=== PATIENT | female | born 1955 | race Hispanic/Latino ===

== ENCOUNTER 2016-07-30 09:31 | Outpatient (CLI) | payer MEDICARE ==
[2016-07-30] MEDS ORDERED: XYLOCAINE TOPICAL 2% TP ONE (09:57)
== END 2016-07-30 09:32 | disposition home or self-care (01) ==
LOC: WOUND 09:31
PROVIDERS: ATTEND Podiatrist
DX: E11.621 Type 2 diabetes mellitus with foot ulcer (principal); T81.89XD Other complications of procedures, not elsewhere classified, subsequent encounter; L97.522 Non-pressure chronic ulcer of other part of left foot with fat layer exposed; L97.412 Non-pressure chronic ulcer of right heel and midfoot with fat layer exposed; L97.521 Non-pressure chronic ulcer of other part of left foot limited to breakdown of skin; E78.5 Hyperlipidemia, unspecified; I25.10 Atherosclerotic heart disease of native coronary artery without angina pectoris; E11.40 Type 2 diabetes mellitus with diabetic neuropathy, unspecified; I10 Essential (primary) hypertension; I48.91 Unspecified atrial fibrillation; R05 Cough; R41.3 Other amnesia; Z87.891 Personal history of nicotine dependence; Z89.422 Acquired absence of other left toe(s); Y83.9 Surgical procedure, unspecified as the cause of abnormal reaction of the patient, or of later complication, without mention of misadventure at the time of the procedure

== ENCOUNTER 2016-08-20 11:12 | Outpatient (CLI) | payer MEDICARE ==
[2016-08-20] MEDS ORDERED: XYLOCAINE TOPICAL 4% TP ONE ×3 (11:25→14:46)
== END 2016-08-20 11:13 | disposition home or self-care (01) ==
LOC: WOUND 11:12
PROVIDERS: ATTEND Podiatrist
DX: E11.621 Type 2 diabetes mellitus with foot ulcer (principal); L97.412 Non-pressure chronic ulcer of right heel and midfoot with fat layer exposed; E11.40 Type 2 diabetes mellitus with diabetic neuropathy, unspecified; I10 Essential (primary) hypertension; I48.91 Unspecified atrial fibrillation; R41.3 Other amnesia; H91.90 Unspecified hearing loss, unspecified ear; E78.5 Hyperlipidemia, unspecified; I25.10 Atherosclerotic heart disease of native coronary artery without angina pectoris

== ENCOUNTER 2016-09-17 11:20 | Outpatient (CLI) | payer MEDICARE ==
[2016-09-17] MEDS ORDERED: XYLOCAINE TOPICAL 2% ONE (12:13)
[2016-09-17] MEDS ORDERED: SILVER NITRATE TP ONE ×2 (12:45→13:44)
[2016-09-17] MEDS ORDERED: XYLOCAINE TOPICAL 2% TP ONE (13:44)
== END 2016-09-17 11:21 | disposition home or self-care (01) ==
LOC: WOUND 11:20
PROVIDERS: ATTEND Podiatrist
DX: E11.621 Type 2 diabetes mellitus with foot ulcer (principal); L97.412 Non-pressure chronic ulcer of right heel and midfoot with fat layer exposed; E11.40 Type 2 diabetes mellitus with diabetic neuropathy, unspecified; R41.3 Other amnesia; H91.90 Unspecified hearing loss, unspecified ear; E78.5 Hyperlipidemia, unspecified; I48.91 Unspecified atrial fibrillation; I25.10 Atherosclerotic heart disease of native coronary artery without angina pectoris; I10 Essential (primary) hypertension; Z87.891 Personal history of nicotine dependence

== ENCOUNTER 2016-11-08 08:27 | Outpatient (CLI) | payer MEDICARE ==
[2016-11-08] MEDS ORDERED: XYLOCAINE TOPICAL 4% TP ONE ×2 (08:38→11:16)
[2016-11-08] MEDS ORDERED: MONSEL'S TP ONE ×2 (09:05→11:22)
== END 2016-11-08 08:28 | disposition home or self-care (01) ==
LOC: WOUND 08:27
PROVIDERS: ATTEND Podiatrist
DX: E11.621 Type 2 diabetes mellitus with foot ulcer (principal); L97.412 Non-pressure chronic ulcer of right heel and midfoot with fat layer exposed; E11.40 Type 2 diabetes mellitus with diabetic neuropathy, unspecified; H91.90 Unspecified hearing loss, unspecified ear; R41.3 Other amnesia; E78.5 Hyperlipidemia, unspecified; I48.91 Unspecified atrial fibrillation; I25.10 Atherosclerotic heart disease of native coronary artery without angina pectoris; I10 Essential (primary) hypertension; Z87.891 Personal history of nicotine dependence
CPT/HCPCS: 87116

== ENCOUNTER 2016-11-15 08:35 | Outpatient (CLI) | payer MEDICARE ==
[2016-11-15] MEDS ORDERED: XYLOCAINE TOPICAL 4% TP ONE (08:51)
== END 2016-11-15 08:36 | disposition home or self-care (01) ==
LOC: WOUND 08:35
PROVIDERS: ATTEND Podiatrist
DX: E11.621 Type 2 diabetes mellitus with foot ulcer (principal); L97.412 Non-pressure chronic ulcer of right heel and midfoot with fat layer exposed; E11.40 Type 2 diabetes mellitus with diabetic neuropathy, unspecified; H91.90 Unspecified hearing loss, unspecified ear; I48.91 Unspecified atrial fibrillation; E78.5 Hyperlipidemia, unspecified; I25.10 Atherosclerotic heart disease of native coronary artery without angina pectoris; I10 Essential (primary) hypertension; Z87.891 Personal history of nicotine dependence

== ENCOUNTER 2016-12-20 13:29 | Outpatient (CLI) | payer MEDICARE ==
[2016-12-20] MEDS ORDERED: XYLOCAINE TOPICAL 4% TP ONE (13:46)
== END 2016-12-20 13:30 | disposition home or self-care (01) ==
LOC: WOUND 13:29
PROVIDERS: ATTEND Podiatrist
DX: E11.621 Type 2 diabetes mellitus with foot ulcer (principal); L97.412 Non-pressure chronic ulcer of right heel and midfoot with fat layer exposed; E11.40 Type 2 diabetes mellitus with diabetic neuropathy, unspecified; H91.90 Unspecified hearing loss, unspecified ear; R41.3 Other amnesia; E78.5 Hyperlipidemia, unspecified; I48.91 Unspecified atrial fibrillation; I25.10 Atherosclerotic heart disease of native coronary artery without angina pectoris; I10 Essential (primary) hypertension; Z87.891 Personal history of nicotine dependence

== ENCOUNTER 2016-12-27 10:23 | Outpatient (CLI) | payer MEDICARE ==
[2016-12-27] MEDS ORDERED: XYLOCAINE TOPICAL 4% TP ONE (10:44)
== END 2016-12-27 10:24 | disposition home or self-care (01) ==
LOC: WOUND 10:23
PROVIDERS: ATTEND Podiatrist
DX: E11.621 Type 2 diabetes mellitus with foot ulcer (principal); L97.412 Non-pressure chronic ulcer of right heel and midfoot with fat layer exposed; E11.40 Type 2 diabetes mellitus with diabetic neuropathy, unspecified; H91.90 Unspecified hearing loss, unspecified ear; I48.91 Unspecified atrial fibrillation; I25.10 Atherosclerotic heart disease of native coronary artery without angina pectoris; E78.5 Hyperlipidemia, unspecified; I10 Essential (primary) hypertension; Z87.891 Personal history of nicotine dependence

== ENCOUNTER 2017-01-10 10:30 | Outpatient (CLI) | payer MEDICARE ==
[2017-01-10] MEDS ORDERED: XYLOCAINE TOPICAL 4% TP ONE ×2 (10:53→11:05)
== END 2017-01-10 10:31 | disposition home or self-care (01) ==
LOC: WOUND 10:30
PROVIDERS: ATTEND Podiatrist
DX: E11.621 Type 2 diabetes mellitus with foot ulcer (principal); L97.412 Non-pressure chronic ulcer of right heel and midfoot with fat layer exposed; E11.40 Type 2 diabetes mellitus with diabetic neuropathy, unspecified; E78.5 Hyperlipidemia, unspecified; I48.91 Unspecified atrial fibrillation; I25.10 Atherosclerotic heart disease of native coronary artery without angina pectoris; I10 Essential (primary) hypertension; H91.90 Unspecified hearing loss, unspecified ear; Z87.891 Personal history of nicotine dependence

== ENCOUNTER 2017-01-17 09:54 | Outpatient (CLI) | payer MEDICARE ==
[2017-01-17] MEDS ORDERED: XYLOCAINE TOPICAL 2% ONE (10:00)
[2017-01-17] MEDS ORDERED: XYLOCAINE TOPICAL 4% TP ONE (11:32)
== END 2017-01-17 09:55 | disposition home or self-care (01) ==
LOC: WOUND 09:54
PROVIDERS: ATTEND Podiatrist
DX: E11.621 Type 2 diabetes mellitus with foot ulcer (principal); L97.412 Non-pressure chronic ulcer of right heel and midfoot with fat layer exposed; E11.40 Type 2 diabetes mellitus with diabetic neuropathy, unspecified; H91.90 Unspecified hearing loss, unspecified ear; E78.5 Hyperlipidemia, unspecified; I48.91 Unspecified atrial fibrillation; I25.10 Atherosclerotic heart disease of native coronary artery without angina pectoris; I10 Essential (primary) hypertension; Z87.891 Personal history of nicotine dependence

== ENCOUNTER 2017-01-31 10:15 | Outpatient (CLI) | payer MEDICARE ==
[2017-01-31] MEDS ORDERED: XYLOCAINE TOPICAL 4% TP ONE ×2 (10:30→10:37)
== END 2017-01-31 10:16 | disposition home or self-care (01) ==
LOC: WOUND 10:15
PROVIDERS: ATTEND Podiatrist
DX: E11.621 Type 2 diabetes mellitus with foot ulcer (principal); L97.412 Non-pressure chronic ulcer of right heel and midfoot with fat layer exposed; E11.40 Type 2 diabetes mellitus with diabetic neuropathy, unspecified; H91.90 Unspecified hearing loss, unspecified ear; E78.5 Hyperlipidemia, unspecified; I48.91 Unspecified atrial fibrillation; I25.10 Atherosclerotic heart disease of native coronary artery without angina pectoris; I10 Essential (primary) hypertension; Z87.891 Personal history of nicotine dependence

== ENCOUNTER 2017-02-07 10:13 | Outpatient (CLI) | payer MEDICARE ==
[2017-02-07] MEDS ORDERED: XYLOCAINE TOPICAL 4% TP ONE (10:28)
== END 2017-02-07 10:14 | disposition home or self-care (01) ==
LOC: WOUND 10:13
PROVIDERS: ATTEND Podiatrist
DX: E11.621 Type 2 diabetes mellitus with foot ulcer (principal); L97.412 Non-pressure chronic ulcer of right heel and midfoot with fat layer exposed; E11.40 Type 2 diabetes mellitus with diabetic neuropathy, unspecified; E78.5 Hyperlipidemia, unspecified; I48.91 Unspecified atrial fibrillation; I25.10 Atherosclerotic heart disease of native coronary artery without angina pectoris; H91.90 Unspecified hearing loss, unspecified ear; Z87.891 Personal history of nicotine dependence

== ENCOUNTER 2017-03-07 10:02 | Outpatient (CLI) | payer MEDICARE ==
[~2017-03-07 10:02] MED LIST: NACL 0.45% 1000 ML 1,000 ML IV ONE
[2017-03-07] MEDS ORDERED: XYLOCAINE TOPICAL 4% TP ONE ×2 (10:39→10:49)
== END 2017-03-07 10:03 | disposition home or self-care (01) ==
LOC: WOUND 10:02
PROVIDERS: ATTEND Podiatrist
DX: E11.621 Type 2 diabetes mellitus with foot ulcer (principal); L97.412 Non-pressure chronic ulcer of right heel and midfoot with fat layer exposed; E11.40 Type 2 diabetes mellitus with diabetic neuropathy, unspecified; H91.90 Unspecified hearing loss, unspecified ear; E78.5 Hyperlipidemia, unspecified; I48.91 Unspecified atrial fibrillation; I25.10 Atherosclerotic heart disease of native coronary artery without angina pectoris; I10 Essential (primary) hypertension; Z87.891 Personal history of nicotine dependence
CPT/HCPCS: J1815

== ENCOUNTER 2017-04-04 09:56 | Outpatient (CLI) | payer MEDICARE ==
[2017-04-04] MEDS ORDERED: XYLOCAINE TOPICAL 4% TP ONE ×3 (10:19→10:45)
[2017-04-04] MEDS ORDERED: SILVER NITRATE TP ONE (11:33)
== END 2017-04-04 09:57 | disposition home or self-care (01) ==
LOC: WOUND 09:56
PROVIDERS: ATTEND Podiatrist
DX: E11.621 Type 2 diabetes mellitus with foot ulcer (principal); L97.412 Non-pressure chronic ulcer of right heel and midfoot with fat layer exposed; E11.40 Type 2 diabetes mellitus with diabetic neuropathy, unspecified; H91.90 Unspecified hearing loss, unspecified ear; I48.91 Unspecified atrial fibrillation; I25.10 Atherosclerotic heart disease of native coronary artery without angina pectoris; E78.5 Hyperlipidemia, unspecified; I10 Essential (primary) hypertension; Z87.891 Personal history of nicotine dependence

== ENCOUNTER 2017-04-11 10:04 | Outpatient (CLI) | payer MEDICARE ==
[2017-04-11] MEDS ORDERED: XYLOCAINE TOPICAL 4% TP ONE (10:20)
== END 2017-04-11 10:05 | disposition home or self-care (01) ==
LOC: WOUND 10:04
PROVIDERS: ATTEND Podiatrist
DX: E11.621 Type 2 diabetes mellitus with foot ulcer (principal); L97.412 Non-pressure chronic ulcer of right heel and midfoot with fat layer exposed; E11.40 Type 2 diabetes mellitus with diabetic neuropathy, unspecified; I25.10 Atherosclerotic heart disease of native coronary artery without angina pectoris; I48.91 Unspecified atrial fibrillation; E78.5 Hyperlipidemia, unspecified; I10 Essential (primary) hypertension; Z87.891 Personal history of nicotine dependence

== ENCOUNTER 2017-04-18 10:48 | Outpatient (CLI) | payer MEDICARE ==
[2017-04-18] MEDS ORDERED: XYLOCAINE TOPICAL 4% TP ONE (11:04)
== END 2017-04-18 10:49 | disposition home or self-care (01) ==
LOC: WOUND 10:48
PROVIDERS: ATTEND Podiatrist
DX: E11.621 Type 2 diabetes mellitus with foot ulcer (principal); L97.412 Non-pressure chronic ulcer of right heel and midfoot with fat layer exposed; E11.40 Type 2 diabetes mellitus with diabetic neuropathy, unspecified; E78.5 Hyperlipidemia, unspecified; I48.91 Unspecified atrial fibrillation; I25.10 Atherosclerotic heart disease of native coronary artery without angina pectoris; I10 Essential (primary) hypertension; Z87.891 Personal history of nicotine dependence
CPT/HCPCS: 29445

== ENCOUNTER 2017-04-22 14:18 | Outpatient (CLI) | payer MEDICARE | END 2017-04-22 14:19 | disposition home or self-care (01) | LOC: WOUND 14:18 | PROVIDERS: ATTEND Surgery | DX: E11.621 Type 2 diabetes mellitus with foot ulcer (principal); L97.511 Non-pressure chronic ulcer of other part of right foot limited to breakdown of skin; E11.40 Type 2 diabetes mellitus with diabetic neuropathy, unspecified; E78.5 Hyperlipidemia, unspecified; I48.91 Unspecified atrial fibrillation; I25.10 Atherosclerotic heart disease of native coronary artery without angina pectoris; I10 Essential (primary) hypertension; Z87.891 Personal history of nicotine dependence | CPT/HCPCS: 29445 ==

== ENCOUNTER 2017-04-25 09:43 | Outpatient (CLI) | payer MEDICARE ==
[2017-04-25] MEDS ORDERED: XYLOCAINE TOPICAL 4% TP ONE (10:12)
== END 2017-04-25 09:44 | disposition home or self-care (01) ==
LOC: WOUND 09:43
PROVIDERS: ATTEND Podiatrist
DX: E11.621 Type 2 diabetes mellitus with foot ulcer (principal); L97.412 Non-pressure chronic ulcer of right heel and midfoot with fat layer exposed; E11.40 Type 2 diabetes mellitus with diabetic neuropathy, unspecified; E78.5 Hyperlipidemia, unspecified; I48.91 Unspecified atrial fibrillation; I25.10 Atherosclerotic heart disease of native coronary artery without angina pectoris; I10 Essential (primary) hypertension; Z87.891 Personal history of nicotine dependence
CPT/HCPCS: 29445

== ENCOUNTER 2017-05-09 10:00 | Outpatient (CLI) | payer MEDICARE ==
[2017-05-09] MEDS ORDERED: XYLOCAINE TOPICAL 4% TP ONE ×2 (10:25→11:16)
== END 2017-05-09 10:01 | disposition home or self-care (01) ==
LOC: WOUND 10:00
PROVIDERS: ATTEND Podiatrist
DX: E11.621 Type 2 diabetes mellitus with foot ulcer (principal); L97.412 Non-pressure chronic ulcer of right heel and midfoot with fat layer exposed; E11.40 Type 2 diabetes mellitus with diabetic neuropathy, unspecified; E78.5 Hyperlipidemia, unspecified; I48.91 Unspecified atrial fibrillation; I25.10 Atherosclerotic heart disease of native coronary artery without angina pectoris; H91.90 Unspecified hearing loss, unspecified ear; Z87.891 Personal history of nicotine dependence

== ENCOUNTER 2017-05-16 10:23 | Outpatient (CLI) | payer MEDICARE ==
[2017-05-16] MEDS ORDERED: XYLOCAINE TOPICAL 4% TP ONE (12:00)
== END 2017-05-16 10:24 | disposition home or self-care (01) ==
LOC: WOUND 10:23
PROVIDERS: ATTEND Podiatrist
DX: E11.621 Type 2 diabetes mellitus with foot ulcer (principal); L97.412 Non-pressure chronic ulcer of right heel and midfoot with fat layer exposed; L97.521 Non-pressure chronic ulcer of other part of left foot limited to breakdown of skin; E11.40 Type 2 diabetes mellitus with diabetic neuropathy, unspecified; E78.5 Hyperlipidemia, unspecified; I48.91 Unspecified atrial fibrillation; I25.10 Atherosclerotic heart disease of native coronary artery without angina pectoris; I10 Essential (primary) hypertension; Z87.891 Personal history of nicotine dependence

== ENCOUNTER 2017-05-30 10:25 | Outpatient (CLI) | payer MEDICARE ==
[2017-05-30] MEDS ORDERED: XYLOCAINE TOPICAL 4% TP ONE (10:46)
== END 2017-05-30 10:26 | disposition home or self-care (01) ==
LOC: WOUND 10:25
PROVIDERS: ATTEND Podiatrist
DX: E11.621 Type 2 diabetes mellitus with foot ulcer (principal); L97.412 Non-pressure chronic ulcer of right heel and midfoot with fat layer exposed; L97.521 Non-pressure chronic ulcer of other part of left foot limited to breakdown of skin; E11.40 Type 2 diabetes mellitus with diabetic neuropathy, unspecified; E78.5 Hyperlipidemia, unspecified; I10 Essential (primary) hypertension; I25.10 Atherosclerotic heart disease of native coronary artery without angina pectoris; I48.91 Unspecified atrial fibrillation; H91.90 Unspecified hearing loss, unspecified ear; Z87.891 Personal history of nicotine dependence

== ENCOUNTER 2017-06-13 10:51 | Outpatient (CLI) | payer MEDICARE ==
[2017-06-13] MEDS ORDERED: XYLOCAINE 1% 20 mL ONE (11:18)
[2017-06-13] MEDS ORDERED: XYLOCAINE TOPICAL 4% TP ONE ×2 (11:18→11:54)
== END 2017-06-13 10:52 | disposition home or self-care (01) ==
LOC: WOUND 10:51
PROVIDERS: ATTEND Podiatrist
DX: E11.621 Type 2 diabetes mellitus with foot ulcer (principal); L97.412 Non-pressure chronic ulcer of right heel and midfoot with fat layer exposed; E11.40 Type 2 diabetes mellitus with diabetic neuropathy, unspecified; E78.5 Hyperlipidemia, unspecified; I48.91 Unspecified atrial fibrillation; I25.10 Atherosclerotic heart disease of native coronary artery without angina pectoris; H91.90 Unspecified hearing loss, unspecified ear; I10 Essential (primary) hypertension; Z87.891 Personal history of nicotine dependence

== ENCOUNTER 2017-06-20 10:54 | Outpatient (CLI) | payer MEDICARE ==
[2017-06-20] MEDS ORDERED: XYLOCAINE TOPICAL 4% TP ONE (11:29)
== END 2017-06-20 10:55 | disposition home or self-care (01) ==
LOC: WOUND 10:54
PROVIDERS: ATTEND Podiatrist
DX: E11.621 Type 2 diabetes mellitus with foot ulcer (principal); L97.512 Non-pressure chronic ulcer of other part of right foot with fat layer exposed; E11.40 Type 2 diabetes mellitus with diabetic neuropathy, unspecified; E78.5 Hyperlipidemia, unspecified; I48.91 Unspecified atrial fibrillation; I25.10 Atherosclerotic heart disease of native coronary artery without angina pectoris; I10 Essential (primary) hypertension; Z98.61 Coronary angioplasty status; Z87.891 Personal history of nicotine dependence

== ENCOUNTER 2017-06-27 10:11 | Outpatient (CLI) | payer MEDICARE ==
[2017-06-27] MEDS ORDERED: XYLOCAINE TOPICAL 4% TP ONE (10:37)
== END 2017-06-27 10:12 | disposition home or self-care (01) ==
LOC: WOUND 10:11
PROVIDERS: ATTEND Podiatrist
DX: E11.621 Type 2 diabetes mellitus with foot ulcer (principal); L97.412 Non-pressure chronic ulcer of right heel and midfoot with fat layer exposed; E11.622 Type 2 diabetes mellitus with other skin ulcer; L97.322 Non-pressure chronic ulcer of left ankle with fat layer exposed; E11.40 Type 2 diabetes mellitus with diabetic neuropathy, unspecified; E78.5 Hyperlipidemia, unspecified; I48.91 Unspecified atrial fibrillation; I25.10 Atherosclerotic heart disease of native coronary artery without angina pectoris; B35.1 Tinea unguium; I10 Essential (primary) hypertension; H91.90 Unspecified hearing loss, unspecified ear; Z87.891 Personal history of nicotine dependence

== ENCOUNTER 2017-07-25 10:24 | Outpatient (CLI) | payer MEDICARE ==
[2017-07-25] MEDS ORDERED: XYLOCAINE TOPICAL 4% TP ONE ×2 (10:38→10:51)
== END 2017-07-25 10:25 | disposition home or self-care (01) ==
LOC: WOUND 10:24
PROVIDERS: ATTEND Podiatrist
DX: E11.621 Type 2 diabetes mellitus with foot ulcer (principal); L97.412 Non-pressure chronic ulcer of right heel and midfoot with fat layer exposed; E11.622 Type 2 diabetes mellitus with other skin ulcer; L97.322 Non-pressure chronic ulcer of left ankle with fat layer exposed; E11.40 Type 2 diabetes mellitus with diabetic neuropathy, unspecified; E78.5 Hyperlipidemia, unspecified; I48.91 Unspecified atrial fibrillation; I25.10 Atherosclerotic heart disease of native coronary artery without angina pectoris; Z87.891 Personal history of nicotine dependence
CPT/HCPCS: 87076; 87116; 87186

== ENCOUNTER 2017-08-08 10:43 | Outpatient (CLI) | payer MEDICARE ==
[2017-08-08] MEDS ORDERED: XYLOCAINE TOPICAL 4% TP ONE ×2 (11:10→11:11)
== END 2017-08-08 10:44 | disposition home or self-care (01) ==
LOC: WOUND 10:43
PROVIDERS: ATTEND Podiatrist
DX: E11.621 Type 2 diabetes mellitus with foot ulcer (principal); L97.412 Non-pressure chronic ulcer of right heel and midfoot with fat layer exposed; E11.622 Type 2 diabetes mellitus with other skin ulcer; L97.322 Non-pressure chronic ulcer of left ankle with fat layer exposed; E11.40 Type 2 diabetes mellitus with diabetic neuropathy, unspecified; E78.5 Hyperlipidemia, unspecified; I48.91 Unspecified atrial fibrillation; I25.10 Atherosclerotic heart disease of native coronary artery without angina pectoris; I10 Essential (primary) hypertension; Z87.891 Personal history of nicotine dependence

== ENCOUNTER 2017-08-15 10:22 | Outpatient (CLI) | payer MEDICARE ==
[2017-08-15] MEDS ORDERED: XYLOCAINE TOPICAL 4% TP ONE ×2 (11:00→11:02)
== END 2017-08-15 10:23 | disposition home or self-care (01) ==
LOC: WOUND 10:22
PROVIDERS: ATTEND Podiatrist
DX: E11.621 Type 2 diabetes mellitus with foot ulcer (principal); L97.412 Non-pressure chronic ulcer of right heel and midfoot with fat layer exposed; E11.622 Type 2 diabetes mellitus with other skin ulcer; L97.322 Non-pressure chronic ulcer of left ankle with fat layer exposed; E11.40 Type 2 diabetes mellitus with diabetic neuropathy, unspecified; E78.5 Hyperlipidemia, unspecified; I48.91 Unspecified atrial fibrillation; I25.10 Atherosclerotic heart disease of native coronary artery without angina pectoris; H91.90 Unspecified hearing loss, unspecified ear; Z87.891 Personal history of nicotine dependence

== ENCOUNTER 2017-08-22 10:23 | Outpatient (CLI) | payer MEDICARE ==
[2017-08-22] MEDS ORDERED: XYLOCAINE TOPICAL 4% TP ONE ×2 (10:45→10:55)
== END 2017-08-22 10:24 | disposition home or self-care (01) ==
LOC: WOUND 10:23
PROVIDERS: ATTEND Podiatrist
DX: E11.621 Type 2 diabetes mellitus with foot ulcer (principal); L97.412 Non-pressure chronic ulcer of right heel and midfoot with fat layer exposed; L97.322 Non-pressure chronic ulcer of left ankle with fat layer exposed; E11.40 Type 2 diabetes mellitus with diabetic neuropathy, unspecified; I48.91 Unspecified atrial fibrillation; I25.10 Atherosclerotic heart disease of native coronary artery without angina pectoris; E78.5 Hyperlipidemia, unspecified; I10 Essential (primary) hypertension; H91.90 Unspecified hearing loss, unspecified ear; Z87.891 Personal history of nicotine dependence

== ENCOUNTER 2017-08-29 10:35 | Outpatient (CLI) | payer MEDICARE ==
[2017-08-29] MEDS ORDERED: XYLOCAINE TOPICAL 4% TP ONE ×2 (11:00→11:09)
== END 2017-08-29 10:36 | disposition home or self-care (01) ==
LOC: WOUND 10:35
PROVIDERS: ATTEND Podiatrist
DX: E11.621 Type 2 diabetes mellitus with foot ulcer (principal); L97.412 Non-pressure chronic ulcer of right heel and midfoot with fat layer exposed; E11.40 Type 2 diabetes mellitus with diabetic neuropathy, unspecified; E78.5 Hyperlipidemia, unspecified; I48.91 Unspecified atrial fibrillation; I25.10 Atherosclerotic heart disease of native coronary artery without angina pectoris; I10 Essential (primary) hypertension; Z87.891 Personal history of nicotine dependence

== ENCOUNTER 2017-09-12 10:25 | Outpatient (CLI) | payer MEDICARE ==
[2017-09-12] MEDS ORDERED: XYLOCAINE TOPICAL 4% TP ONE (10:43)
== END 2017-09-12 10:26 | disposition home or self-care (01) ==
LOC: WOUND 10:25
PROVIDERS: ATTEND Podiatrist
DX: E11.621 Type 2 diabetes mellitus with foot ulcer (principal); L97.412 Non-pressure chronic ulcer of right heel and midfoot with fat layer exposed; E11.40 Type 2 diabetes mellitus with diabetic neuropathy, unspecified; E78.5 Hyperlipidemia, unspecified; I48.91 Unspecified atrial fibrillation; I25.10 Atherosclerotic heart disease of native coronary artery without angina pectoris; I10 Essential (primary) hypertension; Z87.891 Personal history of nicotine dependence

== ENCOUNTER 2017-10-03 10:33 | Outpatient (CLI) | payer MEDICARE ==
[2017-10-03] MEDS ORDERED: XYLOCAINE TOPICAL 4% TP ONE (11:19)
== END 2017-10-03 10:34 | disposition home or self-care (01) ==
LOC: WOUND 10:33
PROVIDERS: ATTEND Podiatrist
DX: E11.621 Type 2 diabetes mellitus with foot ulcer (principal); L97.412 Non-pressure chronic ulcer of right heel and midfoot with fat layer exposed; E11.40 Type 2 diabetes mellitus with diabetic neuropathy, unspecified; E78.5 Hyperlipidemia, unspecified; I48.91 Unspecified atrial fibrillation; I25.10 Atherosclerotic heart disease of native coronary artery without angina pectoris; I10 Essential (primary) hypertension; Z87.891 Personal history of nicotine dependence

== ENCOUNTER 2017-10-24 10:40 | Outpatient (CLI) | payer MEDICARE ==
[2017-10-24] MEDS ORDERED: XYLOCAINE TOPICAL 4% TP ONE (11:37)
== END 2017-10-24 10:41 | disposition home or self-care (01) ==
LOC: WOUND 10:40
PROVIDERS: ATTEND Podiatrist
DX: E11.621 Type 2 diabetes mellitus with foot ulcer (principal); L97.412 Non-pressure chronic ulcer of right heel and midfoot with fat layer exposed; E11.40 Type 2 diabetes mellitus with diabetic neuropathy, unspecified; E78.5 Hyperlipidemia, unspecified; I48.91 Unspecified atrial fibrillation; I25.10 Atherosclerotic heart disease of native coronary artery without angina pectoris; I10 Essential (primary) hypertension; Z87.891 Personal history of nicotine dependence

== ENCOUNTER 2017-11-07 11:12 | Outpatient (CLI) | payer MEDICARE | END 2017-11-07 11:13 | disposition home or self-care (01) | LOC: WOUND 11:12 | PROVIDERS: ATTEND Surgery | DX: E11.621 Type 2 diabetes mellitus with foot ulcer (principal); L97.412 Non-pressure chronic ulcer of right heel and midfoot with fat layer exposed; E11.40 Type 2 diabetes mellitus with diabetic neuropathy, unspecified; E78.5 Hyperlipidemia, unspecified; I48.91 Unspecified atrial fibrillation; I25.10 Atherosclerotic heart disease of native coronary artery without angina pectoris; I10 Essential (primary) hypertension; Z87.891 Personal history of nicotine dependence | CPT/HCPCS: 99213; G0463 ==

== ENCOUNTER 2017-11-21 10:24 | Outpatient (CLI) | payer MEDICARE | END 2017-11-21 10:25 | disposition home or self-care (01) | LOC: WOUND 10:24 | PROVIDERS: ATTEND Surgery | DX: E11.621 Type 2 diabetes mellitus with foot ulcer (principal); L97.412 Non-pressure chronic ulcer of right heel and midfoot with fat layer exposed; E11.40 Type 2 diabetes mellitus with diabetic neuropathy, unspecified; E78.5 Hyperlipidemia, unspecified; I48.91 Unspecified atrial fibrillation; I25.10 Atherosclerotic heart disease of native coronary artery without angina pectoris; I10 Essential (primary) hypertension; Z87.891 Personal history of nicotine dependence | CPT/HCPCS: 97597 ==

== ENCOUNTER 2018-01-09 10:56 | Outpatient (CLI) | payer MEDICARE ==
[2018-01-09] MEDS ORDERED: XYLOCAINE TOPICAL 4% TP ONE ×2 (11:49→11:50)
== END 2018-01-09 10:57 | disposition home or self-care (01) ==
LOC: WOUND 10:56
PROVIDERS: ATTEND Surgery
DX: E11.621 Type 2 diabetes mellitus with foot ulcer (principal); L97.412 Non-pressure chronic ulcer of right heel and midfoot with fat layer exposed; E11.40 Type 2 diabetes mellitus with diabetic neuropathy, unspecified; E78.5 Hyperlipidemia, unspecified; I48.91 Unspecified atrial fibrillation; I25.10 Atherosclerotic heart disease of native coronary artery without angina pectoris; I10 Essential (primary) hypertension; Z87.891 Personal history of nicotine dependence
CPT/HCPCS: 29580

== ENCOUNTER 2018-01-16 10:15 | Outpatient (CLI) | payer MEDICARE ==
[2018-01-16] MEDS ORDERED: XYLOCAINE TOPICAL 4% TP ONE ×2 (10:27→10:31)
== END 2018-01-16 10:16 | disposition home or self-care (01) ==
LOC: WOUND 10:15
PROVIDERS: ATTEND Surgery
DX: E11.621 Type 2 diabetes mellitus with foot ulcer (principal); L97.412 Non-pressure chronic ulcer of right heel and midfoot with fat layer exposed; E11.40 Type 2 diabetes mellitus with diabetic neuropathy, unspecified; E78.5 Hyperlipidemia, unspecified; I48.91 Unspecified atrial fibrillation; I25.10 Atherosclerotic heart disease of native coronary artery without angina pectoris; I10 Essential (primary) hypertension; Z87.891 Personal history of nicotine dependence
CPT/HCPCS: 29581

== ENCOUNTER 2018-01-19 11:40 | Outpatient (CLI) | payer MEDICARE | END 2018-01-19 11:41 | disposition home or self-care (01) | LOC: WOUND 11:40 | PROVIDERS: ATTEND Surgery | DX: E11.621 Type 2 diabetes mellitus with foot ulcer (principal); L97.412 Non-pressure chronic ulcer of right heel and midfoot with fat layer exposed; E11.40 Type 2 diabetes mellitus with diabetic neuropathy, unspecified; E78.5 Hyperlipidemia, unspecified; I48.91 Unspecified atrial fibrillation; I25.10 Atherosclerotic heart disease of native coronary artery without angina pectoris; I10 Essential (primary) hypertension; Z87.891 Personal history of nicotine dependence | CPT/HCPCS: 29581; G0463 ==

== ENCOUNTER 2018-01-23 10:23 | Outpatient (CLI) | payer MEDICARE ==
[2018-01-23] MEDS ORDERED: XYLOCAINE TOPICAL 4% TP ONE ×2 (11:33→11:52)
== END 2018-01-23 10:24 | disposition home or self-care (01) ==
LOC: WOUND 10:23
PROVIDERS: ATTEND Surgery
DX: E11.621 Type 2 diabetes mellitus with foot ulcer (principal); L97.412 Non-pressure chronic ulcer of right heel and midfoot with fat layer exposed; E11.40 Type 2 diabetes mellitus with diabetic neuropathy, unspecified; E78.5 Hyperlipidemia, unspecified; I48.91 Unspecified atrial fibrillation; I25.10 Atherosclerotic heart disease of native coronary artery without angina pectoris; I10 Essential (primary) hypertension; Z87.891 Personal history of nicotine dependence

== ENCOUNTER 2018-01-23 13:10 | Inpatient (IN) | payer MEDICARE ==
[2018-01-23] MEDS ORDERED: NACL 0.9% 500 ML 500 ML IV ONE (13:34)
[2018-01-23 14:01] LABS: Basophils # (Auto) 0.1 K/mm3 (0.0-0.1); Basophils % (Auto) 0.5 % (0.0-1.8); Eosinophils # (Auto) 0.1 K/mm3 (0.0-0.4); Eosinophils % (Auto) 0.5 % (0.0-4.3); Hematocrit 33.9 % (30.3-42.9); Hemoglobin 11.7 gm/dl (10.1-14.3); Lymphocytes # (Auto) 1.9 K/mm3 (1.2-5.4); Lymphocytes % (Auto) 11.9 % (13.4-35.0); Mean Corpuscular HGB Conc 35 % (30-34); Mean Corpuscular Hemoglobin 30 pg (28-32); Mean Corpuscular Volume 86 fl (79-97); Monocytes # (Auto) 1.1 K/mm3 (0.0-0.8); Monocytes % (Auto) 6.8 % (0.0-7.3); Platelet Count 321 K/mm3 (140-440); Red Blood Count 3.93 M/mm3 (3.65-5.03); Red Cell Distribution Width 14.8 % (13.2-15.2)
[2018-01-23 14:12] LABS: INR 1.05 (0.87-1.13)
[2018-01-23 14:23] LABS: Alanine Aminotransferase 6 units/L (7-56); Albumin 3.2 g/dL (3.9-5); BUN/Creatinine Ratio 23; Blood Urea Nitrogen 14 mg/dL (7-17); Calcium 9.3 mg/dL (8.4-10.2); Hemolysis Index 1
--- NOTE | 2018-01-23 15:10 | XRay Report ---
Single view chest: Compared to 02/20/17. History: Possible sepsis. Findings: Normal cardiomediastinal silhouette. Trachea is midline. No consolidation, pneumothorax or pleural effusion. Impression: No acute cardiopulmonary findings.
[2018-01-23] MEDS ORDERED: ZOFRAN ONE (16:29)
[2018-01-23] MEDS ORDERED: NACL 0.9% 500 ML 500 ML ONE (16:37)
[2018-01-23] MEDS ORDERED: TYLENOL ONE (16:37)
[2018-01-23] MEDS ORDERED: VANCOMYCIN VIAL IV ONE (17:18)
--- NOTE | 2018-01-23 17:25 | Emergency Department Report ---
ED General Adult HPI - General Chief complaint: Wound/Laceration Stated complaint: INFECTION OF RIGHT FOOT Time Seen by Provider: 01/23/18 16:09 Source: patient Mode of arrival: Ambulatory Limitations: No Limitations - History of Present Illness Initial comments: Patient presents to the emergency department from home wound care clinic for an infection of her foot. Patient has a history of diabetes mellitus with neuropathy and states that the wound started off as a blister about a week ago and she was started on Keflex and sensation followed up with her wound care physician and was told to come to the emergency department for admission. -: Gradual Location: lower extremity Consistency: constant Improves with: none Worsens with: none Associated Symptoms: denies other symptoms - Related Data Previous Rx's Medication Instructions Recorded Last Taken Type Amitriptyline [Elavil] 50 mg PO QHS #60 tablet 02/24/17 Unknown Rx Clopidogrel [Plavix] 75 mg PO QDAY #30 tablet 02/24/17 Unknown Rx Fluconazole [Diflucan TAB] 100 mg PO QDAY #5 tablet 02/24/17 Unknown Rx Gabapentin [Neurontin] 100 mg PO Q8HR #90 capsule 02/24/17 Unknown Rx Insulin Detemir [Levemir VIAL] 50 unit SQ QHS 30 Days vial 02/24/17 Unknown Rx Insulin NPH/Regular [NovoLIN 70/30] 32 unit SUB-Q QAMDIAB 30 Days 02/24/17 Unknown Rx units Levofloxacin [Levaquin TAB] 750 mg PO Q24HR #3 tablet 02/24/17 Unknown Rx Losartan [Cozaar] 25 mg PO QDAY #30 tablet 02/24/17 Unknown Rx Lovastatin [Altoprev] 20 mg PO QPM #30 tab.er.24h 02/24/17 Unknown Rx Metoprolol [Lopressor TAB] 25 mg PO BID #60 tablet 02/24/17 Unknown Rx Allergies Allergy/AdvReac Type Severity Reaction Status Date / Time No Known Allergies Allergy Verified 09/11/15 15:55 ED Review of Systems ROS: Stated complaint: INFECTION OF RIGHT FOOT Other details as noted in HPI Comment: All other systems reviewed and negative Constitutional: denies: chills, fever Eyes: denies: eye pain, eye discharge, vision change ENT: denies: ear pain, throat pain Respiratory: denies: cough, shortness of breath, wheezing Cardiovascular: denies: chest pain, palpitations Endocrine: no symptoms reported Gastrointestinal: denies: abdominal pain, nausea, diarrhea Genitourinary: denies: urgency, dysuria, discharge Musculoskeletal: denies: back pain, joint swelling, arthralgia Skin: other (wound infection of foot) Neurological: denies: headache, weakness, paresthesias Psychiatric: denies: anxiety, depression Hematological/Lymphatic: denies: easy bleeding, easy bruising ED Past Medical Hx - Past Medical History Hx Hypertension: Yes Hx Congestive Heart Failure: No Hx Diabetes: Yes Hx Deep Vein Thrombosis: No Hx Asthma: No Hx COPD: No Additional medical history: hx a-fib. CHOLESTEROL - Surgical History Hx Pacemaker: No Hx Internal Defibrillator: No Additional Surgical History: foot surgery - Social History Smoking Status: Never Smoker - Medications Home Medications: Home Medications Medication Instructions Recorded Confirmed Last Taken Type Amitriptyline [Elavil] 50 mg PO QHS #60 tablet 02/24/17 Unknown Rx Clopidogrel [Plavix] 75 mg PO QDAY #30 tablet 02/24/17 Unknown Rx Fluconazole [Diflucan TAB] 100 mg PO QDAY #5 tablet 02/24/17 Unknown Rx Gabapentin [Neurontin] 100 mg PO Q8HR #90 capsule 02/24/17 Unknown Rx Insulin Detemir [Levemir VIAL] 50 unit SQ QHS 30 Days vial 02/24/17 Unknown Rx Insulin NPH/Regular [NovoLIN 70/30] 32 unit SUB-Q QAMDIAB 30 Days 02/24/17 Unknown Rx units Levofloxacin [Levaquin TAB] 750 mg PO Q24HR #3 tablet 02/24/17 Unknown Rx Losartan [Cozaar] 25 mg PO QDAY #30 tablet 02/24/17 Unknown Rx Lovastatin [Altoprev] 20 mg PO QPM #30 tab.er.24h 02/24/17 Unknown Rx Metoprolol [Lopressor TAB] 25 mg PO BID #60 tablet 02/24/17 Unknown Rx ED Physical Exam - General Limitations: No Limitations General appearance: alert, in no apparent distress - Head Head exam: Present: atraumatic, normocephalic - Eye Eye exam: Present: normal appearance, PERRL, EOMI. Absent: scleral icterus, conjunctival injection - ENT ENT exam: Present: mucous membranes moist - Neck Neck exam: Present: normal inspection - Respiratory Respiratory exam: Present: normal lung sounds bilaterally. Absent: respiratory distress, wheezes, rales - Cardiovascular Cardiovascular Exam: Present: regular rate, normal rhythm. Absent: systolic murmur, diastolic murmur, rubs, gallop - GI/Abdominal GI/Abdominal exam: Present: soft, normal bowel sounds. Absent: distended, tenderness - Extremities Exam Extremities exam: Present: normal inspection - Back Exam Back exam: Present: normal inspection - Neurological Exam Neurological exam: Present: alert, oriented X3, CN II-XII intact. Absent: motor sensory deficit - Psychiatric Psychiatric exam: Present: normal affect, normal mood - Skin Skin exam: Present: warm, dry, other (patient has a wound to the left foot with surrounding cellulitis that is malodorous in nature with purulent discharge) ED Course Vital Signs 01/23/18 13:17 Temperature 99.7 F H Pulse Rate 92 H Respiratory 18 Rate Blood Pressure 119/58 O2 Sat by Pulse 97 Oximetry ED Medical Decision Making - Lab Data Result diagrams: 01/23/18 13:39 01/23/18 13:39 - Medical Decision Making Discussed was also patient IV vancomycin initiated Critical care attestation.: If time is entered above; I have spent that time in minutes in the direct care of this critically ill patient, excluding procedure time. ED Disposition Clinical Impression: Cellulitis of foot Disposition: [id number] OP ADMIT IP TO THIS HOSP Is pt being admited?: Yes Does the pt Need Aspirin: No Condition: Fair Referrals: PRIMARY CARE, [Primary Care Provider] - 3-5 Days Time of Disposition: 17:45
--- NOTE | 2018-01-23 17:42 | History and Physical Report ---
History of Present Illness Chief complaint: My right foot hurts History of present illness: 62 YO Female with HTN, DM, Atrial Fib, HLD presents to ED for evaluation. Pt states that she has experienced redness and pain in her right foot over the past week, with worsening symptoms over the past 2 days. Pt was treated with outpatient oral antibiotic therapy without improvement in symptoms. Pt was seen and evaluated in wound clinic and instructed to seek further care and evaluation at [facility]. Pt seen and evaluated in ED and found to have Right foot cellulitis suspicious for osteomyelitis, as well as sepsis, and Acidosis. Pt acknowledges subjective fever, right foot redness and pain. Pt denies CP, Palpitations, NVD, Trauma, prolonged travel/immobility, individual/family history of DVT/PE, hemoptysis, shortness of breath, or recent ill contacts. Pt admitted to medical floor. Past History Past Medical History: atrial fib, diabetes, hypertension, hyperlipidemia Past Surgical History: No surgical history, Other (reviewed) Social history: single. denies: smoking, alcohol abuse, prescription drug abuse Family history: hypertension Medications and Allergies Allergies Allergy/AdvReac Type Severity Reaction Status Date / Time No Known Allergies Allergy Verified 09/11/15 15:55 Home Medications Medication Instructions Recorded Confirmed Last Taken Type Amitriptyline [Elavil] 50 mg PO QHS #60 tablet 02/24/17 Unknown Rx Clopidogrel [Plavix] 75 mg PO QDAY #30 tablet 02/24/17 Unknown Rx Fluconazole [Diflucan TAB] 100 mg PO QDAY #5 tablet 02/24/17 Unknown Rx Gabapentin [Neurontin] 100 mg PO Q8HR #90 capsule 02/24/17 Unknown Rx Insulin Detemir [Levemir VIAL] 50 unit SQ QHS 30 Days vial 02/24/17 Unknown Rx Insulin NPH/Regular [NovoLIN 70/30] 32 unit SUB-Q QAMDIAB 30 Days 02/24/17 Unknown Rx units Levofloxacin [Levaquin TAB] 750 mg PO Q24HR #3 tablet 02/24/17 Unknown Rx Losartan [Cozaar] 25 mg PO QDAY #30 tablet 02/24/17 Unknown Rx Lovastatin [Altoprev] 20 mg PO QPM #30 tab.er.24h 02/24/17 Unknown Rx Metoprolol [Lopressor TAB] 25 mg PO BID #60 tablet 02/24/17 Unknown Rx Active Meds: Active Medications Vancomycin HCl 1,500 mg/ (Sodium Chloride) 515 mls @ 333.333 mls/hr IV ONCE ONE Stop: 01/23/18 19:17 Review of Systems Constitutional: fever, no weight loss, no weight gain, no chills, no sweats Ears, nose, mouth and throat: no ear pain, no ear discharge, no tinnitis, no decreased hearing, no nose pain, no nasal congestion, no nasal discharge Breasts: no change in shape, no swelling, no mass Cardiovascular: no chest pain, no orthopnea, no palpitations, no syncope, no lightheadedness, no shortness of breath Respiratory: no cough, no cough with sputum, no excessive sputum, no hemoptysis , no shortness of breath Gastrointestinal: no abdominal pain, no nausea, no vomiting, no diarrhea, no constipation, no change in bowel habits, no hematemesis Genitourinary Female: no pelvic pain, no flank pain, no menorrhagia, no dysuria Rectal: no pain, no incontinence, no bleeding Musculoskeletal: no neck stiffness, no neck pain, no shooting arm pain, no arm numbness/tingling, no low back pain, no shooting leg pain, no leg numbness/ tingling Integumentary: redness Neurological: no head injury, no transient paralysis, no paralysis, no weakness , no parathesias, no numbness, no tingling Psychiatric: no anxiety, no memory loss, no change in sleep habits, no insomnia , no hypersomnia, no change in appetite Endocrine: no heat intolerance, no polyphagia, no excessive thirst, no polydipsia, no polyuria Hematologic/Lymphatic: no easy bruising, no easy bleeding, no lymphadenopathy, no lymphedema Allergic/Immunologic: no urticaria, no allergic rhinitis, no wheezing, no anaphylaxis, no angioedema Exam - Constitutional Vitals: Temp Pulse Resp BP Pulse Ox 99.7 F H 92 H 18 119/58 97 01/23/18 13:17 01/23/18 13:17 01/23/18 13:17 01/23/18 13:17 01/23/18 13:17 General appearance: Present: mild distress - EENT Eyes: Present: PERRL ENT: hearing intact, clear oral mucosa - Neck Neck: Present: supple, normal ROM - Respiratory Respiratory effort: normal Respiratory: bilateral: CTA - Cardiovascular Rhythm: irregularly irregular - Extremities Extremity abnormal: edema, erythema, tenderness Peripheral Pulses: abnormal (capillary refill greater than 3.6 seconds) - Abdominal General gastrointestinal: Present: soft, non-tender, non-distended, normal bowel sounds Female genitourinary: Present: normal - Integumentary Integumentary: Present: clear, warm, dry - Musculoskeletal Musculoskeletal: gait normal, strength equal bilaterally - Psychiatric Psychiatric: appropriate mood/affect, intact judgment & insight - Neurologic Neurologic: CNII-XII intact, moves all extremities Results - Labs CBC & Chem 7: 01/23/18 13:39 01/23/18 13:39 Labs: Abnormal lab results 01/23/18 01/23/18 01/23/18 Range/Units 13:29 13:39 13:39 WBC 15.6 H (4.5-11.0) K/mm3 MCHC 35 H (30-34) % Lymph % (Auto) 11.9 L (13.4-35.0) % [place] # 1.1 H (0.0-0.8) K/mm3 Seg Neutrophils % 80.3 H (40.0-70.0) % Seg Neutrophils # 12.5 H (1.8-7.7) K/mm3 Sodium 131 L (137-145) mmol/L Chloride 90.1 L (98-107) mmol/L Carbon Dioxide 18 L (22-30) mmol/L Creatinine 0.6 L (0.7-1.2) mg/dL Glucose 374 H (65-100) mg/dL POC Glucose 373 H (70-105) ALT 6 L (7-56) units/L Albumin 3.2 L (3.9-5) g/dL Assessment and Plan - Patient Problems (1) Sepsis Current Visit: Yes Status: Acute Qualifiers: Sepsis type: sepsis due to unspecified organism Qualified Code(s): A41.9 - Sepsis, unspecified organism Plan to address problem: Sepsis protocol: IV antibiotic therapy, IVF resuscitation, monitor uop q shift, serial lactic acid, blood cultures, CBC, CMP, (2) Cellulitis of foot Current Visit: Yes Status: Acute Plan to address problem: Secondary to Diabetic Foot: MR ANTOINE, pain control, IV antibiotic therapy, Surgery team consulted, (3) Acidosis Current Visit: Yes Status: Acute Plan to address problem: IVF resuscitation, serial lactic acid, treat sepsis (4) Hyponatremia syndrome Current Visit: Yes Status: Acute Plan to address problem: IVF resuscitation, monitor uop q shift, (5) Diabetes Current Visit: Yes Status: Acute Plan to address problem: ADA diet, insulin accucheck (6) HTN (hypertension) Current Visit: No Status: Chronic Qualifiers: Hypertension type: essential hypertension Qualified Code(s): I10 - Essential (primary) hypertension Plan to address problem: monitor bp q shift, resume prehospital therapy, continue medical management (7) DVT prophylaxis Current Visit: No Status: Acute Plan to address problem: SCD to ble while in bed.
[2018-01-23] MEDS ORDERED: TYLENOL PO PRN (17:44)
[2018-01-23] MEDS ORDERED: NACL 0.9% 1000 ML IV ONE (17:44)
[2018-01-23] MEDS ORDERED: ZOFRAN IV PRN (17:44)
[2018-01-23] MEDS ORDERED: PROVENTIL IH PRN (17:44)
[2018-01-23] MEDS ORDERED: SODIUM CHLORIDE FLUSH SYRINGE 10 ML IV PRN (17:44)
[2018-01-23] MEDS ORDERED: VANCOMYCIN 1,500 MG in NACL 0.9% 500 ML 500 ML IV ONE (17:45)
[2018-01-23] MEDS ORDERED: NON-FORMULARY (Lovastatin [Altoprev] 20 MG) PO SCH (18:00)
[2018-01-23] MEDS: PERCOCET 5/325 PO PRN ×2 (18:51→23:57)
[2018-01-23 21:21] LABS: Bilirubin,Urine NEG (Negative); Blood,Urine NEG (Negative); Color,Urine Yellow (Yellow); Mucus,Urine FEW /HPF; Protein,Urine <15 mg/dL mg/dL (Negative); Urobilinogen,Urine < 2.0 mg/dL (<2.0)
[2018-01-23] MEDS ORDERED: INSULIN DETEMIR 50 UNIT SQ SCH (22:00)
--- NOTE | 2018-01-23 23:18 | Event Note ---
Date: 01/23/18 Pt was sent over from Wound Clinic today due to foot infection. Spoke with Dr. Deng and gave our assessment and recommendations. Suggested CT of right foot, IV Abx, ID consult, and wound care consult. We would be happy to follow along with wound care nurse. If there is suggestion of deep space infection that might require toe amputation, then we would speak to Dr. Sheikh and ask for his assistance. Please call with any questions.
[2018-01-23] MEDS: ZOSYN/NS 4.5GM/100ML 4.5 GM/100 ML VIAL IV SCH (23:55)
[2018-01-23] MEDS: SODIUM CHLORIDE FLUSH SYRINGE 10 ML IV SCH (23:56)
[2018-01-23] MEDS: ELAVIL PO SCH (23:56)
[2018-01-23] MEDS: NEURONTIN PO SCH (23:57)
[2018-01-24] MEDS: LOPRESSOR PO SCH ×3 (00:09→23:55)
[2018-01-24] MEDS: LANTUS SUB-Q SCH ×2 (00:10→23:57)
[2018-01-24] MEDS: ZOSYN/NS 4.5GM/100ML 4.5 GM/100 ML VIAL IV SCH ×3 (06:04→23:54)
[2018-01-24] MEDS: NEURONTIN PO SCH ×3 (06:05→23:56)
[2018-01-24] MEDS ORDERED: D50W (25GM) Syringe IV PRN (08:44)
[2018-01-24] MEDS: COZAAR PO SCH (10:01)
[2018-01-24] MEDS: SODIUM CHLORIDE FLUSH SYRINGE 10 ML IV SCH ×2 (10:01→23:56)
[2018-01-24] MEDS: PLAVIX PO SCH (10:02)
[2018-01-24 10:13] LABS: Basophils # (Auto) 0.1 K/mm3 (0.0-0.1); Basophils % (Auto) 0.7 % (0.0-1.8); Eosinophils # (Auto) 0.2 K/mm3 (0.0-0.4); Hematocrit 35.5 % (30.3-42.9); Hemoglobin 11.8 gm/dl (10.1-14.3); Lymphocytes # (Auto) 0.9 K/mm3 (1.2-5.4); Lymphocytes % (Auto) 7.1 % (13.4-35.0); Mean Corpuscular HGB Conc 33 % (30-34); Mean Corpuscular Hemoglobin 29 pg (28-32); Mean Corpuscular Volume 87 fl (79-97); Monocytes # (Auto) 0.7 K/mm3 (0.0-0.8); Monocytes % (Auto) 5.4 % (0.0-7.3); Platelet Count 262 K/mm3 (140-440); Red Blood Count 4.08 M/mm3 (3.65-5.03); Red Cell Distribution Width 14.6 % (13.2-15.2)
[2018-01-24 10:30] LABS: BUN/Creatinine Ratio 16; Blood Urea Nitrogen 8 mg/dL (7-17); Calcium 8.5 mg/dL (8.4-10.2); Hemolysis Index 10
--- NOTE | 2018-01-24 13:01 | Progress Note ---
Assessment and Plan Assessment and plan: 62 YO Female with HTN, DM, CAD, HLD presents to ED for evaluation. Pt states that she has experienced redness and pain in her right foot over the past week, with worsening symptoms over the past 2 days. Pt was treated with outpatient oral antibiotic therapy without in symptoms. Pt was seen and evaluated in wound clinic and instructed to seek further care and evaluation at [facility]. Pt seen and evaluated in ED and found to have Right foot cellulitis suspicious for osteomyelitis, as well as sepsis, and Acidosis. Pt acknowledges subjective fever , right foot redness and pain. Sepsis due to right foot cellulitis - Evidenced by leucocytosis,tachycardia - On IV antibiotics Diabetic foot ulcer, right foot cellulitis - MRI of the leg was done and pending reading - Surgery was consulted and evaluated the patient, recommend to consult [place] Hypertension, CAD -Stable, continue home medications Uncontrolled diabetes mellitus with hyperglycemia - Patient is on basal and sliding scale insulin - Hemoglobin A1c is 12.5 DVT prophylaxis - On Lovenox Disposition - Continue inpatient care History Interval history: Patient was seen and evaluated this morning, patient denied fever, chills. Hospitalist Physical - Physical exam Narrative exam: Not in cardiopulmonary distress. The patient appeared well nourished and normally developed. Vital signs as documented. Head exam is unremarkable. No scleral icterus . Neck is without jugular venous distension, thyromegaly, or carotid bruits. Lungs are clear to auscultation. Cardiac exam reveals regular rate and Rhythm. Abdominal exam reveals normal bowel sounds. Extremities right foot ulcer. HEALTH EDUCATION DIRECTOR: Alert and oriented 3. No focal weakness. - Constitutional Vitals: Temp Pulse Resp BP Pulse Ox 98.7 F 86 18 124/61 96 01/24/18 06:11 01/24/18 10:01 01/24/18 06:11 01/24/18 10:01 01/24/18 09:37 General appearance: Present: mild distress Results - Labs CBC & Chem 7: 01/24/18 09:13 01/24/18 09:13 Labs: Laboratory Last Values WBC 12.2 K/mm3 (4.5-11.0) H 01/24/18 09:13 RBC 4.08 M/mm3 (3.65-5.03) 01/24/18 09:13 Hgb 11.8 gm/dl (10.1-14.3) 01/24/18 09:13 Hct 35.5 % (30.3-42.9) 01/24/18 09:13 MCV 87 fl (79-97) 01/24/18 09:13 MCH 29 pg (28-32) 01/24/18 09:13 MCHC 33 % (30-34) 01/24/18 09:13 RDW 14.6 % (13.2-15.2) 01/24/18 09:13 Plt Count 262 K/mm3 (140-440) 01/24/18 09:13 Lymph % (Auto) 7.1 % (13.4-35.0) L 01/24/18 09:13 [place] % (Auto) 5.4 % (0.0-7.3) 01/24/18 09:13 Eos % (Auto) 2.0 % (0.0-4.3) 01/24/18 09:13 Baso % (Auto) 0.7 % (0.0-1.8) 01/24/18 09:13 Lymph # 0.9 K/mm3 (1.2-5.4) L 01/24/18 09:13 [place] # 0.7 K/mm3 (0.0-0.8) 01/24/18 09:13 Eos # 0.2 K/mm3 (0.0-0.4) 01/24/18 09:13 Baso # 0.1 K/mm3 (0.0-0.1) 01/24/18 09:13 Seg Neutrophils % 84.8 % (40.0-70.0) H 01/24/18 09:13 Seg Neutrophils # 10.4 K/mm3 (1.8-7.7) H 01/24/18 09:13 PT 14.3 Sec. (12.2-14.9) 01/23/18 13:39 INR 1.05 (0.87-1.13) 01/23/18 13:39 VBG pH 7.353 (7.320-7.420) 01/23/18 13:39 Sodium 134 mmol/L (137-145) L 01/24/18 09:13 Potassium 4.5 mmol/L (3.6-5.0) 01/24/18 09:13 Chloride 97.7 mmol/L (98-107) L 01/24/18 09:13 Carbon Dioxide 22 mmol/L (22-30) 01/24/18 09:13 Anion Gap 19 mmol/L 01/24/18 09:13 BUN 8 mg/dL (7-17) 01/24/18 09:13 Creatinine 0.5 mg/dL (0.7-1.2) L 01/24/18 09:13 Estimated GFR > 60 ml/min 01/24/18 09:13 BUN/Creatinine Ratio 16 % 01/24/18 09:13 Glucose 250 mg/dL (65-100) H 01/24/18 09:13 POC Glucose 260 (70-105) H 01/24/18 07:36 Hemoglobin A1c 12.7 % (4-6) H 01/23/18 17:58 Lactic Acid 1.10 mmol/L (0.7-2.0) 01/23/18 16:29 Calcium 8.5 mg/dL (8.4-10.2) 01/24/18 09:13 Total Bilirubin 1.20 mg/dL (0.1-1.2) 01/23/18 13:39 AST 8 units/L (5-40) 01/23/18 13:39 ALT 6 units/L (7-56) L 01/23/18 13:39 Alkaline Phosphatase 76 units/L (35-129) 01/23/18 13:39 Total Protein 7.2 g/dL (6.3-8.2) 01/23/18 13:39 Albumin 3.2 g/dL (3.9-5) L 01/23/18 13:39 Albumin/Globulin Ratio 0.8 % 01/23/18 13:39 Urine Color Yellow (Yellow) 01/23/18 21:03 Urine Turbidity Clear (Clear) 01/23/18 21:03 Urine pH 6.0 (5.0-7.0) 01/23/18 21:03 Ur Specific [place] 1.014 (1.003-1.030) 01/23/18 21:03 Urine Protein <15 mg/dl mg/dL (Negative) 01/23/18 21:03 Urine Glucose (UA) >=500 mg/dL (Negative) 01/23/18 21:03 Urine Ketones 80 mg/dL (Negative) 01/23/18 21:03 Urine Blood Neg (Negative) 01/23/18 21:03 Urine Nitrite Neg (Negative) 01/23/18 21:03 Urine Bilirubin Neg (Negative) 01/23/18 21:03 Urine Urobilinogen < 2.0 mg/dL (<2.0) 01/23/18 21:03 Ur Leukocyte Esterase Tr (Negative) 01/23/18 21:03 Urine WBC (Auto) 9.0 /HPF (0.0-6.0) H 01/23/18 21:03 Urine RBC (Auto) 6.0 /HPF (0.0-6.0) 01/23/18 21:03 U Epithel Cells (Auto) 1.0 /HPF (0-13.0) 01/23/18 21:03 Urine Mucus Few /HPF 01/23/18 21:03
[2018-01-24] MEDS: HumaLOG SUB-Q SCH ×3 (14:43→23:59)
--- NOTE | 2018-01-24 19:22 | Magnetic Resonance Report ---
FINAL REPORT PROCEDURE: MRI of the right foot without IV contrast followed by MRI of the foot without IV contrast. TECHNIQUE: Magnetic resonance imaging of the RIGHT foot was performed using standard pulse sequences before and after the IV injection of paramagnetic contrast. HISTORY: Diabetic foot COMPARISON: No prior studies are available for comparison. FINDINGS: The signal intensity from the bones of the feet appear normal with the exception of small osteochondral lesion involving the lateral aspect of the talar dome measuring 3.4 x 4.1 millimeter. There is no displacement of the bone lesion. There is moderate arthritic change at the articulation of the sustentacular talus and the talus. Moderate osteoarthritic change seen at the calcaneal cuboid joint. There also moderate arthritic change with marginal osteophyte formation and subchondral cyst at the talar navicular joint space. Mild to moderate osteoarthritic change seen at the MTP joint of the great toe. No fractures are identified. A large calcaneal spur is seen at the plantar fascia insertion site. There is skin thickening and subcutaneous edema visualized throughout the anterior aspect of the foot also the medial aspect of the foot and a portion of the plantar surface medially. This is greatest at midportion of the foot medially. There appears to be an ulceration or laceration medial to the navicular bone. There appears to be a small accessory ossicle medial to navicular bone. No definite radiopaque foreign body is seen. The signal intensity from the bones of the foot other than subchondral cyst formation appears normal. No marrow replacement is seen that would suggest osteomyelitis. Flexor and extensor tendons show no focal abnormalities. IMPRESSION: Skin thickening and subcutaneous edema visualized consistent with cellulitis. There appears to be an ulceration or laceration medial to the navicular bone. No marrow changes are seen that would suggest osteomyelitis. There appears to be a small accessory ossicle medial to the navicular bone. Arthritic change present as described. Small nondisplaced osteochondral lesion visualized involving the lateral aspect of the talar dome. Large calcaneal spur seen at the plantar fascia insertion site.
[2018-01-24] MEDS: PERCOCET 5/325 PO PRN (23:54)
[2018-01-24] MEDS: LOVENOX SUB-Q SCH (23:55)
[2018-01-24] MEDS: ELAVIL PO SCH (23:56)
[2018-01-25] MEDS: ZOSYN/NS 4.5GM/100ML 4.5 GM/100 ML VIAL IV SCH ×3 (06:28→22:45)
[2018-01-25] MEDS: NEURONTIN PO SCH ×3 (06:29→22:09)
[2018-01-25] MEDS: HumaLOG SUB-Q SCH ×4 (09:06→22:05)
[2018-01-25] MEDS: PLAVIX PO SCH (09:07)
[2018-01-25] MEDS: COZAAR PO SCH (09:08)
[2018-01-25] MEDS: SODIUM CHLORIDE FLUSH SYRINGE 10 ML IV SCH (09:08)
[2018-01-25] MEDS: LOPRESSOR PO SCH ×2 (09:09→22:14)
--- NOTE | 2018-01-25 09:32 | Progress Note ---
Assessment and Plan Assessment and plan: 62 YO Female with HTN, DM, CAD, HLD presents to ED for evaluation. Pt states that she has experienced redness and pain in her right foot over the past week, with worsening symptoms over the past 2 days. Pt was treated with outpatient oral antibiotic therapy without in symptoms. Pt was seen and evaluated in wound clinic and instructed to seek further care and evaluation at [facility]. Pt seen and evaluated in ED and found to have Right foot cellulitis suspicious for osteomyelitis, as well as sepsis, and Acidosis. Pt acknowledges subjective fever , right foot redness and pain. Sepsis due to right foot cellulitis - Evidenced by leucocytosis,tachycardia - On IV antibiotics Diabetic foot ulcer, right foot cellulitis - MRI of the leg was done and showed no osteomyelitis or abscess, patient will have wound debridement tomorrow - Surgery consult appreciated Hypertension, CAD -Stable, continue home medications Uncontrolled diabetes mellitus with hyperglycemia - Patient is on basal and sliding scale insulin - Hemoglobin A1c is 12.5 DVT prophylaxis - On Lovenox Disposition - Continue inpatient care History Interval history: Patient was seen and evaluated this morning, patient denied fever, chills. Hospitalist Physical - Physical exam Narrative exam: Not in cardiopulmonary distress. The patient appeared well nourished and normally developed. Vital signs as documented. Head exam is unremarkable. No scleral icterus . Neck is without jugular venous distension, thyromegaly, or carotid bruits. Lungs are clear to auscultation. Cardiac exam reveals regular rate and Rhythm. Abdominal exam reveals normal bowel sounds. Extremities right foot ulcer. 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 No focal weakness. - Constitutional Vitals: Temp Pulse Resp BP Pulse Ox 98.0 F 81 16 113/62 98 01/25/18 06:26 01/25/18 09:09 01/25/18 06:26 01/25/18 06:26 01/25/18 06:26 General appearance: Present: mild distress Results - Labs CBC & Chem 7: 01/24/18 09:13 01/24/18 09:13 Labs: Laboratory Last Values WBC 12.2 K/mm3 (4.5-11.0) H 01/24/18 09:13 RBC 4.08 M/mm3 (3.65-5.03) 01/24/18 09:13 Hgb 11.8 gm/dl (10.1-14.3) 01/24/18 09:13 Hct 35.5 % (30.3-42.9) 01/24/18 09:13 MCV 87 fl (79-97) 01/24/18 09:13 MCH 29 pg (28-32) 01/24/18 09:13 MCHC 33 % (30-34) 01/24/18 09:13 RDW 14.6 % (13.2-15.2) 01/24/18 09:13 Plt Count 262 K/mm3 (140-440) 01/24/18 09:13 Lymph % (Auto) 7.1 % (13.4-35.0) L 01/24/18 09:13 [place] % (Auto) 5.4 % (0.0-7.3) 01/24/18 09:13 Eos % (Auto) 2.0 % (0.0-4.3) 01/24/18 09:13 Baso % (Auto) 0.7 % (0.0-1.8) 01/24/18 09:13 Lymph # 0.9 K/mm3 (1.2-5.4) L 01/24/18 09:13 [place] # 0.7 K/mm3 (0.0-0.8) 01/24/18 09:13 Eos # 0.2 K/mm3 (0.0-0.4) 01/24/18 09:13 Baso # 0.1 K/mm3 (0.0-0.1) 01/24/18 09:13 Seg Neutrophils % 84.8 % (40.0-70.0) H 01/24/18 09:13 Seg Neutrophils # 10.4 K/mm3 (1.8-7.7) H 01/24/18 09:13 PT 14.3 Sec. (12.2-14.9) 01/23/18 13:39 INR 1.05 (0.87-1.13) 01/23/18 13:39 VBG pH 7.353 (7.320-7.420) 01/23/18 13:39 Sodium 134 mmol/L (137-145) L 01/24/18 09:13 Potassium 4.5 mmol/L (3.6-5.0) 01/24/18 09:13 Chloride 97.7 mmol/L (98-107) L 01/24/18 09:13 Carbon Dioxide 22 mmol/L (22-30) 01/24/18 09:13 Anion Gap 19 mmol/L 01/24/18 09:13 BUN 8 mg/dL (7-17) 01/24/18 09:13 Creatinine 0.5 mg/dL (0.7-1.2) L 01/24/18 09:13 Estimated GFR > 60 ml/min 01/24/18 09:13 BUN/Creatinine Ratio 16 % 01/24/18 09:13 Glucose 250 mg/dL (65-100) H 01/24/18 09:13 POC Glucose 161 (70-105) H 01/25/18 07:39 Hemoglobin A1c 12.7 % (4-6) H 01/23/18 17:58 Lactic Acid 1.10 mmol/L (0.7-2.0) 01/23/18 16:29 Calcium 8.5 mg/dL (8.4-10.2) 01/24/18 09:13 Total Bilirubin 1.20 mg/dL (0.1-1.2) 01/23/18 13:39 AST 8 units/L (5-40) 01/23/18 13:39 ALT 6 units/L (7-56) L 01/23/18 13:39 Alkaline Phosphatase 76 units/L (35-129) 01/23/18 13:39 Total Protein 7.2 g/dL (6.3-8.2) 01/23/18 13:39 Albumin 3.2 g/dL (3.9-5) L 01/23/18 13:39 Albumin/Globulin Ratio 0.8 % 01/23/18 13:39 Urine Color Yellow (Yellow) 01/23/18 21:03 Urine Turbidity Clear (Clear) 01/23/18 21:03 Urine pH 6.0 (5.0-7.0) 01/23/18 21:03 Ur Specific [place] 1.014 (1.003-1.030) 01/23/18 21:03 Urine Protein <15 mg/dl mg/dL (Negative) 01/23/18 21:03 Urine Glucose (UA) >=500 mg/dL (Negative) 01/23/18 21:03 Urine Ketones 80 mg/dL (Negative) 01/23/18 21:03 Urine Blood Neg (Negative) 01/23/18 21:03 Urine Nitrite Neg (Negative) 01/23/18 21:03 Urine Bilirubin Neg (Negative) 01/23/18 21:03 Urine Urobilinogen < 2.0 mg/dL (<2.0) 01/23/18 21:03 Ur Leukocyte Esterase Tr (Negative) 01/23/18 21:03 Urine WBC (Auto) 9.0 /HPF (0.0-6.0) H 01/23/18 21:03 Urine RBC (Auto) 6.0 /HPF (0.0-6.0) 01/23/18 21:03 U Epithel Cells (Auto) 1.0 /HPF (0-13.0) 01/23/18 21:03 Urine Mucus Few /HPF 01/23/18 21:03
--- NOTE | 2018-01-25 12:21 | Event Note ---
Date: 01/25/18 Pt seen, chart reviewed, and foot wound examined. The patient feels better after starting IV abx but still feels a little weak. VSS and she has been afebrile. MRI foot showed findings consistent with cellulitis and NO indication of osteomyelitis or abscess. Examination of the foot reveals cellulitis of second, third, and fourth toes along with dorsal aspect of foot. There is purulent drainage between the first and second, second and third toes. No TTP. Discussed with Dr. Bonner. He will resume care of patient in the am and place a consult note in chart as he is following patient in wound care clinic. Will cancel consult to Dr. Sheikh. Nursing instructed to pack interdigital areas with mesalt and wrap foot with kerlex. Patient to be made NPO p MN for possible debridement tomorrow. D/W Dr. Shah and patient made aware.
[2018-01-25 15:38] LABS: BUN/Creatinine Ratio 16; Blood Urea Nitrogen 8 mg/dL (7-17); Calcium 8.5 mg/dL (8.4-10.2); Hemolysis Index 124
[2018-01-25 20:45] LABS: Basophils % (Auto) 0.3 % (0.0-1.8); Eosinophils # (Auto) 0.2 K/mm3 (0.0-0.4); Eosinophils % (Auto) 1.7 % (0.0-4.3); Hemoglobin 11.6 gm/dl (10.1-14.3); Lymphocytes # (Auto) 1.7 K/mm3 (1.2-5.4); Lymphocytes % (Auto) 11.3 % (13.4-35.0); Mean Corpuscular HGB Conc 34 % (30-34); Mean Corpuscular Hemoglobin 29 pg (28-32); Mean Corpuscular Volume 86 fl (79-97); Monocytes # (Auto) 0.9 K/mm3 (0.0-0.8); Platelet Count 306 K/mm3 (140-440); Red Blood Count 3.98 M/mm3 (3.65-5.03); Red Cell Distribution Width 14.7 % (13.2-15.2)
[2018-01-25] MEDS: LANTUS SUB-Q SCH (22:07)
[2018-01-25] MEDS: PERCOCET 5/325 PO PRN (22:09)
[2018-01-25] MEDS: ELAVIL PO SCH (22:09)
[2018-01-25] MEDS: LOVENOX SUB-Q SCH (22:46)
[2018-01-26] MEDS: SODIUM CHLORIDE FLUSH SYRINGE 10 ML IV SCH ×3 (04:27→21:38)
[2018-01-26] MEDS: NEURONTIN PO SCH ×3 (06:01→21:25)
[2018-01-26] MEDS: ZOSYN/NS 4.5GM/100ML 4.5 GM/100 ML VIAL IV SCH ×3 (06:59→21:40)
--- NOTE | 2018-01-26 08:42 | Progress Note ---
Assessment and Plan Assessment and plan: 62 YO Female with HTN, DM, CAD, HLD presents to ED for evaluation. Pt states that she has experienced redness and pain in her right foot over the past week, with worsening symptoms over the past 2 days. Pt was treated with outpatient oral antibiotic therapy without in symptoms. Pt was seen and evaluated in wound clinic and instructed to seek further care and evaluation at [facility]. Pt seen and evaluated in ED and found to have Right foot cellulitis suspicious for osteomyelitis, as well as sepsis, and Acidosis. Pt acknowledges subjective fever , right foot redness and pain. Sepsis due to right foot cellulitis - Evidenced by leucocytosis,tachycardia - On IV zosyn - Patient was shooting fever overnight and leukocytosis is trending up - ID consult placed Diabetic foot ulcer, right foot cellulitis - MRI of the leg was done and showed no osteomyelitis or abscess, patient will have wound debridement tomorrow - Surgery consult appreciated Hypertension, CAD -Stable, continue home medications Uncontrolled diabetes mellitus with hyperglycemia - Patient is on basal and sliding scale insulin - Hemoglobin A1c is 12.5 DVT prophylaxis - On Lovenox Disposition - Continue inpatient care History Interval history: Patient was seen and evaluated this morning, patient was shooting fever overnight. Hospitalist Physical - Physical exam Narrative exam: Not in cardiopulmonary distress. The patient appeared well nourished and normally developed. Vital signs as documented. Head exam is unremarkable. No scleral icterus . Neck is without jugular venous distension, thyromegaly, or carotid bruits. Lungs are clear to auscultation. Cardiac exam reveals regular rate and Rhythm. Abdominal exam reveals normal bowel sounds. Extremities right foot ulcer. 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 No focal weakness. - Constitutional Vitals: Temp Pulse Resp BP Pulse Ox 98.0 F 78 16 117/59 96 01/26/18 06:00 01/26/18 06:00 01/26/18 06:00 01/26/18 06:00 01/26/18 06:00 General appearance: Present: mild distress Results - Labs CBC & Chem 7: 01/25/18 20:16 01/25/18 13:31 Labs: Laboratory Last Values WBC 15.0 K/mm3 (4.5-11.0) H 01/25/18 20:16 RBC 3.98 M/mm3 (3.65-5.03) 01/25/18 20:16 Hgb 11.6 gm/dl (10.1-14.3) 01/25/18 20:16 Hct 34.0 % (30.3-42.9) 01/25/18 20:16 MCV 86 fl (79-97) 01/25/18 20:16 MCH 29 pg (28-32) 01/25/18 20:16 MCHC 34 % (30-34) 01/25/18 20:16 RDW 14.7 % (13.2-15.2) 01/25/18 20:16 Plt Count 306 K/mm3 (140-440) 01/25/18 20:16 Lymph % (Auto) 11.3 % (13.4-35.0) L 01/25/18 20:16 [place] % (Auto) 6.0 % (0.0-7.3) 01/25/18 20:16 Eos % (Auto) 1.7 % (0.0-4.3) 01/25/18 20:16 Baso % (Auto) 0.3 % (0.0-1.8) 01/25/18 20:16 Lymph # 1.7 K/mm3 (1.2-5.4) 01/25/18 20:16 [place] # 0.9 K/mm3 (0.0-0.8) H 01/25/18 20:16 Eos # 0.2 K/mm3 (0.0-0.4) 01/25/18 20:16 Baso # 0.0 K/mm3 (0.0-0.1) 01/25/18 20:16 Seg Neutrophils % 80.7 % (40.0-70.0) H 01/25/18 20:16 Seg Neutrophils # 12.1 K/mm3 (1.8-7.7) H 01/25/18 20:16 PT 14.3 Sec. (12.2-14.9) 01/23/18 13:39 INR 1.05 (0.87-1.13) 01/23/18 13:39 VBG pH 7.353 (7.320-7.420) 01/23/18 13:39 Sodium 132 mmol/L (137-145) L 01/25/18 13:31 Potassium 4.5 mmol/L (3.6-5.0) 01/25/18 13:31 Chloride 93.4 mmol/L (98-107) L 01/25/18 13:31 Carbon Dioxide 18 mmol/L (22-30) L 01/25/18 13:31 Anion Gap 25 mmol/L 01/25/18 13:31 BUN 8 mg/dL (7-17) 01/25/18 13:31 Creatinine 0.5 mg/dL (0.7-1.2) L 01/25/18 13:31 Estimated GFR > 60 ml/min 01/25/18 13:31 BUN/Creatinine Ratio 16 % 01/25/18 13:31 Glucose 82 mg/dL (65-100) 01/25/18 13:31 POC Glucose 89 (70-105) 01/26/18 08:04 Hemoglobin A1c 12.7 % (4-6) H 01/23/18 17:58 Lactic Acid 1.10 mmol/L (0.7-2.0) 01/23/18 16:29 Calcium 8.5 mg/dL (8.4-10.2) 01/25/18 13:31 Total Bilirubin 1.20 mg/dL (0.1-1.2) 01/23/18 13:39 AST 8 units/L (5-40) 01/23/18 13:39 ALT 6 units/L (7-56) L 01/23/18 13:39 Alkaline Phosphatase 76 units/L (35-129) 01/23/18 13:39 Total Protein 7.2 g/dL (6.3-8.2) 01/23/18 13:39 Albumin 3.2 g/dL (3.9-5) L 01/23/18 13:39 Albumin/Globulin Ratio 0.8 % 01/23/18 13:39 Urine Color Yellow (Yellow) 01/23/18 21:03 Urine Turbidity Clear (Clear) 01/23/18 21:03 Urine pH 6.0 (5.0-7.0) 01/23/18 21:03 Ur Specific [place] 1.014 (1.003-1.030) 01/23/18 21:03 Urine Protein <15 mg/dl mg/dL (Negative) 01/23/18 21:03 Urine Glucose (UA) >=500 mg/dL (Negative) 01/23/18 21:03 Urine Ketones 80 mg/dL (Negative) 01/23/18 21:03 Urine Blood Neg (Negative) 01/23/18 21:03 Urine Nitrite Neg (Negative) 01/23/18 21:03 Urine Bilirubin Neg (Negative) 01/23/18 21:03 Urine Urobilinogen < 2.0 mg/dL (<2.0) 01/23/18 21:03 Ur Leukocyte Esterase Tr (Negative) 01/23/18 21:03 Urine WBC (Auto) 9.0 /HPF (0.0-6.0) H 01/23/18 21:03 Urine RBC (Auto) 6.0 /HPF (0.0-6.0) 01/23/18 21:03 U Epithel Cells (Auto) 1.0 /HPF (0-13.0) 01/23/18 21:03 Urine Mucus Few /HPF 01/23/18 21:03
[2018-01-26] MEDS: HumaLOG SUB-Q SCH ×3 (08:50→17:47)
[2018-01-26] MEDS ORDERED: ZOFRAN IV PRN (10:12)
[2018-01-26] MEDS ORDERED: DILAUDID IV PRN ×2 (10:12→11:14)
[2018-01-26] MEDS: LOPRESSOR PO SCH (10:23)
[2018-01-26] MEDS: D5NS 1,000 ML IV SCH ×2 (10:23→21:20)
--- NOTE | 2018-01-26 10:37 | Anesthesia Consultation ---
Anesthesia Consult and Med Hx Date of service: 01/26/18 - Airway Anesthetic Teeth Evaluation: Good ROM Head & Neck: Adequate Mental/Hyoid Distance: Adequate Mallampati Class: Class III Intubation Access Assessment: Possibly Difficult - Pulmonary Exam CTA: Yes - Cardiac Exam Cardiac Exam: RRR - Pre-Operative Health Status ASA Pre-Surgery Classification: ASA3 Proposed Anesthetic Plan: General Nerve Block: Ank - Pulmonary Hx Smoking: Yes (former) Hx Asthma: No COPD: No Hx Pneumonia: No - Cardiovascular System Hx Hypertension: Yes Hx Cardia Arrhythmia: Yes (A fib) Hx Pacemaker: No Hx Internal Defibrillator: No - Gastrointestinal Hx Ulcer: Yes - Endocrine Hx End Stage Renal Disease: No Hx Insulin Dependent Diabetes: Yes
--- NOTE | 2018-01-26 10:38 | Anesthesia Day of Surgery ---
Anesthesia Day of Surgery - Day of Surgery Patient Examined: Yes Patient H&P Reviewed: Yes Patient is NPO: Yes
--- NOTE | 2018-01-26 10:56 | Consultation ---
History of Present Illness Consult date: 01/26/18 Reason for consult: wound care Requesting physician: VAIBHAV HAMEED Chief complaint: Right foot infection - History of present illness History of present illness: 62-year-old female with a chronic wound on the right foot has been managed in one [facility] clinic. She was admitted last week due to a new infection involving the right foot. We are being asked to see the patient to evaluate for any surgical intervention may be needed. Patient is well known to us from the care clinic. She reports that she is feeling better. She has neuropathy, she has no sensation in the foot. However her general feeling is better. She still continues to have some fevers and chills but it is better. Denies any nausea or vomiting. Is agreeable to going to the operating room today for debridement. Past History Past Medical History: atrial fib, diabetes, hypertension, hyperlipidemia Past Surgical History: No surgical history, Other (reviewed) Social history: single. denies: smoking, alcohol abuse, prescription drug abuse Family history: hypertension Medications and Allergies Allergies Allergy/AdvReac Type Severity Reaction Status Date / Time No Known Allergies Allergy Verified 09/11/15 15:55 Home Medications Medication Instructions Recorded Confirmed Last Taken Type Amitriptyline [Elavil] 50 mg PO QHS #60 tablet 02/24/17 Unknown Rx Clopidogrel [Plavix] 75 mg PO QDAY #30 tablet 02/24/17 Unknown Rx Fluconazole [Diflucan TAB] 100 mg PO QDAY #5 tablet 02/24/17 Unknown Rx Gabapentin [Neurontin] 100 mg PO Q8HR #90 capsule 02/24/17 Unknown Rx Insulin Detemir [Levemir VIAL] 50 unit SQ QHS 30 Days vial 02/24/17 Unknown Rx Insulin NPH/Regular [NovoLIN 70/30] 32 unit SUB-Q QAMDIAB 30 Days 02/24/17 Unknown Rx units Levofloxacin [Levaquin TAB] 750 mg PO Q24HR #3 tablet 02/24/17 Unknown Rx Losartan [Cozaar] 25 mg PO QDAY #30 tablet 02/24/17 Unknown Rx Lovastatin [Altoprev] 20 mg PO QPM #30 tab.er.24h 02/24/17 Unknown Rx Metoprolol [Lopressor TAB] 25 mg PO BID #60 tablet 02/24/17 Unknown Rx Active Meds: Active Medications Acetaminophen (Tylenol) 650 mg PO Q4H PRN PRN Reason: Pain MILD(1-3)/Fever >100.5/BEJARANO Albuterol (Proventil) 2.5 mg IH Q4HRT PRN PRN Reason: Shortness Of Breath Amitriptyline HCl (Elavil) 50 mg PO QHS [facility] Last Admin: 01/25/18 22:09 Dose: 50 mg Atorvastatin Calcium (Lipitor) 20 mg PO QHS [facility] Last Admin: 01/25/18 22:09 Dose: 20 mg Clopidogrel Bisulfate (Plavix) 75 mg PO QDAY [facility] Last Admin: 01/25/18 09:07 Dose: 75 mg Dextrose (D50w (25gm) Syringe) 50 ml IV PRN PRN PRN Reason: Hypoglycemia Enoxaparin Sodium (Lovenox) 40 mg SUB-Q QDAY@2200 [facility] Last Admin: 01/25/18 22:46 Dose: Not Given Gabapentin (Neurontin) 100 mg PO Q8HR [facility] Last Admin: 01/26/18 06:01 Dose: Not Given Hydromorphone HCl (Dilaudid) 0.5 mg IV Q10MIN PRN PRN Reason: Pain , Severe (7-10) Stop: 01/26/18 23:59 Piperacillin Sod/Tazobactam Sod (Zosyn/Ns 4.5gm/100ml) 4.5 gm in 100 mls @ 200 mls/hr IV Q8HR [facility]; Protocol Last Admin: 01/26/18 06:59 Dose: 200 mls/hr Dextrose/Sodium Chloride (D5ns) 1,000 mls @ 100 mls/hr IV DIRECT [facility] Last Admin: 01/26/18 10:23 Dose: 100 mls/hr Sodium Chloride (Nacl 0.9% 1000 Ml) 1,000 mls @ 100 mls/hr IV DIRECT [facility] Insulin Glargine (Lantus) 50 units SUB-Q QHS [facility] Last Admin: 01/25/18 22:07 Dose: 50 units Insulin Human Isoph/Insulin Regular (Humulin 70/30) 32 unit SUB-Q QAMDIAB [facility] Last Admin: 01/26/18 08:51 Dose: Not Given Insulin Human Lispro (Humalog) 0 unit SUB-Q ACHS [facility]; Protocol Last Admin: 01/26/18 08:50 Dose: Not Given Losartan Potassium (Cozaar) 25 mg PO QDAY [facility] Last Admin: 01/25/18 09:08 Dose: 25 mg Metoprolol Tartrate (Lopressor) 25 mg PO BID [facility] Last Admin: 01/26/18 10:23 Dose: 25 mg Midazolam HCl (Versed) 2 mg IV PREOP NR Stop: 01/26/18 23:59 Ondansetron HCl (Zofran) 4 mg IV Q8H PRN PRN Reason: Nausea And Vomiting Ondansetron HCl (Zofran) 4 mg IV ONCE PRN PRN Reason: Nausea And Vomiting Oxycodone/Acetaminophen (Percocet 5/325) 1 tab PO Q6H PRN PRN Reason: Pain, Moderate (4-6) Last Admin: 01/25/18 22:09 Dose: 1 tab Sodium Chloride (Sodium Chloride Flush Syringe 10 Ml) 10 ml IV BID [facility] Last Admin: 01/26/18 04:27 Dose: 10 ml Sodium Chloride (Sodium Chloride Flush Syringe 10 Ml) 10 ml IV PRN PRN PRN Reason: LINE FLUSH Review of Systems - Constitutional fever, chills, fatigue, no sweats - Cardiovascular no chest pain - Respiratory no cough, no shortness of breath - Gastrointestinal nausea, vomiting, no abdominal pain - Genitourinary Genitourinary: no dysuria - Muskuloskeletal other (wounds on the right foot) - Integumentary redness, wounds, color changes, unusual bruising, foot/leg ulcers Exam Vital Signs Temp Pulse Resp BP Pulse Ox 99.7 F H 92 H 18 119/58 97 01/23/18 13:17 01/23/18 13:17 01/23/18 13:17 01/23/18 13:17 01/23/18 13:17 - General physical appearance Positive: well developed, well nourished, no distress, no pain, other (pleasant) - Respiratory Positive: normal expansion, normal respiratory effort, clear to auscultation - Cardiovascular Rhythm: irregularly irregular - Integumentary other (2 large wounds are noted on the medial aspect of the right foot. Distal one has purulent drainage. Additional wounds are noted in the 1st webspace. Erythema on the dorsum of the foot is less compared to last week. Patient has no sensation on the foot) - Neurologic Neurologic: alert and oriented to time, place and person, motor strength and sensation are grossly intact - Psychiatric Psychiatric: appropriate mood/affect, intact judgment & insight Results - Labs 01/25/18 20:16 01/25/18 13:31 Abnormal lab results 01/25/18 01/25/18 01/25/18 Range/Units 11:40 13:31 16:37 WBC (4.5-11.0) K/mm3 Lymph % (Auto) (13.4-35.0) % [place] # (0.0-0.8) K/mm3 Seg Neutrophils % (40.0-70.0) % Seg Neutrophils # (1.8-7.7) K/mm3 Sodium 132 L (137-145) mmol/L Chloride 93.4 L (98-107) mmol/L Carbon Dioxide 18 L (22-30) mmol/L Creatinine 0.5 L (0.7-1.2) mg/dL POC Glucose 122 H 121 H (70-105) 01/25/18 01/25/18 Range/Units 20:16 21:44 WBC 15.0 H (4.5-11.0) K/mm3 Lymph % (Auto) 11.3 L (13.4-35.0) % [place] # 0.9 H (0.0-0.8) K/mm3 Seg Neutrophils % 80.7 H (40.0-70.0) % Seg Neutrophils # 12.1 H (1.8-7.7) K/mm3 Sodium (137-145) mmol/L Chloride (98-107) mmol/L Carbon Dioxide (22-30) mmol/L Creatinine (0.7-1.2) mg/dL POC Glucose 270 H (70-105) Diabetes panel 01/25/18 Range/Units 13:31 Sodium 132 L (137-145) mmol/L Potassium 4.5 (3.6-5.0) mmol/L Chloride 93.4 L (98-107) mmol/L Carbon Dioxide 18 L (22-30) mmol/L BUN 8 (7-17) mg/dL Creatinine 0.5 L (0.7-1.2) mg/dL Glucose 82 (65-100) mg/dL Calcium 8.5 (8.4-10.2) mg/dL Calcium panel 01/25/18 Range/Units 13:31 Calcium 8.5 (8.4-10.2) mg/dL Pituitary panel 01/25/18 Range/Units 13:31 Sodium 132 L (137-145) mmol/L Potassium 4.5 (3.6-5.0) mmol/L Chloride 93.4 L (98-107) mmol/L Carbon Dioxide 18 L (22-30) mmol/L BUN 8 (7-17) mg/dL Creatinine 0.5 L (0.7-1.2) mg/dL Glucose 82 (65-100) mg/dL Calcium 8.5 (8.4-10.2) mg/dL Adrenal panel 01/25/18 Range/Units 13:31 Sodium 132 L (137-145) mmol/L Potassium 4.5 (3.6-5.0) mmol/L Chloride 93.4 L (98-107) mmol/L Carbon Dioxide 18 L (22-30) mmol/L BUN 8 (7-17) mg/dL Creatinine 0.5 L (0.7-1.2) mg/dL Glucose 82 (65-100) mg/dL Calcium 8.5 (8.4-10.2) mg/dL - Imaging Additional studies: MRI of the foot-results and report were reviewed. Assessment and Plan - Patient Problems (1) Cellulitis of foot Current Visit: Yes Status: Acute Plan to address problem: Appears improved with IV antibiotics. Antibiotic choice and duration per the primary team. (2) Right foot ulcer Current Visit: No Status: Chronic Qualifiers: Non-pressure ulcer stage: with fat layer exposed Qualified Code(s): L97.512 - Non-pressure chronic ulcer of other part of right foot with fat layer exposed Plan to address problem: Even though the erythema is improved, she continues to have purulent drainage. I think she would benefit from a formal debridement. Procedure, risks, benefits , alternatives were discussed. All questions were answered. Consent was obtained. She will be added onto the midwife and birth center owner scheduled for today. Time=45min
[2018-01-26] MEDS ORDERED: NACL 0.9% 1000 ML 1,000 ML IV SCH (11:00)
[2018-01-26] MEDS ORDERED: VERSED IV NR (11:00)
--- NOTE | 2018-01-26 11:12 | Anesthesia Day of Surgery ---
Anesthesia Day of Surgery - Day of Surgery Patient Examined: Yes Patient H&P Reviewed: Yes Patient is NPO: Yes
--- NOTE | 2018-01-26 11:13 | Anesthesia Consultation ---
Anesthesia Consult and Med Hx Date of service: 01/26/18 - Airway ROM Head & Neck: Adequate Mental/Hyoid Distance: Adequate Mallampati Class: Class II Intubation Access Assessment: Probably Good - Pulmonary Exam CTA: Yes - Cardiac Exam Cardiac Exam: RRR - Pre-Operative Health Status ASA Pre-Surgery Classification: ASA3 Proposed Anesthetic Plan: General (CAD- 1 stent, A fib , HTN, DM, Denies GERD, Denies CHF) - Pulmonary Hx Smoking: Yes (former) Hx Asthma: No COPD: No Hx Pneumonia: No - Cardiovascular System Hx Hypertension: Yes Hx Cardia Arrhythmia: Yes (A fib) Hx Pacemaker: No Hx Internal Defibrillator: No - Gastrointestinal Hx Ulcer: Yes - Endocrine Hx End Stage Renal Disease: No Hx Insulin Dependent Diabetes: Yes
--- NOTE | 2018-01-26 12:03 | Consultation ---
History of Present Illness - Reason for Consult Consult date: 01/26/18 diabetic foot infection Requesting physician: VAIBHAV HAMEED - History of Present Illness 62 y/o female with history of HTN, DM, Atrial Fib, HLD and chronic right diabetic foot ulcer; admitted on 01/23/18 due to a week history of worsening right foot erythema, edema and ulcer drainage. She has been seen at [facility] wound clinic for several months. Wound cultures from Jun 2017 grew Klebsiella, E colix2 and Strep group B. In the ED, temp 99.7 --> 100.6, HR 92, R 18, BP 119/58. WBC 12.2. Hg 11.7. Plat 321. Glucose 374. A1C 12.7. UA neg for UTI. Foot MRI showed cellulitis, no osteomyelitis. CXR neg. Microbiology: Blood cultures: 01/23 ngtd Urine cultures: 01/23 10-100K mixed bacteria Respiratory cultures: Current Antimicrobials: Zosyn 01/23 Previous Antimicrobials: Past History Past Medical History: atrial fib, diabetes, hypertension, hyperlipidemia Past Surgical History: No surgical history, Other (reviewed) Social history: single. denies: smoking, alcohol abuse, prescription drug abuse Family history: hypertension Medications and Allergies Allergies Allergy/AdvReac Type Severity Reaction Status Date / Time No Known Allergies Allergy Verified 09/11/15 15:55 Home Medications Medication Instructions Recorded Confirmed Last Taken Type Amitriptyline [Elavil] 50 mg PO QHS #60 tablet 02/24/17 Unknown Rx Clopidogrel [Plavix] 75 mg PO QDAY #30 tablet 02/24/17 Unknown Rx Fluconazole [Diflucan TAB] 100 mg PO QDAY #5 tablet 02/24/17 Unknown Rx Gabapentin [Neurontin] 100 mg PO Q8HR #90 capsule 02/24/17 Unknown Rx Insulin Detemir [Levemir VIAL] 50 unit SQ QHS 30 Days vial 02/24/17 Unknown Rx Insulin NPH/Regular [NovoLIN 70/30] 32 unit SUB-Q QAMDIAB 30 Days 02/24/17 Unknown Rx units Levofloxacin [Levaquin TAB] 750 mg PO Q24HR #3 tablet 02/24/17 Unknown Rx Losartan [Cozaar] 25 mg PO QDAY #30 tablet 02/24/17 Unknown Rx Lovastatin [Altoprev] 20 mg PO QPM #30 tab.er.24h 02/24/17 Unknown Rx Metoprolol [Lopressor TAB] 25 mg PO BID #60 tablet 02/24/17 Unknown Rx Active Meds: Active Medications Acetaminophen (Tylenol) 650 mg PO Q4H PRN PRN Reason: Pain MILD(1-3)/Fever >100.5/BEJARANO Albuterol (Proventil) 2.5 mg IH Q4HRT PRN PRN Reason: Shortness Of Breath Amitriptyline HCl (Elavil) 50 mg PO QHS [facility] Last Admin: 01/25/18 22:09 Dose: 50 mg Atorvastatin Calcium (Lipitor) 20 mg PO QHS [facility] Last Admin: 01/25/18 22:09 Dose: 20 mg Clopidogrel Bisulfate (Plavix) 75 mg PO QDAY [facility] Last Admin: 01/25/18 09:07 Dose: 75 mg Dextrose (D50w (25gm) Syringe) 50 ml IV PRN PRN PRN Reason: Hypoglycemia Enoxaparin Sodium (Lovenox) 40 mg SUB-Q QDAY@2200 [facility] Last Admin: 01/25/18 22:46 Dose: Not Given Gabapentin (Neurontin) 100 mg PO Q8HR [facility] Last Admin: 01/26/18 06:01 Dose: Not Given Hydromorphone HCl (Dilaudid) 0.5 mg IV Q10MIN PRN PRN Reason: Pain , Severe (7-10) Stop: 01/26/18 23:59 Piperacillin Sod/Tazobactam Sod (Zosyn/Ns 4.5gm/100ml) 4.5 gm in 100 mls @ 200 mls/hr IV Q8HR [facility]; Protocol Last Admin: 01/26/18 06:59 Dose: 200 mls/hr Dextrose/Sodium Chloride (D5ns) 1,000 mls @ 100 mls/hr IV DIRECT IGNACIO Last Admin: 01/26/18 10:23 Dose: 100 mls/hr Sodium Chloride (Nacl 0.9% 1000 Ml) 1,000 mls @ 100 mls/hr IV DIRECT IGNACIO Insulin Glargine (Lantus) 50 units SUB-Q QHS [facility] Last Admin: 01/25/18 22:07 Dose: 50 units Insulin Human Isoph/Insulin Regular (Humulin 70/30) 32 unit SUB-Q QAMDIAB [facility] Last Admin: 01/26/18 08:51 Dose: Not Given Insulin Human Lispro (Humalog) 0 unit SUB-Q ACHS [facility]; Protocol Last Admin: 01/26/18 08:50 Dose: Not Given Losartan Potassium (Cozaar) 25 mg PO QDAY [facility] Last Admin: 01/25/18 09:08 Dose: 25 mg Metoprolol Tartrate (Lopressor) 25 mg PO BID [facility] Last Admin: 01/26/18 10:23 Dose: 25 mg Midazolam HCl (Versed) 2 mg IV PREOP NR Stop: 01/26/18 23:59 Ondansetron HCl (Zofran) 4 mg IV Q8H PRN PRN Reason: Nausea And Vomiting Ondansetron HCl (Zofran) 4 mg IV ONCE PRN PRN Reason: Nausea And Vomiting Oxycodone/Acetaminophen (Percocet 5/325) 1 tab PO Q6H PRN PRN Reason: Pain, Moderate (4-6) Last Admin: 01/25/18 22:09 Dose: 1 tab Sodium Chloride (Sodium Chloride Flush Syringe 10 Ml) 10 ml IV BID [facility] Last Admin: 01/26/18 04:27 Dose: 10 ml Sodium Chloride (Sodium Chloride Flush Syringe 10 Ml) 10 ml IV PRN PRN PRN Reason: LINE FLUSH Physical Examination - Physical Exam Narrative exam: General appearance: Alert in NAD, conversant Eyes: anicteric sclerae, moist conjunctivae; no lid-lag; PERRLA HENT: Atraumatic; oropharynx clear Neck: Trachea midline; supple, no thyromegaly or lymphadenopathy Lungs: CTA, with normal respiratory effort and no intercostal retractions CV: RRR, no murmurs Abdomen: Soft, non-tender; no masses or hepatosplenomegaly Extremities: +right forefoot erythema, edema, 1st and 2nd toe ulcer with maceration and mild clear drainage. right inner foot ulcer, +charcot deformity Skin: Normal temperature, turgor and texture; no rash, ulcers or subcutaneous nodules Psych: Appropriate affect, alert and oriented to person, place and time. Neuro: alert and oriented x 3. Moving all extermities Lines: No CVL / PICC - Constitutional Vitals: Vital Signs Temp Pulse Resp BP Pulse Ox 98.0 F 78 16 117/59 96 01/26/18 06:00 01/26/18 06:00 01/26/18 06:00 01/26/18 06:00 01/26/18 06:00 Temperature -Last 24 Hours Temperature 98.0 F Temperature 100.6 F Temperature 100.5 F Results - Labs CBC & Chem 7: 01/25/18 20:16 01/25/18 13:31 Labs: Abnormal lab results 01/25/18 01/25/18 01/25/18 Range/Units 11:40 13:31 16:37 WBC (4.5-11.0) K/mm3 Lymph % (Auto) (13.4-35.0) % [place] # (0.0-0.8) K/mm3 Seg Neutrophils % (40.0-70.0) % Seg Neutrophils # (1.8-7.7) K/mm3 Sodium 132 L (137-145) mmol/L Chloride 93.4 L (98-107) mmol/L Carbon Dioxide 18 L (22-30) mmol/L Creatinine 0.5 L (0.7-1.2) mg/dL POC Glucose 122 H 121 H (70-105) 01/25/18 01/25/18 Range/Units 20:16 21:44 WBC 15.0 H (4.5-11.0) K/mm3 Lymph % (Auto) 11.3 L (13.4-35.0) % [place] # 0.9 H (0.0-0.8) K/mm3 Seg Neutrophils % 80.7 H (40.0-70.0) % Seg Neutrophils # 12.1 H (1.8-7.7) K/mm3 Sodium (137-145) mmol/L Chloride (98-107) mmol/L Carbon Dioxide (22-30) mmol/L Creatinine (0.7-1.2) mg/dL POC Glucose 270 H (70-105) Assessment and Plan Assessment: 1) Sepsis: Present on admission, manifested by fever, tachycardia, leukocytosis. Etiology most likely right foot diabetic ulcer. 2) Chronic Right foot diabetic ulcers with acute cellulitis: -Wound cultures from Jun 2017 grew Klebsiella, E colix2 and Strep group B -Foot MRI showed cellulitis, no osteomyelitis. 3) HTN 4) Uncontrolled DM - Glucose 374, A1C 12.7. 5) Atrial Fib 6) HLD 7) Urine colonization Plan: -obtain arterial dopler -follow-up blood cultures -obtain wound cultures -continue zosyn -going to the OR today for debridement Thank you for your consultation, will follow up with you. Sena Heredia MD Infectious Diseases Specialist [facility] ([facility]) M [phone] O [phone]
[2018-01-26] MEDS: PLAVIX PO SCH (17:24)
[2018-01-26] MEDS: COZAAR PO SCH (17:47)
--- NOTE | 2018-01-26 18:12 | Event Note ---
Date: 01/26/18 Surgery postponed to tomorrow due to lack of OR space. Spoke with OR earlier. Unclear when the case may go tonight. Discussed with patient. She was ok waiting until tomorrow morning. Pt stable. I think she will be fine until tomorrow for the debridement. Resume diet tonight and then NPO after midnight.
[2018-01-26] MEDS: ELAVIL PO SCH (21:25)
[2018-01-26] MEDS: LOVENOX SUB-Q SCH (21:25)
[2018-01-26] MEDS: LANTUS SUB-Q SCH (21:32)
[2018-01-27] MEDS: HumaLOG SUB-Q SCH ×4 (02:23→18:00)
[2018-01-27] MEDS: LOPRESSOR PO SCH ×3 (02:26→23:00)
[2018-01-27 06:02] LABS: Basophils # (Auto) 0.1 K/mm3 (0.0-0.1); Basophils % (Auto) 0.7 % (0.0-1.8); Eosinophils # (Auto) 0.3 K/mm3 (0.0-0.4); Eosinophils % (Auto) 3.8 % (0.0-4.3); Hematocrit 31.6 % (30.3-42.9); Hemoglobin 10.3 gm/dl (10.1-14.3); Lymphocytes # (Auto) 1.7 K/mm3 (1.2-5.4); Mean Corpuscular HGB Conc 33 % (30-34); Mean Corpuscular Hemoglobin 29 pg (28-32); Mean Corpuscular Volume 88 fl (79-97); Monocytes # (Auto) 0.7 K/mm3 (0.0-0.8); Monocytes % (Auto) 8.4 % (0.0-7.3); Platelet Count 296 K/mm3 (140-440); Red Blood Count 3.58 M/mm3 (3.65-5.03); Red Cell Distribution Width 14.7 % (13.2-15.2)
[2018-01-27] MEDS: ZOSYN/NS 4.5GM/100ML 4.5 GM/100 ML VIAL IV SCH ×3 (06:06→22:56)
[2018-01-27] MEDS: NEURONTIN PO SCH ×3 (06:08→23:00)
[2018-01-27 06:18] LABS: BUN/Creatinine Ratio 10; Blood Urea Nitrogen 5 mg/dL (7-17); Calcium 8.1 mg/dL (8.4-10.2); Hemolysis Index 119
--- NOTE | 2018-01-27 09:01 | Progress Note ---
Assessment and Plan Assessment and plan: 62 YO Female with HTN, DM, CAD, HLD presents to ED for evaluation. Pt states that she has experienced redness and pain in her right foot over the past week, with worsening symptoms over the past 2 days. Pt was treated with outpatient oral antibiotic therapy without in symptoms. Pt was seen and evaluated in wound clinic and instructed to seek further care and evaluation at [facility]. Pt seen and evaluated in ED and found to have Right foot cellulitis suspicious for osteomyelitis, as well as sepsis, and Acidosis. Pt acknowledges subjective fever , right foot redness and pain. Sepsis due to right foot cellulitis - Evidenced by leucocytosis,tachycardia - On IV zosyn - Patient had fever - ID consult appreciated Diabetic foot ulcer, right foot cellulitis - MRI of the leg was done and showed no osteomyelitis or abscess - Surgery consult appreciated, will have debridement today Hypertension, CAD -Stable, continue home medications Uncontrolled diabetes mellitus with hyperglycemia - Patient is on basal and sliding scale insulin - Hemoglobin A1c is 12.5 DVT prophylaxis - On Lovenox Disposition - Continue inpatient care History Interval history: Patient was seen and evaluated this morning, patient had fever Hospitalist Physical - Physical exam Narrative exam: Not in cardiopulmonary distress. The patient appeared well nourished and normally developed. Vital signs as documented. Head exam is unremarkable. No scleral icterus . Neck is without jugular venous distension, thyromegaly, or carotid bruits. Lungs are clear to auscultation. Cardiac exam reveals regular rate and Rhythm. Abdominal exam reveals normal bowel sounds. Extremities right foot ulcer. MARRIAGE AND FAMILY THERAPIST: Alert and oriented 3. No focal weakness. - Constitutional Vitals: Temp Pulse Resp BP Pulse Ox 98.0 F 80 18 133/74 98 01/27/18 06:28 01/27/18 06:28 01/27/18 06:28 01/27/18 06:28 01/27/18 06:28 General appearance: Present: mild distress Results - Labs CBC & Chem 7: 01/27/18 05:38 01/27/18 05:38 Labs: Laboratory Last Values WBC 8.9 K/mm3 (4.5-11.0) 01/27/18 05:38 RBC 3.58 M/mm3 (3.65-5.03) L 01/27/18 05:38 Hgb 10.3 gm/dl (10.1-14.3) 01/27/18 05:38 Hct 31.6 % (30.3-42.9) 01/27/18 05:38 MCV 88 fl (79-97) 01/27/18 05:38 MCH 29 pg (28-32) 01/27/18 05:38 MCHC 33 % (30-34) 01/27/18 05:38 RDW 14.7 % (13.2-15.2) 01/27/18 05:38 Plt Count 296 K/mm3 (140-440) 01/27/18 05:38 Lymph % (Auto) 19.0 % (13.4-35.0) 01/27/18 05:38 Chambers % (Auto) 8.4 % (0.0-7.3) H 01/27/18 05:38 Eos % (Auto) 3.8 % (0.0-4.3) 01/27/18 05:38 Baso % (Auto) 0.7 % (0.0-1.8) 01/27/18 05:38 Lymph # 1.7 K/mm3 (1.2-5.4) 01/27/18 05:38 Chambers # 0.7 K/mm3 (0.0-0.8) 01/27/18 05:38 Eos # 0.3 K/mm3 (0.0-0.4) 01/27/18 05:38 Baso # 0.1 K/mm3 (0.0-0.1) 01/27/18 05:38 Seg Neutrophils % 68.1 % (40.0-70.0) 01/27/18 05:38 Seg Neutrophils # 6.1 K/mm3 (1.8-7.7) 01/27/18 05:38 PT 14.3 Sec. (12.2-14.9) 01/23/18 13:39 INR 1.05 (0.87-1.13) 01/23/18 13:39 VBG pH 7.353 (7.320-7.420) 01/23/18 13:39 Sodium 137 mmol/L (137-145) 01/27/18 05:38 Potassium 4.0 mmol/L (3.6-5.0) 01/27/18 05:38 Chloride 102.1 mmol/L (98-107) 01/27/18 05:38 Carbon Dioxide 22 mmol/L (22-30) 01/27/18 05:38 Anion Gap 17 mmol/L 01/27/18 05:38 BUN 5 mg/dL (7-17) L 01/27/18 05:38 Creatinine 0.5 mg/dL (0.7-1.2) L 01/27/18 05:38 Estimated GFR > 60 ml/min 01/27/18 05:38 BUN/Creatinine Ratio 10 % 01/27/18 05:38 Glucose 298 mg/dL (65-100) H 01/27/18 05:38 POC Glucose 252 (70-105) H 01/27/18 07:51 Hemoglobin A1c 12.7 % (4-6) H 01/23/18 17:58 Lactic Acid 1.10 mmol/L (0.7-2.0) 01/23/18 16:29 Calcium 8.1 mg/dL (8.4-10.2) L 01/27/18 05:38 Total Bilirubin 1.20 mg/dL (0.1-1.2) 01/23/18 13:39 AST 8 units/L (5-40) 01/23/18 13:39 ALT 6 units/L (7-56) L 01/23/18 13:39 Alkaline Phosphatase 76 units/L (35-129) 01/23/18 13:39 Total Protein 7.2 g/dL (6.3-8.2) 01/23/18 13:39 Albumin 3.2 g/dL (3.9-5) L 01/23/18 13:39 Albumin/Globulin Ratio 0.8 % 01/23/18 13:39 Urine Color Yellow (Yellow) 01/23/18 21:03 Urine Turbidity Clear (Clear) 01/23/18 21:03 Urine pH 6.0 (5.0-7.0) 01/23/18 21:03 Ur Specific [place] 1.014 (1.003-1.030) 01/23/18 21:03 Urine Protein <15 mg/dl mg/dL (Negative) 01/23/18 21:03 Urine Glucose (UA) >=500 mg/dL (Negative) 01/23/18 21:03 Urine Ketones 80 mg/dL (Negative) 01/23/18 21:03 Urine Blood Neg (Negative) 01/23/18 21:03 Urine Nitrite Neg (Negative) 01/23/18 21:03 Urine Bilirubin Neg (Negative) 01/23/18 21:03 Urine Urobilinogen < 2.0 mg/dL (<2.0) 01/23/18 21:03 Ur Leukocyte Esterase Tr (Negative) 01/23/18 21:03 Urine WBC (Auto) 9.0 /HPF (0.0-6.0) H 01/23/18 21:03 Urine RBC (Auto) 6.0 /HPF (0.0-6.0) 01/23/18 21:03 U Epithel Cells (Auto) 1.0 /HPF (0-13.0) 01/23/18 21:03 Urine Mucus Few /HPF 01/23/18 21:03
[2018-01-27] MEDS: D5NS 1,000 ML IV SCH (09:09)
[2018-01-27] MEDS: COZAAR PO SCH (10:00)
[2018-01-27] MEDS: PLAVIX PO SCH (10:00)
[2018-01-27] MEDS ORDERED: NACL BACTERIOSTATIC INFILTRATI ONE (10:14)
[2018-01-27] MEDS ORDERED: DIPRIVAN 10 MG/ML IV ONE ×2 (10:53→11:26)
[2018-01-27] MEDS ORDERED: XYLOCAINE MPF 2% ONE (10:53)
[2018-01-27] MEDS ORDERED: VERSED ONE (10:53)
[2018-01-27] MEDS ORDERED: DILAUDID ONE (10:54)
[2018-01-27] MEDS ORDERED: NEO SYNEPHRINE/NS Syringe(OR USE) IV ONE (11:19)
--- NOTE | 2018-01-27 11:23 | XRay Report ---
Right foot 3 views: History: Pain wound to right foot. Findings: Severe arthritic changes in the talotibial joint and the talonavicular joint and in the medial naviculocuneiform joint. Large spur on the posterior inferior calcaneum. No periosteal reaction lytic lesion. Generalized osteopenia. Deformity of the ungual tuft distal phalanx great toe. Impression: Severe arthritic changes. Additional findings as detailed above.
--- NOTE | 2018-01-27 12:31 | Post Operative Note ---
Date of procedure: 01/27/18 (Dictation#[id number]) Pre-op diagnosis: right foot infection Post-op diagnosis: same Findings: Deep space infection extending from the great toe to the 3rd toe and down the plantar surface. No extension into dorsal area. Procedure: I&D with debridement of right foot and wound vac placement Anesthesia: MAC Surgeon: MEL ALONZO Estimated blood loss: minimal (20cc) Pathology: list (tissue cultures from the 1st and 2nd toes) Specimen disposition: to lab Condition: stable Disposition: PACU
--- NOTE | 2018-01-27 18:45 | Progress Note ---
Assessment and Plan Assessment: 1) Sepsis: still fever, leukocytosis resolved. Etiology most likely right foot diabetic ulcer. 2) Chronic Right foot diabetic ulcers with acute cellulitis and abscess. -Wound cultures from Jun 2017 grew Klebsiella, E colix2 and Strep group B -Foot MRI showed cellulitis, no osteomyelitis. -S/P OR debridement and wound VAC placement on 01/27 findings - Deep space infection extending from the great toe to the 3rd toe and down the plantar. OR Gram stain +GPC 3) HTN 4) Uncontrolled DM - Glucose 374, A1C 12.7. 5) Atrial Fib 6) HLD 7) Urine colonization Plan: -f/u OR cultures -contact isolation until MRSA is r/o -add vanco -obtain arterial dopler - pending -continue zosyn Thank you for your consultation, will follow up with you. Sena Heredia MD Infectious Diseases Specialist [facility] ([facility]) M [phone] O [phone] Subjective Date of service: 01/27/18 Principal diagnosis: diabetic foot infecton Interval history: Feels better, no fever. Went to the OR today. Microbiology: Blood cultures: 01/23 ngtd Urine cultures: 01/23 10-100K mixed bacteria Wound cx: 01/27 GPC Respiratory cultures: Current Antimicrobials: Zosyn 01/23 Objective - Exam Narrative Exam: General appearance: Alert in NAD, conversant Eyes: anicteric sclerae, moist conjunctivae; no lid-lag; PERRLA HENT: Atraumatic; oropharynx clear Neck: Trachea midline; supple, no thyromegaly or lymphadenopathy Lungs: CTA, with normal respiratory effort and no intercostal retractions CV: RRR, no murmurs Abdomen: Soft, non-tender; no masses or hepatosplenomegaly Extremities: +right foot covered with dressings and wound VAC Skin: Normal temperature, turgor and texture; no rash, ulcers or subcutaneous nodules Psych: Appropriate affect, alert and oriented to person, place and time. Neuro: alert and oriented x 3. Moving all extermities Lines: No CVL / PICC - Constitutional Vitals: Vital Signs Temp Pulse Resp BP Pulse Ox 97.4 F L 75 11 L 123/60 99 01/27/18 12:45 01/27/18 12:45 01/27/18 12:45 01/27/18 12:45 01/27/18 12:45 Temperature -Last 24 Hours Temperature 97.4 F Temperature 97.9 F Temperature 99.2 F Temperature 99.2 F Temperature 98.0 F Temperature 98.7 F - Labs CBC & Chem 7: 01/27/18 05:38 01/27/18 05:38 Labs: Abnormal lab results 01/26/18 01/27/18 01/27/18 Range/Units 21:35 05:38 05:38 RBC 3.58 L (3.65-5.03) M/mm3 [place] % (Auto) 8.4 H (0.0-7.3) % BUN 5 L (7-17) mg/dL Creatinine 0.5 L (0.7-1.2) mg/dL Glucose 298 H (65-100) mg/dL POC Glucose 226 H (70-105) Calcium 8.1 L (8.4-10.2) mg/dL 01/27/18 01/27/18 01/27/18 Range/Units 07:51 12:37 18:24 RBC (3.65-5.03) M/mm3 [place] % (Auto) (0.0-7.3) % BUN (7-17) mg/dL Creatinine (0.7-1.2) mg/dL Glucose (65-100) mg/dL POC Glucose 252 H 146 H 118 H (70-105) Calcium (8.4-10.2) mg/dL
[2018-01-27] MEDS: PERCOCET 5/325 PO PRN (18:49)
[2018-01-27] MEDS ORDERED: VANCOMYCIN VIAL 1,000 MG in NACL 0.9% 100 ML IV SCH (19:00)
[2018-01-27] MEDS ORDERED: VANCOMYCIN PHARMACY TO DOSE IV SCH (19:00)
[2018-01-27] MEDS ORDERED: VANCOMYCIN 1,750 MG in NACL 0.9% 500 ML 500 ML IV ONE (19:30)
[2018-01-27] MEDS: LOVENOX SUB-Q SCH (22:59)
[2018-01-27] MEDS: SODIUM CHLORIDE FLUSH SYRINGE 10 ML IV SCH (22:59)
[2018-01-27] MEDS: ELAVIL PO SCH (23:00)
[2018-01-27] MEDS: LANTUS SUB-Q SCH (23:02)
--- NOTE | 2018-01-28 02:31 | Operative Report ---
PREOPERATIVE DIAGNOSES: 1. Infected right foot ulcer. 2. Right foot cellulitis. POSTOPERATIVE DIAGNOSIS: 1. Right foot cellulitis. 2. Right foot infection over the plantar surface. PROCEDURES: 1. Debridement of infected right foot tissue, 11 square cm, CPT CODE 76590. 2. Negative pressure wound therapy, CPT CODE 35031. SURGEON: Bree Bonner MD ANESTHESIA: General. ESTIMATED BLOOD LOSS: 20 mL. FLUIDS: 200 mL. FINDINGS: Extensive purulent and nonviable tissue in the distal right foot ulcer that extended underneath the first, second, and third toes on the plantar surface. There was no extension into the dorsum of the foot. The infection did spread along the plantar surface towards the heel. There was no involvement of the underlying fascia. Infection was restricted to the skin and subcutaneous tissue. There was no involvement of the tendons. There was extensive epidermolysis noted. In total, there was about 11 square cm that were involved. SPECIMEN: Tissue cultures were sent of all the purulent tissue. DRAINS: Wound VAC. COMPLICATIONS: None. DISPOSITION: Stable transport to Recovery Room. INDICATIONS: This is a 62-year-old female who was recently admitted to the hospital with an acute right foot infection. The patient is assessed to be need for operative debridement. Procedure, risks, benefits, alternatives were discussed with the patient. Risks included, but were not limited to infection, bleeding, pain, injury to surrounding structures, possible need for further procedures in the future, and possible amputations. The patient understood and consented. OPERATIVE NOTE: The patient was brought to the operating room and placed on the table in supine position. After adequate sedation was established, the patient was prepped and draped in the usual sterile fashion. Antibiotics were already been given from the floor. No SCDs were required. Time-out was called. I began by debriding the proximal medial right foot ulcer. The chronic granulation tissue overlying it was excised. The wound edges were debrided. We got down to healthy appearing tissue and then we turned our attention to the distal ulcer. There was obvious purulent material there. This was sharply excised with scissors. We continued our dissection of the material, which led us to open up the plantar surface as the wound appeared to be extending proximally. I sharply excised all the necrotic tissue. I then found extension of the wound base underneath the great toe going towards the first webspace. The skin was opened revealing a large amount of purulent and necrotic tissue. This was all sharply debrided with scissors. I then found another tract going underneath the second digit to the second webspace. This was also opened up. I found no extension of the infection cavity going over the dorsum of the foot. I did not find continue laterally. There were no other extensions in the plantar direction. All the necrotic infected tissue was sharply removed with scissors until we got down to what appeared to be healthy tissue. At this point, we did the pulse lavage with 3 liters of sterile saline. We thoroughly washed out the wounds. We achieved hemostasis with electrocautery and then applied the wound VAC. We placed an adhesive barrier between the two ulcers, so that we could bridge them with the wound VAC. We were able to get foam into all the olivarez locations. There were three pieces of foam used altogether, one long piece and then two smaller pieces to cover all the areas. Skin was cleaned and dried. The patient tolerated procedure well. There were no complications. All counts were correct at the end of the case. The necrotic tissue that was debrided was sent for tissue culture. JOB# [id number] BIJAL/OLESYA
[2018-01-28] MEDS: HumaLOG SUB-Q SCH ×5 (05:22→22:41)
[2018-01-28] MEDS: NEURONTIN PO SCH ×3 (06:27→22:07)
[2018-01-28] MEDS: ZOSYN/NS 4.5GM/100ML 4.5 GM/100 ML VIAL IV SCH (06:27)
[2018-01-28] MEDS ORDERED: VANCOMYCIN 1,250 MG in NACL 0.9% 250ML 250 ML IV SCH (08:00)
[2018-01-28] MEDS: LOPRESSOR PO SCH ×2 (10:00→22:07)
[2018-01-28] MEDS: PLAVIX PO SCH (10:00)
--- NOTE | 2018-01-28 10:31 | Progress Note ---
Assessment and Plan Assessment: 1) Sepsis: resolved. Etiology most likely right foot diabetic ulcer. 2) Chronic Right foot diabetic ulcers with acute cellulitis and abscess. -Wound cultures from Jun 2017 grew Klebsiella, E colix2 and Strep group B -Foot MRI showed cellulitis, no osteomyelitis. -S/P OR debridement and wound VAC placement on 01/27 findings - Deep space infection extending from the great toe to the 3rd toe and down the plantar. OR Gram stain 01/27 Beta hem Strep group B 3) HTN 4) Uncontrolled DM - Glucose 374, A1C 12.7. 5) Atrial Fib 6) HLD 7) Urine colonization Plan: -stop contact isolation no evidence of MRSA -stop vanco and zosyn -obtain arterial dopler - pending -start cefazolin IV -upon discharge will ceftriaxone 2 g IV qday total 2 week until 02/10/18 since this is a chronic and deep soft tissue infection. May need oral keflex for 2 extra weeks after infusion is done. Thank you for your consultation, will follow up with you. Sena Heredia MD Infectious Diseases Specialist [facility] ([facility]) M [phone] O [phone] Subjective Date of service: 01/28/18 Principal diagnosis: diabetic foot infecton Interval history: Feels better, no fever. no pain. Microbiology: Blood cultures: 01/23 ngtd Urine cultures: 01/23 10-100K mixed bacteria Wound cx: 01/27 Beta hem Strep group B Respiratory cultures: Current Antimicrobials: Zosyn 01/23 vanco 01/27 Objective - Exam Narrative Exam: General appearance: Alert in NAD, conversant Eyes: anicteric sclerae, moist conjunctivae; no lid-lag; PERRLA HENT: Atraumatic; oropharynx clear Neck: Trachea midline; supple, no thyromegaly or lymphadenopathy Lungs: CTA, with normal respiratory effort and no intercostal retractions CV: RRR, no murmurs Abdomen: Soft, non-tender; no masses or hepatosplenomegaly Extremities: +right foot covered with dressings and wound VAC Skin: Normal temperature, turgor and texture; no rash, ulcers or subcutaneous nodules Psych: Appropriate affect, alert and oriented to person, place and time. Neuro: alert and oriented x 3. Moving all extermities Lines: No CVL / PICC - Constitutional Vitals: Vital Signs Temp Pulse Resp BP Pulse Ox 98.4 F 74 18 118/54 96 01/28/18 05:46 01/28/18 05:46 01/28/18 05:46 01/28/18 05:46 01/28/18 05:46 Temperature -Last 24 Hours Temperature 98.4 F Temperature 99.4 F Temperature 97.4 F Temperature 97.9 F - Labs CBC & Chem 7: 01/27/18 05:38 01/27/18 05:38 Labs: Abnormal lab results 01/27/18 01/27/18 01/27/18 Range/Units 12:37 18:24 21:49 POC Glucose 146 H 118 H 153 H (70-105)
[2018-01-28] MEDS: COZAAR PO SCH (11:05)
--- NOTE | 2018-01-28 13:28 | Progress Note ---
Assessment and Plan Assessment and plan: 62 YO Female with HTN, DM, CAD, HLD presents to ED for evaluation. Pt states that she has experienced redness and pain in her right foot over the past week, with worsening symptoms over the past 2 days. Pt was treated with outpatient oral antibiotic therapy without in symptoms. Pt was seen and evaluated in wound clinic and instructed to seek further care and evaluation at [facility]. Pt seen and evaluated in ED and found to have Right foot cellulitis suspicious for osteomyelitis, as well as sepsis, and Acidosis. Pt acknowledges subjective fever , right foot redness and pain. Sepsis due to right foot cellulitis - Evidenced by leucocytosis,tachycardia - On IV zosyn - Patient had fever - ID consult appreciated and recommend home IV antibiotics Diabetic foot ulcer, right foot cellulitis - MRI of the leg was done and showed no osteomyelitis or abscess - Surgery consult appreciated, S/P OR debridement and wound VAC placement on findings - Deep space infection extending from the great toe to the 3rd toe and down the plantar. OR Gram stain 01/27 Beta hem Strep group B Hypertension, CAD -Stable, continue home medications Uncontrolled diabetes mellitus with hyperglycemia - Patient is on basal and sliding scale insulin - Hemoglobin A1c is 12.5 - Blood glucose level is in target range DVT prophylaxis - On Lovenox Disposition - Will discharge once home wound vac and IV antibiotic arranged. History Interval history: Patient was seen and evaluated this morning, patient didn't have any fever. Not in pain or distress. Hospitalist Physical - Physical exam Narrative exam: Not in cardiopulmonary distress. The patient appeared well nourished and normally developed. Vital signs as documented. Head exam is unremarkable. No scleral icterus . Neck is without jugular venous distension, thyromegaly, or carotid bruits. Lungs are clear to auscultation. Cardiac exam reveals regular rate and Rhythm. Abdominal exam reveals normal bowel sounds. Extremities right foot ulcer. S/P debridement and dressing. 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 No focal weakness. - Constitutional Vitals: Temp Pulse Resp BP Pulse Ox 98.4 F 74 18 118/54 96 01/28/18 05:46 01/28/18 05:46 01/28/18 05:46 01/28/18 05:46 01/28/18 05:46 General appearance: Present: mild distress Results - Labs CBC & Chem 7: 01/27/18 05:38 01/27/18 05:38 Labs: Laboratory Last Values WBC 8.9 K/mm3 (4.5-11.0) 01/27/18 05:38 RBC 3.58 M/mm3 (3.65-5.03) L 01/27/18 05:38 Hgb 10.3 gm/dl (10.1-14.3) 01/27/18 05:38 Hct 31.6 % (30.3-42.9) 01/27/18 05:38 MCV 88 fl (79-97) 01/27/18 05:38 MCH 29 pg (28-32) 01/27/18 05:38 MCHC 33 % (30-34) 01/27/18 05:38 RDW 14.7 % (13.2-15.2) 01/27/18 05:38 Plt Count 296 K/mm3 (140-440) 01/27/18 05:38 Lymph % (Auto) 19.0 % (13.4-35.0) 01/27/18 05:38 [place] % (Auto) 8.4 % (0.0-7.3) H 01/27/18 05:38 Eos % (Auto) 3.8 % (0.0-4.3) 01/27/18 05:38 Baso % (Auto) 0.7 % (0.0-1.8) 01/27/18 05:38 Lymph # 1.7 K/mm3 (1.2-5.4) 01/27/18 05:38 [place] # 0.7 K/mm3 (0.0-0.8) 01/27/18 05:38 Eos # 0.3 K/mm3 (0.0-0.4) 01/27/18 05:38 Baso # 0.1 K/mm3 (0.0-0.1) 01/27/18 05:38 Seg Neutrophils % 68.1 % (40.0-70.0) 01/27/18 05:38 Seg Neutrophils # 6.1 K/mm3 (1.8-7.7) 01/27/18 05:38 PT 14.3 Sec. (12.2-14.9) 01/23/18 13:39 INR 1.05 (0.87-1.13) 01/23/18 13:39 VBG pH 7.353 (7.320-7.420) 01/23/18 13:39 Sodium 137 mmol/L (137-145) 01/27/18 05:38 Potassium 4.0 mmol/L (3.6-5.0) 01/27/18 05:38 Chloride 102.1 mmol/L (98-107) 01/27/18 05:38 Carbon Dioxide 22 mmol/L (22-30) 01/27/18 05:38 Anion Gap 17 mmol/L 01/27/18 05:38 BUN 5 mg/dL (7-17) L 01/27/18 05:38 Creatinine 0.5 mg/dL (0.7-1.2) L 01/27/18 05:38 Estimated GFR > 60 ml/min 01/27/18 05:38 BUN/Creatinine Ratio 10 % 01/27/18 05:38 Glucose 298 mg/dL (65-100) H 01/27/18 05:38 POC Glucose 132 (70-105) H 01/28/18 12:52 Hemoglobin A1c 12.7 % (4-6) H 01/23/18 17:58 Lactic Acid 1.10 mmol/L (0.7-2.0) 01/23/18 16:29 Calcium 8.1 mg/dL (8.4-10.2) L 01/27/18 05:38 Total Bilirubin 1.20 mg/dL (0.1-1.2) 01/23/18 13:39 AST 8 units/L (5-40) 01/23/18 13:39 ALT 6 units/L (7-56) L 01/23/18 13:39 Alkaline Phosphatase 76 units/L (35-129) 01/23/18 13:39 Total Protein 7.2 g/dL (6.3-8.2) 01/23/18 13:39 Albumin 3.2 g/dL (3.9-5) L 01/23/18 13:39 Albumin/Globulin Ratio 0.8 % 01/23/18 13:39 Urine Color Yellow (Yellow) 01/23/18 21:03 Urine Turbidity Clear (Clear) 01/23/18 21:03 Urine pH 6.0 (5.0-7.0) 01/23/18 21:03 Ur Specific [place] 1.014 (1.003-1.030) 01/23/18 21:03 Urine Protein <15 mg/dl mg/dL (Negative) 01/23/18 21:03 Urine Glucose (UA) >=500 mg/dL (Negative) 01/23/18 21:03 Urine Ketones 80 mg/dL (Negative) 01/23/18 21:03 Urine Blood Neg (Negative) 01/23/18 21:03 Urine Nitrite Neg (Negative) 01/23/18 21:03 Urine Bilirubin Neg (Negative) 01/23/18 21:03 Urine Urobilinogen < 2.0 mg/dL (<2.0) 01/23/18 21:03 Ur Leukocyte Esterase Tr (Negative) 01/23/18 21:03 Urine WBC (Auto) 9.0 /HPF (0.0-6.0) H 01/23/18 21:03 Urine RBC (Auto) 6.0 /HPF (0.0-6.0) 01/23/18 21:03 U Epithel Cells (Auto) 1.0 /HPF (0-13.0) 01/23/18 21:03 Urine Mucus Few /HPF 01/23/18 21:03
[2018-01-28] MEDS ORDERED: ceFAZolin 2 GM in NACL 0.9% 100 ML IV SCH (14:00)
[2018-01-28] MEDS: ceFAZolin 2 GM in NACL 0.9% 100 ML IV SCH ×2 (15:03→22:42)
[2018-01-28] MEDS: PERCOCET 5/325 PO PRN (15:26)
--- NOTE | 2018-01-28 15:43 | Progress Note ---
Assessment and Plan - Patient Problems (1) Cellulitis of foot Current Visit: Yes Status: Acute Plan to address problem: Stable. (2) Right foot ulcer Current Visit: No Status: Chronic Qualifiers: Non-pressure ulcer stage: with fat layer exposed Qualified Code(s): L97.512 - Non-pressure chronic ulcer of other part of right foot with fat layer exposed Plan to address problem: Pt stable. s/p Right Foot I&D, debridement; wound vac placement - 01/27/18 - POD# 1. Pt doing well. Next wound vac change per WOCN. Please call with questions. Subjective Date of service: 01/28/18 Patient Reports: Positive: no new complaints Objective Vital Signs - 12hr 01/28/18 05:46 Temperature 98.4 F Pulse Rate 74 Respiratory 18 Rate Blood Pressure 118/54 O2 Sat by Pulse 96 Oximetry - General physical appearance no distress, no pain - Respiratory normal expansion, normal respiratory effort - Musculoskeletal other (wound vac in place. seal intact) - Labs 01/27/18 05:38 01/27/18 05:38
[2018-01-28] MEDS: SODIUM CHLORIDE FLUSH SYRINGE 10 ML IV SCH (22:02)
[2018-01-28] MEDS: LOVENOX SUB-Q SCH (22:05)
[2018-01-28] MEDS: ELAVIL PO SCH (22:08)
[2018-01-28] MEDS: LANTUS SUB-Q SCH (22:09)
[2018-01-29 05:17] LABS: Basophils # (Auto) 0.1 K/mm3 (0.0-0.1); Basophils % (Auto) 0.9 % (0.0-1.8); Eosinophils # (Auto) 0.3 K/mm3 (0.0-0.4); Eosinophils % (Auto) 3.8 % (0.0-4.3); Hematocrit 29.9 % (30.3-42.9); Hemoglobin 10.2 gm/dl (10.1-14.3); Lymphocytes # (Auto) 1.4 K/mm3 (1.2-5.4); Lymphocytes % (Auto) 19.8 % (13.4-35.0); Mean Corpuscular HGB Conc 34 % (30-34); Mean Corpuscular Hemoglobin 29 pg (28-32); Mean Corpuscular Volume 85 fl (79-97); Monocytes # (Auto) 0.7 K/mm3 (0.0-0.8); Monocytes % (Auto) 9.6 % (0.0-7.3); Platelet Count 300 K/mm3 (140-440); Red Blood Count 3.52 M/mm3 (3.65-5.03); Red Cell Distribution Width 14.5 % (13.2-15.2)
[2018-01-29 05:31] LABS: BUN/Creatinine Ratio 12; Blood Urea Nitrogen 7 mg/dL (7-17); Calcium 8.6 mg/dL (8.4-10.2); Hemolysis Index 0
[2018-01-29] MEDS: ceFAZolin 2 GM in NACL 0.9% 100 ML IV SCH ×2 (06:59→15:31)
[2018-01-29] MEDS: NEURONTIN PO SCH ×2 (07:00→15:28)
--- NOTE | 2018-01-29 07:58 | Progress Note ---
Assessment and Plan Assessment and plan: 62 YO Female with HTN, DM, CAD, HLD presents to ED for evaluation. Pt states that she has experienced redness and pain in her right foot over the past week, with worsening symptoms over the past 2 days. Pt was treated with outpatient oral antibiotic therapy without in symptoms. Pt was seen and evaluated in wound clinic and instructed to seek further care and evaluation at [facility]. Pt seen and evaluated in ED and found to have Right foot cellulitis suspicious for osteomyelitis, as well as sepsis, and Acidosis. Pt acknowledges subjective fever , right foot redness and pain. Sepsis due to right foot cellulitis - Evidenced by leucocytosis,tachycardia - On IV zosyn - Patient had fever - ID consult appreciated and recommend home IV antibiotics Diabetic foot ulcer, right foot cellulitis - MRI of the leg was done and showed no osteomyelitis or abscess - Surgery consult appreciated, S/P OR debridement and wound VAC placement on findings - Deep space infection extending from the great toe to the 3rd toe and down the plantar. OR Gram stain 01/27 Beta hem Strep group B Hypertension, CAD -Stable, continue home medications Uncontrolled diabetes mellitus with hyperglycemia - Patient is on basal and sliding scale insulin - Hemoglobin A1c is 12.5 - Blood glucose level is in target range DVT prophylaxis - On Lovenox Disposition - Will discharge once home wound vac and IV antibiotic arranged. History Interval history: Patient was seen and evaluated this morning, patient didn't have any fever. Not in pain or distress. Hospitalist Physical - Physical exam Narrative exam: Not in cardiopulmonary distress. The patient appeared well nourished and normally developed. Vital signs as documented. Head exam is unremarkable. No scleral icterus . Neck is without jugular venous distension, thyromegaly, or carotid bruits. Lungs are clear to auscultation. Cardiac exam reveals regular rate and Rhythm. Abdominal exam reveals normal bowel sounds. Extremities right foot ulcer. S/P debridement and dressing. 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 No focal weakness. - Constitutional Vitals: Temp Pulse Resp BP Pulse Ox 98.5 F 77 20 142/69 95 01/29/18 05:14 01/29/18 05:14 01/29/18 05:14 01/29/18 05:14 01/29/18 05:14 General appearance: Present: mild distress Results - Labs CBC & Chem 7: 01/29/18 04:39 01/29/18 04:39 Labs: Laboratory Last Values WBC 7.3 K/mm3 (4.5-11.0) 01/29/18 04:39 RBC 3.52 M/mm3 (3.65-5.03) L 01/29/18 04:39 Hgb 10.2 gm/dl (10.1-14.3) 01/29/18 04:39 Hct 29.9 % (30.3-42.9) L 01/29/18 04:39 MCV 85 fl (79-97) 01/29/18 04:39 MCH 29 pg (28-32) 01/29/18 04:39 MCHC 34 % (30-34) 01/29/18 04:39 RDW 14.5 % (13.2-15.2) 01/29/18 04:39 Plt Count 300 K/mm3 (140-440) 01/29/18 04:39 Lymph % (Auto) 19.8 % (13.4-35.0) 01/29/18 04:39 [place] % (Auto) 9.6 % (0.0-7.3) H 01/29/18 04:39 Eos % (Auto) 3.8 % (0.0-4.3) 01/29/18 04:39 Baso % (Auto) 0.9 % (0.0-1.8) 01/29/18 04:39 Lymph # 1.4 K/mm3 (1.2-5.4) 01/29/18 04:39 [place] # 0.7 K/mm3 (0.0-0.8) 01/29/18 04:39 Eos # 0.3 K/mm3 (0.0-0.4) 01/29/18 04:39 Baso # 0.1 K/mm3 (0.0-0.1) 01/29/18 04:39 Seg Neutrophils % 65.9 % (40.0-70.0) 01/29/18 04:39 Seg Neutrophils # 4.8 K/mm3 (1.8-7.7) 01/29/18 04:39 PT 14.3 Sec. (12.2-14.9) 01/23/18 13:39 INR 1.05 (0.87-1.13) 01/23/18 13:39 VBG pH 7.353 (7.320-7.420) 01/23/18 13:39 Sodium 142 mmol/L (137-145) 01/29/18 04:39 Potassium 3.5 mmol/L (3.6-5.0) L 01/29/18 04:39 Chloride 105.3 mmol/L (98-107) 01/29/18 04:39 Carbon Dioxide 27 mmol/L (22-30) 01/29/18 04:39 Anion Gap 13 mmol/L 01/29/18 04:39 BUN 7 mg/dL (7-17) 01/29/18 04:39 Creatinine 0.6 mg/dL (0.7-1.2) L 01/29/18 04:39 Estimated GFR > 60 ml/min 01/29/18 04:39 BUN/Creatinine Ratio 12 % 01/29/18 04:39 Glucose 121 mg/dL (65-100) H 01/29/18 04:39 POC Glucose 189 (70-105) H 01/28/18 21:35 Hemoglobin A1c 12.7 % (4-6) H 01/23/18 17:58 Lactic Acid 1.10 mmol/L (0.7-2.0) 01/23/18 16:29 Calcium 8.6 mg/dL (8.4-10.2) 01/29/18 04:39 Total Bilirubin 1.20 mg/dL (0.1-1.2) 01/23/18 13:39 AST 8 units/L (5-40) 01/23/18 13:39 ALT 6 units/L (7-56) L 01/23/18 13:39 Alkaline Phosphatase 76 units/L (35-129) 01/23/18 13:39 Total Protein 7.2 g/dL (6.3-8.2) 01/23/18 13:39 Albumin 3.2 g/dL (3.9-5) L 01/23/18 13:39 Albumin/Globulin Ratio 0.8 % 01/23/18 13:39 Urine Color Yellow (Yellow) 01/23/18 21:03 Urine Turbidity Clear (Clear) 01/23/18 21:03 Urine pH 6.0 (5.0-7.0) 01/23/18 21:03 Ur Specific [place] 1.014 (1.003-1.030) 01/23/18 21:03 Urine Protein <15 mg/dl mg/dL (Negative) 01/23/18 21:03 Urine Glucose (UA) >=500 mg/dL (Negative) 01/23/18 21:03 Urine Ketones 80 mg/dL (Negative) 01/23/18 21:03 Urine Blood Neg (Negative) 01/23/18 21:03 Urine Nitrite Neg (Negative) 01/23/18 21:03 Urine Bilirubin Neg (Negative) 01/23/18 21:03 Urine Urobilinogen < 2.0 mg/dL (<2.0) 01/23/18 21:03 Ur Leukocyte Esterase Tr (Negative) 01/23/18 21:03 Urine WBC (Auto) 9.0 /HPF (0.0-6.0) H 01/23/18 21:03 Urine RBC (Auto) 6.0 /HPF (0.0-6.0) 01/23/18 21:03 U Epithel Cells (Auto) 1.0 /HPF (0-13.0) 01/23/18 21:03 Urine Mucus Few /HPF 01/23/18 21:03
--- NOTE | 2018-01-29 09:16 | Progress Note ---
Assessment and Plan - Patient Problems (1) Cellulitis of foot Current Visit: Yes Status: Acute Plan to address problem: Stable. Seems improved today. Continue current care. (2) Right foot ulcer Current Visit: No Status: Chronic Qualifiers: Non-pressure ulcer stage: with fat layer exposed Qualified Code(s): L97.512 - Non-pressure chronic ulcer of other part of right foot with fat layer exposed Plan to address problem: Pt stable. s/p Right Foot I&D, debridement; wound vac placement - 01/27/18 - POD# 2. Pt doing well. Next wound vac change per WOCN on Friday. Rec: 1) cont IV Abx 2) wound vac change on friday 3) OOB to chair 4) Encouraged patient to use knee walker at home. She has one but is afraid to use it. Explained that our current problem is directly related to pressure on the foot. She needs to avoid pressure on the right foot! 5) May be d/c'd home from my perspective after wound vac change done and HH arranged. I will f/u with her in the Wound Clinic in 1 week. Please call with questions. Subjective Date of service: 01/29/18 Patient Reports: Positive: no new complaints, tolerating a regular diet, other ( would like to get out of bed). Negative: nausea, vomiting Objective Vital Signs - 12hr 01/28/18 01/28/18 01/29/18 22:07 23:09 05:14 Temperature 98.6 F 98.5 F Pulse Rate 85 86 77 Respiratory 20 20 Rate Blood Pressure 155/71 150/71 142/69 O2 Sat by Pulse 98 95 Oximetry - General physical appearance no distress, no pain, other (does not appear septic) - Eyes normal occular movement - Respiratory normal expansion, normal respiratory effort - Musculoskeletal other (Wound vac in place on right foot. erythema seems to have receeded on the dorsum of the foot. ) - Labs 01/29/18 04:39 01/29/18 04:39 Diabetes panel 01/29/18 Range/Units 04:39 Sodium 142 (137-145) mmol/L Potassium 3.5 L (3.6-5.0) mmol/L Chloride 105.3 (98-107) mmol/L Carbon Dioxide 27 (22-30) mmol/L BUN 7 (7-17) mg/dL Creatinine 0.6 L (0.7-1.2) mg/dL Glucose 121 H (65-100) mg/dL Calcium 8.6 (8.4-10.2) mg/dL Calcium panel 01/29/18 Range/Units 04:39 Calcium 8.6 (8.4-10.2) mg/dL Pituitary panel 01/29/18 Range/Units 04:39 Sodium 142 (137-145) mmol/L Potassium 3.5 L (3.6-5.0) mmol/L Chloride 105.3 (98-107) mmol/L Carbon Dioxide 27 (22-30) mmol/L BUN 7 (7-17) mg/dL Creatinine 0.6 L (0.7-1.2) mg/dL Glucose 121 H (65-100) mg/dL Calcium 8.6 (8.4-10.2) mg/dL Adrenal panel 01/29/18 Range/Units 04:39 Sodium 142 (137-145) mmol/L Potassium 3.5 L (3.6-5.0) mmol/L Chloride 105.3 (98-107) mmol/L Carbon Dioxide 27 (22-30) mmol/L BUN 7 (7-17) mg/dL Creatinine 0.6 L (0.7-1.2) mg/dL Glucose 121 H (65-100) mg/dL Calcium 8.6 (8.4-10.2) mg/dL
[2018-01-29] MEDS: HumaLOG SUB-Q SCH ×3 (09:47→18:24)
[2018-01-29] MEDS: COZAAR PO SCH (10:04)
[2018-01-29] MEDS: PLAVIX PO SCH (10:06)
[2018-01-29] MEDS: LOPRESSOR PO SCH (10:06)
[2018-01-29] MEDS: SODIUM CHLORIDE FLUSH SYRINGE 10 ML IV SCH (13:22)
[2018-01-29] MEDS ORDERED: K-DUR PO ONE (13:42)
[2018-01-30] MEDS: ceFAZolin 2 GM in NACL 0.9% 100 ML IV SCH ×2 (00:39→05:48)
[2018-01-30] MEDS: SODIUM CHLORIDE FLUSH SYRINGE 10 ML IV SCH ×4 (00:39→15:22)
[2018-01-30] MEDS: HumaLOG SUB-Q SCH ×4 (00:40→17:58)
[2018-01-30] MEDS: NEURONTIN PO SCH ×4 (00:40→23:05)
[2018-01-30] MEDS: ELAVIL PO SCH ×2 (00:40→23:07)
[2018-01-30] MEDS: LANTUS SUB-Q SCH ×2 (00:40→23:07)
[2018-01-30] MEDS: LOVENOX SUB-Q SCH ×2 (00:43→23:07)
[2018-01-30] MEDS: LOPRESSOR PO SCH ×3 (00:45→23:09)
--- NOTE | 2018-01-30 09:02 | Progress Note ---
Assessment and Plan Assessment and plan: 62 YO Female with HTN, DM, CAD, HLD presents to ED for evaluation. Pt states that she has experienced redness and pain in her right foot over the past week, with worsening symptoms over the past 2 days. Pt was treated with outpatient oral antibiotic therapy without in symptoms. Pt was seen and evaluated in wound clinic and instructed to seek further care and evaluation at [facility]. Pt seen and evaluated in ED and found to have Right foot cellulitis suspicious for osteomyelitis, as well as sepsis, and Acidosis. Pt acknowledges subjective fever , right foot redness and pain. Sepsis due to right foot cellulitis - Evidenced by leucocytosis,tachycardia - On IV zosyn - Patient had fever - ID consult appreciated and recommend home IV antibiotics Diabetic foot ulcer, right foot cellulitis - MRI of the leg was done and showed no osteomyelitis or abscess - Surgery consult appreciated, S/P OR debridement and wound VAC placement on findings - Deep space infection extending from the great toe to the 3rd toe and down the plantar. OR Gram stain 01/27 Beta hem Strep group B Hypertension, CAD -Stable, continue home medications Uncontrolled diabetes mellitus with hyperglycemia - Patient is on basal and sliding scale insulin - Hemoglobin A1c is 12.5 - Will monitor accu-check DVT prophylaxis - On Lovenox Disposition - Will discharge once home wound vac and IV antibiotic arranged. History Interval history: Patient was seen and evaluated this morning, patient didn't have any fever. Not in pain or distress. Hospitalist Physical - Physical exam Narrative exam: Not in cardiopulmonary distress. The patient appeared well nourished and normally developed. Vital signs as documented. Head exam is unremarkable. No scleral icterus . Neck is without jugular venous distension, thyromegaly, or carotid bruits. Lungs are clear to auscultation. Cardiac exam reveals regular rate and Rhythm. Abdominal exam reveals normal bowel sounds. Extremities right foot ulcer. S/P debridement and dressing. 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 No focal weakness. - Constitutional Vitals: Temp Pulse Resp BP Pulse Ox 98.5 F 77 20 146/75 95 01/30/18 06:29 01/30/18 06:29 01/30/18 06:29 01/30/18 06:29 01/30/18 06:29 General appearance: Present: mild distress Results - Labs CBC & Chem 7: 01/29/18 04:39 01/29/18 04:39 Labs: Laboratory Last Values WBC 7.3 K/mm3 (4.5-11.0) 01/29/18 04:39 RBC 3.52 M/mm3 (3.65-5.03) L 01/29/18 04:39 Hgb 10.2 gm/dl (10.1-14.3) 01/29/18 04:39 Hct 29.9 % (30.3-42.9) L 01/29/18 04:39 MCV 85 fl (79-97) 01/29/18 04:39 MCH 29 pg (28-32) 01/29/18 04:39 MCHC 34 % (30-34) 01/29/18 04:39 RDW 14.5 % (13.2-15.2) 01/29/18 04:39 Plt Count 300 K/mm3 (140-440) 01/29/18 04:39 Lymph % (Auto) 19.8 % (13.4-35.0) 01/29/18 04:39 [place] % (Auto) 9.6 % (0.0-7.3) H 01/29/18 04:39 Eos % (Auto) 3.8 % (0.0-4.3) 01/29/18 04:39 Baso % (Auto) 0.9 % (0.0-1.8) 01/29/18 04:39 Lymph # 1.4 K/mm3 (1.2-5.4) 01/29/18 04:39 [place] # 0.7 K/mm3 (0.0-0.8) 01/29/18 04:39 Eos # 0.3 K/mm3 (0.0-0.4) 01/29/18 04:39 Baso # 0.1 K/mm3 (0.0-0.1) 01/29/18 04:39 Seg Neutrophils % 65.9 % (40.0-70.0) 01/29/18 04:39 Seg Neutrophils # 4.8 K/mm3 (1.8-7.7) 01/29/18 04:39 PT 14.3 Sec. (12.2-14.9) 01/23/18 13:39 INR 1.05 (0.87-1.13) 01/23/18 13:39 VBG pH 7.353 (7.320-7.420) 01/23/18 13:39 Sodium 142 mmol/L (137-145) 01/29/18 04:39 Potassium 3.5 mmol/L (3.6-5.0) L 01/29/18 04:39 Chloride 105.3 mmol/L (98-107) 01/29/18 04:39 Carbon Dioxide 27 mmol/L (22-30) 01/29/18 04:39 Anion Gap 13 mmol/L 01/29/18 04:39 BUN 7 mg/dL (7-17) 01/29/18 04:39 Creatinine 0.6 mg/dL (0.7-1.2) L 01/29/18 04:39 Estimated GFR > 60 ml/min 01/29/18 04:39 BUN/Creatinine Ratio 12 % 01/29/18 04:39 Glucose 121 mg/dL (65-100) H 01/29/18 04:39 POC Glucose 235 (70-105) H 01/29/18 22:00 Hemoglobin A1c 12.7 % (4-6) H 01/23/18 17:58 Lactic Acid 1.10 mmol/L (0.7-2.0) 01/23/18 16:29 Calcium 8.6 mg/dL (8.4-10.2) 01/29/18 04:39 Total Bilirubin 1.20 mg/dL (0.1-1.2) 01/23/18 13:39 AST 8 units/L (5-40) 01/23/18 13:39 ALT 6 units/L (7-56) L 01/23/18 13:39 Alkaline Phosphatase 76 units/L (35-129) 01/23/18 13:39 Total Protein 7.2 g/dL (6.3-8.2) 01/23/18 13:39 Albumin 3.2 g/dL (3.9-5) L 01/23/18 13:39 Albumin/Globulin Ratio 0.8 % 01/23/18 13:39 Urine Color Yellow (Yellow) 01/23/18 21:03 Urine Turbidity Clear (Clear) 01/23/18 21:03 Urine pH 6.0 (5.0-7.0) 01/23/18 21:03 Ur Specific [place] 1.014 (1.003-1.030) 01/23/18 21:03 Urine Protein <15 mg/dl mg/dL (Negative) 01/23/18 21:03 Urine Glucose (UA) >=500 mg/dL (Negative) 01/23/18 21:03 Urine Ketones 80 mg/dL (Negative) 01/23/18 21:03 Urine Blood Neg (Negative) 01/23/18 21:03 Urine Nitrite Neg (Negative) 01/23/18 21:03 Urine Bilirubin Neg (Negative) 01/23/18 21:03 Urine Urobilinogen < 2.0 mg/dL (<2.0) 01/23/18 21:03 Ur Leukocyte Esterase Tr (Negative) 01/23/18 21:03 Urine WBC (Auto) 9.0 /HPF (0.0-6.0) H 01/23/18 21:03 Urine RBC (Auto) 6.0 /HPF (0.0-6.0) 01/23/18 21:03 U Epithel Cells (Auto) 1.0 /HPF (0-13.0) 01/23/18 21:03 Urine Mucus Few /HPF 01/23/18 21:03
[2018-01-30] MEDS: COZAAR PO SCH (09:34)
[2018-01-30] MEDS: PLAVIX PO SCH (09:34)
--- NOTE | 2018-01-30 13:28 | Progress Note ---
Assessment and Plan Assessment: 1) Sepsis: resolved. Etiology most likely right foot diabetic ulcer. 2) Chronic Right foot diabetic ulcers with acute cellulitis and abscess. -Wound cultures from Jun 2017 grew Klebsiella, E colix2 and Strep group B -Foot MRI showed cellulitis, no osteomyelitis. -S/P OR debridement and wound VAC placement on 01/27 findings - Deep space infection extending from the great toe to the 3rd toe and down the plantar. OR Gram stain 01/27 Beta hem Strep group B and now Klebsiella 3) HTN 4) Uncontrolled DM - Glucose 374, A1C 12.7. 5) Atrial Fib 6) HLD 7) Urine colonization Plan: -obtain arterial dopler - pending -stop cefazolin IV in light of Kleb growth -start ceftriaxone -upon discharge will ceftriaxone 2 g IV qday total 2 week until 02/10/18 since this is a chronic and deep soft tissue infection. May need oral keflex for 2 extra weeks after infusion is done. -ID clinic f/u 02/12, please make apt Dr Lopez will be rounding until 02/05 Thank you for your consultation, will follow up with you. Sena Heredia MD Infectious Diseases Specialist [facility] ([facility] [phone] O [phone] Subjective Date of service: 01/30/18 Principal diagnosis: diabetic foot infecton Interval history: Feels better, no fever. no pain. Microbiology: Blood cultures: 01/23 ngtd Urine cultures: 01/23 10-100K mixed bacteria Wound cx: 01/27 Beta hem Strep group B and Klebsiella Current Antimicrobials: Zosyn 01/23 vanco 01/27 Objective - Constitutional Vitals: Vital Signs Temp Pulse Resp BP Pulse Ox 98.5 F 77 20 141/78 95 01/30/18 06:29 01/30/18 06:29 01/30/18 06:29 01/30/18 09:34 01/30/18 06:29 Temperature -Last 24 Hours Temperature 98.5 F Temperature 98.6 F Temperature 97.8 F - Labs CBC & Chem 7: 01/29/18 04:39 01/29/18 04:39 Labs: Abnormal lab results 01/29/18 01/29/18 01/30/18 Range/Units 17:22 22:00 07:36 POC Glucose 201 H 235 H 172 H (70-105)
[2018-01-30] MEDS ORDERED: ROCEPHIN/NS 2 GM/100 ML 2 GM/100 ML BAG IV SCH (14:00)
--- NOTE | 2018-01-30 15:24 | Progress Note ---
Assessment and Plan - Patient Problems (1) Right foot ulcer Current Visit: No Status: Chronic Qualifiers: Non-pressure ulcer stage: with fat layer exposed Qualified Code(s): L97.512 - Non-pressure chronic ulcer of other part of right foot with fat layer exposed Plan to address problem: This is a [employer] Stage III, diabetic foot ulcer that had a deep space infection with an associated abscess. Pt stable. s/p Right Foot I&D, debridement; wound vac placement - 01/27/18 - POD# 3. Pt doing well. Rec: 1) cont IV Abx 2) OOB to chair 3) Encouraged patient to use knee walker at home. She has one but is afraid to use it. 4) May be d/c'd home from my perspective. I will f/u with her in the Wound Clinic in 1 week. 5) Wound Clinic working on HBO approval/arrangements. Please call with questions. Subjective Date of service: 01/30/18 Patient Reports: Positive: no new complaints (Wound vac changed today) Objective Vital Signs - 12hr 01/30/18 01/30/18 06:29 09:34 Temperature 98.5 F Pulse Rate 77 Respiratory 20 Rate Blood Pressure 146/75 141/78 O2 Sat by Pulse 95 Oximetry - General physical appearance no distress, no pain, other (looks well. In good spirits) - Respiratory normal respiratory effort - Musculoskeletal other (New wound vac in place. No leaks. No erythema extending up the leg. ) - Psychiatric oriented to time, oriented to person, oriented to place, speech is normal, memory intact - Labs 01/29/18 04:39 01/29/18 04:39
[2018-01-30] MEDS: ROCEPHIN/NS 2 GM/100 ML 2 GM/100 ML BAG IV SCH (17:58)
[2018-01-31] MEDS: NEURONTIN PO SCH ×3 (06:39→22:38)
[2018-01-31] MEDS: SODIUM CHLORIDE FLUSH SYRINGE 10 ML IV SCH ×3 (06:40→22:40)
[2018-01-31] MEDS: HumaLOG SUB-Q SCH ×5 (06:40→22:37)
[2018-01-31] MEDS: PLAVIX PO SCH (10:19)
[2018-01-31] MEDS: COZAAR PO SCH (10:20)
[2018-01-31] MEDS: LOPRESSOR PO SCH ×2 (10:21→22:38)
[2018-01-31] MEDS: ROCEPHIN/NS 2 GM/100 ML 2 GM/100 ML BAG IV SCH (10:24)
--- NOTE | 2018-01-31 12:30 | Progress Note ---
Assessment and Plan - Patient Problems (1) Right foot ulcer Current Visit: No Status: Chronic Qualifiers: Non-pressure ulcer stage: with fat layer exposed Qualified Code(s): L97.512 - Non-pressure chronic ulcer of other part of right foot with fat layer exposed Plan to address problem: This is a [employer] Stage III, diabetic foot ulcer that had a deep space infection with an associated abscess. Pt stable. s/p Right Foot I&D, debridement; wound vac placement - 01/27/18 - POD# 4. Pt doing well. Rec: 1) cont IV Abx 2) OOB to chair 3) Encouraged patient to use knee walker at home. She has one but is afraid to use it. 4) May be d/c'd home from my perspective. I will f/u with her in [facility] in 1 week. 5) [facility] working on HBO approval/arrangements. Please call with questions. Subjective Date of service: 01/31/18 Patient Reports: Positive: no new complaints Objective Vital Signs - 12hr 01/31/18 01/31/18 01/31/18 06:09 10:20 11:35 Temperature 98.2 F 99.0 F Pulse Rate 80 78 Respiratory 16 18 Rate Blood Pressure 147/77 142/76 155/80 O2 Sat by Pulse 91 94 Oximetry - General physical appearance no distress, no pain - Respiratory normal respiratory effort - Musculoskeletal other (Wound vac in place without any leaks. Machine working properly. ) - Labs 01/29/18 04:39 01/29/18 04:39
--- NOTE | 2018-01-31 13:18 | Progress Note ---
Assessment and Plan Assessment and plan: 62 YO Female with HTN, DM, CAD, HLD presents to ED for evaluation. Pt states that she has experienced redness and pain in her right foot over the past week, with worsening symptoms over the past 2 days. Pt was treated with outpatient oral antibiotic therapy without in symptoms. Pt was seen and evaluated in wound clinic and instructed to seek further care and evaluation at [facility]. Pt seen and evaluated in ED and found to have Right foot cellulitis suspicious for osteomyelitis, as well as sepsis, and Acidosis. Pt acknowledges subjective fever , right foot redness and pain. Sepsis due to right foot cellulitis - Evidenced by leucocytosis,tachycardia - On IV zosyn - Patient had fever - ID consult appreciated and recommend home IV antibiotics Diabetic foot ulcer, right foot cellulitis - MRI of the leg was done and showed no osteomyelitis or abscess - Surgery consult appreciated, S/P OR debridement and wound VAC placement on findings - Deep space infection extending from the great toe to the 3rd toe and down the plantar. OR Gram stain 01/27 Beta hem Strep group B Hypertension, CAD -Stable, continue home medications Uncontrolled diabetes mellitus with hyperglycemia - Patient is on basal and sliding scale insulin - Hemoglobin A1c is 12.5 - Will monitor accu-check DVT prophylaxis - On Lovenox Disposition - Will discharge once home wound vac and IV antibiotic tomorrow.. History Interval history: Patient was seen and evaluated this morning, patient didn't have any fever. Not in pain or distress. Hospitalist Physical - Physical exam Narrative exam: Not in cardiopulmonary distress. The patient appeared well nourished and normally developed. Vital signs as documented. Head exam is unremarkable. No scleral icterus . Neck is without jugular venous distension, thyromegaly, or carotid bruits. Lungs are clear to auscultation. Cardiac exam reveals regular rate and Rhythm. Abdominal exam reveals normal bowel sounds. Extremities right foot ulcer. S/P debridement and dressing. Wound VAC in place NEWSAGENT: Alert and oriented 3. No focal weakness. - Constitutional Vitals: Temp Pulse Resp BP Pulse Ox 99.0 F 78 18 155/80 94 01/31/18 11:35 01/31/18 11:35 01/31/18 11:35 01/31/18 11:35 01/31/18 11:35 General appearance: Present: mild distress Results - Labs CBC & Chem 7: 01/29/18 04:39 01/29/18 04:39 Labs: Laboratory Last Values WBC 7.3 K/mm3 (4.5-11.0) 01/29/18 04:39 RBC 3.52 M/mm3 (3.65-5.03) L 01/29/18 04:39 Hgb 10.2 gm/dl (10.1-14.3) 01/29/18 04:39 Hct 29.9 % (30.3-42.9) L 01/29/18 04:39 MCV 85 fl (79-97) 01/29/18 04:39 MCH 29 pg (28-32) 01/29/18 04:39 MCHC 34 % (30-34) 01/29/18 04:39 RDW 14.5 % (13.2-15.2) 01/29/18 04:39 Plt Count 300 K/mm3 (140-440) 01/29/18 04:39 Lymph % (Auto) 19.8 % (13.4-35.0) 01/29/18 04:39 [place] % (Auto) 9.6 % (0.0-7.3) H 01/29/18 04:39 Eos % (Auto) 3.8 % (0.0-4.3) 01/29/18 04:39 Baso % (Auto) 0.9 % (0.0-1.8) 01/29/18 04:39 Lymph # 1.4 K/mm3 (1.2-5.4) 01/29/18 04:39 [place] # 0.7 K/mm3 (0.0-0.8) 01/29/18 04:39 Eos # 0.3 K/mm3 (0.0-0.4) 01/29/18 04:39 Baso # 0.1 K/mm3 (0.0-0.1) 01/29/18 04:39 Seg Neutrophils % 65.9 % (40.0-70.0) 01/29/18 04:39 Seg Neutrophils # 4.8 K/mm3 (1.8-7.7) 01/29/18 04:39 PT 14.3 Sec. (12.2-14.9) 01/23/18 13:39 INR 1.05 (0.87-1.13) 01/23/18 13:39 VBG pH 7.353 (7.320-7.420) 01/23/18 13:39 Sodium 142 mmol/L (137-145) 01/29/18 04:39 Potassium 3.5 mmol/L (3.6-5.0) L 01/29/18 04:39 Chloride 105.3 mmol/L (98-107) 01/29/18 04:39 Carbon Dioxide 27 mmol/L (22-30) 01/29/18 04:39 Anion Gap 13 mmol/L 01/29/18 04:39 BUN 7 mg/dL (7-17) 01/29/18 04:39 Creatinine 0.6 mg/dL (0.7-1.2) L 01/29/18 04:39 Estimated GFR > 60 ml/min 01/29/18 04:39 BUN/Creatinine Ratio 12 % 01/29/18 04:39 Glucose 121 mg/dL (65-100) H 01/29/18 04:39 POC Glucose 173 (70-105) H 01/31/18 11:14 Hemoglobin A1c 12.7 % (4-6) H 01/23/18 17:58 Lactic Acid 1.10 mmol/L (0.7-2.0) 01/23/18 16:29 Calcium 8.6 mg/dL (8.4-10.2) 01/29/18 04:39 Total Bilirubin 1.20 mg/dL (0.1-1.2) 01/23/18 13:39 AST 8 units/L (5-40) 01/23/18 13:39 ALT 6 units/L (7-56) L 01/23/18 13:39 Alkaline Phosphatase 76 units/L (35-129) 01/23/18 13:39 Total Protein 7.2 g/dL (6.3-8.2) 01/23/18 13:39 Albumin 3.2 g/dL (3.9-5) L 01/23/18 13:39 Albumin/Globulin Ratio 0.8 % 01/23/18 13:39 Urine Color Yellow (Yellow) 01/23/18 21:03 Urine Turbidity Clear (Clear) 01/23/18 21:03 Urine pH 6.0 (5.0-7.0) 01/23/18 21:03 Ur Specific [place] 1.014 (1.003-1.030) 01/23/18 21:03 Urine Protein <15 mg/dl mg/dL (Negative) 01/23/18 21:03 Urine Glucose (UA) >=500 mg/dL (Negative) 01/23/18 21:03 Urine Ketones 80 mg/dL (Negative) 01/23/18 21:03 Urine Blood Neg (Negative) 01/23/18 21:03 Urine Nitrite Neg (Negative) 01/23/18 21:03 Urine Bilirubin Neg (Negative) 01/23/18 21:03 Urine Urobilinogen < 2.0 mg/dL (<2.0) 01/23/18 21:03 Ur Leukocyte Esterase Tr (Negative) 01/23/18 21:03 Urine WBC (Auto) 9.0 /HPF (0.0-6.0) H 01/23/18 21:03 Urine RBC (Auto) 6.0 /HPF (0.0-6.0) 01/23/18 21:03 U Epithel Cells (Auto) 1.0 /HPF (0-13.0) 01/23/18 21:03 Urine Mucus Few /HPF 01/23/18 21:03
[2018-01-31] MEDS: LANTUS SUB-Q SCH (22:36)
[2018-01-31] MEDS: ELAVIL PO SCH (22:37)
[2018-01-31] MEDS: LOVENOX SUB-Q SCH (22:38)
[2018-02-01] MEDS: NEURONTIN PO SCH ×2 (05:54→13:58)
--- NOTE | 2018-02-01 07:41 | Discharge Summary ---
Providers - Providers Date of Admission: 01/23/18 17:44 Attending physician: VAIBHAV HAMEED MD 01/23/18 12:00 Consult to Physician [CONS] Routine Comment: Consulting Provider: MEL ALONZO Physician Instructions: Reason For Exam: diabetic foot 01/24/18 08:41 Consult to Wound/ET Nurse [CONS] Routine Reason For Exam: wound eval 01/26/18 08:36 Consult to Physician [CONS] Routine Comment: Consulting Provider: SENA MEDEIROS Physician Instructions: Reason For Exam: cellulitis/ diabetic foot ulcer right foot 01/28/18 10:38 Consult to Case Management [CONS] Stat Services Needed at Discharge: Other Notified:: integration analyst Additional Physician Instructions: [facility] Diagnosis: foot infection due to Strep group B Antibiotics: ceftriaxone 2 g IV qday total 2 week until 02/10/18 Labs: CBC, BMP, CRP every Friday. Send results to ID office [phone] Sena Walton MD 01/28/18 01/28/18 10:40 Midline [Consult to PICC Line RN] [CONS] Stat Reason For Exam: IV abx for 2 weeks Type Line:: Midline 01/28/18 11:12 Consult to Wound/ET Nurse [CONS] Routine Reason For Exam: home wound vac Primary care physician: FINISHING MACHINE OPERATOR AUTOMATIC Hospitalization Reason for admission: Sepsis, diabetic foot ulcer with abscess Condition: Stable Hospital course: 62 YO Female with HTN, DM, CAD, HLD presents to ED for evaluation. Pt states that she has experienced redness and pain in her right foot over the past week, with worsening symptoms over the past 2 days. Pt was treated with outpatient oral antibiotic therapy without in symptoms. Pt was seen and evaluated in wound clinic and instructed to seek further care and evaluation at [facility]. Pt seen and evaluated in ED and found to have Right foot cellulitis suspicious for osteomyelitis, as well as sepsis, and Acidosis. Pt acknowledges subjective fever , right foot redness and pain. Sepsis due to right foot cellulitis - Evidenced by leucocytosis,tachycardia - WAs on IV zosyn and later changed to IV Rocephin - ID consult appreciated and recommend home IV Rocephin for 2 weeks, ID arrange outpatient IV Rocephin treatment Diabetic foot ulcer, right foot cellulitis - MRI of the leg was done and showed no osteomyelitis or abscess - Surgery consult appreciated, S/P OR debridement and wound VAC placement on findings - Deep space infection extending from the great toe to the 3rd toe and down the plantar. OR Gram stain 01/27 Beta hem Strep group B, patient discharged with wound vac Hypertension, CAD -Stable, continue home medications Uncontrolled diabetes mellitus with hyperglycemia - Patient is advised to have adherence with her insulin regimen - Refill of her medication when given - Hemoglobin A1c is 12.5 Patient was hemodynamically stable at the time of discharge. Wound VAC and IV antibiotics were arranged. Patient was discharged home with home health. Patient will have follow-up appointment with general surgery. Patient advised to follow-up with her PCP. Disposition: [id number] HOME UND[facility] Time spent for discharge: 32 minutes - Discharge Diagnoses (1) Diabetic foot ulcer associated with type 2 diabetes mellitus Status: Acute Qualifiers: Diabetic foot ulcer location: toe Laterality: right Non-pressure ulcer stage: with fat layer exposed Qualified Code(s): E11.621 - Type 2 diabetes mellitus with foot ulcer; L97.512 - Non-pressure chronic ulcer of other part of right foot with fat layer exposed (2) Cellulitis of foot Status: Acute (3) Diabetes Status: Chronic Qualifiers: Diabetes mellitus type: type 2 Diabetes mellitus electronic controls repairer supervisor insulin use: with electronic controls repairer supervisor use Diabetes mellitus complication status: with hyperglycemia Qualified Code(s): E11.65 - Type 2 diabetes mellitus with hyperglycemia; Z79.4 - slasher tender (current) use of insulin (4) Sepsis Status: Acute Qualifiers: Sepsis type: Streptococcus group B Qualified Code(s): A40.1 - Sepsis due to streptococcus, group B (5) Right foot ulcer Status: Chronic Qualifiers: Non-pressure ulcer stage: with fat layer exposed Qualified Code(s): L97.512 - Non-pressure chronic ulcer of other part of right foot with fat layer exposed Core Measure Documentation - Palliative Care Palliative Care/ Comfort Measures: Not Applicable - Core Measures Any of the following diagnoses?: none Exam - Physical Exam Narrative exam: Not in cardiopulmonary distress. The patient appeared well nourished and normally developed. Vital signs as documented. Head exam is unremarkable. No scleral icterus . Neck is without jugular venous distension, thyromegaly, or carotid bruits. Lungs are clear to auscultation. Cardiac exam reveals regular rate and Rhythm. Abdominal exam reveals normal bowel sounds. Extremities right foot ulcer. S/P debridement and dressing. Wound VAC in place PLANER OPERATOR: Alert and oriented 3. No focal weakness. - Constitutional Vitals: Temp Pulse Resp BP Pulse Ox 98.0 F 75 18 154/79 94 02/01/18 05:43 02/01/18 05:43 02/01/18 05:43 02/01/18 05:43 02/01/18 05:43 Plan Activity: no restrictions Weight Bearing Status: Weight Bear as Tolerated Diet: diabetic Follow up with: SENA MEDEIROS MD [Staff Physician] - 7 Days PRIMARY CARE, [Primary Care Provider] - 3-5 Days TONA GAGE MD [Staff Physician] - 02/18/18 9:30 am MEL ALONZO MD [Staff Physician] - 14 Days Prescriptions: Insulin Detemir [Levemir VIAL] 50 unit SQ QHS #2 vial Insulin NPH/Regular [NovoLIN 70/30] 32 unit SUB-Q QAMDIAB #2 vial
[2018-02-01] MEDS: HumaLOG SUB-Q SCH ×2 (08:24→12:15)
[2018-02-01] MEDS: COZAAR PO SCH (09:45)
[2018-02-01] MEDS: PLAVIX PO SCH (09:45)
[2018-02-01] MEDS: ROCEPHIN/NS 2 GM/100 ML 2 GM/100 ML BAG IV SCH (09:45)
[2018-02-01] MEDS: LOPRESSOR PO SCH (09:45)
[2018-02-01] MEDS: SODIUM CHLORIDE FLUSH SYRINGE 10 ML IV SCH (09:48)
[2018-02-01 12:35] VITALS: BP 156/72
--- NOTE | 2018-02-02 15:21 | Vascular Lab Report ---
LOWER EXTREMITY ARTERIAL DUPLEX: REASON FOR EXAM: Foot ulcer. COMMENTS ON THE RIGHT: Triphasic waveforms are seen proximally. Triphasic waveforms are seen distally. No significant velocity gradients are identified. No significant plaque is identified. Findings are consistent with normal perfusion. Findings are consistent with the ability to heal distal wounds. COMMENTS ON THE LEFT: Triphasic waveforms are seen proximally. Triphasic waveforms are seen distally. No significant velocity gradients are identified. No significant plaque is identified. Findings are consistent with normal perfusion. Findings are consistent with the ability to heal distal wounds. IMPRESSION: RIGHT: Essentially normal arterial flow. LEFT:Essentially normal arterial flow.
== END 2018-02-01 15:45 | disposition home health service (06) | DRG 853 ==
LOC: ED 13:10 → 3A 17:44
PROVIDERS: ADMIT Internal Medicine; ATTEND Internal Medicine
PROC: 0JBQ0ZZ Excision of Right Foot Subcutaneous Tissue and Fascia, Open Approach (ICD-10-PCS; principal; 2018-01-27)
DX: A41.9 Sepsis, unspecified organism (principal); L89.893 Pressure ulcer of other site, stage 3; E87.1 Hypo-osmolality and hyponatremia; L03.115 Cellulitis of right lower limb; E11.621 Type 2 diabetes mellitus with foot ulcer; E11.628 Type 2 diabetes mellitus with other skin complications; E11.65 Type 2 diabetes mellitus with hyperglycemia; L97.512 Non-pressure chronic ulcer of other part of right foot with fat layer exposed; I48.91 Unspecified atrial fibrillation; I25.10 Atherosclerotic heart disease of native coronary artery without angina pectoris; E78.5 Hyperlipidemia, unspecified; I10 Essential (primary) hypertension; Z79.4 Long term (current) use of insulin; Z82.49 Family history of ischemic heart disease and other diseases of the circulatory system
CPT/HCPCS: 36415; 71045; 80048; 80053; 81001; 82140; 82805; 82962; 83036; 85025; 85610; 87040; 87076; 87086; 87116; 87186; 93005; 93010; 93925; 96361; 96365; A9270-GY; J0690; J0696; J1170; J1650; J1815; J2250; J2370; J2405; J2543; J2704; J3370; J7030; J7040; J7042; J7050

== ENCOUNTER 2018-02-06 10:37 | Outpatient (CLI) | payer MEDICARE ==
[2018-02-06] MEDS ORDERED: XYLOCAINE TOPICAL 4% TP ONE ×2 (11:16→11:43)
== END 2018-02-06 10:38 | disposition home or self-care (01) ==
LOC: WOUND 10:37
PROVIDERS: ATTEND Surgery
DX: E11.621 Type 2 diabetes mellitus with foot ulcer (principal); L97.412 Non-pressure chronic ulcer of right heel and midfoot with fat layer exposed; E11.40 Type 2 diabetes mellitus with diabetic neuropathy, unspecified; E78.5 Hyperlipidemia, unspecified; I48.91 Unspecified atrial fibrillation; I25.10 Atherosclerotic heart disease of native coronary artery without angina pectoris; I10 Essential (primary) hypertension; Z87.891 Personal history of nicotine dependence
CPT/HCPCS: 97605

== ENCOUNTER 2018-02-09 09:38 | Outpatient (CLI) | payer MEDICARE | END 2018-02-09 09:39 | disposition home or self-care (01) | LOC: WOUND 09:38 | PROVIDERS: ATTEND Surgery | DX: E11.621 Type 2 diabetes mellitus with foot ulcer (principal); L97.412 Non-pressure chronic ulcer of right heel and midfoot with fat layer exposed; E11.40 Type 2 diabetes mellitus with diabetic neuropathy, unspecified; E78.5 Hyperlipidemia, unspecified; I48.91 Unspecified atrial fibrillation; I25.10 Atherosclerotic heart disease of native coronary artery without angina pectoris; I10 Essential (primary) hypertension; Z87.891 Personal history of nicotine dependence | CPT/HCPCS: 82962; 97605; G0277; 99183 ==

== ENCOUNTER → 2018-02-10 | Outpatient (CLI) | payer MEDICARE | END | disposition home or self-care (01) | LOC: WOUND 09:39 | PROVIDERS: ATTEND Surgery | DX: E11.621 Type 2 diabetes mellitus with foot ulcer (principal); L97.412 Non-pressure chronic ulcer of right heel and midfoot with fat layer exposed; L97.521 Non-pressure chronic ulcer of other part of left foot limited to breakdown of skin; E11.40 Type 2 diabetes mellitus with diabetic neuropathy, unspecified; E78.5 Hyperlipidemia, unspecified; I48.91 Unspecified atrial fibrillation; I25.10 Atherosclerotic heart disease of native coronary artery without angina pectoris; I10 Essential (primary) hypertension; Z87.891 Personal history of nicotine dependence | CPT/HCPCS: 82962; G0277; 99183 ==

== ENCOUNTER 2018-02-11 13:19 | Emergency (ER) | payer MEDICARE ==
[2018-02-11 13:33] VITALS: BP 136/76
[2018-02-11] MEDS ORDERED: ROCEPHIN 2,000 MG in NACL 0.9% 50 ML IV STA (14:14)
--- NOTE | 2018-02-11 14:22 | Emergency Department Report ---
ED General Adult HPI - General Chief complaint: Medical Clearance Stated complaint: MID LINE CAME OUT Time Seen by Provider: 02/11/18 14:04 Source: patient, RN notes reviewed, old records reviewed Mode of arrival: Ambulatory Limitations: Physical Limitation - History of Present Illness Initial comments: This is a 62-year-old female Was recently admitted to this hospital for a complicated hospital course for presumed sepsis secondary to right lower extremity cellulitis/abscess. The patient had operative cultures which demonstrated beta hemolytic strep B, and the patient was discharged with plan for PICC line and 2 weeks of antibiotics until February 10, ceftriaxone 2 g daily. The patient had an MRI which refuted the presence of abscess or osteomyelitis. In addition, the patient is going to the wound care center twice a week. She reports that she has no symptoms. She was sent to the ER for assessment for possible PICC line replacement. As per my discussion with the infectious disease specialist, Dr. Walton, she was informed by the outpatient nursing staff that the patient had osteomyelitis ( they gave the infectious disease doctor the incorrect information), and Dr. Walton thus sent the patient to the ER for PICC line replacement, thinking that the patient required an additional 2 weeks of IV antibiotics. The patient has no complaints or symptoms at this time. After review of the medical record, I discussed the patient's findings and her history with Dr. Walton. The patient indicates the PICC line pulled out on Friday, and she thus missed doses of antibiotics this past Friday, Friday, Friday and Friday. Patient was supposed to receive her last dose of antibiotic yesterday. An extensive discussed with Dr. Walton, we agreed to give the patient a dose of 2 g of ceftriaxone here. The patient will be then discharged to follow up with outpatient wound care center. Given that she has no symptoms, given that she has follow-up in the wound care center, and given that she reports clinical resolution, it is our opinion that the patient does not require additional placement of PICC line, and our opinion that the patient does not require additional doses of antibiotics after today. This is discussed with the patient , who is amenable and agreeable to this plan. -: unknown Improves with: none Worsens with: none Associated Symptoms: denies other symptoms - Related Data Previous Rx's Medication Instructions Recorded Last Taken Type Clopidogrel [Plavix] 75 mg PO QDAY #30 tablet 02/24/17 01/26/18 Rx Losartan [Cozaar] 25 mg PO QDAY #30 tablet 02/24/17 01/26/18 Rx Lovastatin [Altoprev] 20 mg PO QPM #30 tab.er.24h 02/24/17 01/26/18 Rx Metoprolol [Lopressor TAB] 25 mg PO BID #60 tablet 02/24/17 01/26/18 Rx Insulin Detemir [Levemir VIAL] 50 unit SQ QHS #2 vial 02/01/18 Unknown Rx Insulin NPH/Regular [NovoLIN 70/30] 32 unit SUB-Q QAMDIAB #2 vial 02/01/18 Unknown Rx Allergies Allergy/AdvReac Type Severity Reaction Status Date / Time No Known Allergies Allergy Verified 09/11/15 15:55 ED Review of Systems ROS: Stated complaint: MID LINE CAME OUT Other details as noted in HPI Comment: All other systems reviewed and negative ED Past Medical Hx - Past Medical History Hx Hypertension: Yes Hx Congestive Heart Failure: No Hx Diabetes: Yes Hx Deep Vein Thrombosis: No Hx Asthma: No Hx COPD: No Additional medical history: hx a-fib. CHOLESTEROL - Surgical History Hx Pacemaker: No Hx Internal Defibrillator: No Additional Surgical History: foot surgery - Social History Smoking Status: Never Smoker - Medications Home Medications: Home Medications Medication Instructions Recorded Confirmed Last Taken Type Clopidogrel [Plavix] 75 mg PO QDAY #30 tablet 02/24/17 01/31/18 01/26/18 Rx Losartan [Cozaar] 25 mg PO QDAY #30 tablet 02/24/17 01/31/18 01/26/18 Rx Lovastatin [Altoprev] 20 mg PO QPM #30 tab.er.24h 02/24/17 01/31/18 01/26/18 Rx Metoprolol [Lopressor TAB] 25 mg PO BID #60 tablet 02/24/17 01/31/18 01/26/18 Rx Insulin Detemir [Levemir VIAL] 50 unit SQ QHS #2 vial 02/01/18 Unknown Rx Insulin NPH/Regular [NovoLIN 70/30] 32 unit SUB-Q QAMDIAB #2 vial 02/01/18 Unknown Rx ED Physical Exam - General Limitations: Physical Limitation General appearance: alert, in no apparent distress - Head Head exam: Present: atraumatic, normocephalic - Eye Eye exam: Present: normal appearance, EOMI, nystagmus - ENT ENT exam: Present: normal exam, normal orophraynx, mucous membranes moist, normal external ear exam - Neck Neck exam: Present: normal inspection, full ROM - Respiratory Respiratory exam: Present: normal lung sounds bilaterally. Absent: respiratory distress - Cardiovascular Cardiovascular Exam: Present: regular rate, normal rhythm, normal heart sounds. Absent: bradycardia, tachycardia, irregular rhythm, systolic murmur, diastolic murmur, rubs, gallop - GI/Abdominal GI/Abdominal exam: Present: soft, normal bowel sounds. Absent: distended, tenderness, guarding, rebound, rigid, pulsatile mass - Extremities Exam Extremities exam: Present: normal inspection, other (the right upper extremity is nontender. There is no swelling in the right upper extremity. 2+ pulses noted in the bilateral upper extremities and left lower extremity. The right lower extremity has a wound VAC in place. The exposed tissue does not appear to be red and it is nontender. Pulses are not palpable secondary to presence of wound VAC.). Absent: tenderness, calf tenderness - Back Exam Back exam: Present: normal inspection, full ROM. Absent: tenderness, CVA tenderness (R), paraspinal tenderness, vertebral tenderness - Neurological Exam Neurological exam: Present: alert, oriented X3, other (Extraocular movements intact. Tongue midline. No facial droop. Facial sensation intact to light touch in the V1, V2, V3 distribution bilaterally. 5 and 5 strength in 4 extremities.. Sensation is intact to light touch in 4 extremities.). Absent: motor sensory deficit - Psychiatric Psychiatric exam: Present: normal affect, normal mood - Skin Skin exam: Present: warm, dry, intact, normal color. Absent: rash ED Course Vital Signs 02/11/18 13:29 Temperature 98.2 F Pulse Rate 81 Respiratory 18 Rate Blood Pressure 136/76 O2 Sat by Pulse 98 Oximetry - Reevaluation(s) Reevaluation #1: 02/11/18 15:24 The patient is resting and is in no acute distress. The ceftriaxone infusion is finished. The patient will be discharged to follow-up with her primary care doctor and wound care center. ED Medical Decision Making - Lab Data Vital Signs 02/11/18 13:29 Temperature 98.2 F Pulse Rate 81 Respiratory 18 Rate Blood Pressure 136/76 O2 Sat by Pulse 98 Oximetry - Medical Decision Making Differential diagnosis, including but not limited to: PICC line malfunction, chronic wound to the right foot Assessment and plan: 62-year-old female with no complaints, who missed a few days of antibiotics, but has no symptoms. In consultation with infectious disease expert, we agreed to give the patient an additional 2 g of ceftriaxone today, and then to discharge to follow up with outpatient wound care and primary care. Critical care attestation.: If time is entered above; I have spent that time in minutes in the direct care of this critically ill patient, excluding procedure time. ED Disposition Clinical Impression: Wound of foot, PIC line (peripherally inserted central catheter) removal Disposition: TO HOME OR SELFCARE Is pt being admited?: No Does the pt Need Aspirin: No Condition: Stable Instructions: Acute Wound Care (ED), Chronic Wound Care (ED) Additional Instructions: Continue outpatient medications. Continue to follow up at the wound care center twice a week as the patient is doing. Return to the ER right away with fevers, chills, lethargy, irritability, projectile vomiting, change in mental status, confusion, inability to tolerate liquid feeds. Referrals: LEOLA SOUSA MD [Staff Physician] - 3-5 Days [facility] [Outside] - 3-5 Days
[2018-02-11] MEDS ORDERED: ROCEPHIN/NS 2 GM/100 ML 2 GM/100 ML BAG IV SCH (15:00)
== END 2018-02-11 16:12 | disposition home or self-care (01) ==
LOC: ED 13:19
DX: S91.301A Unspecified open wound, right foot, initial encounter (principal); E11.9 Type 2 diabetes mellitus without complications; I10 Essential (primary) hypertension; I48.91 Unspecified atrial fibrillation; Z44 Encounter for fitting and adjustment of external prosthetic device; X58.XXXA Exposure to other specified factors, initial encounter; Y93.89 Activity, other specified; Y99.8 Other external cause status; Y92.89 Other specified places as the place of occurrence of the external cause
CPT/HCPCS: 96365; 99282; J0696

== ENCOUNTER → 2018-02-11 | Outpatient (CLI) | payer MEDICARE | END | disposition home or self-care (01) | LOC: WOUND 10:17 | PROVIDERS: ATTEND Surgery | DX: E11.621 Type 2 diabetes mellitus with foot ulcer (principal); L97.412 Non-pressure chronic ulcer of right heel and midfoot with fat layer exposed; L97.521 Non-pressure chronic ulcer of other part of left foot limited to breakdown of skin; E11.40 Type 2 diabetes mellitus with diabetic neuropathy, unspecified; E78.5 Hyperlipidemia, unspecified; I48.91 Unspecified atrial fibrillation; I25.10 Atherosclerotic heart disease of native coronary artery without angina pectoris; I10 Essential (primary) hypertension; Z87.891 Personal history of nicotine dependence | CPT/HCPCS: 82962; G0277; 99183 ==

== ENCOUNTER 2018-02-12 10:03 | Outpatient (CLI) | payer MEDICARE | END 2018-02-12 10:04 | disposition home or self-care (01) | LOC: WOUND 10:03 | PROVIDERS: ATTEND Surgery | DX: E11.621 Type 2 diabetes mellitus with foot ulcer (principal); L97.412 Non-pressure chronic ulcer of right heel and midfoot with fat layer exposed; L97.521 Non-pressure chronic ulcer of other part of left foot limited to breakdown of skin; E11.40 Type 2 diabetes mellitus with diabetic neuropathy, unspecified; E78.5 Hyperlipidemia, unspecified; I48.91 Unspecified atrial fibrillation; I25.10 Atherosclerotic heart disease of native coronary artery without angina pectoris; I10 Essential (primary) hypertension; Z87.891 Personal history of nicotine dependence | CPT/HCPCS: 82962; G0277; 99183 ==

== ENCOUNTER 2018-02-13 09:20 | Outpatient (CLI) | payer MEDICARE ==
[2018-02-13] MEDS ORDERED: XYLOCAINE TOPICAL 4% TP ONE ×2 (09:24→12:05)
== END 2018-02-13 09:21 | disposition home or self-care (01) ==
LOC: WOUND 09:20
PROVIDERS: ATTEND Surgery
DX: E11.621 Type 2 diabetes mellitus with foot ulcer (principal); L97.412 Non-pressure chronic ulcer of right heel and midfoot with fat layer exposed; L97.521 Non-pressure chronic ulcer of other part of left foot limited to breakdown of skin; E11.40 Type 2 diabetes mellitus with diabetic neuropathy, unspecified; E78.5 Hyperlipidemia, unspecified; I48.91 Unspecified atrial fibrillation; I25.10 Atherosclerotic heart disease of native coronary artery without angina pectoris; I10 Essential (primary) hypertension; Z87.891 Personal history of nicotine dependence
CPT/HCPCS: 11042; 11045; 82962; 97605; G0277; 99183

== ENCOUNTER 2018-02-16 09:28 | Outpatient (CLI) | payer MEDICARE | END 2018-02-16 09:29 | disposition home or self-care (01) | LOC: WOUND 09:28 | PROVIDERS: ATTEND Surgery | DX: E11.621 Type 2 diabetes mellitus with foot ulcer (principal); L97.412 Non-pressure chronic ulcer of right heel and midfoot with fat layer exposed; L97.521 Non-pressure chronic ulcer of other part of left foot limited to breakdown of skin; E11.40 Type 2 diabetes mellitus with diabetic neuropathy, unspecified; E78.5 Hyperlipidemia, unspecified; I48.91 Unspecified atrial fibrillation; I25.10 Atherosclerotic heart disease of native coronary artery without angina pectoris; I10 Essential (primary) hypertension; Z87.891 Personal history of nicotine dependence | CPT/HCPCS: 82962; G0277; 99183 ==

== ENCOUNTER 2018-02-17 09:48 | Outpatient (CLI) | payer MEDICARE | END 2018-02-17 09:49 | disposition home or self-care (01) | LOC: WOUND 09:48 | PROVIDERS: ATTEND Surgery | DX: E11.621 Type 2 diabetes mellitus with foot ulcer (principal); L97.412 Non-pressure chronic ulcer of right heel and midfoot with fat layer exposed; L97.521 Non-pressure chronic ulcer of other part of left foot limited to breakdown of skin; E11.40 Type 2 diabetes mellitus with diabetic neuropathy, unspecified; E78.5 Hyperlipidemia, unspecified; I48.91 Unspecified atrial fibrillation; I25.10 Atherosclerotic heart disease of native coronary artery without angina pectoris; I10 Essential (primary) hypertension; Z87.891 Personal history of nicotine dependence | CPT/HCPCS: 82962; 97605; G0277; 99183 ==

== ENCOUNTER 2018-02-18 09:44 | Outpatient (CLI) | payer MEDICARE | END 2018-02-18 09:45 | disposition home or self-care (01) | LOC: WOUND 09:44 | PROVIDERS: ATTEND Surgery | DX: E11.621 Type 2 diabetes mellitus with foot ulcer (principal); L97.412 Non-pressure chronic ulcer of right heel and midfoot with fat layer exposed; L97.521 Non-pressure chronic ulcer of other part of left foot limited to breakdown of skin; E11.40 Type 2 diabetes mellitus with diabetic neuropathy, unspecified; E78.5 Hyperlipidemia, unspecified; I48.91 Unspecified atrial fibrillation; I25.10 Atherosclerotic heart disease of native coronary artery without angina pectoris; I10 Essential (primary) hypertension; Z87.891 Personal history of nicotine dependence | CPT/HCPCS: 82962; G0277; 99183 ==

== ENCOUNTER 2018-02-19 10:05 | Outpatient (CLI) | payer MEDICARE | END 2018-02-19 10:06 | disposition home or self-care (01) | LOC: WOUND 10:05 | PROVIDERS: ATTEND Surgery | DX: E11.621 Type 2 diabetes mellitus with foot ulcer (principal); L97.412 Non-pressure chronic ulcer of right heel and midfoot with fat layer exposed; L97.521 Non-pressure chronic ulcer of other part of left foot limited to breakdown of skin; E11.40 Type 2 diabetes mellitus with diabetic neuropathy, unspecified; E78.5 Hyperlipidemia, unspecified; I48.91 Unspecified atrial fibrillation; I25.10 Atherosclerotic heart disease of native coronary artery without angina pectoris; I10 Essential (primary) hypertension; Z87.891 Personal history of nicotine dependence | CPT/HCPCS: 82962; G0277; 99183 ==

== ENCOUNTER 2018-02-20 10:30 | Outpatient (CLI) | payer MEDICARE | END 2018-02-20 10:31 | disposition home or self-care (01) | LOC: WOUND 10:30 | PROVIDERS: ATTEND Surgery | DX: E11.621 Type 2 diabetes mellitus with foot ulcer (principal); L97.412 Non-pressure chronic ulcer of right heel and midfoot with fat layer exposed; L97.521 Non-pressure chronic ulcer of other part of left foot limited to breakdown of skin; E11.40 Type 2 diabetes mellitus with diabetic neuropathy, unspecified; E78.5 Hyperlipidemia, unspecified; I48.91 Unspecified atrial fibrillation; I25.10 Atherosclerotic heart disease of native coronary artery without angina pectoris; I10 Essential (primary) hypertension; Z87.891 Personal history of nicotine dependence | CPT/HCPCS: 11042; 11045; 82962; 97605; G0277; 99183 ==

== ENCOUNTER 2018-02-24 10:20 | Outpatient (CLI) | payer MEDICARE | END 2018-02-24 10:21 | disposition home or self-care (01) | LOC: WOUND 10:20 | PROVIDERS: ATTEND Surgery | DX: E11.621 Type 2 diabetes mellitus with foot ulcer (principal); L97.412 Non-pressure chronic ulcer of right heel and midfoot with fat layer exposed; L97.521 Non-pressure chronic ulcer of other part of left foot limited to breakdown of skin; E11.40 Type 2 diabetes mellitus with diabetic neuropathy, unspecified; E78.5 Hyperlipidemia, unspecified; I48.91 Unspecified atrial fibrillation; I25.10 Atherosclerotic heart disease of native coronary artery without angina pectoris; I10 Essential (primary) hypertension; Z87.891 Personal history of nicotine dependence | CPT/HCPCS: 82962; G0277; 99183 ==

== ENCOUNTER 2018-02-26 09:46 | Outpatient (CLI) | payer MEDICARE | END 2018-02-26 09:47 | disposition home or self-care (01) | LOC: WOUND 09:46 | PROVIDERS: ATTEND Surgery | DX: E11.621 Type 2 diabetes mellitus with foot ulcer (principal); L97.412 Non-pressure chronic ulcer of right heel and midfoot with fat layer exposed; L97.521 Non-pressure chronic ulcer of other part of left foot limited to breakdown of skin; E11.40 Type 2 diabetes mellitus with diabetic neuropathy, unspecified; E78.5 Hyperlipidemia, unspecified; I48.91 Unspecified atrial fibrillation; I25.10 Atherosclerotic heart disease of native coronary artery without angina pectoris; I10 Essential (primary) hypertension; Z87.891 Personal history of nicotine dependence | CPT/HCPCS: 82962; G0277; 99183 ==

== ENCOUNTER 2018-02-27 10:51 | Outpatient (CLI) | payer MEDICARE | END 2018-02-27 10:52 | disposition home or self-care (01) | LOC: WOUND 10:51 | PROVIDERS: ATTEND Surgery | DX: E11.621 Type 2 diabetes mellitus with foot ulcer (principal); L97.412 Non-pressure chronic ulcer of right heel and midfoot with fat layer exposed; L97.521 Non-pressure chronic ulcer of other part of left foot limited to breakdown of skin; E11.40 Type 2 diabetes mellitus with diabetic neuropathy, unspecified; E78.5 Hyperlipidemia, unspecified; I48.91 Unspecified atrial fibrillation; I25.10 Atherosclerotic heart disease of native coronary artery without angina pectoris; I10 Essential (primary) hypertension; Z87.891 Personal history of nicotine dependence | CPT/HCPCS: 11042; 11045; 82962; 97605; G0277; 99183 ==

== ENCOUNTER 2018-03-03 09:49 | Outpatient (CLI) | payer MEDICARE | END 2018-03-03 09:50 | disposition home or self-care (01) | LOC: WOUND 09:49 | PROVIDERS: ATTEND Surgery | DX: E11.621 Type 2 diabetes mellitus with foot ulcer (principal); L97.412 Non-pressure chronic ulcer of right heel and midfoot with fat layer exposed; L97.521 Non-pressure chronic ulcer of other part of left foot limited to breakdown of skin; E11.40 Type 2 diabetes mellitus with diabetic neuropathy, unspecified; E78.5 Hyperlipidemia, unspecified; I48.91 Unspecified atrial fibrillation; I25.10 Atherosclerotic heart disease of native coronary artery without angina pectoris; I10 Essential (primary) hypertension; Z87.891 Personal history of nicotine dependence | CPT/HCPCS: 82962; 97605 ==

== ENCOUNTER 2018-03-06 10:39 | Outpatient (CLI) | payer MEDICARE ==
[2018-03-06] MEDS ORDERED: SILVER NITRATE TP ONE ×2 (14:14→15:43)
== END 2018-03-06 10:40 | disposition home or self-care (01) ==
LOC: WOUND 10:39
PROVIDERS: ATTEND Surgery
DX: E11.621 Type 2 diabetes mellitus with foot ulcer (principal); L97.412 Non-pressure chronic ulcer of right heel and midfoot with fat layer exposed; L97.521 Non-pressure chronic ulcer of other part of left foot limited to breakdown of skin; E11.40 Type 2 diabetes mellitus with diabetic neuropathy, unspecified; E78.5 Hyperlipidemia, unspecified; I48.91 Unspecified atrial fibrillation; I25.10 Atherosclerotic heart disease of native coronary artery without angina pectoris; I10 Essential (primary) hypertension; Z87.891 Personal history of nicotine dependence
CPT/HCPCS: 11042; 11045; 82962; 97605; G0277; 99183

== ENCOUNTER 2018-03-09 10:40 | Outpatient (CLI) | payer MEDICARE | END 2018-03-09 10:41 | disposition home or self-care (01) | LOC: WOUND 10:40 | PROVIDERS: ATTEND Surgery | DX: E11.621 Type 2 diabetes mellitus with foot ulcer (principal); L97.412 Non-pressure chronic ulcer of right heel and midfoot with fat layer exposed; L97.521 Non-pressure chronic ulcer of other part of left foot limited to breakdown of skin; E11.40 Type 2 diabetes mellitus with diabetic neuropathy, unspecified; E78.5 Hyperlipidemia, unspecified; I48.91 Unspecified atrial fibrillation; I25.10 Atherosclerotic heart disease of native coronary artery without angina pectoris; I10 Essential (primary) hypertension; Z87.891 Personal history of nicotine dependence | CPT/HCPCS: 82962; G0277; 99183 ==

== ENCOUNTER 2018-03-10 09:57 | Outpatient (CLI) | payer MEDICARE ==
[2018-03-10] MEDS ORDERED: SILVER NITRATE TP ONE ×3 (13:09→13:47)
[2018-03-10] MEDS ORDERED: AD OINTMENT TP ONE (14:21)
== END 2018-03-10 09:58 | disposition home or self-care (01) ==
LOC: WOUND 09:57
PROVIDERS: ATTEND Surgery
DX: E11.621 Type 2 diabetes mellitus with foot ulcer (principal); L97.412 Non-pressure chronic ulcer of right heel and midfoot with fat layer exposed; E11.40 Type 2 diabetes mellitus with diabetic neuropathy, unspecified; E78.5 Hyperlipidemia, unspecified; I48.91 Unspecified atrial fibrillation; I25.10 Atherosclerotic heart disease of native coronary artery without angina pectoris; I10 Essential (primary) hypertension; Z87.891 Personal history of nicotine dependence
CPT/HCPCS: 11042; 11045; 82962; G0277; 99183; A6250

== ENCOUNTER 2018-03-11 10:40 | Outpatient (CLI) | payer MEDICARE | END 2018-03-11 10:41 | disposition home or self-care (01) | LOC: WOUND 10:40 | PROVIDERS: ATTEND Surgery | DX: E11.621 Type 2 diabetes mellitus with foot ulcer (principal); L97.412 Non-pressure chronic ulcer of right heel and midfoot with fat layer exposed; E11.40 Type 2 diabetes mellitus with diabetic neuropathy, unspecified; I48.91 Unspecified atrial fibrillation; E78.5 Hyperlipidemia, unspecified; I25.10 Atherosclerotic heart disease of native coronary artery without angina pectoris; I10 Essential (primary) hypertension; Z87.891 Personal history of nicotine dependence | CPT/HCPCS: 82962; G0277; 99183 ==

== ENCOUNTER 2018-03-12 09:53 | Outpatient (CLI) | payer MEDICARE | END 2018-03-12 09:54 | disposition home or self-care (01) | LOC: WOUND 09:53 | PROVIDERS: ATTEND Surgery | DX: E11.621 Type 2 diabetes mellitus with foot ulcer (principal); L97.412 Non-pressure chronic ulcer of right heel and midfoot with fat layer exposed; L97.521 Non-pressure chronic ulcer of other part of left foot limited to breakdown of skin; E11.40 Type 2 diabetes mellitus with diabetic neuropathy, unspecified; I48.91 Unspecified atrial fibrillation; E78.5 Hyperlipidemia, unspecified; I25.10 Atherosclerotic heart disease of native coronary artery without angina pectoris; I10 Essential (primary) hypertension; Z87.891 Personal history of nicotine dependence | CPT/HCPCS: 82962; G0277; 99183 ==

== ENCOUNTER 2018-03-13 10:47 | Outpatient (CLI) | payer MEDICARE | END 2018-03-13 10:48 | disposition home or self-care (01) | LOC: WOUND 10:47 | PROVIDERS: ATTEND Surgery | DX: E11.621 Type 2 diabetes mellitus with foot ulcer (principal); L97.412 Non-pressure chronic ulcer of right heel and midfoot with fat layer exposed; E11.40 Type 2 diabetes mellitus with diabetic neuropathy, unspecified; I48.91 Unspecified atrial fibrillation; E78.5 Hyperlipidemia, unspecified; I25.10 Atherosclerotic heart disease of native coronary artery without angina pectoris; I10 Essential (primary) hypertension; Z87.891 Personal history of nicotine dependence | CPT/HCPCS: 11042; 11045; 82962; G0277; 99183 ==

== ENCOUNTER 2018-03-16 11:05 | Outpatient (CLI) | payer MEDICARE | END 2018-03-16 11:06 | disposition home or self-care (01) | LOC: WOUND 11:05 | PROVIDERS: ATTEND Surgery | DX: E11.621 Type 2 diabetes mellitus with foot ulcer (principal); L97.412 Non-pressure chronic ulcer of right heel and midfoot with fat layer exposed; L97.522 Non-pressure chronic ulcer of other part of left foot with fat layer exposed; E11.40 Type 2 diabetes mellitus with diabetic neuropathy, unspecified; I48.91 Unspecified atrial fibrillation; E78.5 Hyperlipidemia, unspecified; I10 Essential (primary) hypertension; Z87.891 Personal history of nicotine dependence | CPT/HCPCS: 82962; G0277; 99183 ==

== ENCOUNTER 2018-03-17 10:03 | Outpatient (CLI) | payer MEDICARE | END 2018-03-17 10:04 | disposition home or self-care (01) | LOC: WOUND 10:03 | PROVIDERS: ATTEND Surgery | DX: E11.621 Type 2 diabetes mellitus with foot ulcer (principal); L97.412 Non-pressure chronic ulcer of right heel and midfoot with fat layer exposed; E11.40 Type 2 diabetes mellitus with diabetic neuropathy, unspecified; I48.91 Unspecified atrial fibrillation; E78.5 Hyperlipidemia, unspecified; I25.10 Atherosclerotic heart disease of native coronary artery without angina pectoris; I10 Essential (primary) hypertension; Z87.891 Personal history of nicotine dependence | CPT/HCPCS: 82962; G0277; 99183 ==

== ENCOUNTER 2018-03-19 10:13 | Outpatient (CLI) | payer MEDICARE | END 2018-03-19 10:14 | disposition home or self-care (01) | LOC: WOUND 10:13 | PROVIDERS: ATTEND Surgery | DX: E11.621 Type 2 diabetes mellitus with foot ulcer (principal); L97.412 Non-pressure chronic ulcer of right heel and midfoot with fat layer exposed; E11.40 Type 2 diabetes mellitus with diabetic neuropathy, unspecified; I48.91 Unspecified atrial fibrillation; E78.5 Hyperlipidemia, unspecified; I25.10 Atherosclerotic heart disease of native coronary artery without angina pectoris; I10 Essential (primary) hypertension; Z87.891 Personal history of nicotine dependence | CPT/HCPCS: 82962; G0277; 99183 ==

== ENCOUNTER 2018-03-20 11:05 | Outpatient (CLI) | payer MEDICARE | END 2018-03-20 11:06 | disposition home or self-care (01) | LOC: WOUND 11:05 | PROVIDERS: ATTEND Surgery | DX: E11.621 Type 2 diabetes mellitus with foot ulcer (principal); L97.412 Non-pressure chronic ulcer of right heel and midfoot with fat layer exposed; E11.40 Type 2 diabetes mellitus with diabetic neuropathy, unspecified; I48.91 Unspecified atrial fibrillation; E78.5 Hyperlipidemia, unspecified; I25.10 Atherosclerotic heart disease of native coronary artery without angina pectoris; I10 Essential (primary) hypertension | CPT/HCPCS: 11042; 11045; 82962; 97605; G0277; 99183 ==

== ENCOUNTER 2018-03-23 10:44 | Outpatient (CLI) | payer MEDICARE | END 2018-03-23 10:45 | disposition home or self-care (01) | LOC: WOUND 10:44 | PROVIDERS: ATTEND Surgery | DX: E11.621 Type 2 diabetes mellitus with foot ulcer (principal); L97.412 Non-pressure chronic ulcer of right heel and midfoot with fat layer exposed; L97.521 Non-pressure chronic ulcer of other part of left foot limited to breakdown of skin; E11.40 Type 2 diabetes mellitus with diabetic neuropathy, unspecified; I48.91 Unspecified atrial fibrillation; E78.5 Hyperlipidemia, unspecified; I25.10 Atherosclerotic heart disease of native coronary artery without angina pectoris; I10 Essential (primary) hypertension; Z87.891 Personal history of nicotine dependence | CPT/HCPCS: 82962; G0277; 99183 ==

== ENCOUNTER 2018-03-24 09:51 | Outpatient (CLI) | payer MEDICARE | END 2018-03-24 09:52 | disposition home or self-care (01) | LOC: WOUND 09:51 | PROVIDERS: ATTEND Surgery | DX: E11.621 Type 2 diabetes mellitus with foot ulcer (principal); L97.412 Non-pressure chronic ulcer of right heel and midfoot with fat layer exposed; L97.521 Non-pressure chronic ulcer of other part of left foot limited to breakdown of skin; E11.40 Type 2 diabetes mellitus with diabetic neuropathy, unspecified; I48.91 Unspecified atrial fibrillation; E78.5 Hyperlipidemia, unspecified; I25.10 Atherosclerotic heart disease of native coronary artery without angina pectoris; I10 Essential (primary) hypertension; Z87.891 Personal history of nicotine dependence | CPT/HCPCS: 82962; G0277; 99183 ==

== ENCOUNTER 2018-03-25 10:28 | Outpatient (CLI) | payer MEDICARE | END 2018-03-25 10:29 | disposition home or self-care (01) | LOC: WOUND 10:28 | PROVIDERS: ATTEND Surgery | DX: E11.621 Type 2 diabetes mellitus with foot ulcer (principal); L97.412 Non-pressure chronic ulcer of right heel and midfoot with fat layer exposed; L97.521 Non-pressure chronic ulcer of other part of left foot limited to breakdown of skin; E11.40 Type 2 diabetes mellitus with diabetic neuropathy, unspecified; I48.91 Unspecified atrial fibrillation; E78.5 Hyperlipidemia, unspecified; I25.10 Atherosclerotic heart disease of native coronary artery without angina pectoris; I10 Essential (primary) hypertension; Z87.891 Personal history of nicotine dependence | CPT/HCPCS: 82962; G0277; 99183 ==

== ENCOUNTER 2018-03-26 09:56 | Outpatient (CLI) | payer MEDICARE | END 2018-03-26 09:57 | disposition home or self-care (01) | LOC: WOUND 09:56 | PROVIDERS: ATTEND Surgery | DX: E11.621 Type 2 diabetes mellitus with foot ulcer (principal); L97.412 Non-pressure chronic ulcer of right heel and midfoot with fat layer exposed; L97.521 Non-pressure chronic ulcer of other part of left foot limited to breakdown of skin; E11.40 Type 2 diabetes mellitus with diabetic neuropathy, unspecified; I48.91 Unspecified atrial fibrillation; E78.5 Hyperlipidemia, unspecified; I25.10 Atherosclerotic heart disease of native coronary artery without angina pectoris; I10 Essential (primary) hypertension; Z87.891 Personal history of nicotine dependence | CPT/HCPCS: 82962; G0277; 99183 ==

== ENCOUNTER 2018-03-27 10:31 | Outpatient (CLI) | payer MEDICARE ==
[2018-03-27] MEDS ORDERED: XYLOCAINE TOPICAL 4% TP ONE ×2 (13:29→15:31)
[2018-03-27] MEDS ORDERED: SILVER NITRATE TP ONE (13:33)
== END 2018-03-27 10:32 | disposition home or self-care (01) ==
LOC: WOUND 10:31
PROVIDERS: ATTEND Surgery
DX: E11.621 Type 2 diabetes mellitus with foot ulcer (principal); L97.412 Non-pressure chronic ulcer of right heel and midfoot with fat layer exposed; E11.40 Type 2 diabetes mellitus with diabetic neuropathy, unspecified; I48.91 Unspecified atrial fibrillation; E78.5 Hyperlipidemia, unspecified; I25.10 Atherosclerotic heart disease of native coronary artery without angina pectoris; I10 Essential (primary) hypertension; Z87.891 Personal history of nicotine dependence
CPT/HCPCS: 11042; 11045; 82962; G0277; 17250; 99183

== ENCOUNTER 2018-03-30 09:23 | Outpatient (CLI) | payer MEDICARE | END 2018-03-30 09:24 | disposition home or self-care (01) | LOC: WOUND 09:23 | PROVIDERS: ATTEND Surgery | DX: E11.621 Type 2 diabetes mellitus with foot ulcer (principal); L97.412 Non-pressure chronic ulcer of right heel and midfoot with fat layer exposed; L97.521 Non-pressure chronic ulcer of other part of left foot limited to breakdown of skin; E11.40 Type 2 diabetes mellitus with diabetic neuropathy, unspecified; I48.91 Unspecified atrial fibrillation; E78.5 Hyperlipidemia, unspecified; I25.10 Atherosclerotic heart disease of native coronary artery without angina pectoris; I10 Essential (primary) hypertension | CPT/HCPCS: 82962; G0277; 99183 ==

== ENCOUNTER 2018-03-31 08:05 | Outpatient (CLI) | payer MEDICARE | END 2018-03-31 08:06 | disposition home or self-care (01) | LOC: WOUND 08:05 | PROVIDERS: ATTEND Surgery | DX: E11.621 Type 2 diabetes mellitus with foot ulcer (principal); L97.412 Non-pressure chronic ulcer of right heel and midfoot with fat layer exposed; E11.40 Type 2 diabetes mellitus with diabetic neuropathy, unspecified; I48.91 Unspecified atrial fibrillation; E78.5 Hyperlipidemia, unspecified; I25.10 Atherosclerotic heart disease of native coronary artery without angina pectoris; I10 Essential (primary) hypertension; Z87.891 Personal history of nicotine dependence | CPT/HCPCS: 82962; G0277; 99183 ==

== ENCOUNTER 2018-04-01 08:03 | Outpatient (CLI) | payer MEDICARE | END 2018-04-01 08:04 | disposition home or self-care (01) | LOC: WOUND 08:03 | PROVIDERS: ATTEND Surgery | DX: E11.621 Type 2 diabetes mellitus with foot ulcer (principal); L97.412 Non-pressure chronic ulcer of right heel and midfoot with fat layer exposed; E11.40 Type 2 diabetes mellitus with diabetic neuropathy, unspecified; I48.91 Unspecified atrial fibrillation; E78.5 Hyperlipidemia, unspecified; I25.10 Atherosclerotic heart disease of native coronary artery without angina pectoris; I10 Essential (primary) hypertension; Z87.891 Personal history of nicotine dependence | CPT/HCPCS: 82962; G0277; 99183 ==

== ENCOUNTER 2018-04-03 07:50 | Outpatient (CLI) | payer MEDICARE ==
[2018-04-03] MEDS ORDERED: SILVER NITRATE TP ONE ×2 (11:11→11:13)
== END 2018-04-03 07:51 | disposition home or self-care (01) ==
LOC: WOUND 07:50
PROVIDERS: ATTEND Surgery
DX: E11.621 Type 2 diabetes mellitus with foot ulcer (principal); L97.412 Non-pressure chronic ulcer of right heel and midfoot with fat layer exposed; E11.40 Type 2 diabetes mellitus with diabetic neuropathy, unspecified; I48.91 Unspecified atrial fibrillation; E78.5 Hyperlipidemia, unspecified; I25.10 Atherosclerotic heart disease of native coronary artery without angina pectoris; I10 Essential (primary) hypertension; Z87.891 Personal history of nicotine dependence
CPT/HCPCS: 11042; 82962; G0277; 17250; 99183

== ENCOUNTER 2018-04-06 07:57 | Outpatient (CLI) | payer MEDICARE | END 2018-04-06 07:58 | disposition home or self-care (01) | LOC: WOUND 07:57 | PROVIDERS: ATTEND Surgery | DX: E11.621 Type 2 diabetes mellitus with foot ulcer (principal); L97.511 Non-pressure chronic ulcer of other part of right foot limited to breakdown of skin; E11.40 Type 2 diabetes mellitus with diabetic neuropathy, unspecified; E78.5 Hyperlipidemia, unspecified; I48.91 Unspecified atrial fibrillation; I25.10 Atherosclerotic heart disease of native coronary artery without angina pectoris; I10 Essential (primary) hypertension; Z53.21 Procedure and treatment not carried out due to patient leaving prior to being seen by health care provider | CPT/HCPCS: 82962 ==

== ENCOUNTER 2018-04-07 07:59 | Outpatient (CLI) | payer MEDICARE | END 2018-04-07 08:00 | disposition home or self-care (01) | LOC: WOUND 07:59 | PROVIDERS: ATTEND Surgery | DX: E11.621 Type 2 diabetes mellitus with foot ulcer (principal); L97.412 Non-pressure chronic ulcer of right heel and midfoot with fat layer exposed; L97.521 Non-pressure chronic ulcer of other part of left foot limited to breakdown of skin; E11.40 Type 2 diabetes mellitus with diabetic neuropathy, unspecified; I48.91 Unspecified atrial fibrillation; E78.5 Hyperlipidemia, unspecified; I25.10 Atherosclerotic heart disease of native coronary artery without angina pectoris; I10 Essential (primary) hypertension; Z87.891 Personal history of nicotine dependence | CPT/HCPCS: 82962; G0277; 99183 ==

== ENCOUNTER 2018-04-15 07:53 | Outpatient (CLI) | payer MEDICARE | END 2018-04-15 07:54 | disposition home or self-care (01) | LOC: WOUND 07:53 | PROVIDERS: ATTEND Internal Medicine | DX: E11.621 Type 2 diabetes mellitus with foot ulcer (principal); L97.412 Non-pressure chronic ulcer of right heel and midfoot with fat layer exposed; L97.521 Non-pressure chronic ulcer of other part of left foot limited to breakdown of skin; E11.40 Type 2 diabetes mellitus with diabetic neuropathy, unspecified; I48.91 Unspecified atrial fibrillation; E78.5 Hyperlipidemia, unspecified; I25.10 Atherosclerotic heart disease of native coronary artery without angina pectoris; I10 Essential (primary) hypertension; Z87.891 Personal history of nicotine dependence | CPT/HCPCS: 82962; G0277; 99183 ==

== ENCOUNTER 2018-04-16 07:52 | Outpatient (CLI) | payer MEDICARE | END 2018-04-16 07:53 | disposition home or self-care (01) | LOC: WOUND 07:52 | PROVIDERS: ATTEND Internal Medicine | DX: E11.621 Type 2 diabetes mellitus with foot ulcer (principal); L97.412 Non-pressure chronic ulcer of right heel and midfoot with fat layer exposed; L97.521 Non-pressure chronic ulcer of other part of left foot limited to breakdown of skin; E11.40 Type 2 diabetes mellitus with diabetic neuropathy, unspecified; I48.91 Unspecified atrial fibrillation; E78.5 Hyperlipidemia, unspecified; I25.10 Atherosclerotic heart disease of native coronary artery without angina pectoris; I10 Essential (primary) hypertension; Z87.891 Personal history of nicotine dependence | CPT/HCPCS: 82962; G0277; 99183 ==

== ENCOUNTER 2018-04-17 08:14 | Outpatient (CLI) | payer MEDICARE ==
[2018-04-17] MEDS ORDERED: SILVER NITRATE TP ONE ×2 (10:43→10:59)
== END 2018-04-17 08:15 | disposition home or self-care (01) ==
LOC: WOUND 08:14
PROVIDERS: ATTEND Surgery
DX: E11.621 Type 2 diabetes mellitus with foot ulcer (principal); L97.412 Non-pressure chronic ulcer of right heel and midfoot with fat layer exposed; L97.521 Non-pressure chronic ulcer of other part of left foot limited to breakdown of skin; E11.40 Type 2 diabetes mellitus with diabetic neuropathy, unspecified; I48.91 Unspecified atrial fibrillation; E78.5 Hyperlipidemia, unspecified; I25.10 Atherosclerotic heart disease of native coronary artery without angina pectoris; I10 Essential (primary) hypertension; Z87.891 Personal history of nicotine dependence
CPT/HCPCS: 11042; 82962; G0277; 17250; 99183

== ENCOUNTER 2018-04-20 07:48 | Outpatient (CLI) | payer MEDICARE | END 2018-04-20 07:49 | disposition home or self-care (01) | LOC: WOUND 07:48 | PROVIDERS: ATTEND Surgery | DX: E11.621 Type 2 diabetes mellitus with foot ulcer (principal); L97.412 Non-pressure chronic ulcer of right heel and midfoot with fat layer exposed; L97.521 Non-pressure chronic ulcer of other part of left foot limited to breakdown of skin; E11.40 Type 2 diabetes mellitus with diabetic neuropathy, unspecified; I48.91 Unspecified atrial fibrillation; E78.5 Hyperlipidemia, unspecified; I25.10 Atherosclerotic heart disease of native coronary artery without angina pectoris; I10 Essential (primary) hypertension; Z87.891 Personal history of nicotine dependence | CPT/HCPCS: 82962; G0277; 99183 ==

== ENCOUNTER 2018-04-21 07:55 | Outpatient (CLI) | payer MEDICARE | END 2018-04-21 07:56 | disposition home or self-care (01) | LOC: WOUND 07:55 | PROVIDERS: ATTEND Internal Medicine | DX: E11.621 Type 2 diabetes mellitus with foot ulcer (principal); L97.412 Non-pressure chronic ulcer of right heel and midfoot with fat layer exposed; L97.521 Non-pressure chronic ulcer of other part of left foot limited to breakdown of skin; E11.40 Type 2 diabetes mellitus with diabetic neuropathy, unspecified; I48.91 Unspecified atrial fibrillation; E78.5 Hyperlipidemia, unspecified; I25.10 Atherosclerotic heart disease of native coronary artery without angina pectoris; I10 Essential (primary) hypertension; Z87.891 Personal history of nicotine dependence | CPT/HCPCS: 82962; G0277; 99183 ==

== ENCOUNTER 2018-04-22 07:47 | Outpatient (CLI) | payer MEDICARE | END 2018-04-22 07:48 | disposition home or self-care (01) | LOC: WOUND 07:47 | PROVIDERS: ATTEND Internal Medicine | DX: E11.621 Type 2 diabetes mellitus with foot ulcer (principal); L97.412 Non-pressure chronic ulcer of right heel and midfoot with fat layer exposed; L97.521 Non-pressure chronic ulcer of other part of left foot limited to breakdown of skin; E11.40 Type 2 diabetes mellitus with diabetic neuropathy, unspecified; I48.91 Unspecified atrial fibrillation; E78.5 Hyperlipidemia, unspecified; I25.10 Atherosclerotic heart disease of native coronary artery without angina pectoris; I10 Essential (primary) hypertension; Z87.891 Personal history of nicotine dependence | CPT/HCPCS: 82962; G0277; 99183 ==

== ENCOUNTER 2018-06-26 09:49 | Outpatient (CLI) | payer MEDICARE ==
[2018-06-26] MEDS ORDERED: SILVER NITRATE TP ONE (11:00)
[2018-06-26] MEDS ORDERED: XYLOCAINE TOPICAL 4% TP ONE (11:00)
== END 2018-06-26 09:50 | disposition home or self-care (01) ==
LOC: WOUND 09:49
PROVIDERS: ATTEND Surgery
DX: E11.621 Type 2 diabetes mellitus with foot ulcer (principal); L97.412 Non-pressure chronic ulcer of right heel and midfoot with fat layer exposed; E11.40 Type 2 diabetes mellitus with diabetic neuropathy, unspecified; L84 Corns and callosities; I10 Essential (primary) hypertension; I25.10 Atherosclerotic heart disease of native coronary artery without angina pectoris; I48.91 Unspecified atrial fibrillation; E78.5 Hyperlipidemia, unspecified; Z87.891 Personal history of nicotine dependence

== ENCOUNTER 2018-07-03 10:03 | Outpatient (CLI) | payer MEDICARE ==
[2018-07-03] MEDS ORDERED: SILVER NITRATE TP ONE (11:06)
== END 2018-07-03 10:04 | disposition home or self-care (01) ==
LOC: WOUND 10:03
PROVIDERS: ATTEND Surgery
DX: E11.621 Type 2 diabetes mellitus with foot ulcer (principal); L97.412 Non-pressure chronic ulcer of right heel and midfoot with fat layer exposed; E11.40 Type 2 diabetes mellitus with diabetic neuropathy, unspecified; L84 Corns and callosities; I10 Essential (primary) hypertension; I25.10 Atherosclerotic heart disease of native coronary artery without angina pectoris; I48.91 Unspecified atrial fibrillation; E78.5 Hyperlipidemia, unspecified; Z87.891 Personal history of nicotine dependence

== ENCOUNTER 2018-07-17 10:36 | Outpatient (CLI) | payer MEDICARE ==
[2018-07-17] MEDS ORDERED: SILVER NITRATE TP ONE (10:54)
== END 2018-07-17 10:37 | disposition home or self-care (01) ==
LOC: WOUND 10:36
PROVIDERS: ATTEND Surgery
DX: E11.621 Type 2 diabetes mellitus with foot ulcer (principal); L97.412 Non-pressure chronic ulcer of right heel and midfoot with fat layer exposed; L84 Corns and callosities; E11.40 Type 2 diabetes mellitus with diabetic neuropathy, unspecified; I10 Essential (primary) hypertension; I25.10 Atherosclerotic heart disease of native coronary artery without angina pectoris; I48.91 Unspecified atrial fibrillation; E78.5 Hyperlipidemia, unspecified; Z87.891 Personal history of nicotine dependence

== ENCOUNTER 2018-08-21 11:49 | Outpatient (CLI) | payer MEDICARE | END 2018-08-21 11:50 | disposition home or self-care (01) | LOC: WOUND 11:49 ==

== ENCOUNTER 2018-09-04 10:20 | Outpatient (CLI) | payer MEDICARE | END 2018-09-04 10:21 | disposition home or self-care (01) | LOC: WOUND 10:20 | CPT/HCPCS: 11042; G0463; 99215 ==

== ENCOUNTER 2018-09-11 10:25 | Outpatient (CLI) | payer MEDICARE | END 2018-09-11 10:26 | disposition home or self-care (01) | LOC: WOUND 10:25 ==

== ENCOUNTER 2018-09-22 15:11 | Inpatient (IN) | payer MEDICARE ==
[2018-09-22] MEDS ORDERED: NACL 0.9% 1000 ML 1,000 ML ONE ×3 (15:42→19:40)
[2018-09-22] MEDS ORDERED: NACL 0.9% 500 ML 500 ML IV ONE (15:44)
[2018-09-22 16:03] LABS: Hematocrit 40.6 % (30.3-42.9); Hemoglobin 13.4 gm/dl (10.1-14.3); Mean Corpuscular HGB Conc 33 % (30-34); Mean Corpuscular Volume 89 fl (79-97); Red Blood Count 4.59 M/mm3 (3.65-5.03); Red Cell Distribution Width 15.9 % (13.2-15.2)
[2018-09-22 16:07] LABS: Platelet Count 139 K/mm3 (140-440)
[2018-09-22 16:28] LABS: Albumin 3.8 g/dL (3.9-5); Calcium 9.7 mg/dL (8.4-10.2)
[2018-09-22] MEDS ORDERED: D50W (25GM) Syringe IV PRN (16:42)
--- NOTE | 2018-09-22 16:45 | XRay Report ---
PROCEDURE: XR CHEST 1V AP TECHNIQUE: Frontal portable view of the chest HISTORY: Weakness COMPARISONS: Chest x-ray dated January 23, 2018 FINDINGS: There is bilateral hypoinflation with crowding of bronchovascular structures. There is no evidence of focal infiltrate, pneumothorax or pleural fluid collection. The cardiac silhouette appears to be normal size. The thoracic aorta is unremarkable. The bony structures are notable for dextrocurvature of the thoracic spine similar in appearance to th e previous study. IMPRESSION: 1. Hypoinflation. 2. No plain film evidence of an acute pulmonary process. This document is electronically signed by Gunjan Easton MD., September 22 2018 04:43:51 PM ET
--- NOTE | 2018-09-22 16:46 | Emergency Department Report ---
HPI <MILAGROS HALL - Last Filed: 09/23/18 00:59> - HPI HPI: 62-year-old female presents to the emergency department via EMS from home with complaint of generalized weakness, nausea and vomiting for the past 1- 2 days. Family says that the patient was so weak that she had trouble getting back off of the toilet earlier today. EMS found the patient to have critically high blood sugar. She has a history of insulin-dependent diabetes for which she takes insulin 70/30 and Lantus and she says she has been taking it compliantly. She presents with a low-grade fever and says that she has felt very cold and some chills recently. She has not taken anything for her symptoms prior to presentation. <ADRIAN VAUGHN S - Last Filed: 09/23/18 10:05> - General Chief Complaint: Fever Time Seen by Provider: 09/22/18 15:43 ED Past Medical Hx <MILAGROS HALL - Last Filed: 09/23/18 00:59> - Past Medical History Hx Hypertension: Yes Hx Congestive Heart Failure: No Hx Diabetes: Yes Hx Deep Vein Thrombosis: No Hx Asthma: No Hx COPD: No Additional medical history: hx a-fib. CHOLESTEROL - Surgical History Hx Pacemaker: No Hx Internal Defibrillator: No Additional Surgical History: foot surgery - Social History Smoking Status: Former Smoker <JOHANAADRIAN Dow - Last Filed: 09/23/18 10:05> - Medications Home Medications: Home Medications Medication Instructions Recorded Confirmed Last Taken Type Clopidogrel [Plavix] 75 mg PO QDAY #30 tablet 02/24/17 09/22/18 01/26/18 Rx Losartan [Cozaar] 25 mg PO QDAY #30 tablet 02/24/17 09/22/18 01/26/18 Rx Lovastatin [Altoprev] 20 mg PO QPM #30 tab.er.[email or web address] 02/24/17 09/22/18 01/26/18 Rx Metoprolol [Lopressor TAB] 25 mg PO BID #60 tablet 02/24/17 09/22/18 01/26/18 Rx Insulin Detemir [Levemir VIAL] 50 unit SQ QHS #2 vial 02/01/18 09/22/18 Unknown Rx Insulin NPH/Regular [NovoLIN 70/30] 32 unit SUB-Q QAMDIAB #2 vial 02/01/1808/29 12/16 Unknown Rx ED Review of Systems ROS: Stated complaint: HIGH BLOOD SUGAR Other details as noted in HPI <MILAGROS HALL - Last Filed: 09/23/18 00:59> ROS: Stated complaint: HIGH BLOOD SUGAR Other details as noted in HPI Constitutional: chills, weakness Eyes: denies: eye pain, vision change ENT: denies: ear pain, throat pain Respiratory: denies: cough, shortness of breath Cardiovascular: denies: chest pain, palpitations Gastrointestinal: nausea, vomiting Genitourinary: denies: dysuria, discharge Musculoskeletal: denies: back pain, arthralgia Skin: denies: rash, lesions Neurological: weakness. denies: numbness, paresthesias <ADRIAN VAUGHN - Last Filed: 09/23/18 10:05> Physical Exam - Physical Exam Vital Signs: Vital Signs 09/22/18 09/22/18 09/22/18 15:22 15:31 15:45 Temperature 100.5 F H Pulse Rate 119 H 118 H Respiratory 12 25 H 26 H Rate Blood Pressure 121/83 111/80 Blood Pressure 111/80 [Right] O2 Sat by Pulse 98 Oximetry 09/22/18 09/22/18 09/22/18 16:00 16:01 16:15 Temperature 100.5 F H Pulse Rate 120 H 113 H 109 H Respiratory 22 21 23 Rate Blood Pressure 121/83 155/92 Blood Pressure [Right] O2 Sat by Pulse 98 93 Oximetry 09/22/18 09/22/18 09/22/18 16:31 16:45 17:01 Temperature Pulse Rate 121 H 115 H 109 H Respiratory 20 24 26 H Rate Blood Pressure 119/97 80/57 92/43 Blood Pressure [Right] O2 Sat by Pulse Oximetry 09/22/18 09/22/18 09/22/18 17:15 17:31 17:45 Temperature Pulse Rate 106 H 123 H 100 H Respiratory 18 23 22 Rate Blood Pressure 103/49 110/47 Blood Pressure [Right] O2 Sat by Pulse 93 96 100 Oximetry 09/22/18 09/22/18 09/22/18 18:00 18:15 18:31 Temperature Pulse Rate 107 H 101 H 85 Respiratory 23 19 22 Rate Blood Pressure 88/43 88/43 88/43 Blood Pressure [Right] O2 Sat by Pulse 100 99 Oximetry 09/22/18 09/22/18 09/22/18 19:01 19:15 19:45 Temperature Pulse Rate 98 H 72 99 H Respiratory 22 20 21 Rate Blood Pressure 70/37 75/40 82/42 Blood Pressure [Right] O2 Sat by Pulse 98 98 87 Oximetry 09/22/18 09/22/18 09/22/18 20:00 20:01 20:15 Temperature 101.5 F H Pulse Rate 101 H 101 H Respiratory 19 18 Rate Blood Pressure 79/43 86/63 Blood Pressure [Right] O2 Sat by Pulse 99 Oximetry 09/22/18 09/22/18 09/22/18 20:31 20:45 21:01 Temperature Pulse Rate 109 H 104 H 105 H Respiratory 26 H 26 H 21 Rate Blood Pressure 77/35 86/38 92/38 Blood Pressure [Right] O2 Sat by Pulse 98 99 99 Oximetry 09/22/18 09/22/18 09/22/18 21:15 21:31 21:45 Temperature Pulse Rate 100 H 101 H 101 H Respiratory 16 21 20 Rate Blood Pressure 85/38 77/37 93/45 Blood Pressure [Right] O2 Sat by Pulse 86 96 99 Oximetry 09/22/18 09/22/18 09/22/18 22:01 22:15 22:31 Temperature Pulse Rate 101 H 101 H 100 H Respiratory 18 21 18 Rate Blood Pressure 69/46 84/45 86/39 Blood Pressure [Right] O2 Sat by Pulse 100 100 99 Oximetry 09/22/18 22:45 Temperature Pulse Rate 99 H Respiratory 21 Rate Blood Pressure 80/38 Blood Pressure [Right] O2 Sat by Pulse 98 Oximetry <MILAGROS HALL - Last Filed: 09/23/18 00:59> - Physical Exam Vital Signs: Vital Signs 09/22/18 09/22/18 09/22/18 15:22 15:31 15:45 Temperature 100.5 F H Pulse Rate 119 H 118 H Respiratory 12 25 H 26 H Rate Blood Pressure 121/83 111/80 Blood Pressure 111/80 [Right] O2 Sat by Pulse 98 Oximetry Physical Exam: GENERAL: The patient is patient is ill-appearing.. HEENT: Normocephalic. Atraumatic. Patient has moist mucous membranes. EYES: Extraocular motions are intact. Pupils are equal and reactive to light bilaterally. NECK: Supple. Trachea is midline. CHEST/LUNGS: Clear to auscultation. There is no respiratory distress noted. HEART/CARDIOVASCULAR: Regular. There is mild to moderate tachycardia. There is no obvious murmur. ABDOMEN: Abdomen is soft, nontender. Patient has normal bowel sounds. There is no abdominal distention. SKIN: Skin is warm and dry. NEURO: The patient is awake, alert, and cooperative. The patient has no focal neurologic deficits. The patient has normal speech. Cranial nerves II through XII grossly intact. MUSCULOSKELETAL: There is no tenderness or deformity. There is no limitation range of motion. There is no evidence of acute injury. <ADRIAN VAUGHN S - Last Filed: 09/23/18 10:05> ED Course Vital Signs 09/22/18 09/22/18 09/22/18 15:22 15:31 15:45 Temperature 100.5 F H Pulse Rate 119 H 118 H Respiratory 12 25 H 26 H Rate Blood Pressure 121/83 111/80 Blood Pressure 111/80 [Right] O2 Sat by Pulse 98 Oximetry 09/22/18 09/22/18 09/22/18 16:00 16:01 16:15 Temperature 100.5 F H Pulse Rate 120 H 113 H 109 H Respiratory 22 21 23 Rate Blood Pressure 121/83 155/92 Blood Pressure [Right] O2 Sat by Pulse 98 93 Oximetry 09/22/18 09/22/18 09/22/18 16:31 16:45 17:01 Temperature Pulse Rate 121 H 115 H 109 H Respiratory 20 24 26 H Rate Blood Pressure 119/97 80/57 92/43 Blood Pressure [Right] O2 Sat by Pulse Oximetry 09/22/18 09/22/18 09/22/18 17:15 17:31 17:45 Temperature Pulse Rate 106 H 123 H 100 H Respiratory 18 23 22 Rate Blood Pressure 103/49 110/47 Blood Pressure [Right] O2 Sat by Pulse 93 96 100 Oximetry 09/22/18 09/22/18 09/22/18 18:00 18:15 18:31 Temperature Pulse Rate 107 H 101 H 85 Respiratory 23 19 22 Rate Blood Pressure 88/43 88/43 88/43 Blood Pressure [Right] O2 Sat by Pulse 100 99 Oximetry 09/22/18 09/22/18 09/22/18 19:01 19:15 19:45 Temperature Pulse Rate 98 H 72 99 H Respiratory 22 20 21 Rate Blood Pressure 70/37 75/40 82/42 Blood Pressure [Right] O2 Sat by Pulse 98 98 87 Oximetry 09/22/18 09/22/18 09/22/18 20:00 20:01 20:15 Temperature 101.5 F H Pulse Rate 101 H 101 H Respiratory 19 18 Rate Blood Pressure 79/43 86/63 Blood Pressure [Right] O2 Sat by Pulse 99 Oximetry 09/22/18 09/22/18 09/22/18 20:31 20:45 21:01 Temperature Pulse Rate 109 H 104 H 105 H Respiratory 26 H 26 H 21 Rate Blood Pressure 77/35 86/38 92/38 Blood Pressure [Right] O2 Sat by Pulse 98 99 99 Oximetry 09/22/18 09/22/18 09/22/18 21:15 21:31 21:45 Temperature Pulse Rate 100 H 101 H 101 H Respiratory 16 21 20 Rate Blood Pressure 85/38 77/37 93/45 Blood Pressure [Right] O2 Sat by Pulse 86 96 99 Oximetry 09/22/18 09/22/18 09/22/18 22:01 22:15 22:31 Temperature Pulse Rate 101 H 101 H 100 H Respiratory 18 21 18 Rate Blood Pressure 69/46 84/45 86/39 Blood Pressure [Right] O2 Sat by Pulse 100 100 99 Oximetry 09/22/18 22:45 Temperature Pulse Rate 99 H Respiratory 21 Rate Blood Pressure 80/38 Blood Pressure [Right] O2 Sat by Pulse 98 Oximetry - Reevaluation(s) Reevaluation #1: 09/23/18 01:00 Patient has received at least 6 L of IV fluid, and remains persistently hypotensive. The hospital medicine team has indicated that they would like to initiate vasopressor therapy, they have requested placement of central access to initiate vasopressor therapy. A left lower extremity intraosseous line was placed by myself. The patient tolerated the procedure well, and the line was placed with minimal difficulty. No obvious post procedural complications noted. The IO line may be used for the next 24 hours for vasopressor administration. I will defer to the inpatient team to further manage this patient. The patient has given verbal consent for placement of this line. <MILAGROS HALL - Last Filed: 09/23/18 00:59> Vital Signs 09/22/18 09/22/18 09/22/18 15:22 15:31 15:45 Temperature 100.5 F H Pulse Rate 119 H 118 H Respiratory 12 25 H 26 H Rate Blood Pressure 121/83 111/80 Blood Pressure 111/80 [Right] O2 Sat by Pulse 98 Oximetry <ADRIAN VAUGHN - Last Filed: 09/23/18 10:05> - IO Left Tibia Consent Obtained: verbal consent, emergent situation Anesthetic Used: Lidocaine 1%, with Epi Amount of Anesthetic Used (mls): 5 IO Instrument Used to Penetrate the Cortex: battery powered IO drill (25 mm, 15- gauge) Patient Tolerated Procedure: well Complications: none Additional Comments: The area 2 finger widths below the proximal tibia is cleansed with chlorhexidine, and infiltrated with 5 mL of 1% lidocaine with epinephrine. Using a battery operated intraosseous drill, a 15-gauge, 25 mm line is placed in the proximal tibia, with no obvious difficulty or complications. There is immediate return of bloody bone marrow aspirate from the line. For comfort of infusion, 8 mL of 1% lidocaine with epinephrine are slowly infused, with no obvious extravasation. The patient tolerated the procedure adequately. <MILAGROS HALL - Last Filed: 09/23/18 00:59> ED Medical Decision Making - Lab Data Result diagrams: 09/22/18 15:50 09/22/18 23:28 <MILAGROS HALL - Last Filed: 09/23/18 00:59> - Lab Data Result diagrams: 09/22/18 15:50 09/23/18 08:17 - Radiology Data Radiology results: report reviewed, image reviewed interpreted by me: Chest x-ray does not show any pneumothorax, pleural effusion, pneumonia or obvious focal consolidation. PROCEDURE: CT HEAD/BRAIN WO CON TECHNIQUE: Helical CT was performed of the head in the axial plane. HISTORY: Weakness COMPARISONS: None FINDINGS: The cerebral hemispheres appear normal without focal lesions. There is no evidence of acute infarct or intracranial hemorrhage. The ventricles and sulci appear normal for age. There are no abnormal extra-axial fluid collections. The posterior fossa appears normal. There is hyperostosis frontalis interna. Orbits appear normal.. The visualized paranasal sinuses are clear. IMPRESSION: Normal CT of the head This document is electronically signed by Desirae Cruz MD., September 22 2018 07:38:13 PM ET Transcribed By: EPHRAIM Dictated By: DESIRAE CRUZ MD Electronically Authenticated By: DESIRAE CRUZ MD Signed Date/Time: 09/22/181938 - Medical Decision Making This patient presents with diabetic ketoacidosis and sepsis. The source of infection was later found to be a urinary tract infection. The patient was covered with Zosyn. She was given an insulin drip for the DKA. The patient had persistent hypotension despite 6 L of IV fluid resuscitation and my colleague later placed an intraosseous line for pressors. CT of the head did not show any bleed, shift, mass, ischemia, or any other acute processes. Chest x-ray did not show any pneumonia, pleural effusions or any other acute process. The patient has been admitted to the critical-care unit and accepted for admission by hospitalist, Dr. Dorado. - Differential Diagnosis sepsis, DKA, UTI, pneumonia, TIA <ADRIAN VAUGHN - Last Filed: 09/23/18 10:05> Critical care attestation.: If time is entered above; I have spent that time in minutes in the direct care of this critically ill patient, excluding procedure time. <MILAGROS HALL - Last Filed: 09/23/18 00:59> Critical Care Time: Yes Critical care time in (mins) excluding proc time.: 40 Critical care attestation.: If time is entered above; I have spent that time in minutes in the direct care of this critically ill patient, excluding procedure time. Critical care time was spent on this patient and during her initial evaluation, multiple evaluations, ordering and interpretation of labs and imaging, discussion with the patient's family and the hospitalist service. Critical Care Time: 40 minutes <ADRIAN VAUGHN - Last Filed: 09/23/18 10:05> ED Disposition <MILAGROS HALL - Last Filed: 09/23/18 00:59> Is pt being admited?: Yes Time of Disposition: 18:17 <ADRIAN VAUGHN - Last Filed: 09/23/18 10:05> Clinical Impression: Insulin dependent diabetes mellitus, Generalized weakness DKA (diabetic ketoacidoses) Qualifiers: Diabetes mellitus type: type 1 Sepsis Qualifiers: Sepsis type: sepsis due to unspecified organism Qualified Code(s): A41.9 - Sepsis, unspecified organism Hypotension Qualifiers: Hypotension type: unspecified hypotension type Qualified Code(s): I95.9 - Hypotension, unspecified UTI (urinary tract infection) Qualifiers: Urinary tract infection type: acute cystitis Hematuria presence: without hematuria Qualified Code(s): N30.00 - Acute cystitis without hematuria Disposition: OP ADMIT IP TO THIS HOSP Condition: Serious
--- NOTE | 2018-09-22 19:39 | Cat Scan Report ---
PROCEDURE: CT HEAD/BRAIN WO CON TECHNIQUE: Helical CT was performed of the head in the axial plane. HISTORY: Weakness COMPARISONS: None FINDINGS: The cerebral hemispheres appear normal without focal lesions. There is no evidence of acute infarct or intracranial hemorrhage. The ventricles and sulci appear normal for age. There are no abn ormal extra-axial fluid collections. The posterior fossa appears normal. There is hyperostosis fronta lis interna. Orbits appear normal.. The visualized paranasal sinuses are clear. IMPRESSION: Normal CT of the head This document is electronically signed by Sabi Cruz MD., September 22 2018 07:38:13 PM ET
[2018-09-22] MEDS: HumuLIN R 100 UNITS in NACL 0.9% 99 ML IV SCH ×3 (19:45→23:13)
[2018-09-22 20:44] LABS: Calcium 8.1 mg/dL (8.4-10.2)
[2018-09-22 20:50] LABS: Band Neutrophils # (Manual) 2.5 K/mm3; Eosinophils % (Manual) 0 % (0.0-4.3); Total Cells Counted 100
[2018-09-22 20:51] LABS: Large Platelets Few; Platelet Estimate Consistent w Auto
[2018-09-22] MEDS ORDERED: ZOSYN/NS 3.375GM/50ML 3.375 GM/50 ML BAG IV ONE (20:52)
[2018-09-22] MEDS ORDERED: NACL 0.9% 1000 ML 2,000 ML ONE (20:58)
[2018-09-22] MEDS: NACL 0.9% 1000 ML 2,000 ML IV ONE ×3 (21:00→22:17)
[2018-09-22] MEDS ORDERED: XYLOCAINE 1%/ EPI 1:100,000 INFILTRATI ONE (22:09)
[2018-09-22 23:14] LABS: Bacteria,Urine 1+ /HPF (Negative); Bilirubin,Urine NEG (Negative); Blood,Urine LG (Negative); Color,Urine Yellow (Yellow); Mucus,Urine FEW /HPF; Urobilinogen,Urine < 2.0 mg/dL (<2.0)
[2018-09-22 23:59] LABS: Calcium 7.5 mg/dL (8.4-10.2)
[2018-09-23 00:20] LABS: Calcium 7.7 mg/dL (8.4-10.2)
[2018-09-23] MEDS ORDERED: SODIUM CHLORIDE FLUSH SYRINGE 10 ML IV PRN (00:35)
[2018-09-23] MEDS ORDERED: REGLAN IV PRN (00:35)
[2018-09-23] MEDS: LEVOPHED DRIP 4 MG/NS 250 ML 4 MG/250 ML BAG IV SCH ×4 (00:36→18:18)
[2018-09-23] MEDS ORDERED: D50W (25GM) Syringe IV PRN (00:37)
[2018-09-23] MEDS ORDERED: HumuLIN R 100 UNITS in NACL 0.9% 99 ML IV SCH (01:00)
[2018-09-23] MEDS ORDERED: KCL 10MEQ/100ML 10 MEQ/100 ML BAG IV SCH ×2 (01:00)
[2018-09-23] MEDS ORDERED: VANCOMYCIN PHARMACY TO DOSE IV SCH (01:00)
[2018-09-23] MEDS: LOPRESSOR PO SCH ×3 (01:15→23:29)
[2018-09-23] MEDS ORDERED: VANCOMYCIN 1,750 MG in NACL 0.9% 500 ML 500 ML IV ONE (02:15)
[2018-09-23 02:16] LABS: Calcium 7.9 mg/dL (8.4-10.2)
[2018-09-23] MEDS ORDERED: TYLENOL ONE ×3 (03:43→23:29)
[2018-09-23] MEDS: TYLENOL PO PRN ×4 (03:46→23:30)
--- NOTE | 2018-09-23 04:12 | Event Note ---
Date: 09/22/18 See dictated H/p in reports Sepsis DKA Rt Foot infection Hypotension
[2018-09-23] MEDS: PEPCID IV SCH ×3 (04:26→23:30)
[2018-09-23] MEDS ORDERED: D5W/0.45% NACL/KCL 20 MEQ 20 MEQ/1,000 ML BAG IV SCH (06:00)
--- NOTE | 2018-09-23 07:16 | History and Physical Report ---
CHIEF COMPLAINT: Generalized weakness, nausea, vomiting for the last 2 days. HISTORY OF PRESENT ILLNESS: A 62-year-old young elderly female noncompliant with her insulin as per the sister, brought in for generalized weakness, nausea and vomiting for the last 2 days. EMS found the patient to have critically high blood sugars and also the patient is supposed to take insulin 70/30 and Lantus, which she states she has not been taking properly as per the sister. The patient also has a low-grade fever. Also, has a right foot ulcer. The patient has altered sensorium. Increasingly lethargic and drowsy for the last 48 hours. Low-grade fever present. PAST MEDICAL HISTORY: As mentioned, hypertension, insulin-dependent diabetes, atrial fibrillation, hyperlipidemia. PAST SURGICAL HISTORY: Foot surgery. SOCIAL HISTORY: Former smoker. FAMILY HISTORY: Hypertension and diabetes. CURRENT MEDICATIONS: Plavix 75 mg once a day, losartan 25 mg once a day, lovastatin 20 mg once a day, metoprolol 25 mg twice a day, Levemir 50 units at nighttime, Novolin 70/30, 32 units before each meal in the morning. REVIEW OF SYSTEMS: Significant for altered sensorium, lethargy and low-grade fever. Also, nausea, vomiting. High blood glucose levels. Otherwise, review of systems negative. Decreased responsiveness. PHYSICAL EXAMINATION: GENERAL: Young elderly female, lethargic, trying to sleep, wakes up easily to stimulation. VITAL SIGNS: Temperature is 100.5, pulse is 119, respirations are 25, blood pressure is 121/83. HEENT: Unremarkable. Tongue slightly dry. NECK: Supple, no lymphadenopathy, no thyromegaly. LUNGS: Clear to auscultation and percussion. Good air entry. CARDIOVASCULAR: S1, S2 heard. No gallop, no murmur, no rub. Apical impulse in the left fifth intercostal space and midclavicular line. ABDOMEN: Soft and benign. No hepatosplenomegaly. No guarding, no rigidity. Hernial orifices are normal. EXTREMITIES: Good pedal pulses. The right foot ulcer is present, 2 cm x 1 cm and 1 cm in depth on the right medial aspect of the foot near the metatarsophalangeal joint. No drainage. CENTRAL NERVOUS SYSTEM: Decreased responsiveness and lethargic. Moves all 4 extremities. LABORATORY DATA: Significant for white count of 7100, H and H of 13.4 and 40.6, platelet count of 139,000. Sodium is 126, potassium is 5.3, chloride is 83.8, bicarbonate is 14. BUN and creatinine is 36 and 1.3, glucose is 734. A1c is 13.9. Lactic acid is 7.8. AST is slightly high at 150. Urine shows 159 wbc's, glucose more than 500. Ketones are trace. ASSESSMENT AND PLAN: 1. Hyperosmolar nonketotic state and diabetes mellitus. The patient started on IV insulin, DKA protocol initiated, even though the patient is not on DKA. The patient has metabolic acidosis. Ketones are trace. Acetones are pending. Venous pH is 7.275. IV insulin and IV fluids to be continued. Monitor glucose levels and BMP frequently and adjust dosage and fluids. 2.Acute Metabolic Encephalopathy--Correct the primary problem of High BG levels and sepsis 3. Hyponatremia, should correct secondary to insulin drip and correcting the glucose levels. 4. Hyperkalemia, should correct with IV insulin, Mild. 5. Sepsis. The patient has high lactic acid level at 7.8 and 3.1 consistent with sepsis and also hypotensive. The patient initiated on ceftriaxone and vancomycin for broad-spectrum coverage. The patient also has urinary tract infection and ceftriaxone was chosen. 6. Urinary tract infection. Ceftriaxone, pending cultures. 7. Hypotension. The patient is hypotensive. The patient to be continued on Levophed. 8. Deep venous thrombosis prophylaxis, Lovenox 30 mg subcutaneous daily. Critical care time 45 minutes Critical care statement: In summary, the patient has sepsis with hypotension, hyperosmolar nonketotic state, right foot ulcer. Wound care noted for right foot ulcer. Surgical consult if necessary. Dethistler Operator consult was ordered. JOB# [id number] DARRION/OLESYA SANDY
[2018-09-23 08:56] LABS: BUN/Creatinine Ratio 40; Blood Urea Nitrogen 36 mg/dL (7-17); Calcium 7.8 mg/dL (8.4-10.2); Hemolysis Index 17
[2018-09-23] MEDS ORDERED: NACL 0.9% 1000 ML 2,000 ML IV ONE (10:00)
[2018-09-23] MEDS ORDERED: POTASSIUM CHLORIDE IV ONE (10:00)
[2018-09-23] MEDS ORDERED: SODIUM CHLORIDE IV ONE (10:00)
[2018-09-23] MEDS ORDERED: DEXTROSE IV ONE (10:00)
[2018-09-23] MEDS ORDERED: LEVOPHED DRIP 4 MG/NS 250 ML IV ONE (10:00)
[2018-09-23] MEDS ORDERED: ROCEPHIN/NS 1 GM/50 ML IV ONE (10:00)
[2018-09-23] MEDS ORDERED: NACL 0.9% 1000 ML ONE (10:00)
[2018-09-23] MEDS ORDERED: PLAVIX ONE (10:00)
[2018-09-23] MEDS ORDERED: PEPCID IV ONE ×2 (10:00→23:10)
[2018-09-23] MEDS ORDERED: ROCEPHIN/NS 2 GM/100 ML 2 GM/100 ML BAG IV SCH (10:00)
[2018-09-23] MEDS: SODIUM CHLORIDE FLUSH SYRINGE 10 ML IV SCH ×2 (10:04→23:30)
[2018-09-23] MEDS: COZAAR PO SCH (10:06)
[2018-09-23] MEDS: PLAVIX PO SCH (10:22)
[2018-09-23] MEDS ORDERED: MAGNESIUM SULFATE 1 GM in WATER FOR INJ (PF) 23 ML IV ONE (10:56)
--- NOTE | 2018-09-23 11:01 | Progress Note ---
Assessment and Plan Assessment and plan: 62F pw who was nc with insulin and med, pw gen weakness, n/v, elevatad glc, ams, r foot ulcer x 2 days PMH; htn, chf, dm, afib, hld CXR and CTH neg Diagnosis severe sepis septic shock Right foot infection acute metabolic encephalopathy DKA, uncontrolled DM a1c 14 metabolic acidosis hyponatremia hypomagnesemia Sacral decub Plan Cont Insulin drip -cont iv abx, ID consult, bc growing gram positive cocci -ordered foot imaging and ortho consult, cont wound care -cont IVF and pressors -BP meds on hold -replete mg -Wound care for sacral decub -dvt ppx, lovenox Critical care time 35 minutes History Interval history: Patient continues to be dependent on insulin drip and pressors She has remained confused, she has been hypotensive She has not been short of breath, she's not been coughing No diarrhea No focal weakness No agitation or seizures Hospitalist Physical - Physical exam Narrative exam: General.: Toxic appearance HEENT: Moist mucous membranes, extraocular muscles intact, no lymphadenopathy Neck: supple Cardiac: S1-S2 heard Lungs: clear to auscultation bilaterally Abdomen: soft , nontender, nondistended, bowel sounds positive Extremities: Deformity of right foot noted, with a healing wound Skin: Sacral decub noted, present on admission Neurologic: Moves all extremities, is confused Psych: calm, and cooperative - Constitutional Vitals: Temp Pulse Resp BP Pulse Ox 99.1 F 88 18 114/49 96 09/23/18 10:52 09/23/18 10:52 09/23/18 10:52 09/23/18 10:52 09/23/18 10:52 Results - Labs CBC & Chem 7: 09/22/18 15:50 09/23/18 08:17 Labs: Laboratory Last Values WBC 7.1 K/mm3 (4.5-11.0) 09/22/18 15:50 RBC 4.59 M/mm3 (3.65-5.03) 09/22/18 15:50 Hgb 13.4 gm/dl (10.1-14.3) 09/22/18 15:50 Hct 40.6 % (30.3-42.9) 09/22/18 15:50 MCV 89 fl (79-97) 09/22/18 15:50 MCH 29 pg (28-32) 09/22/18 15:50 MCHC 33 % (30-34) 09/22/18 15:50 RDW 15.9 % (13.2-15.2) H 09/22/18 15:50 Plt Count 139 K/mm3 (140-440) L 09/22/18 15:50 Add Manual Diff Complete 09/22/18 15:50 Total Counted 100 09/22/18 15:50 Seg Neutrophils % [place] Machine Operator 09/22/18 15:50 Seg Neuts % (Manual) 60.0 % (40.0-70.0) 09/22/18 15:50 Band Neutrophils % 35.0 % 09/22/18 15:50 Lymphocytes % (Manual) 3.0 % (13.4-35.0) L 09/22/18 15:50 Reactive Lymphs % (Man) 0 % 09/22/18 15:50 Monocytes % (Manual) 1.0 % (0.0-7.3) 09/22/18 15:50 Eosinophils % (Manual) 0 % (0.0-4.3) 09/22/18 15:50 Basophils % (Manual) 1.0 % (0.0-1.8) 09/22/18 15:50 Metamyelocytes % 0 % 09/22/18 15:50 Myelocytes % 0 % 09/22/18 15:50 Promyelocytes % 0 % 09/22/18 15:50 Blast Cells % 0 % 09/22/18 15:50 Nucleated RBC % Not Reportable 09/22/18 15:50 Seg Neutrophils # Man 4.3 K/mm3 (1.8-7.7) 09/22/18 15:50 Band Neutrophils # 2.5 K/mm3 09/22/18 15:50 Lymphocytes # (Manual) 0.2 K/mm3 (1.2-5.4) L 09/22/18 15:50 Abs React Lymphs (Man) 0.0 K/mm3 09/22/18 15:50 Monocytes # (Manual) 0.1 K/mm3 (0.0-0.8) 09/22/18 15:50 Eosinophils # (Manual) 0.0 K/mm3 (0.0-0.4) 09/22/18 15:50 Basophils # (Manual) 0.1 K/mm3 (0.0-0.1) 09/22/18 15:50 Metamyelocytes # 0.0 K/mm3 09/22/18 15:50 Myelocytes # 0.0 K/mm3 09/22/18 15:50 Promyelocytes # 0.0 K/mm3 09/22/18 15:50 Blast Cells # 0.0 K/mm3 09/22/18 15:50 WBC Morphology Not Reportable 09/22/18 15:50 Hypersegmented Neuts Not Reportable 09/22/18 15:50 Hyposegmented Neuts Not Reportable 09/22/18 15:50 Hypogranular Neuts Not Reportable 09/22/18 15:50 Smudge Cells Not Reportable 09/22/18 15:50 Toxic Granulation Not Reportable 09/22/18 15:50 Toxic Vacuolation Not Reportable 09/22/18 15:50 Dohle Bodies Not Reportable 09/22/18 15:50 Pelger-Huet Anomaly Not Reportable 09/22/18 15:50 Rene Rods Not Reportable 09/22/18 15:50 Platelet Estimate Consistent w auto 09/22/18 15:50 Clumped Platelets Not Reportable 09/22/18 15:50 Plt Clumps, EDTA Not Reportable 09/22/18 15:50 Large Platelets Few 09/22/18 15:50 Giant Platelets Not Reportable 09/22/18 15:50 Platelet Satelliting Not Reportable 09/22/18 15:50 Plt Morphology Comment Not Reportable 09/22/18 15:50 RBC Morphology Not Reportable 09/22/18 15:50 Dimorphic RBCs Not Reportable 09/22/18 15:50 Polychromasia Not Reportable 09/22/18 15:50 Hypochromasia Not Reportable 09/22/18 15:50 Poikilocytosis Not Reportable 09/22/18 15:50 Anisocytosis Not Reportable 09/22/18 15:50 Microcytosis Not Reportable 09/22/18 15:50 Macrocytosis Not Reportable 09/22/18 15:50 Spherocytes Not Reportable 09/22/18 15:50 Pappenheimer Bodies Not Reportable 09/22/18 15:50 Sickle Cells Not Reportable 09/22/18 15:50 Target Cells Not Reportable 09/22/18 15:50 Tear Drop Cells Not Reportable 09/22/18 15:50 Ovalocytes Not Reportable 09/22/18 15:50 Helmet Cells Not Reportable 09/22/18 15:50 Hodges-Bostwick Bodies Not Reportable 09/22/18 15:50 [place] Rings Not Reportable 09/22/18 15:50 Antony Cells Not Reportable 09/22/18 15:50 Bite Cells Not Reportable 09/22/18 15:50 Crenated Cell Not Reportable 09/22/18 15:50 Elliptocytes Not Reportable 09/22/18 15:50 Acanthocytes (Spur) Not Reportable 09/22/18 15:50 Rouleaux Not Reportable 09/22/18 15:50 Hemoglobin C Crystals Not Reportable 09/22/18 15:50 Schistocytes Not Reportable 09/22/18 15:50 Malaria parasites Not Reportable 09/22/18 15:50 Sami Bodies Not Reportable 09/22/18 15:50 Hem Pathologist Commnt No 09/22/18 15:50 VBG pH 7.275 (7.320-7.420) L 09/22/18 15:50 Sodium 133 mmol/L (137-145) L 09/23/18 08:17 Potassium 3.7 mmol/L (3.6-5.0) 09/23/18 08:17 Chloride 106.2 mmol/L (98-107) 09/23/18 08:17 Carbon Dioxide 13 mmol/L (22-30) L 09/23/18 08:17 Anion Gap 18 mmol/L 09/23/18 08:17 BUN 36 mg/dL (7-17) H 09/23/18 08:17 Creatinine 0.9 mg/dL (0.7-1.2) 09/23/18 08:17 Estimated GFR > 60 ml/min 09/23/18 08:17 BUN/Creatinine Ratio 40 % 09/23/18 08:17 Glucose 149 mg/dL (65-100) H 09/23/18 08:17 POC Glucose 132 (70-105) H 09/23/18 09:57 Hemoglobin A1c 13.9 % (4-6) H 09/23/18 01:21 Lactic Acid 2.70 mmol/L (0.7-2.0) H* 09/23/18 08:17 Calcium 7.8 mg/dL (8.4-10.2) L 09/23/18 08:17 Phosphorus 2.70 mg/dL (2.5-4.5) D 09/23/18 01:21 Magnesium 1.60 mg/dL (1.7-2.3) L 09/23/18 01:21 Total Bilirubin 3.90 mg/dL (0.1-1.2) H 09/22/18 15:50 AST 150 units/L (5-40) H 09/22/18 15:50 ALT 38 units/L (7-56) 09/22/18 15:50 Alkaline Phosphatase 93 units/L (35-129) 09/22/18 15:50 Troponin T < 0.010 ng/mL (0.00-0.029) 09/22/18 15:50 Total Protein 7.7 g/dL (6.3-8.2) 09/22/18 15:50 Albumin 3.8 g/dL (3.9-5) L 09/22/18 15:50 Albumin/Globulin Ratio 1.0 % 09/22/18 15:50 TSH 1.530 mlU/mL (0.270-4.200) 09/22/18 15:50 Urine Color Yellow (Yellow) 09/22/18 22:00 Urine Turbidity Slightly-cloudy (Clear) 09/22/18 22:00 Urine pH 6.0 (5.0-7.0) 09/22/18 22:00 Ur Specific [place] 1.025 (1.003-1.030) 09/22/18 22:00 Urine Protein 30 mg/dl mg/dL (Negative) 09/22/18 22:00 Urine Glucose (UA) >=500 mg/dL (Negative) 09/22/18 22:00 Urine Ketones Tr mg/dL (Negative) 09/22/18 22:00 Urine Blood Lg (Negative) 09/22/18 22:00 Urine Nitrite Neg (Negative) 09/22/18 22:00 Urine Bilirubin Neg (Negative) 09/22/18 22:00 Urine Urobilinogen < 2.0 mg/dL (<2.0) 09/22/18 22:00 Ur Leukocyte Esterase Lg (Negative) 09/22/18 22:00 Urine WBC (Auto) 159.0 /HPF (0.0-6.0) H 09/22/18 22:00 Urine RBC (Auto) 4.0 /HPF (0.0-6.0) 09/22/18 22:00 Urine Bacteria (Auto) 1+ /HPF (Negative) 09/22/18 22:00 Urine Mucus Few /HPF 09/22/18 22:00 Active Medications - Current Medications Current Medications: Generic Name Dose Route Start Last Admin Trade Name Freq PRN Reason Stop Dose Admin Acetaminophen 650 mg 09/23/18 00:35 09/23/18 08:59 Tylenol PO 650 mg Q4H PRN Administration Pain MILD(1-3)/Fever >100.5/BEJARANO Atorvastatin Calcium 10 mg 09/23/18 22:00 Lipitor PO QHS [facility] Clopidogrel Bisulfate 75 mg 09/23/18 10:00 09/23/18 10:22 Plavix PO 75 mg QDAY IGNACIO Administration Dextrose 0 ml 09/22/18 16:42 D50w (25gm) Syringe IV PRN PRN Hypoglycemia Dextrose 0 ml 09/23/18 00:37 D50w (25gm) Syringe IV PRN PRN Hypoglycemia Enoxaparin Sodium 40 mg 09/23/18 22:00 Lovenox SUB-Q QDAY@2200 [facility] Famotidine 20 mg 09/23/18 01:00 09/23/18 10:22 Pepcid IV 20 mg BID IGNACIO Administration Hydromorphone HCl 0.25 mg 09/23/18 00:35 Dilaudid IV Q3H PRN Pain, Moderate (4-6) Norepinephrine 4 mg in 250 mls @ 7.5 mls/hr 09/23/18 01:00 09/23/18 09:58 Levophed Drip 4 Mg/Ns 250 Ml IV 12 mcg/min TITR IGNACIO 45 mls/hr Titration Protocol 2 MCG/MIN Insulin Human Regular 100 100 mls @ 1 mls/hr 09/23/18 01:00 units/ Sodium Chloride IV TITR IGNACIO Protocol 1 UNITS/HR Ceftriaxone Sodium 2 gm in 100 mls @ 200 mls/hr 09/23/18 10:00 09/23/18 10:33 Rocephin/Ns 2 Gm/100 Ml IV 200 mls/hr Q24HR IGNACIO Administration Protocol Vancomycin HCl 1,250 mg/ 275 mls @ 166.667 mls/hr 09/23/18 12:00 Sodium Chloride IV Q12H IGNACIO Potassium Chloride/Dextrose/Sod Cl 20 meq in 1,000 mls @ 125 mls/hr 09/23/18 06:00 09/23/18 05:35 D5w/0.45% Nacl/Kcl 20 Meq IV 125 mls/hr DIRECT IGNACIO Administration Sodium Chloride 2,000 mls @ 999 mls/hr 09/23/18 10:00 09/23/18 10:21 Nacl 0.9% 1000 Ml IV 09/23/18 12:00 999 mls/hr ONCE ONE Administration Magnesium Sulfate 1 gm/ 25 mls @ 25 mls/hr 09/23/18 10:56 Sterile Water IV 09/23/18 11:55 ONCE ONE Losartan Potassium 25 mg 09/23/18 10:00 09/23/18 10:06 Cozaar PO Not Given QDAY IGNACIO Metoclopramide HCl 10 mg 09/23/18 00:35 Reglan IV Q6H PRN Nausea And Vomiting Metoprolol Tartrate 25 mg 09/23/18 01:00 09/23/18 10:03 Lopressor PO Not Given BID IGNACIO Ondansetron HCl 4 mg 09/23/18 00:35 Zofran IV Q8H PRN Nausea And Vomiting Sodium Chloride 10 ml 09/23/18 10:00 09/23/18 10:04 Sodium Chloride Flush Syringe 10 Ml IV 10 ml BID IGNACIO Administration Sodium Chloride 10 ml 09/23/18 00:35 Sodium Chloride Flush Syringe 10 Ml IV PRN PRN LINE FLUSH Nutrition/Malnutrition Assess - Dietary Evaluation Nutrition/Malnutrition Findings: Nutrition Notes Start: 09/23/18 09:05 Freq: Status: Active Protocol: Document 09/23/18 09:05 CP (Rec: 09/23/18 09:12 CP [id number]) Co-Sign 09/23/18 09:05 LP Nutrition Notes Need for Assessment generated from: MD Order,Education Initial or Follow up Assessment Current Diagnosis Diabetes,Sepsis Other Pertinent Diagnosis UTI, hypotension, right foot ulcer, DVT prophylaxis Current Diet NPO Labs/Tests POC BG 168 Na 133 BUN 36 Pertinent Medications Insulin Height 5 ft 8 in Weight 81.647 kg [place] Body Weight (kg) 63.63 BMI 27.3 Weight Status Overweight Subjective/Other Information RD consult for diet education per MD. Pt is non-compliant and is not suitable for education at this time. Percent of energy/protein needs met: 0%/0% Burn Absent Trauma Absent #1 Nutrition Diagnosis Inadequate oral intake Etiology DKA As Evidenced by Signs and Symptoms NPO status Is patient on ventilator? No Is Patient Ambulatory and/or Out of Bed No REE-([facility]-confined to bed) 1720.836 Calculation Used for Recommendations [facility] Additional Notes Protein needs: 98-163g (1.2-2 g/kg) Fluid: 1mL/kcal Nutrition Intervention Change Diet Order: Advance per MD request Nutrition Support: Vital AF 1.2 at 60mL/hr Kcal 1,728 Protein (gm) 108 Fluid (mL) 560 Goal #1 Diet advancement Anticipated Discharge Needs: Unable to determine at this time. Follow-Up By: 09/25/18 Additional Comments F/U: Diet advancement/TF consult
[2018-09-23] MEDS ORDERED: MAGNESIUM SULFATE 1 GM in NACL 0.9% 50 ML IV ONE (12:00)
[2018-09-23] MEDS: VANCOMYCIN 1,250 MG in NACL 0.9% 250ML 250 ML IV SCH (13:04)
[2018-09-23] MEDS ORDERED: LEVOPHED DRIP 4 MG/NS 250 ML 4 MG/250 ML BAG IV ONE (13:44)
[2018-09-23] MEDS ORDERED: DILAUDID ONE ×2 (15:11→18:06)
[2018-09-23] MEDS: DILAUDID IV PRN (15:14)
--- NOTE | 2018-09-23 15:20 | Consultation ---
History of Present Illness - Reason for Consult Consult date: 09/23/18 sepsis Requesting physician: OJ AGUILAR - History of Present Illness 62 y/o female with history of HTN, uncontrolled DM, Atrial Fib, HLD and chronic right diabetic foot ulcer follows [facility]; admitted on 09/22/2018 due to 2-day history of generalized weakness, AMS, sleepiness and subjective fever. Also reported nausea and vomiting. Per sister, patient has been non compliance with insulin and diet. At home glucose was 700s. She has been drinking cranberry juice, eating sweat potatoes and peanut butter. Of note, she is known to ID service from previous admission on 01/23/18 for fever and worsening right foot erythema, edema and ulcer drainage. Wound cultures from Jun 2017 grew Klebsiella, E colix2 and Strep group B. Foot MRI showed cellulitis, no osteomyelitis. S/P OR debridement and wound VAC placement on 01/27 findings - Deep space infection extending from the great toe to the 3rd toe and down the plantar. OR Gram stain 01/27 Beta hem Strep group B and now Klebsiella. Discharged on ceftriaxone 2 g IV qday total 2 week until 02/10/18. Patient did not follow with ID. Per sister, foot wound is healing. In the ED, temp 100.5 --> 101.5, HR 119, R 25, O2 sat 98%, BP 121/83. WBC 7.1, Hg 13.4, Plat 139. Creat 1.3. Glucose 734.AST 150. Lactate 7.8. UA 154 wbc, large LE. Blood culture 09/22/2018 GPC in clusters 2 of 4. CXR showed no acute cardiopulmonary process. CT head no acute intracraneal processes. Review of Systems: unable to obtain due to AMS Medications and Allergies Allergies Allergy/AdvReac Type Severity Reaction Status Date / Time No Known Allergies Allergy Verified 09/11/15 15:55 Home Medications Medication Instructions Recorded Confirmed Last Taken Type Clopidogrel [Plavix] 75 mg PO QDAY #30 tablet 02/24/17 09/22/18 01/26/18 Rx Losartan [Cozaar] 25 mg PO QDAY #30 tablet 02/24/17 09/22/18 01/26/18 Rx Lovastatin [Altoprev] 20 mg PO QPM #30 tab.er.24h 02/24/17 09/22/18 01/26/18 Rx Metoprolol [Lopressor TAB] 25 mg PO BID #60 tablet 02/24/17 09/22/18 01/26/18 Rx Insulin Detemir [Levemir VIAL] 50 unit SQ QHS #2 vial 02/01/18 09/22/18 Unknown Rx Insulin NPH/Regular [NovoLIN 70/30] 32 unit SUB-Q QAMDIAB #2 vial 02/01/18 09/22/18 Unknown Rx Active Meds: Active Medications Acetaminophen (Tylenol) 650 mg PO Q4H PRN PRN Reason: Pain MILD(1-3)/Fever >100.5/BEJARANO Last Admin: 09/23/18 08:59 Dose: 650 mg Documented by: Atorvastatin Calcium (Lipitor) 10 mg PO QHS [facility] Clopidogrel Bisulfate (Plavix) 75 mg PO QDAY [facility] Last Admin: 09/23/18 10:22 Dose: 75 mg Documented by: Dextrose (D50w (25gm) Syringe) 0 ml IV PRN PRN PRN Reason: Hypoglycemia Dextrose (D50w (25gm) Syringe) 0 ml IV PRN PRN PRN Reason: Hypoglycemia Enoxaparin Sodium (Lovenox) 40 mg SUB-Q QDAY@2200 [facility] Famotidine (Pepcid) 20 mg IV BID [facility] Last Admin: 09/23/18 10:22 Dose: 20 mg Documented by: Hydromorphone HCl (Dilaudid) 0.25 mg IV Q3H PRN PRN Reason: Pain, Moderate (4-6) Norepinephrine (Levophed Drip 4 Mg/Ns 250 Ml) 4 mg in 250 mls @ 7.5 mls/hr IV TITR [facility]; Protocol Last Admin: 09/23/18 14:10 Dose: 12 mcg/min, 45 mls/hr Documented by: Insulin Human Regular 100 (units/ Sodium Chloride) 100 mls @ 1 mls/hr IV TITR [facility]; Protocol Ceftriaxone Sodium (Rocephin/Ns 2 Gm/100 Ml) 2 gm in 100 mls @ 200 mls/hr IV Q24HR [facility]; Protocol Last Admin: 09/23/18 10:33 Dose: 200 mls/hr Documented by: Vancomycin HCl 1,250 mg/ (Sodium Chloride) 275 mls @ 166.667 mls/hr IV Q12H [facility] Last Admin: 09/23/18 13:04 Dose: 166.667 mls/hr Documented by: Potassium Chloride/Dextrose/Sod Cl (D5w/0.45% Nacl/Kcl 20 Meq) 20 meq in 1,000 mls @ 125 mls/hr IV DIRECT [facility] Last Admin: 09/23/18 05:35 Dose: 125 mls/hr Documented by: Losartan Potassium (Cozaar) 25 mg PO QDAY [facility] Last Admin: 09/23/18 10:06 Dose: Not Given Documented by: Metoclopramide HCl (Reglan) 10 mg IV Q6H PRN PRN Reason: Nausea And Vomiting Metoprolol Tartrate (Lopressor) 25 mg PO BID [facility] Last Admin: 09/23/18 10:03 Dose: Not Given Documented by: Ondansetron HCl (Zofran) 4 mg IV Q8H PRN PRN Reason: Nausea And Vomiting Sodium Chloride (Sodium Chloride Flush Syringe 10 Ml) 10 ml IV BID [facility] Last Admin: 09/23/18 10:04 Dose: 10 ml Documented by: Sodium Chloride (Sodium Chloride Flush Syringe 10 Ml) 10 ml IV PRN PRN PRN Reason: LINE FLUSH Physical Examination - Physical Exam Narrative exam: General appearance: somnolent in mild resp distress on NC O2, non conversant Eyes: anicteric sclerae, moist conjunctivae; no lid-lag; PERRLA HENT: Atraumatic; oropharynx limited Neck: Trachea midline; supple, no thyromegaly or lymphadenopathy Lungs: CTA CV: tachycardia Abdomen: Soft, non-tender; no masses or hepatosplenomegaly Extremities: No peripheral edema or extremity lymphadenopathy, left IO line Skin: Normal temperature, turgor and texture; no rash, ulcers or subcutaneous nodules Psych: no agitated Neuro: no agitated - Constitutional Vitals: Vital Signs Temp Pulse Resp BP Pulse Ox 99.1 F 83 21 95/46 98 09/23/18 10:52 09/23/18 13:15 09/23/18 13:15 09/23/18 13:15 09/23/18 13:15 Temperature -Last 24 Hours Temperature 99.1 F Temperature 102.4 F Temperature 100.5 F Temperature 101.5 F Temperature 100.5 F Temperature 100.5 F Results - Labs CBC & Chem 7: 09/22/18 15:50 09/23/18 08:17 Labs: Abnormal lab results 09/22/18 09/22/18 09/22/18 Range/Units 15:44 15:50 15:50 RDW 15.9 H (13.2-15.2) % Plt Count 139 L (140-440) K/mm3 Lymphocytes % (Manual) 3.0 L (13.4-35.0) % Lymphocytes # (Manual) 0.2 L (1.2-5.4) K/mm3 VBG pH (7.320-7.420) Sodium 126 L (137-145) mmol/L Potassium 5.3 H (3.6-5.0) mmol/L Chloride 83.8 L (98-107) mmol/L Carbon Dioxide 14 L (22-30) mmol/L BUN 36 H (7-17) mg/dL Creatinine 1.3 H (0.7-1.2) mg/dL Glucose 734 H* (65-100) mg/dL POC Glucose > 500 H (70-105) Hemoglobin A1c (4-6) % Lactic Acid (0.7-2.0) mmol/L Calcium (8.4-10.2) mg/dL Magnesium (1.7-2.3) mg/dL Total Bilirubin 3.90 H (0.1-1.2) mg/dL AST 150 H (5-40) units/L Albumin 3.8 L (3.9-5) g/dL Urine WBC (Auto) (0.0-6.0) /HPF 09/22/18 09/22/18 09/22/18 Range/Units 15:50 15:50 18:47 RDW (13.2-15.2) % Plt Count (140-440) K/mm3 Lymphocytes % (Manual) (13.4-35.0) % Lymphocytes # (Manual) (1.2-5.4) K/mm3 VBG pH 7.275 L (7.320-7.420) Sodium (137-145) mmol/L Potassium (3.6-5.0) mmol/L Chloride (98-107) mmol/L Carbon Dioxide (22-30) mmol/L BUN (7-17) mg/dL Creatinine (0.7-1.2) mg/dL Glucose (65-100) mg/dL POC Glucose (70-105) Hemoglobin A1c (4-6) % Lactic Acid 7.80 H* 3.10 H* (0.7-2.0) mmol/L Calcium (8.4-10.2) mg/dL Magnesium (1.7-2.3) mg/dL Total Bilirubin (0.1-1.2) mg/dL AST (5-40) units/L Albumin (3.9-5) g/dL Urine WBC (Auto) (0.0-6.0) /HPF 09/22/18 09/22/18 09/22/18 Range/Units 18:47 20:59 22:00 RDW (13.2-15.2) % Plt Count (140-440) K/mm3 Lymphocytes % (Manual) (13.4-35.0) % Lymphocytes # (Manual) (1.2-5.4) K/mm3 VBG pH (7.320-7.420) Sodium 129 L (137-145) mmol/L Potassium (3.6-5.0) mmol/L Chloride 95.0 L (98-107) mmol/L Carbon Dioxide 17 L (22-30) mmol/L BUN 40 H (7-17) mg/dL Creatinine 1.3 H (0.7-1.2) mg/dL Glucose 630 H* (65-100) mg/dL POC Glucose 444 H (70-105) Hemoglobin A1c (4-6) % Lactic Acid (0.7-2.0) mmol/L Calcium 8.1 L D (8.4-10.2) mg/dL Magnesium (1.7-2.3) mg/dL Total Bilirubin (0.1-1.2) mg/dL AST (5-40) units/L Albumin (3.9-5) g/dL Urine WBC (Auto) 159.0 H (0.0-6.0) /HPF 09/22/18 09/22/18 09/22/18 Range/Units 22:08 23:08 23:08 RDW (13.2-15.2) % Plt Count (140-440) K/mm3 Lymphocytes % (Manual) (13.4-35.0) % Lymphocytes # (Manual) (1.2-5.4) K/mm3 VBG pH (7.320-7.420) Sodium 132 L (137-145) mmol/L Potassium (3.6-5.0) mmol/L Chloride (98-107) mmol/L Carbon Dioxide 14 L (22-30) mmol/L BUN 34 H (7-17) mg/dL Creatinine (0.7-1.2) mg/dL Glucose 360 H (65-100) mg/dL POC Glucose 360 H (70-105) Hemoglobin A1c (4-6) % Lactic Acid 3.90 H* (0.7-2.0) mmol/L Calcium 7.5 L (8.4-10.2) mg/dL Magnesium (1.7-2.3) mg/dL Total Bilirubin (0.1-1.2) mg/dL AST (5-40) units/L Albumin (3.9-5) g/dL Urine WBC (Auto) (0.0-6.0) /HPF 09/22/18 09/22/18 09/23/18 Range/Units 23:16 23:28 00:27 RDW (13.2-15.2) % Plt Count (140-440) K/mm3 Lymphocytes % (Manual) (13.4-35.0) % Lymphocytes # (Manual) (1.2-5.4) K/mm3 VBG pH (7.320-7.420) Sodium 131 L (137-145) mmol/L Potassium (3.6-5.0) mmol/L Chloride (98-107) mmol/L Carbon Dioxide 15 L (22-30) mmol/L BUN 34 H (7-17) mg/dL Creatinine (0.7-1.2) mg/dL Glucose 360 H (65-100) mg/dL POC Glucose 401 H 317 H (70-105) Hemoglobin A1c (4-6) % Lactic Acid (0.7-2.0) mmol/L Calcium 7.7 L (8.4-10.2) mg/dL Magnesium (1.7-2.3) mg/dL Total Bilirubin (0.1-1.2) mg/dL AST (5-40) units/L Albumin (3.9-5) g/dL Urine WBC (Auto) (0.0-6.0) /HPF 09/23/18 09/23/18 09/23/18 Range/Units 01:21 01:21 01:21 RDW (13.2-15.2) % Plt Count (140-440) K/mm3 Lymphocytes % (Manual) (13.4-35.0) % Lymphocytes # (Manual) (1.2-5.4) K/mm3 VBG pH (7.320-7.420) Sodium 134 L (137-145) mmol/L Potassium (3.6-5.0) mmol/L Chloride (98-107) mmol/L Carbon Dioxide 15 L (22-30) mmol/L BUN 35 H (7-17) mg/dL Creatinine (0.7-1.2) mg/dL Glucose 267 H (65-100) mg/dL POC Glucose (70-105) Hemoglobin A1c 13.9 H (4-6) % Lactic Acid 4.80 H* (0.7-2.0) mmol/L Calcium 7.9 L (8.4-10.2) mg/dL Magnesium (1.7-2.3) mg/dL Total Bilirubin (0.1-1.2) mg/dL AST (5-40) units/L Albumin (3.9-5) g/dL Urine WBC (Auto) (0.0-6.0) /HPF 09/23/18 09/23/18 09/23/18 Range/Units 01:21 02:06 03:09 RDW (13.2-15.2) % Plt Count (140-440) K/mm3 Lymphocytes % (Manual) (13.4-35.0) % Lymphocytes # (Manual) (1.2-5.4) K/mm3 VBG pH (7.320-7.420) Sodium (137-145) mmol/L Potassium (3.6-5.0) mmol/L Chloride (98-107) mmol/L Carbon Dioxide (22-30) mmol/L BUN (7-17) mg/dL Creatinine (0.7-1.2) mg/dL Glucose (65-100) mg/dL POC Glucose 285 H 254 H (70-105) Hemoglobin A1c (4-6) % Lactic Acid (0.7-2.0) mmol/L Calcium (8.4-10.2) mg/dL Magnesium 1.60 L (1.7-2.3) mg/dL Total Bilirubin (0.1-1.2) mg/dL AST (5-40) units/L Albumin (3.9-5) g/dL Urine WBC (Auto) (0.0-6.0) /HPF 09/23/18 09/23/18 09/23/18 Range/Units 03:41 04:15 05:05 RDW (13.2-15.2) % Plt Count (140-440) K/mm3 Lymphocytes % (Manual) (13.4-35.0) % Lymphocytes # (Manual) (1.2-5.4) K/mm3 VBG pH (7.320-7.420) Sodium (137-145) mmol/L Potassium (3.6-5.0) mmol/L Chloride (98-107) mmol/L Carbon Dioxide (22-30) mmol/L BUN (7-17) mg/dL Creatinine (0.7-1.2) mg/dL Glucose (65-100) mg/dL POC Glucose 214 H 219 H (70-105) Hemoglobin A1c (4-6) % Lactic Acid 3.90 H* (0.7-2.0) mmol/L Calcium (8.4-10.2) mg/dL Magnesium (1.7-2.3) mg/dL Total Bilirubin (0.1-1.2) mg/dL AST (5-40) units/L Albumin (3.9-5) g/dL Urine WBC (Auto) (0.0-6.0) /HPF 09/23/18 09/23/18 09/23/18 Range/Units 07:30 08:17 08:17 RDW (13.2-15.2) % Plt Count (140-440) K/mm3 Lymphocytes % (Manual) (13.4-35.0) % Lymphocytes # (Manual) (1.2-5.4) K/mm3 VBG pH (7.320-7.420) Sodium 133 L (137-145) mmol/L Potassium (3.6-5.0) mmol/L Chloride (98-107) mmol/L Carbon Dioxide 13 L (22-30) mmol/L BUN 36 H (7-17) mg/dL Creatinine (0.7-1.2) mg/dL Glucose 149 H (65-100) mg/dL POC Glucose 179 H (70-105) Hemoglobin A1c (4-6) % Lactic Acid 2.70 H* (0.7-2.0) mmol/L Calcium 7.8 L (8.4-10.2) mg/dL Magnesium (1.7-2.3) mg/dL Total Bilirubin (0.1-1.2) mg/dL AST (5-40) units/L Albumin (3.9-5) g/dL Urine WBC (Auto) (0.0-6.0) /HPF 09/23/18 09/23/18 09/23/18 Range/Units 08:33 09:57 11:08 RDW (13.2-15.2) % Plt Count (140-440) K/mm3 Lymphocytes % (Manual) (13.4-35.0) % Lymphocytes # (Manual) (1.2-5.4) K/mm3 VBG pH (7.320-7.420) Sodium (137-145) mmol/L Potassium (3.6-5.0) mmol/L Chloride (98-107) mmol/L Carbon Dioxide (22-30) mmol/L BUN (7-17) mg/dL Creatinine (0.7-1.2) mg/dL Glucose (65-100) mg/dL POC Glucose 168 H 132 H 137 H (70-105) Hemoglobin A1c (4-6) % Lactic Acid (0.7-2.0) mmol/L Calcium (8.4-10.2) mg/dL Magnesium (1.7-2.3) mg/dL Total Bilirubin (0.1-1.2) mg/dL AST (5-40) units/L Albumin (3.9-5) g/dL Urine WBC (Auto) (0.0-6.0) /HPF 09/23/18 09/23/18 09/23/18 Range/Units 12:24 12:41 14:00 RDW (13.2-15.2) % Plt Count (140-440) K/mm3 Lymphocytes % (Manual) (13.4-35.0) % Lymphocytes # (Manual) (1.2-5.4) K/mm3 VBG pH (7.320-7.420) Sodium (137-145) mmol/L Potassium (3.6-5.0) mmol/L Chloride (98-107) mmol/L Carbon Dioxide (22-30) mmol/L BUN (7-17) mg/dL Creatinine (0.7-1.2) mg/dL Glucose (65-100) mg/dL POC Glucose 177 H 190 H (70-105) Hemoglobin A1c (4-6) % Lactic Acid 2.50 H* (0.7-2.0) mmol/L Calcium (8.4-10.2) mg/dL Magnesium (1.7-2.3) mg/dL Total Bilirubin (0.1-1.2) mg/dL AST (5-40) units/L Albumin (3.9-5) g/dL Urine WBC (Auto) (0.0-6.0) /HPF 09/23/18 Range/Units 14:59 RDW (13.2-15.2) % Plt Count (140-440) K/mm3 Lymphocytes % (Manual) (13.4-35.0) % Lymphocytes # (Manual) (1.2-5.4) K/mm3 VBG pH (7.320-7.420) Sodium (137-145) mmol/L Potassium (3.6-5.0) mmol/L Chloride (98-107) mmol/L Carbon Dioxide (22-30) mmol/L BUN (7-17) mg/dL Creatinine (0.7-1.2) mg/dL Glucose (65-100) mg/dL POC Glucose 151 H (70-105) Hemoglobin A1c (4-6) % Lactic Acid (0.7-2.0) mmol/L Calcium (8.4-10.2) mg/dL Magnesium (1.7-2.3) mg/dL Total Bilirubin (0.1-1.2) mg/dL AST (5-40) units/L Albumin (3.9-5) g/dL Urine WBC (Auto) (0.0-6.0) /HPF Assessment and Plan Cultures: Blood culture 09/22/2018 GPC in clusters 2 of 4. Assessment: 62 y/o female with history of HTN, uncontrolled DM, Atrial Fib, HLD and chronic right diabetic foot ulcer follows [facility]; admitted on 09/22/2018 due to 2-day history of generalized weakness, AMS, sleepiness and subjective f ever: 1) Severe Sepsis with septic shock: Present on admission, manifested by fever, tachycardia, hypotension, increased lactate. Etiology most likely multifactorial - GPC bacteremia +/- UTI +/- DKA. 2) GPC bacteremia: real v/s contaminant. Unclear source. ? right chronic plantar diabetic infection. - Blood culture 09/22/2018 GPC in clusters 2 of 4. 3) UTI: UA 154 wbc, large LE. Urine culture pending. 4) Acute encephalopathy: from sepsis/dehydration. CT head no acute intracraneal processes. 5) DM: uncontrolled with DKA. Per sister, patient has been non compliance with insulin and diet. At home glucose was 700s. She has been drinking cranberry juice, eating sweat potatoes and peanut butter. 6) History of chronic right foot diabetic wound: clinically does not look infected. Old wound culture Apr 2016 +MSSA. Wound cultures from Jun 2017 grew Klebsiella, E colix2 and Strep group B. Foot MRI 12/2017 showed cellulitis, no osteomyelitis. S/P OR debridement and wound VAC placement on 01/27/18 findings - Deep space infection extending from the great toe to the 3rd toe and down the plantar. OR Gram stain 01/27/18 Beta hem Strep group B and now Klebsiella. Discharged on ceftriaxone 2 g IV qday total 2 week until 02/10/18. Patient did not follow with ID office. Recommendations: - follow-up blood cultures 09/22, urine culture - repeat blood culture tomorrow - TTE chas for endocarditis - repeat CXR - obtain C-reactive protein (CRP) - obtain right foot XR and kidney US - once stable right foot MRI - continue ceftriaxone and vancomycin renally adjusted - wound care consult Will follow. Sena Heredia MD Infectious Diseases [employer] [facility] M [phone] O [phone]
--- NOTE | 2018-09-23 16:41 | XRay Report ---
PROCEDURE: XR FOOT 2V RT TECHNIQUE: Frontal and lateral views right foot HISTORY: right chronic diabetic wound eval for osteo/air COMPARISONS: X-ray right foot dated January 23, 2018 FINDINGS: There is degenerative change of the joints of the midfoot and forefoot similar in appearance to the p revious study. There is a plantar calcaneal spur. There is no evidence of fracture, subluxation, lytic or blastic change or periosteal reaction. There is no evidence of gas in the visualized soft tissues. There is atherosclerotic vascular calcification. IMPRESSION: 1. Degenerative change of the midfoot and forefoot similar in appearance to the previous study of Dec. 2. No plain film evidence of osteomyelitis and no evidence of gas within the soft tissues. If further imaging is required, CT or MRI may be helpful. This document is electronically signed by Gunjan Easton MD., September 23 2018 04:39:09 PM ET
[2018-09-23 18:12] LABS: Calcium 7.5 mg/dL (8.4-10.2)
[2018-09-23] MEDS ORDERED: NACL 0.9% 1000 ML 1,000 ML IV ONE (18:40)
--- NOTE | 2018-09-23 18:43 | Consultation ---
History of Present Illness - Reason for Consult Consult date: 09/23/18 DKA and Hypotension Requesting physician: OJ AGUILAR - History of Present Illness 62 y/o female admitted with DKA thought secondary to foot ulcer with sepsis and septic shock requiring vasopressor therapy. Medications and Allergies Allergies Allergy/AdvReac Type Severity Reaction Status Date / Time No Known Allergies Allergy Verified 09/11/15 15:55 Home Medications Medication Instructions Recorded Confirmed Last Taken Type Clopidogrel [Plavix] 75 mg PO QDAY #30 tablet 02/24/17 09/22/18 01/26/18 Rx Losartan [Cozaar] 25 mg PO QDAY #30 tablet 02/24/17 09/22/18 01/26/18 Rx Lovastatin [Altoprev] 20 mg PO QPM #30 tab.er.24h 02/24/17 09/22/18 01/26/18 Rx Metoprolol [Lopressor TAB] 25 mg PO BID #60 tablet 02/24/17 09/22/18 01/26/18 Rx Insulin Detemir [Levemir VIAL] 50 unit SQ QHS #2 vial 02/01/18 09/22/18 Unknown Rx Insulin NPH/Regular [NovoLIN 70/30] 32 unit SUB-Q QAMDIAB #2 vial 02/01/18 Unknown Rx Active Meds: Active Medications Acetaminophen (Tylenol) 650 mg PO Q4H PRN PRN Reason: Pain MILD(1-3)/Fever >100.5/BEJARANO Last Admin: 09/23/18 08:59 Dose: 650 mg Documented by: Atorvastatin Calcium (Lipitor) 10 mg PO QHS [facility] Clopidogrel Bisulfate (Plavix) 75 mg PO QDAY [facility] Last Admin: 09/23/18 10:22 Dose: 75 mg Documented by: Dextrose (D50w (25gm) Syringe) 0 ml IV PRN PRN PRN Reason: Hypoglycemia Enoxaparin Sodium (Lovenox) 40 mg SUB-Q QDAY@2200 [facility] Famotidine (Pepcid) 20 mg IV BID [facility] Last Admin: 09/23/18 10:22 Dose: 20 mg Documented by: Hydromorphone HCl (Dilaudid) 0.25 mg IV Q3H PRN PRN Reason: Pain, Moderate (4-6) Last Admin: 09/23/18 15:14 Dose: 0.25 mg Documented by: Norepinephrine (Levophed Drip 4 Mg/Ns 250 Ml) 4 mg in 250 mls @ 7.5 mls/hr IV TITR [facility]; Protocol Last Admin: 09/23/18 18:18 Dose: 5 mcg/min, 18.75 mls/hr Documented by: Ceftriaxone Sodium (Rocephin/Ns 2 Gm/100 Ml) 2 gm in 100 mls @ 200 mls/hr IV Q24HR [facility]; Protocol Last Admin: 09/23/18 10:33 Dose: 200 mls/hr Documented by: Vancomycin HCl 1,250 mg/ (Sodium Chloride) 275 mls @ 166.667 mls/hr IV Q12H [facility] Last Admin: 09/23/18 13:04 Dose: 166.667 mls/hr Documented by: Insulin Glargine (Lantus) 15 units SUB-Q QHS [facility] Insulin Human Lispro (Humalog) 0 unit SUB-Q ACHS [facility]; Protocol Losartan Potassium (Cozaar) 25 mg PO QDAY [facility] Last Admin: 09/23/18 10:06 Dose: Not Given Documented by: Metoclopramide HCl (Reglan) 10 mg IV Q6H PRN PRN Reason: Nausea And Vomiting Metoprolol Tartrate (Lopressor) 25 mg PO BID [facility] Last Admin: 09/23/18 10:03 Dose: Not Given Documented by: Ondansetron HCl (Zofran) 4 mg IV Q8H PRN PRN Reason: Nausea And Vomiting Sodium Chloride (Sodium Chloride Flush Syringe 10 Ml) 10 ml IV BID [facility] Last Admin: 09/23/18 10:04 Dose: 10 ml Documented by: Sodium Chloride (Sodium Chloride Flush Syringe 10 Ml) 10 ml IV PRN PRN PRN Reason: LINE FLUSH Exam - Constitutional Vitals: Temp Pulse Resp BP Pulse Ox 99.1 F 91 H 16 158/91 95 09/23/18 10:52 09/23/18 18:04 09/23/18 18:04 09/23/18 18:04 09/23/18 18:04 Results - Labs CBC & Chem 7: 09/22/18 15:50 09/23/18 08:17 Labs: Abnormal lab results 09/22/18 09/22/18 09/22/18 Range/Units 15:50 18:47 18:47 Lymphocytes % (Manual) 3.0 L (13.4-35.0) % Lymphocytes # (Manual) 0.2 L (1.2-5.4) K/mm3 Sodium 129 L (137-145) mmol/L Chloride 95.0 L (98-107) mmol/L Carbon Dioxide 17 L (22-30) mmol/L BUN 40 H (7-17) mg/dL Creatinine 1.3 H (0.7-1.2) mg/dL Glucose 630 H* (65-100) mg/dL POC Glucose (70-105) Hemoglobin A1c (4-6) % Lactic Acid 3.10 H* (0.7-2.0) mmol/L Calcium 8.1 L D (8.4-10.2) mg/dL Magnesium (1.7-2.3) mg/dL Urine WBC (Auto) (0.0-6.0) /HPF 09/22/18 09/22/18 09/22/18 Range/Units 20:59 22:00 22:08 Lymphocytes % (Manual) (13.4-35.0) % Lymphocytes # (Manual) (1.2-5.4) K/mm3 Sodium (137-145) mmol/L Chloride (98-107) mmol/L Carbon Dioxide (22-30) mmol/L BUN (7-17) mg/dL Creatinine (0.7-1.2) mg/dL Glucose (65-100) mg/dL POC Glucose 444 H 360 H (70-105) Hemoglobin A1c (4-6) % Lactic Acid (0.7-2.0) mmol/L Calcium (8.4-10.2) mg/dL Magnesium (1.7-2.3) mg/dL Urine WBC (Auto) 159.0 H (0.0-6.0) /HPF 09/22/18 09/22/18 09/22/18 Range/Units 23:08 23:08 23:16 Lymphocytes % (Manual) (13.4-35.0) % Lymphocytes # (Manual) (1.2-5.4) K/mm3 Sodium 132 L (137-145) mmol/L Chloride (98-107) mmol/L Carbon Dioxide 14 L (22-30) mmol/L BUN 34 H (7-17) mg/dL Creatinine (0.7-1.2) mg/dL Glucose 360 H (65-100) mg/dL POC Glucose 401 H (70-105) Hemoglobin A1c (4-6) % Lactic Acid 3.90 H* (0.7-2.0) mmol/L Calcium 7.5 L (8.4-10.2) mg/dL Magnesium (1.7-2.3) mg/dL Urine WBC (Auto) (0.0-6.0) /HPF 09/22/18 09/23/18 09/23/18 Range/Units 23:28 00:27 01:21 Lymphocytes % (Manual) (13.4-35.0) % Lymphocytes # (Manual) (1.2-5.4) K/mm3 Sodium 131 L (137-145) mmol/L Chloride (98-107) mmol/L Carbon Dioxide 15 L (22-30) mmol/L BUN 34 H (7-17) mg/dL Creatinine (0.7-1.2) mg/dL Glucose 360 H (65-100) mg/dL POC Glucose 317 H (70-105) Hemoglobin A1c (4-6) % Lactic Acid 4.80 H* (0.7-2.0) mmol/L Calcium 7.7 L (8.4-10.2) mg/dL Magnesium (1.7-2.3) mg/dL Urine WBC (Auto) (0.0-6.0) /HPF 09/23/18 09/23/18 09/23/18 Range/Units 01:21 01:21 01:21 Lymphocytes % (Manual) (13.4-35.0) % Lymphocytes # (Manual) (1.2-5.4) K/mm3 Sodium 134 L (137-145) mmol/L Chloride (98-107) mmol/L Carbon Dioxide 15 L (22-30) mmol/L BUN 35 H (7-17) mg/dL Creatinine (0.7-1.2) mg/dL Glucose 267 H (65-100) mg/dL POC Glucose (70-105) Hemoglobin A1c 13.9 H (4-6) % Lactic Acid (0.7-2.0) mmol/L Calcium 7.9 L (8.4-10.2) mg/dL Magnesium 1.60 L (1.7-2.3) mg/dL Urine WBC (Auto) (0.0-6.0) /HPF 09/23/18 09/23/18 09/23/18 Range/Units 02:06 03:09 03:41 Lymphocytes % (Manual) (13.4-35.0) % Lymphocytes # (Manual) (1.2-5.4) K/mm3 Sodium (137-145) mmol/L Chloride (98-107) mmol/L Carbon Dioxide (22-30) mmol/L BUN (7-17) mg/dL Creatinine (0.7-1.2) mg/dL Glucose (65-100) mg/dL POC Glucose 285 H 254 H (70-105) Hemoglobin A1c (4-6) % Lactic Acid 3.90 H* (0.7-2.0) mmol/L Calcium (8.4-10.2) mg/dL Magnesium (1.7-2.3) mg/dL Urine WBC (Auto) (0.0-6.0) /HPF 09/23/18 09/23/18 09/23/18 Range/Units 04:15 05:05 07:30 Lymphocytes % (Manual) (13.4-35.0) % Lymphocytes # (Manual) (1.2-5.4) K/mm3 Sodium (137-145) mmol/L Chloride (98-107) mmol/L Carbon Dioxide (22-30) mmol/L BUN (7-17) mg/dL Creatinine (0.7-1.2) mg/dL Glucose (65-100) mg/dL POC Glucose 214 H 219 H 179 H (70-105) Hemoglobin A1c (4-6) % Lactic Acid (0.7-2.0) mmol/L Calcium (8.4-10.2) mg/dL Magnesium (1.7-2.3) mg/dL Urine WBC (Auto) (0.0-6.0) /HPF 09/23/18 09/23/18 09/23/18 Range/Units 08:17 08:17 08:33 Lymphocytes % (Manual) (13.4-35.0) % Lymphocytes # (Manual) (1.2-5.4) K/mm3 Sodium 133 L (137-145) mmol/L Chloride (98-107) mmol/L Carbon Dioxide 13 L (22-30) mmol/L BUN 36 H (7-17) mg/dL Creatinine (0.7-1.2) mg/dL Glucose 149 H (65-100) mg/dL POC Glucose 168 H (70-105) Hemoglobin A1c (4-6) % Lactic Acid 2.70 H* (0.7-2.0) mmol/L Calcium 7.8 L (8.4-10.2) mg/dL Magnesium (1.7-2.3) mg/dL Urine WBC (Auto) (0.0-6.0) /HPF 09/23/18 09/23/18 09/23/18 Range/Units 09:57 11:08 12:24 Lymphocytes % (Manual) (13.4-35.0) % Lymphocytes # (Manual) (1.2-5.4) K/mm3 Sodium (137-145) mmol/L Chloride (98-107) mmol/L Carbon Dioxide (22-30) mmol/L BUN (7-17) mg/dL Creatinine (0.7-1.2) mg/dL Glucose (65-100) mg/dL POC Glucose 132 H 137 H (70-105) Hemoglobin A1c (4-6) % Lactic Acid 2.50 H* (0.7-2.0) mmol/L Calcium (8.4-10.2) mg/dL Magnesium (1.7-2.3) mg/dL Urine WBC (Auto) (0.0-6.0) /HPF 09/23/18 09/23/18 09/23/18 Range/Units 12:41 14:00 14:59 Lymphocytes % (Manual) (13.4-35.0) % Lymphocytes # (Manual) (1.2-5.4) K/mm3 Sodium (137-145) mmol/L Chloride (98-107) mmol/L Carbon Dioxide (22-30) mmol/L BUN (7-17) mg/dL Creatinine (0.7-1.2) mg/dL Glucose (65-100) mg/dL POC Glucose 177 H 190 H 151 H (70-105) Hemoglobin A1c (4-6) % Lactic Acid (0.7-2.0) mmol/L Calcium (8.4-10.2) mg/dL Magnesium (1.7-2.3) mg/dL Urine WBC (Auto) (0.0-6.0) /HPF 09/23/18 Range/Units 16:25 Lymphocytes % (Manual) (13.4-35.0) % Lymphocytes # (Manual) (1.2-5.4) K/mm3 Sodium (137-145) mmol/L Chloride (98-107) mmol/L Carbon Dioxide (22-30) mmol/L BUN (7-17) mg/dL Creatinine (0.7-1.2) mg/dL Glucose (65-100) mg/dL POC Glucose 180 H (70-105) Hemoglobin A1c (4-6) % Lactic Acid (0.7-2.0) mmol/L Calcium (8.4-10.2) mg/dL Magnesium (1.7-2.3) mg/dL Urine WBC (Auto) (0.0-6.0) /HPF Assessment and Plan 62 y/o female with DKA, sepsis with septic shock most likely from foot ulcer 1. Patient appears to be volume deplete, needs more volume 2. Anion Gap has closed can stop Insulin gtt and start long acting insulin 3. Wean Vasopressors for MAPs >65 last map documented at 113 4. Once off vasopressor, would not need ICU bed CCT 31
[2018-09-23] MEDS ORDERED: NACL 0.9% 1000 ML 1,000 ML ONE (18:47)
[2018-09-23] MEDS ORDERED: NACL 0.9% 1000 ML 1,000 ML IV SCH (19:00)
[2018-09-23] MEDS ORDERED: LANTUS SUB-Q SCH (22:00)
[2018-09-23] MEDS ORDERED: LOPRESSOR ONE (23:10)
[2018-09-23] MEDS ORDERED: LOVENOX SUB-Q ONE (23:10)
[2018-09-23] MEDS: LOVENOX SUB-Q SCH (23:30)
[2018-09-23] MEDS ORDERED: HumaLOG SUB-Q ONE (23:51)
[2018-09-23] MEDS: HumaLOG SUB-Q SCH (23:51)
--- NOTE | 2018-09-24 00:24 | Event Note ---
[facility] central line note Requested by nursing staff to place central line for continued use of pressors. Patient family verbally consented [facility] central line note Indication: Vasopressor support Location: Femoral The area of line placement was thoroughly prepared with chlorhexidine then draped using sterile technique. The area was locally anesthetized with lidocaine 1% 5 mL A triple lumen central venous catheter was placed using standard Seldinger technique. There was return of dark nonpulsatile blood from all ports. The catheter was secured in place using adhesive A sterile dressing was placed over the line. The patient tolerated the procedure well Complications: None
[2018-09-24] MEDS: ZOFRAN IV PRN (03:40)
[2018-09-24] MEDS: DILAUDID IV PRN (03:40)
[2018-09-24] MEDS: LEVOPHED DRIP 4 MG/NS 250 ML 4 MG/250 ML BAG IV SCH (03:58)
[2018-09-24] MEDS: VANCOMYCIN 1,250 MG in NACL 0.9% 250ML 250 ML IV SCH (04:00)
[2018-09-24 05:36] LABS: Basophils % (Auto) 0.1 % (0.0-1.8); Hematocrit 32.8 % (30.3-42.9); Hemoglobin 10.9 gm/dl (10.1-14.3); Lymphocytes # (Auto) 0.9 K/mm3 (1.2-5.4); Lymphocytes % (Auto) 9.1 % (13.4-35.0); Mean Corpuscular HGB Conc 33 % (30-34); Mean Corpuscular Volume 89 fl (79-97); Monocytes # (Auto) 0.9 K/mm3 (0.0-0.8); Monocytes % (Auto) 9.3 % (0.0-7.3); Platelet Count 147 K/mm3 (140-440); Red Blood Count 3.71 M/mm3 (3.65-5.03); Red Cell Distribution Width 16.3 % (13.2-15.2)
[2018-09-24 05:54] LABS: Albumin 1.7 g/dL (3.9-5); BUN/Creatinine Ratio 36; Blood Urea Nitrogen 36 mg/dL (7-17); Calcium 7.7 mg/dL (8.4-10.2); Hemolysis Index 222
[2018-09-24 06:00] LABS: Bilirubin,Direct < 0.2 mg/dL (0-0.2)
[2018-09-24 06:24] LABS: Alanine Aminotransferase 38 units/L (7-56)
--- NOTE | 2018-09-24 08:01 | Progress Note ---
Assessment and Plan Cultures: Blood culture 09/22/2018 Beta Strep group B 2 of 4 bottles. Assessment: 62 y/o female with history of HTN, uncontrolled DM, Atrial Fib, HLD and chronic right diabetic foot ulcer follows [facility] Wound care center; admitted on 09/22/2018 due to 2-day history of generalized weakness, AMS, sleepiness and subjective fever: 1) Severe Sepsis with septic shock: improving stil on pressors, fever trending down. Etiology most likely multifactorial - GPC bacteremia +/- UTI +/- DKA. 2) Beta Strep group B bacteremia: likely real from unclear source ? right chronic plantar diabetic infection - Blood culture 09/22/2018 GPC in clusters 2 of 4. 3) UTI: UA 154 wbc, large LE. Urine culture pending. 4) Acute encephalopathy: resolved; from sepsis/dehydration. CT head no acute intracraneal processes. 5) DM: uncontrolled with DKA. Per sister, patient has been non compliance with insulin and diet. At home glucose was 700s. She has been drinking cranberry juice, eating sweat potatoes and peanut butter. 6) History of chronic right foot diabetic wound: clinically does not look infected, however it may be the source of bacteremia. - Old wound culture Apr 2016 +MSSA. - Wound cultures from Jun 2017 grew Klebsiella, E colix2 and Strep group B. - Foot MRI 12/2017 showed cellulitis, no osteomyelitis. - S/P OR debridement and wound VAC placement on 01/27/18 findings - Deep space infection extending from the great toe to the 3rd toe and down the plantar. OR Gram stain 01/27/18 Beta hem Strep group B and now Klebsiella. Discharged on ceftriaxone 2 g IV qday total 2 week until 02/10/18 - XR foot showed degenerative change of the midfoot and forefoo and no plain film evidence of osteomyelitis and no evidence of gas within the soft tissues. - CRP 36 7) JUAN: resolved Recommendations: - adjust levophed - current MAP 94 - follow-up urine culture - repeat blood culture today - TTE chas for endocarditis - pending - MRI right foot - repeat CXR today - obtain kidney US - stop ceftriaxone and vancomycin - start cefazolin IV 2 gm IV q8h - wound care consult Will follow. Sena Heredia MD Infectious Diseases Certification Officer [facility] ([facility]) M [phone] O [phone] Subjective Date of service: 09/24/18 Principal diagnosis: septic shock Interval history: Remains on levophed at 10 with MAP of 94. Tmax 102.4. Patient is c/o left pain and spasm rotated to the left ROS:as above rest negative Objective - Exam Narrative Exam: General appearance: alert in NAD on NC O2, conversant Eyes: anicteric sclerae, moist conjunctivae; no lid-lag; PERRLA HENT: Atraumatic; oropharynx limited Neck: stiff deviated to the left, tender Lungs: CTA CV: tachycardia Abdomen: Soft, non-tender; no masses or hepatosplenomegaly Extremities: No peripheral edema or extremity lymphadenopathy, left IO line, right mid plantar wound with periwound callus, no drainage Skin: Normal temperature, turgor and texture; no rash, ulcers or subcutaneous nodules Psych: no agitated Neuro: alert following commands - Constitutional Vitals: Vital Signs Temp Pulse Resp BP Pulse Ox 99.1 F 84 20 113/48 99 09/24/18 04:00 09/24/18 01:11 09/24/18 01:11 09/24/18 01:11 09/24/18 01:11 Temperature -Last 24 Hours Temperature 99.1 F Temperature 98.1 F Temperature 99.1 F Temperature 102.4 F - Labs CBC & Chem 7: 09/24/18 04:14 09/24/18 04:14 Labs: Abnormal lab results 09/23/18 09/23/18 09/23/18 Range/Units 07:30 08:17 08:17 RDW (13.2-15.2) % Lymph % (Auto) (13.4-35.0) % Becker % (Auto) (0.0-7.3) % Lymph # (1.2-5.4) K/mm3 Becker # (0.0-0.8) K/mm3 Seg Neutrophils % (40.0-70.0) % Seg Neutrophils # (1.8-7.7) K/mm3 Sodium 133 L (137-145) mmol/L Potassium (3.6-5.0) mmol/L Carbon Dioxide 13 L (22-30) mmol/L BUN 36 H (7-17) mg/dL Glucose 149 H (65-100) mg/dL POC Glucose 179 H (70-105) Lactic Acid 2.70 H* (0.7-2.0) mmol/L Calcium 7.8 L (8.4-10.2) mg/dL Phosphorus (2.5-4.5) mg/dL AST (5-40) units/L C-Reactive Protein (0.00-1.30) mg/dL Total Protein (6.3-8.2) g/dL Albumin (3.9-5) g/dL 09/23/18 09/23/18 09/23/18 Range/Units 08:33 09:57 11:08 RDW (13.2-15.2) % Lymph % (Auto) (13.4-35.0) % Becker % (Auto) (0.0-7.3) % Lymph # (1.2-5.4) K/mm3 Becker # (0.0-0.8) K/mm3 Seg Neutrophils % (40.0-70.0) % Seg Neutrophils # (1.8-7.7) K/mm3 Sodium (137-145) mmol/L Potassium (3.6-5.0) mmol/L Carbon Dioxide (22-30) mmol/L BUN (7-17) mg/dL Glucose (65-100) mg/dL POC Glucose 168 H 132 H 137 H (70-105) Lactic Acid (0.7-2.0) mmol/L Calcium (8.4-10.2) mg/dL Phosphorus (2.5-4.5) mg/dL AST (5-40) units/L C-Reactive Protein (0.00-1.30) mg/dL Total Protein (6.3-8.2) g/dL Albumin (3.9-5) g/dL 09/23/18 09/23/18 09/23/18 Range/Units 12:24 12:41 14:00 RDW (13.2-15.2) % Lymph % (Auto) (13.4-35.0) % Becker % (Auto) (0.0-7.3) % Lymph # (1.2-5.4) K/mm3 Becker # (0.0-0.8) K/mm3 Seg Neutrophils % (40.0-70.0) % Seg Neutrophils # (1.8-7.7) K/mm3 Sodium (137-145) mmol/L Potassium (3.6-5.0) mmol/L Carbon Dioxide (22-30) mmol/L BUN (7-17) mg/dL Glucose (65-100) mg/dL POC Glucose 177 H 190 H (70-105) Lactic Acid 2.50 H* (0.7-2.0) mmol/L Calcium (8.4-10.2) mg/dL Phosphorus (2.5-4.5) mg/dL AST (5-40) units/L C-Reactive Protein (0.00-1.30) mg/dL Total Protein (6.3-8.2) g/dL Albumin (3.9-5) g/dL 09/23/18 09/23/18 09/23/18 Range/Units 14:59 16:25 18:30 RDW (13.2-15.2) % Lymph % (Auto) (13.4-35.0) % Becker % (Auto) (0.0-7.3) % Lymph # (1.2-5.4) K/mm3 Becker # (0.0-0.8) K/mm3 Seg Neutrophils % (40.0-70.0) % Seg Neutrophils # (1.8-7.7) K/mm3 Sodium 133 L (137-145) mmol/L Potassium (3.6-5.0) mmol/L Carbon Dioxide 13 L (22-30) mmol/L BUN 36 H (7-17) mg/dL Glucose 195 H (65-100) mg/dL POC Glucose 151 H 180 H (70-105) Lactic Acid (0.7-2.0) mmol/L Calcium 7.5 L (8.4-10.2) mg/dL Phosphorus (2.5-4.5) mg/dL AST (5-40) units/L C-Reactive Protein (0.00-1.30) mg/dL Total Protein (6.3-8.2) g/dL Albumin (3.9-5) g/dL 09/23/18 09/24/18 09/24/18 Range/Units 18:30 00:58 02:07 RDW (13.2-15.2) % Lymph % (Auto) (13.4-35.0) % Becker % (Auto) (0.0-7.3) % Lymph # (1.2-5.4) K/mm3 Becker # (0.0-0.8) K/mm3 Seg Neutrophils % (40.0-70.0) % Seg Neutrophils # (1.8-7.7) K/mm3 Sodium 132 L (137-145) mmol/L Potassium (3.6-5.0) mmol/L Carbon Dioxide 13 L (22-30) mmol/L BUN 38 H (7-17) mg/dL Glucose 244 H (65-100) mg/dL POC Glucose 251 H (70-105) Lactic Acid (0.7-2.0) mmol/L Calcium 8.0 L (8.4-10.2) mg/dL Phosphorus (2.5-4.5) mg/dL AST (5-40) units/L C-Reactive Protein 36.60 H (0.00-1.30) mg/dL Total Protein (6.3-8.2) g/dL Albumin (3.9-5) g/dL 09/24/18 09/24/18 Range/Units 04:14 04:14 RDW 16.3 H (13.2-15.2) % Lymph % (Auto) 9.1 L (13.4-35.0) % Becker % (Auto) 9.3 H (0.0-7.3) % Lymph # 0.9 L (1.2-5.4) K/mm3 Becker # 0.9 H (0.0-0.8) K/mm3 Seg Neutrophils % 81.5 H (40.0-70.0) % Seg Neutrophils # 7.9 H (1.8-7.7) K/mm3 Sodium 132 L (137-145) mmol/L Potassium 5.2 H D (3.6-5.0) mmol/L Carbon Dioxide 11 L (22-30) mmol/L BUN 36 H (7-17) mg/dL Glucose 256 H (65-100) mg/dL POC Glucose (70-105) Lactic Acid (0.7-2.0) mmol/L Calcium 7.7 L (8.4-10.2) mg/dL Phosphorus 2.40 L (2.5-4.5) mg/dL AST 92 H (5-40) units/L C-Reactive Protein (0.00-1.30) mg/dL Total Protein 5.3 L D (6.3-8.2) g/dL Albumin 1.7 L (3.9-5) g/dL
[2018-09-24] MEDS: HumaLOG SUB-Q SCH ×4 (08:11→21:32)
[2018-09-24] MEDS ORDERED: LANTUS SUB-Q ONE (09:09)
[2018-09-24] MEDS ORDERED: LANTUS SUB-Q SCH (09:09)
[2018-09-24] MEDS ORDERED: HumuLIN R 100 UNITS in NACL 0.9% 99 ML IV SCH (10:00)
[2018-09-24 10:14] LABS: Calcium 7.9 mg/dL (8.4-10.2)
--- NOTE | 2018-09-24 10:38 | Progress Note ---
Assessment and Plan Assessment and plan: 62F pw who was nc with insulin and med, pw gen weakness, n/v, elevatad glc, ams, r foot ulcer x 2 days PMH; htn, chf, dm, afib, hld CXR and CTH neg Diagnosis severe sepis septic shock Right foot ulcer, does not appear infected acute metabolic encephalopathy DKA, uncontrolled DM a1c 14 metabolic acidosis hyponatremia hypomagnesemia Sacral decub Plan -Has now been weaned off insulin drip, continue subcutaneous insulins -She has not been weaned off pressors, monitor blood pressure closely -cont iv abx, ID consult appreciated, follow-up cultures -Right foot doesn't appear infected on my exam, she had previous infection in the foot, has been in wound care. The wound has actually been healing and the foot is much improved -cont IVF -BP meds on hold -repleted mg, now wnl -Wound care for sacral decub -dvt ppx, lovenox Critical care time 35 minutes History Interval history: She has remained confused, she had been hypotensive, but off pressors now She has not been short of breath, she's not been coughing No diarrhea No focal weakness No agitation or seizures Hospitalist Physical - Physical exam Narrative exam: General.: Toxic appearance HEENT: Moist mucous membranes, extraocular muscles intact, no lymphadenopathy Neck: supple Cardiac: S1-S2 heard Lungs: clear to auscultation bilaterally Abdomen: soft , nontender, nondistended, bowel sounds positive Extremities: Deformity of right foot noted, with a healing wound Skin: Sacral decub noted, present on admission Neurologic: Moves all extremities, is confused Psych: calm, and cooperative - Constitutional Vitals: Temp Pulse Resp BP Pulse Ox 99.1 F 84 20 113/48 99 09/24/18 04:00 09/24/18 01:11 09/24/18 01:11 09/24/18 01:11 09/24/18 01:11 Results - Labs CBC & Chem 7: 09/24/18 04:14 09/24/18 11:05 Labs: Laboratory Last Values WBC 9.7 K/mm3 (4.5-11.0) 09/24/18 04:14 RBC 3.71 M/mm3 (3.65-5.03) 09/24/18 04:14 Hgb 10.9 gm/dl (10.1-14.3) 09/24/18 04:14 Hct 32.8 % (30.3-42.9) D 09/24/18 04:14 MCV 89 fl (79-97) 09/24/18 04:14 MCH 29 pg (28-32) 09/24/18 04:14 MCHC 33 % (30-34) 09/24/18 04:14 RDW 16.3 % (13.2-15.2) H 09/24/18 04:14 Plt Count 147 K/mm3 (140-440) 09/24/18 04:14 Lymph % (Auto) 9.1 % (13.4-35.0) L 09/24/18 04:14 [place] % (Auto) 9.3 % (0.0-7.3) H 09/24/18 04:14 Eos % (Auto) 0.0 % (0.0-4.3) 09/24/18 04:14 Baso % (Auto) 0.1 % (0.0-1.8) 09/24/18 04:14 Lymph # 0.9 K/mm3 (1.2-5.4) L 09/24/18 04:14 [place] # 0.9 K/mm3 (0.0-0.8) H 09/24/18 04:14 Eos # 0.0 K/mm3 (0.0-0.4) 09/24/18 04:14 Baso # 0.0 K/mm3 (0.0-0.1) 09/24/18 04:14 Add Manual Diff Complete 09/22/18 15:50 Total Counted 100 09/22/18 15:50 Seg Neutrophils % 81.5 % (40.0-70.0) H 09/24/18 04:14 Seg Neuts % (Manual) 60.0 % (40.0-70.0) 09/22/18 15:50 Band Neutrophils % 35.0 % 09/22/18 15:50 Lymphocytes % (Manual) 3.0 % (13.4-35.0) L 09/22/18 15:50 Reactive Lymphs % (Man) 0 % 09/22/18 15:50 Monocytes % (Manual) 1.0 % (0.0-7.3) 09/22/18 15:50 Eosinophils % (Manual) 0 % (0.0-4.3) 09/22/18 15:50 Basophils % (Manual) 1.0 % (0.0-1.8) 09/22/18 15:50 Metamyelocytes % 0 % 09/22/18 15:50 Myelocytes % 0 % 09/22/18 15:50 Promyelocytes % 0 % 09/22/18 15:50 Blast Cells % 0 % 09/22/18 15:50 Nucleated RBC % Not Reportable 09/22/18 15:50 Seg Neutrophils # 7.9 K/mm3 (1.8-7.7) H 09/24/18 04:14 Seg Neutrophils # Man 4.3 K/mm3 (1.8-7.7) 09/22/18 15:50 Band Neutrophils # 2.5 K/mm3 09/22/18 15:50 Lymphocytes # (Manual) 0.2 K/mm3 (1.2-5.4) L 09/22/18 15:50 Abs React Lymphs (Man) 0.0 K/mm3 09/22/18 15:50 Monocytes # (Manual) 0.1 K/mm3 (0.0-0.8) 09/22/18 15:50 Eosinophils # (Manual) 0.0 K/mm3 (0.0-0.4) 09/22/18 15:50 Basophils # (Manual) 0.1 K/mm3 (0.0-0.1) 09/22/18 15:50 Metamyelocytes # 0.0 K/mm3 09/22/18 15:50 Myelocytes # 0.0 K/mm3 09/22/18 15:50 Promyelocytes # 0.0 K/mm3 09/22/18 15:50 Blast Cells # 0.0 K/mm3 09/22/18 15:50 WBC Morphology Not Reportable 09/22/18 15:50 Hypersegmented Neuts Not Reportable 09/22/18 15:50 Hyposegmented Neuts Not Reportable 09/22/18 15:50 Hypogranular Neuts Not Reportable 09/22/18 15:50 Smudge Cells Not Reportable 09/22/18 15:50 Toxic Granulation Not Reportable 09/22/18 15:50 Toxic Vacuolation Not Reportable 09/22/18 15:50 Dohle Bodies Not Reportable 09/22/18 15:50 Pelger-Huet Anomaly Not Reportable 09/22/18 15:50 Rene Rods Not Reportable 09/22/18 15:50 Platelet Estimate Consistent w auto 09/22/18 15:50 Clumped Platelets Not Reportable 09/22/18 15:50 Plt Clumps, EDTA Not Reportable 09/22/18 15:50 Large Platelets Few 09/22/18 15:50 Giant Platelets Not Reportable 09/22/18 15:50 Platelet Satelliting Not Reportable 09/22/18 15:50 Plt Morphology Comment Not Reportable 09/22/18 15:50 RBC Morphology Not Reportable 09/22/18 15:50 Dimorphic RBCs Not Reportable 09/22/18 15:50 Polychromasia Not Reportable 09/22/18 15:50 Hypochromasia Not Reportable 09/22/18 15:50 Poikilocytosis Not Reportable 09/22/18 15:50 Anisocytosis Not Reportable 09/22/18 15:50 Microcytosis Not Reportable 09/22/18 15:50 Macrocytosis Not Reportable 09/22/18 15:50 Spherocytes Not Reportable 09/22/18 15:50 Pappenheimer Bodies Not Reportable 09/22/18 15:50 Sickle Cells Not Reportable 09/22/18 15:50 Target Cells Not Reportable 09/22/18 15:50 Tear Drop Cells Not Reportable 09/22/18 15:50 Ovalocytes Not Reportable 09/22/18 15:50 Helmet Cells Not Reportable 09/22/18 15:50 [place] Bodies Not Reportable 09/22/18 15:50 [place] Rings Not Reportable 09/22/18 15:50 [place]y Cells Not Reportable 09/22/18 15:50 Bite Cells Not Reportable 09/22/18 15:50 Crenated Cell Not Reportable 09/22/18 15:50 Elliptocytes Not Reportable 09/22/18 15:50 Acanthocytes (Spur) Not Reportable 09/22/18 15:50 Rouleaux Not Reportable 09/22/18 15:50 Hemoglobin C Crystals Not Reportable 09/22/18 15:50 Schistocytes Not Reportable 09/22/18 15:50 Malaria parasites Not Reportable 09/22/18 15:50 Sami Bodies Not Reportable 09/22/18 15:50 Hem Pathologist Commnt No 09/22/18 15:50 VBG pH 7.275 (7.320-7.420) L 09/22/18 15:50 Sodium 132 mmol/L (137-145) L 09/24/18 09:04 Potassium 4.4 mmol/L (3.6-5.0) 09/24/18 09:04 Chloride 103.7 mmol/L (98-107) 09/24/18 09:04 Carbon Dioxide 10 mmol/L (22-30) L 09/24/18 09:04 Anion Gap 23 mmol/L 09/24/18 09:04 BUN 37 mg/dL (7-17) H 09/24/18 09:04 Creatinine 1.1 mg/dL (0.7-1.2) 09/24/18 09:04 Estimated GFR 50 ml/min 09/24/18 09:04 BUN/Creatinine Ratio 34 % 09/24/18 09:04 Glucose 312 mg/dL (65-100) H 09/24/18 09:04 POC Glucose 290 (70-105) H 09/24/18 08:11 Hemoglobin A1c 13.9 % (4-6) H 09/23/18 01:21 Lactic Acid 2.50 mmol/L (0.7-2.0) H* 09/23/18 12:24 Calcium 7.9 mg/dL (8.4-10.2) L 09/24/18 09:04 Phosphorus 2.70 mg/dL (2.5-4.5) 09/24/18 09:04 Magnesium 1.80 mg/dL (1.7-2.3) 09/24/18 09:04 Total Bilirubin 0.90 mg/dL (0.1-1.2) 09/24/18 04:14 Direct Bilirubin < 0.2 mg/dL (0-0.2) 09/24/18 04:14 AST 92 units/L (5-40) H 09/24/18 04:14 ALT 38 units/L (7-56) 09/24/18 04:14 Alkaline Phosphatase 77 units/L (35-129) 09/24/18 04:14 Troponin T < 0.010 ng/mL (0.00-0.029) 09/22/18 15:50 C-Reactive Protein 36.60 mg/dL (0.00-1.30) H 09/23/18 18:30 Total Protein 5.3 g/dL (6.3-8.2) L D 09/24/18 04:14 Albumin 1.7 g/dL (3.9-5) L 09/24/18 04:14 Albumin/Globulin Ratio 0.5 % 09/24/18 04:14 TSH 1.530 mlU/mL (0.270-4.200) 09/22/18 15:50 Urine Color Yellow (Yellow) 09/22/18 22:00 Urine Turbidity Slightly-cloudy (Clear) 09/22/18 22:00 Urine pH 6.0 (5.0-7.0) 09/22/18 22:00 Ur Specific [place] 1.025 (1.003-1.030) 09/22/18 22:00 Urine Protein 30 mg/dl mg/dL (Negative) 09/22/18 22:00 Urine Glucose (UA) >=500 mg/dL (Negative) 09/22/18 22:00 Urine Ketones Tr mg/dL (Negative) 09/22/18 22:00 Urine Blood Lg (Negative) 09/22/18 22:00 Urine Nitrite Neg (Negative) 09/22/18 22:00 Urine Bilirubin Neg (Negative) 09/22/18 22:00 Urine Urobilinogen < 2.0 mg/dL (<2.0) 09/22/18 22:00 Ur Leukocyte Esterase Lg (Negative) 09/22/18 22:00 Urine WBC (Auto) 159.0 /HPF (0.0-6.0) H 09/22/18 22:00 Urine RBC (Auto) 4.0 /HPF (0.0-6.0) 09/22/18 22:00 Urine Bacteria (Auto) 1+ /HPF (Negative) 09/22/18 22:00 Urine Mucus Few /HPF 09/22/18 22:00 Active Medications - Current Medications Current Medications: Generic Name Dose Route Start Last Admin Trade Name Freq PRN Reason Stop Dose Admin Acetaminophen 650 mg 09/23/18 00:35 09/23/18 23:30 Tylenol PO 650 mg Q4H PRN Administration Pain MILD(1-3)/Fever >100.5/BEJARANO Atorvastatin Calcium 10 mg 09/23/18 22:00 09/23/18 23:29 Lipitor PO 10 mg QHS IGNACIO Administration Clopidogrel Bisulfate 75 mg 09/23/18 10:00 09/23/18 10:22 Plavix PO 75 mg QDAY IGNACIO Administration Dextrose 0 ml 09/23/18 00:37 D50w (25gm) Syringe IV PRN PRN Hypoglycemia Enoxaparin Sodium 40 mg 09/23/18 22:00 09/23/18 23:30 Lovenox SUB-Q 40 mg QDAY@2200 IGNACIO Administration Famotidine 20 mg 09/23/18 01:00 09/23/18 23:30 Pepcid IV 20 mg BID IGNACIO Administration Hydromorphone HCl 0.25 mg 09/23/18 00:35 09/24/18 03:40 Dilaudid IV 0.25 mg Q3H PRN Administration Pain, Moderate (4-6) Norepinephrine 4 mg in 250 mls @ 7.5 mls/hr 09/23/18 01:00 09/24/18 09:45 Levophed Drip 4 Mg/Ns 250 Ml IV 2 mcg/min TITR IGNACIO 7.5 mls/hr Titration Protocol 2 MCG/MIN Sodium Chloride 1,000 mls @ 0 mls/hr 09/23/18 19:00 Nacl 0.9% 1000 Ml IV 09/24/18 19:01 ONCE IGNACIO As Directed Cefazolin Sodium 2 gm/ Sodium 100 mls @ 200 mls/hr 09/24/18 11:00 Chloride IV Q8HR [facility] Protocol Insulin Human Regular 100 100 mls @ 1 mls/hr 09/24/18 10:00 units/ Sodium Chloride IV TITR IGNACIO Protocol 1 UNITS/HR Losartan Potassium 25 mg 09/23/18 10:00 09/23/18 10:06 Cozaar PO Not Given QDAY [facility] Metoclopramide HCl 10 mg 09/23/18 00:35 Reglan IV Q6H PRN Nausea And Vomiting Metoprolol Tartrate 25 mg 09/23/18 01:00 09/23/18 23:29 Lopressor PO 25 mg BID IGNACIO Administration Ondansetron HCl 4 mg 09/23/18 00:35 09/24/18 03:40 Zofran IV 4 mg Q8H PRN Administration Nausea And Vomiting Sodium Chloride 10 ml 09/23/18 10:00 09/23/18 23:30 Sodium Chloride Flush Syringe 10 Ml IV 10 ml BID IGNACIO Administration Sodium Chloride 10 ml 09/23/18 00:35 Sodium Chloride Flush Syringe 10 Ml IV PRN PRN LINE FLUSH Nutrition/Malnutrition Assess - Dietary Evaluation Nutrition/Malnutrition Findings: Nutrition Notes Start: 09/23/18 09:05 Freq: Status: Active Protocol: Document 09/23/18 09:05 CP (Rec: 09/23/18 09:12 CP [id number]) Co-Sign 09/23/18 09:05 LP Nutrition Notes Need for Assessment generated from: MD Order,Education Initial or Follow up Assessment Current Diagnosis Diabetes,Sepsis Other Pertinent Diagnosis UTI, hypotension, right foot ulcer, DVT prophylaxis Current Diet NPO Labs/Tests POC BG 168 Na 133 BUN 36 Pertinent Medications Insulin Height 5 ft 8 in Weight 81.647 kg [place] Body Weight (kg) 63.63 BMI 27.3 Weight Status Overweight Subjective/Other Information RD consult for diet education per MD. Pt is non-compliant and is not suitable for education at this time. Percent of energy/protein needs met: 0%/0% Burn Absent Trauma Absent #1 Nutrition Diagnosis Inadequate oral intake Etiology DKA As Evidenced by Signs and Symptoms NPO status Is patient on ventilator? No Is Patient Ambulatory and/or Out of Bed No REE-([facility]-confined to bed) [phone] Calculation Used for Recommendations [facility] Additional Notes Protein needs: 98-163g (1.2-2 g/kg) Fluid: 1mL/kcal Nutrition Intervention Change Diet Order: Advance per MD request Add Supplement/Snack (indicate name/kcal Glucerna (once diet is /protein ) advanced) daily Provides kCal: 220 Provides Protein (gm) 10 Teaching Recipient Significant Other Goal #1 Diet advancement Anticipated Discharge Needs: Unable to determine at this time. Follow-Up By: 09/25/18 Additional Comments F/U: Diet advancement/TF consult
[2018-09-24] MEDS: COZAAR PO SCH (10:57)
[2018-09-24] MEDS: LOPRESSOR PO SCH ×2 (10:57→21:31)
[2018-09-24] MEDS: SODIUM CHLORIDE FLUSH SYRINGE 10 ML IV SCH ×2 (10:59→21:35)
[2018-09-24] MEDS: PLAVIX PO SCH (10:59)
[2018-09-24] MEDS: PEPCID IV SCH ×2 (10:59→21:31)
[2018-09-24] MEDS: ceFAZolin 2 GM in NACL 0.9% 100 ML IV SCH ×3 (11:05→23:49)
[2018-09-24] MEDS: NACL 0.9% 1000 ML 1,000 ML IV SCH ×2 (12:07→13:21)
[2018-09-24 12:41] LABS: Calcium 7.9 mg/dL (8.4-10.2)
--- NOTE | 2018-09-24 13:21 | Progress Note ---
Assessment and Plan 62 y/o female with DKA, sepsis with septic shock most likely from foot ulcer 1. Gave 2 more liters of normal saline this am. Patient is now off vasopressor therapy 2. Stop insulin drip and restart home regimen 3. Abx therapy per ID, awaiting MRI to rule out osteo 4. If manages to maintain blood pressure, can transfer out, step down vs floor. CCT 31 Subjective Date of service: 09/24/18 Principal diagnosis: septic shock Interval history: Weaned off pressors but started back on insulin gtt. Patient did not get all of the long acting dose of insulin last night. Her home meds have now been reconciled and confirmed. Most recent anion gap is 14 Objective - Constitutional Vitals: Vital Signs - 12hr 09/24/18 09/24/18 09/24/18 04:00 04:11 04:21 Temperature 99.1 F Pulse Rate 75 77 77 Pulse Rate [ Apical] Pulse Rate [ From Monitor] Respiratory 16 16 16 Rate Blood Pressure 90/51 89/36 110/50 O2 Sat by Pulse 99 98 100 Oximetry 09/24/18 09/24/18 09/24/18 04:30 04:41 04:51 Temperature Pulse Rate 76 75 75 Pulse Rate [ Apical] Pulse Rate [ From Monitor] Respiratory 15 16 16 Rate Blood Pressure 99/40 90/51 93/38 O2 Sat by Pulse 98 98 98 Oximetry 09/24/18 09/24/18 09/24/18 05:00 05:11 05:21 Temperature Pulse Rate 79 74 74 Pulse Rate [ Apical] Pulse Rate [ From Monitor] Respiratory 20 14 15 Rate Blood Pressure 112/53 112/53 90/38 O2 Sat by Pulse 100 98 99 Oximetry 09/24/18 09/24/18 09/24/18 05:30 05:41 05:51 Temperature Pulse Rate 74 75 75 Pulse Rate [ Apical] Pulse Rate [ From Monitor] Respiratory 15 16 14 Rate Blood Pressure 90/37 91/35 109/44 O2 Sat by Pulse 98 99 99 Oximetry 09/24/18 09/24/18 09/24/18 06:00 06:11 06:21 Temperature Pulse Rate 74 74 74 Pulse Rate [ Apical] Pulse Rate [ From Monitor] Respiratory 15 16 15 Rate Blood Pressure 101/46 109/44 106/44 O2 Sat by Pulse 99 99 99 Oximetry 09/24/18 09/24/1809/24/19 06:30 06:41 06:51 Temperature Pulse Rate 74 73 73 Pulse Rate [ Apical] Pulse Rate [ From Monitor] Respiratory 15 15 14 Rate Blood Pressure 106/44 101/46 105/43 O2 Sat by Pulse 98 99 99 Oximetry 09/24/18 09/24/18 09/24/18 07:01 07:11 07:21 Temperature Pulse Rate 81 78 80 Pulse Rate [ Apical] Pulse Rate [ From Monitor] Respiratory 17 13 14 Rate Blood Pressure 138/58 138/58 148/57 O2 Sat by Pulse 100 99 97 Oximetry 09/24/18 09/24/18 09/24/18 07:30 07:41 07:51 Temperature Pulse Rate 82 80 81 Pulse Rate [ Apical] Pulse Rate [ From Monitor] Respiratory 17 17 14 Rate Blood Pressure 141/67 141/67 121/55 O2 Sat by Pulse 99 100 99 Oximetry 09/24/18 09/24/18 09/24/18 08:00 08:11 08:21 Temperature 98.3 F Pulse Rate 82 82 79 Pulse Rate [ 82 Apical] Pulse Rate [ 82 From Monitor] Respiratory 19 20 17 Rate Blood Pressure 126/66 126/66 130/40 O2 Sat by Pulse 99 100 100 Oximetry 09/24/18 09/24/18 09/24/18 08:30 08:41 08:51 Temperature Pulse Rate 80 79 79 Pulse Rate [ Apical] Pulse Rate [ From Monitor] Respiratory 15 11 L 15 Rate Blood Pressure 123/33 123/33 110/48 O2 Sat by Pulse 100 99 98 Oximetry 09/24/18 09/24/18 09/24/18 09:01 09:11 09:21 Temperature Pulse Rate 82 83 84 Pulse Rate [ Apical] Pulse Rate [ From Monitor] Respiratory 17 11 L 20 Rate Blood Pressure 100/35 100/35 129/59 O2 Sat by Pulse 99 98 100 Oximetry 09/24/18 09/24/18 09/24/18 09:31 09:41 09:51 Temperature Pulse Rate 87 83 84 Pulse Rate [ Apical] Pulse Rate [ From Monitor] Respiratory 17 16 17 Rate Blood Pressure 129/59 129/57 118/62 O2 Sat by Pulse 100 99 99 Oximetry 09/24/18 09/24/18 09/24/18 10:00 10:01 10:11 Temperature Pulse Rate 83 83 82 Pulse Rate [ Apical] Pulse Rate [ From Monitor] Respiratory 16 16 Rate Blood Pressure 104/48 104/48 O2 Sat by Pulse 99 99 Oximetry 09/24/18 09/24/18 09/24/18 10:21 10:30 10:41 Temperature Pulse Rate 82 84 85 Pulse Rate [ Apical] Pulse Rate [ From Monitor] Respiratory 15 16 16 Rate Blood Pressure 108/56 111/60 111/60 O2 Sat by Pulse 99 99 98 Oximetry 09/24/18 09/24/18 09/24/18 10:51 10:57 11:00 Temperature Pulse Rate 87 83 88 Pulse Rate [ Apical] Pulse Rate [ From Monitor] Respiratory 15 17 Rate Blood Pressure 83/51 104/48 100/47 O2 Sat by Pulse 97 97 Oximetry 09/24/18 09/24/18 09/24/18 11:11 11:21 11:30 Temperature Pulse Rate 89 90 88 Pulse Rate [ Apical] Pulse Rate [ From Monitor] Respiratory 15 18 16 Rate Blood Pressure 100/47 109/48 102/45 O2 Sat by Pulse 100 98 98 Oximetry 09/24/18 09/24/18 09/24/18 11:41 11:51 12:00 Temperature 98.6 F Pulse Rate 87 87 86 Pulse Rate [ Apical] Pulse Rate [ From Monitor] Respiratory 19 16 15 Rate Blood Pressure 102/45 89/48 91/49 O2 Sat by Pulse 99 98 97 Oximetry 09/24/18 09/24/18 09/24/18 12:11 12:21 12:30 Temperature Pulse Rate 86 88 87 Pulse Rate [ Apical] Pulse Rate [ From Monitor] Respiratory 15 15 13 Rate Blood Pressure 91/49 89/48 93/52 O2 Sat by Pulse 98 99 98 Oximetry 09/24/18 09/24/18 09/24/18 12:41 12:51 13:00 Temperature Pulse Rate 88 87 87 Pulse Rate [ Apical] Pulse Rate [ From Monitor] Respiratory 13 16 15 Rate Blood Pressure 93/52 95/44 90/45 O2 Sat by Pulse 98 98 98 Oximetry - Labs CBC & Chem 7: 09/24/18 04:14 09/24/18 11:05 Labs: Abnormal lab results 09/23/18 09/23/18 09/23/18 Range/Units 14:00 14:59 16:25 RDW (13.2-15.2) % Lymph % (Auto) (13.4-35.0) % [place] % (Auto) (0.0-7.3) % Lymph # (1.2-5.4) K/mm3 [place] # (0.0-0.8) K/mm3 Seg Neutrophils % (40.0-70.0) % Seg Neutrophils # (1.8-7.7) K/mm3 Sodium (137-145) mmol/L Potassium (3.6-5.0) mmol/L Carbon Dioxide (22-30) mmol/L BUN (7-17) mg/dL Glucose (65-100) mg/dL POC Glucose 190 H 151 H 180 H (70-105) Calcium (8.4-10.2) mg/dL Phosphorus (2.5-4.5) mg/dL AST (5-40) units/L C-Reactive Protein (0.00-1.30) mg/dL Total Protein (6.3-8.2) g/dL Albumin (3.9-5) g/dL 09/23/18 09/23/18 09/24/18 Range/Units 18:30 18:30 00:58 RDW (13.2-15.2) % Lymph % (Auto) (13.4-35.0) % [place] % (Auto) (0.0-7.3) % Lymph # (1.2-5.4) K/mm3 [place] # (0.0-0.8) K/mm3 Seg Neutrophils % (40.0-70.0) % Seg Neutrophils # (1.8-7.7) K/mm3 Sodium 133 L 132 L (137-145) mmol/L Potassium (3.6-5.0) mmol/L Carbon Dioxide 13 L 13 L (22-30) mmol/L BUN 36 H 38 H (7-17) mg/dL Glucose 195 H 244 H (65-100) mg/dL POC Glucose (70-105) Calcium 7.5 L 8.0 L (8.4-10.2) mg/dL Phosphorus (2.5-4.5) mg/dL AST (5-40) units/L C-Reactive Protein 36.60 H (0.00-1.30) mg/dL Total Protein (6.3-8.2) g/dL Albumin (3.9-5) g/dL 09/24/18 09/24/18 09/24/18 Range/Units 02:07 04:14 04:14 RDW 16.3 H (13.2-15.2) % Lymph % (Auto) 9.1 L (13.4-35.0) % [place] % (Auto) 9.3 H (0.0-7.3) % Lymph # 0.9 L (1.2-5.4) K/mm3 [place] # 0.9 H (0.0-0.8) K/mm3 Seg Neutrophils % 81.5 H (40.0-70.0) % Seg Neutrophils # 7.9 H (1.8-7.7) K/mm3 Sodium 132 L (137-145) mmol/L Potassium 5.2 H D (3.6-5.0) mmol/L Carbon Dioxide 11 L (22-30) mmol/L BUN 36 H (7-17) mg/dL Glucose 256 H (65-100) mg/dL POC Glucose 251 H (70-105) Calcium 7.7 L (8.4-10.2) mg/dL Phosphorus 2.40 L (2.5-4.5) mg/dL AST 92 H (5-40) units/L C-Reactive Protein (0.00-1.30) mg/dL Total Protein 5.3 L D (6.3-8.2) g/dL Albumin 1.7 L (3.9-5) g/dL 09/24/18 09/24/18 09/24/18 Range/Units 08:11 09:04 11:05 RDW (13.2-15.2) % Lymph % (Auto) (13.4-35.0) % [place] % (Auto) (0.0-7.3) % Lymph # (1.2-5.4) K/mm3 [place] # (0.0-0.8) K/mm3 Seg Neutrophils % (40.0-70.0) % Seg Neutrophils # (1.8-7.7) K/mm3 Sodium 132 L 133 L (137-145) mmol/L Potassium (3.6-5.0) mmol/L Carbon Dioxide 10 L 13 L (22-30) mmol/L BUN 37 H 37 H (7-17) mg/dL Glucose 312 H 333 H (65-100) mg/dL POC Glucose 290 H (70-105) Calcium 7.9 L 7.9 L (8.4-10.2) mg/dL Phosphorus (2.5-4.5) mg/dL AST (5-40) units/L C-Reactive Protein (0.00-1.30) mg/dL Total Protein (6.3-8.2) g/dL Albumin (3.9-5) g/dL Medications & Allergies - Medications Allergies/Adverse Reactions: Allergies No Known Allergies Allergy (Verified 09/11/15 15:55) Home Medications: Home Medications Medication Instructions Recorded Confirmed Last Taken Type Clopidogrel [Plavix] 75 mg PO QDAY #30 tablet 02/24/17 09/22/18 01/26/18 Rx Losartan [Cozaar] 25 mg PO QDAY #30 tablet 02/24/17 09/22/18 01/26/18 Rx Lovastatin [Altoprev] 20 mg PO QPM #30 tab.er.24h 02/24/17 09/22/18 01/26/18 Rx Metoprolol [Lopressor TAB] 25 mg PO BID #60 tablet 02/24/17 09/22/18 01/26/18 Rx Insulin Detemir [Levemir VIAL] 50 unit SQ QHS #2 vial 02/01/18 09/22/18 Unknown Rx Insulin NPH/Regular [NovoLIN 70/30] 32 unit SUB-Q QAMDIAB #2 vial 02/01/18 09/22/18 Unknown Rx Active Medications: Generic Name Dose Route Start Last Admin Trade Name Freq PRN Reason Stop Dose Admin Acetaminophen 650 mg 09/23/18 00:35 09/23/18 23:30 Tylenol PO 650 mg Q4H PRN Administration Pain MILD(1-3)/Fever >100.5/BEJARANO Atorvastatin Calcium 10 mg 09/23/18 22:00 09/23/18 23:29 Lipitor PO 10 mg QHS IGNACIO Administration Clopidogrel Bisulfate 75 mg 09/23/18 10:00 09/24/18 10:59 Plavix PO 75 mg QDAY IGNACIO Administration Dextrose 0 ml 09/23/18 00:37 D50w (25gm) Syringe IV PRN PRN Hypoglycemia Enoxaparin Sodium 40 mg 09/23/18 22:00 09/23/18 23:30 Lovenox SUB-Q 40 mg QDAY@2200 IGNACIO Administration Famotidine 20 mg 09/23/18 01:00 09/24/18 10:59 Pepcid IV 20 mg BID IGNACIO Administration Hydromorphone HCl 0.25 mg 09/23/18 00:35 09/24/18 03:40 Dilaudid IV 0.25 mg Q3H PRN Administration Pain, Moderate (4-6) Norepinephrine 4 mg in 250 mls @ 7.5 mls/hr 09/23/18 01:00 09/24/18 10:30 Levophed Drip 4 Mg/Ns 250 Ml IV 0 mcg/min TITR IGNACIO 0 mls/hr Titration Protocol 2 MCG/MIN Sodium Chloride 1,000 mls @ 0 mls/hr 09/23/18 19:00 Nacl 0.9% 1000 Ml IV 09/24/18 19:01 ONCE IGNACIO As Directed Cefazolin Sodium 2 gm/ Sodium 100 mls @ 200 mls/hr 09/24/18 11:00 09/24/18 11:05 Chloride IV 200 mls/hr Q8HR IGNACIO Administration Protocol Insulin Human Regular 100 100 mls @ 1 mls/hr 09/24/18 10:00 units/ Sodium Chloride IV TITR IGNACIO Protocol 1 UNITS/HR Sodium Chloride 1,000 mls @ 0 mls/hr 09/24/18 13:00 09/24/18 12:07 Nacl 0.9% 1000 Ml IV 09/25/18 13:01 999 mls/hr ONCE IGNACIO Administration As Directed Losartan Potassium 25 mg 09/23/18 10:00 09/24/18 10:57 Cozaar PO Not Given QDAY IGNACIO Metoclopramide HCl 10 mg 09/23/18 00:35 Reglan IV Q6H PRN Nausea And Vomiting Metoprolol Tartrate 25 mg 09/23/18 01:00 09/24/18 10:57 Lopressor PO Not Given BID IGNACIO Ondansetron HCl 4 mg 09/23/18 00:35 09/24/18 03:40 Zofran IV 4 mg Q8H PRN Administration Nausea And Vomiting Sodium Chloride 10 ml 09/23/18 10:00 09/24/18 10:59 Sodium Chloride Flush Syringe 10 Ml IV 10 ml BID IGNACIO Administration Sodium Chloride 10 ml 09/23/18 00:35 Sodium Chloride Flush Syringe 10 Ml IV PRN PRN LINE FLUSH
--- NOTE | 2018-09-24 16:52 | XRay Report ---
PROCEDURE: XR SPINE CERVICAL 2-3V TECHNIQUE: AP, lateral, swimmer's, and odontoid views of the cervical spine HISTORY: neck pain deviated to the left COMPARISONS: None . FINDINGS: C7 is visualized on the swimmer's view only. There is diffuse moderate to severe disc space narrowing from C2 through C7 most marked at C4-C5 and C5-C6. Spurring anteriorly and posteriorly from C4 throu gh C7 is noted. There are facet joint degenerative changes from C4 through C6 are noted. The vertebral body heights are well maintained. The alignment is normal. No prevertebral soft tissue swelling is seen. The odontoid is intact. IMPRESSION: No acute abnormality in the cervical spine. Extensive degenerative changes throughout mos t severe at C4-C5 and C5-C6 This document is electronically signed by Olivia Warren MD., September 24 2018 04:51:03 PM ET
[2018-09-24 18:16] LABS: Calcium 7.8 mg/dL (8.4-10.2)
--- NOTE | 2018-09-24 20:13 | Magnetic Resonance Report ---
PROCEDURE: MR LE NONJOINT RT WO/W CON HISTORY: eval for right foot abscess, myositis or osteomyel FINDINGS: MRI of the right foot was performed using short axis TI, short axis fat saturated T2, sagit mirtha T1, long axis TI, likely axis fat saturated T2 sagittal inversion recovery Coronal inversion recovery, and sagittal, long axis and short axis postcontrast T1-weighted images ob tained following the intravenous administration of 18 cc MultiHance. The examination is limited by patient motion. These images demonstrate no MR evidence of osteomyelitis. Bone marrow signal appears within normal li mits. There is a plantar calcaneal spur approximately 1 cm. There is soft tissue edema of the midfoot and of the toes which could represent cellulitis. There is a soft tissue ulceration plantar to the medial, posterior aspect of the calcaneus, with some loculated fluid plantar to the plantar fascia at this level. This could represent abscess, approxima tely 2.0 x 1.4 x 0.8 cm. IMPRESSION: Limited by motion No MR evidence of osteomyelitis is seen Suspected cellulitis of midfoot and toes Soft tissue ulceration plantar to medial, posterior aspect of calcaneus, with suspected soft tissue a bscess deep to the soft tissue ulceration and plantar to the plantar fascia This document is electronically signed by Alberto Rodney MD., September 24 2018 08:11:24 PM ET
[2018-09-24] MEDS: LANTUS SUB-Q SCH (21:33)
--- NOTE | 2018-09-24 21:33 | XRay Report ---
PROCEDURE: XR CHEST ROUTINE 2V TECHNIQUE: AP and lateral views of the chest were obtained. HISTORY: eval for aspiration pneumonia COMPARISONS: 09/22/2018 FINDINGS: The heart size and vascularity appear normal. There are no infiltrates. On the lateral view there is slight blunting of one of the costophrenic angles. A small effusion is suspected. The bones and soft tissues are unremarkable. IMPRESSION: No evidence of infiltrates or congestion. Small pleural effusion seen on the lateral view.. This document is electronically signed by Srinath Gao MD., September 24 2018 09:31:31 PM ET
[2018-09-24] MEDS: LOVENOX SUB-Q SCH (21:34)
[2018-09-25 02:09] LABS: Calcium 7.8 mg/dL (8.4-10.2)
[2018-09-25] MEDS: ZOFRAN IV PRN (02:47)
[2018-09-25] MEDS: ceFAZolin 2 GM in NACL 0.9% 100 ML IV SCH ×3 (07:33→23:45)
--- NOTE | 2018-09-25 08:56 | Progress Note ---
Assessment and Plan Cultures: Blood culture 09/22/2018 Beta Strep group B 2 of 4 bottles. Blood culture 09/24/2018 no growth today. Urine culture 09/24/2018 Staph aureus Assessment: 62 y/o female with history of HTN, uncontrolled DM, Atrial Fib, HLD and chronic right diabetic foot ulcer follows [facility] Wound care center; admitted on 09/22/2018 due to 2-day history of generalized weakness, AMS, sleepiness and subjective fever: 1) Severe Sepsis with septic shock: improving stil on pressors, fever trending down. Etiology most likely multifactorial - GPC bacteremia +/- UTI +/- DKA. 2) Beta Strep group B bacteremia: likely real from unclear source ? right chronic plantar diabetic infection - Blood culture 09/22/2018 GPC in clusters 2 of 4. - TTE no vegetations 3) UTI: UA 154 wbc, large LE. Urine culture 09/24/2018 Staph aureus. Blood cultures did not grow Staph. No recent urologic procedures. Staph UTI is rare isolated. Usually represent spread from bacteremia. 4) Acute encephalopathy: resolved; from sepsis/dehydration. CT head no acute intracraneal processes. 5) DM: uncontrolled with DKA. Per sister, patient has been non compliance with insulin and diet. At home glucose was 700s. She has been drinking cranberry juice, eating sweat potatoes and peanut butter. 6) Chronic right foot diabetic wound: now with an plantar abscess 2.0 x 1.4 x 0.8 cm to the fascia ? necrotizing infection. - Old wound culture Apr 2016 +MSSA. - Wound cultures from Jun 2017 grew Klebsiella, E colix2 and Strep group B. - Foot MRI 12/2017 showed cellulitis, no osteomyelitis. - S/P OR debridement and wound VAC placement on 01/27/18 findings - Deep space infection extending from the great toe to the 3rd toe and down the plantar. OR Gram stain 01/27/18 Beta hem Strep group B and now Klebsiella. Discharged on ceftriaxone 2 g IV qday total 2 week until 02/10/18 - XR foot showed degenerative change of the midfoot and forefoo and no plain film evidence of osteomyelitis and no evidence of gas within the soft tissues. - CRP 36 - MRI foot showed limited by motion. No MR evidence of osteomyelitis is seen suspected cellulitis of midfoot and toes, soft tissue ulceration plantar to medial, posterior aspect of calcaneus, with suspected soft tissue abscess deep to the soft tissue ulceration and plantar to the plantar fascia This could represent abscess, approximately 2.0 x 1.4 x 0.8 cm. 7) JUAN: resolved Recommendations: - Surgical consult for right foot plantar abscess 2.0 x 1.4 x 0.8 cm to the fascia ? necrotizing infection. - follow-up repeat blood culture today - re-start vancomycin until MRSA is r/o - renal US - continue cefazolin IV 2 gm IV q8h - wound care consult I am covering the weekend Sena Heredia MD [facility] ([facility]) M [phone] O [phone] Subjective Date of service: 09/25/18 Principal diagnosis: septic shock Interval history: Remarkably better on IMCU, off pressors >24h, no fever for 24h. Tmax 99. Patient is c/o left neck pain and spasm rotated to the left better today ROS:as above rest negative Objective - Exam Narrative Exam: General appearance: alert in NAD on NC O2, conversant Eyes: anicteric sclerae, moist conjunctivae; no lid-lag; PERRLA HENT: Atraumatic; oropharynx limited Neck: deviated to the left, tender better Lungs: CTA CV: tachycardia Abdomen: Soft, non-tender; no masses or hepatosplenomegaly Extremities: No peripheral edema or extremity lymphadenopathy, right mid plantar wound with periwound callus, no drainage Skin: Normal temperature, turgor and texture; no rash, ulcers or subcutaneous nodules Psych: no agitated Neuro: alert following commands - Constitutional Vitals: Vital Signs Temp Pulse Resp BP Pulse Ox 98.3 F 85 17 103/58 97 09/24/18 16:00 09/25/18 04:50 09/25/18 04:50 09/25/18 04:50 09/25/18 04:50 Temperature -Last 24 Hours Temperature 98.3 F Temperature 98.6 F - Labs CBC & Chem 7: 09/24/18 04:14 09/25/18 04:45 Labs: Abnormal lab results 09/24/18 09/24/18 09/24/18 Range/Units 09:04 11:05 12:03 Sodium 132 L 133 L (137-145) mmol/L Chloride (98-107) mmol/L Carbon Dioxide 10 L 13 L (22-30) mmol/L BUN 37 H 37 H (7-17) mg/dL Glucose 312 H 333 H (65-100) mg/dL POC Glucose 319 H (70-105) Calcium 7.9 L 7.9 L (8.4-10.2) mg/dL 09/24/18 09/24/18 09/24/18 Range/Units 17:17 17:27 21:25 Sodium 132 L (137-145) mmol/L Chloride 107.1 H (98-107) mmol/L Carbon Dioxide 14 L (22-30) mmol/L BUN 34 H (7-17) mg/dL Glucose 297 H (65-100) mg/dL POC Glucose 263 H 242 H (70-105) Calcium 7.8 L (8.4-10.2) mg/dL 09/25/18 09/25/18 09/25/18 Range/Units 01:06 02:48 04:45 Sodium 131 L 134 L (137-145) mmol/L Chloride (98-107) mmol/L Carbon Dioxide 15 L 16 L (22-30) mmol/L BUN 32 H 31 H (7-17) mg/dL Glucose 198 H 178 H (65-100) mg/dL POC Glucose 177 H (70-105) Calcium 7.8 L 8.0 L (8.4-10.2) mg/dL 09/25/18 Range/Units 08:14 Sodium (137-145) mmol/L Chloride (98-107) mmol/L Carbon Dioxide (22-30) mmol/L BUN (7-17) mg/dL Glucose (65-100) mg/dL POC Glucose 161 H (70-105) Calcium (8.4-10.2) mg/dL
--- NOTE | 2018-09-25 09:25 | Progress Note ---
Assessment and Plan 62 y/o female with DKA, sepsis with septic shock most likely from foot ulcer 1. Stable from a critical care standpoint, will sign off. Subjective Date of service: 09/25/18 Principal diagnosis: septic shock Interval history: Anion Gap closed and patient transitioned to IMCU. Objective - Constitutional Vitals: Vital Signs - 12hr 09/24/18 09/24/18 09/24/18 21:30 21:40 21:50 Pulse Rate 92 H 91 H 92 H Pulse Rate [ From Monitor] Respiratory 20 18 18 Rate Blood Pressure 101/47 101/47 101/47 O2 Sat by Pulse 96 97 94 Oximetry 09/24/18 09/24/18 09/24/18 22:00 22:10 22:20 Pulse Rate 89 89 90 Pulse Rate [ From Monitor] Respiratory 20 18 23 Rate Blood Pressure 101/47 89/42 89/42 O2 Sat by Pulse 95 95 97 Oximetry 09/24/18 09/24/18 09/24/18 22:30 22:40 22:50 Pulse Rate 86 86 87 Pulse Rate [ From Monitor] Respiratory 18 19 14 Rate Blood Pressure 89/42 89/42 89/42 O2 Sat by Pulse 96 98 98 Oximetry 09/24/18 09/24/18 09/24/18 23:00 23:10 23:20 Pulse Rate 85 85 84 Pulse Rate [ From Monitor] Respiratory 20 20 17 Rate Blood Pressure 89/42 91/44 91/44 O2 Sat by Pulse 97 98 97 Oximetry 09/24/18 09/24/18 09/24/18 23:30 23:40 23:50 Pulse Rate 83 84 83 Pulse Rate [ From Monitor] Respiratory 17 20 21 Rate Blood Pressure 91/44 91/44 91/44 O2 Sat by Pulse 96 98 99 Oximetry 09/25/18 09/25/18 09/25/18 00:00 00:10 00:20 Pulse Rate 86 84 82 Pulse Rate [ 79 From Monitor] Respiratory 22 20 19 Rate Blood Pressure 91/44 100/46 91/44 O2 Sat by Pulse 99 100 99 Oximetry 09/25/18 09/25/18 09/25/18 00:30 00:40 00:50 Pulse Rate 80 81 81 Pulse Rate [ From Monitor] Respiratory 19 15 19 Rate Blood Pressure 100/46 100/46 100/46 O2 Sat by Pulse 99 99 98 Oximetry 09/25/18 09/25/18 09/25/18 01:00 01:10 01:20 Pulse Rate 79 80 82 Pulse Rate [ From Monitor] Respiratory 17 17 15 Rate Blood Pressure 92/45 92/45 92/45 O2 Sat by Pulse 98 98 97 Oximetry 09/25/18 09/25/18 09/25/18 01:30 01:40 01:50 Pulse Rate 81 82 84 Pulse Rate [ From Monitor] Respiratory 18 20 15 Rate Blood Pressure 92/45 92/45 92/45 O2 Sat by Pulse 95 Oximetry 09/25/18 09/25/18 09/25/18 02:00 02:10 02:20 Pulse Rate 84 92 H 84 Pulse Rate [ From Monitor] Respiratory 12 21 13 Rate Blood Pressure 106/50 106/50 106/50 O2 Sat by Pulse Oximetry 09/25/18 09/25/18 09/25/18 02:30 02:40 02:50 Pulse Rate 87 85 86 Pulse Rate [ From Monitor] Respiratory 22 19 19 Rate Blood Pressure 106/50 106/50 106/50 O2 Sat by Pulse Oximetry 09/25/18 09/25/18 09/25/18 03:00 03:10 03:20 Pulse Rate 86 85 87 Pulse Rate [ From Monitor] Respiratory 15 18 15 Rate Blood Pressure 106/50 98/47 98/47 O2 Sat by Pulse 96 Oximetry 09/25/18 09/25/18 09/25/18 03:30 03:40 03:50 Pulse Rate 86 84 85 Pulse Rate [ From Monitor] Respiratory 17 15 12 Rate Blood Pressure 98/47 98/47 98/47 O2 Sat by Pulse 97 96 97 Oximetry 09/25/18 09/25/18 09/25/18 04:00 04:10 04:20 Pulse Rate 88 87 87 Pulse Rate [ 79 From Monitor] Respiratory 11 L 18 18 Rate Blood Pressure 103/58 103/58 103/58 O2 Sat by Pulse 98 97 97 Oximetry 09/25/18 09/25/18 09/25/18 04:30 04:40 04:50 Pulse Rate 86 85 85 Pulse Rate [ From Monitor] Respiratory 10 L 18 17 Rate Blood Pressure 103/58 103/58 103/58 O2 Sat by Pulse 97 97 97 Oximetry - Labs CBC & Chem 7: 09/24/18 04:14 09/25/18 04:45 Labs: Abnormal lab results 09/24/18 09/24/18 09/24/18 Range/Units 09:04 11:05 12:03 Sodium 132 L 133 L (137-145) mmol/L Chloride (98-107) mmol/L Carbon Dioxide 10 L 13 L (22-30) mmol/L BUN 37 H 37 H (7-17) mg/dL Glucose 312 H 333 H (65-100) mg/dL POC Glucose 319 H (70-105) Calcium 7.9 L 7.9 L (8.4-10.2) mg/dL 09/24/18 09/24/18 09/24/18 Range/Units 17:17 17:27 21:25 Sodium 132 L (137-145) mmol/L Chloride 107.1 H (98-107) mmol/L Carbon Dioxide 14 L (22-30) mmol/L BUN 34 H (7-17) mg/dL Glucose 297 H (65-100) mg/dL POC Glucose 263 H 242 H (70-105) Calcium 7.8 L (8.4-10.2) mg/dL 09/25/18 09/25/18 09/25/18 Range/Units 01:06 02:48 04:45 Sodium 131 L 134 L (137-145) mmol/L Chloride (98-107) mmol/L Carbon Dioxide 15 L 16 L (22-30) mmol/L BUN 32 H 31 H (7-17) mg/dL Glucose 198 H 178 H (65-100) mg/dL POC Glucose 177 H (70-105) Calcium 7.8 L 8.0 L (8.4-10.2) mg/dL 09/25/18 Range/Units 08:14 Sodium (137-145) mmol/L Chloride (98-107) mmol/L Carbon Dioxide (22-30) mmol/L BUN (7-17) mg/dL Glucose (65-100) mg/dL POC Glucose 161 H (70-105) Calcium (8.4-10.2) mg/dL Medications & Allergies - Medications Allergies/Adverse Reactions: Allergies No Known Allergies Allergy (Verified 09/11/15 15:55) Home Medications: Home Medications Medication Instructions Recorded Confirmed Last Taken Type Clopidogrel [Plavix] 75 mg PO QDAY #30 tablet 02/24/17 09/22/18 01/26/18 Rx Losartan [Cozaar] 25 mg PO QDAY #30 tablet 02/24/17 09/22/18 01/26/18 Rx Lovastatin [Altoprev] 20 mg PO QPM #30 tab.er.24h 02/24/17 09/22/18 01/26/18 Rx Metoprolol [Lopressor TAB] 25 mg PO BID #60 tablet 02/24/17 09/22/18 01/26/18 Rx Insulin Detemir [Levemir VIAL] 50 unit SQ QHS #2 vial 02/01/18 09/22/18 Unknown Rx Insulin NPH/Regular [NovoLIN 70/30] 32 unit SUB-Q QAMDIAB #2 vial 02/01/18 09/22/18 Unknown Rx Active Medications: Generic Name Dose Route Start Last Admin Trade Name Freq PRN Reason Stop Dose Admin Acetaminophen 650 mg 09/23/18 00:35 09/23/18 23:30 Tylenol PO 650 mg Q4H PRN Administration Pain MILD(1-3)/Fever >100.5/BEJARANO Atorvastatin Calcium 10 mg 09/23/18 22:00 09/24/18 21:31 Lipitor PO 10 mg QHS IGNACIO Administration Clopidogrel Bisulfate 75 mg 09/23/18 10:00 09/24/18 10:59 Plavix PO 75 mg QDAY IGNACIO Administration Dextrose 0 ml 09/23/18 00:37 D50w (25gm) Syringe IV PRN PRN Hypoglycemia Enoxaparin Sodium 40 mg 09/23/18 22:00 09/24/18 21:34 Lovenox SUB-Q 40 mg QDAY@2200 IGNACIO Administration Famotidine 20 mg 09/23/18 01:00 09/24/18 21:31 Pepcid IV 20 mg BID IGNACIO Administration Hydromorphone HCl 0.25 mg 09/23/18 00:35 09/24/18 03:40 Dilaudid IV 0.25 mg Q3H PRN Administration Pain, Moderate (4-6) Norepinephrine 4 mg in 250 mls @ 7.5 mls/hr 09/23/18 01:00 09/24/18 10:30 Levophed Drip 4 Mg/Ns 250 Ml IV 0 mcg/min TITR IGNACIO 0 mls/hr Titration Protocol 2 MCG/MIN Cefazolin Sodium 2 gm/ Sodium 100 mls @ 200 mls/hr 09/24/18 11:00 09/25/18 07:33 Chloride IV 200 mls/hr Q8HR IGNACIO Administration Protocol Sodium Chloride 1,000 mls @ 0 mls/hr 09/24/18 13:00 09/24/18 13:21 Nacl 0.9% 1000 Ml IV 09/25/18 13:01 999 mls/hr ONCE IGNACIO Administration As Directed Vancomycin HCl 1,000 mg/ 100 mls @ 66.667 mls/hr 09/25/18 10:00 Sodium Chloride IV Q12H IGNACIO Protocol Insulin Glargine 50 units 09/24/18 22:00 09/24/18 21:33 Lantus SUB-Q 50 units QHS IGNACIO Administration Insulin Human Isoph/Insulin Regular 32 unit 09/24/18 17:00 09/24/18 17:50 Humulin 70/30 SUB-Q 32 unit BIDDIAB IGNACIO Administration Insulin Human Lispro 0 unit 09/24/18 13:20 09/24/18 21:32 Humalog SUB-Q 3 unit ACHS IGNACIO Administration Protocol Losartan Potassium 25 mg 09/23/18 10:00 09/24/18 10:57 Cozaar PO Not Given QDAY IGNACIO Metoclopramide HCl 10 mg 09/23/18 00:35 Reglan IV Q6H PRN Nausea And Vomiting Metoprolol Tartrate 25 mg 09/23/18 01:00 09/24/18 21:31 Lopressor PO 25 mg BID IGNACIO Administration Ondansetron HCl 4 mg 09/23/18 00:35 09/25/18 02:47 Zofran IV 4 mg Q8H PRN Administration Nausea And Vomiting Sodium Chloride 10 ml 09/23/18 10:00 09/24/18 21:35 Sodium Chloride Flush Syringe 10 Ml IV 10 ml BID IGNACIO Administration Sodium Chloride 10 ml 09/23/18 00:35 Sodium Chloride Flush Syringe 10 Ml IV PRN PRN LINE FLUSH
[2018-09-25] MEDS: PEPCID IV SCH ×2 (09:28→23:47)
[2018-09-25] MEDS: LOPRESSOR PO SCH ×2 (09:28→23:41)
[2018-09-25] MEDS: COZAAR PO SCH (09:29)
[2018-09-25] MEDS: SODIUM CHLORIDE FLUSH SYRINGE 10 ML IV SCH ×2 (09:30→23:48)
[2018-09-25] MEDS: PLAVIX PO SCH (09:30)
[2018-09-25] MEDS: HumaLOG SUB-Q SCH ×4 (09:31→23:41)
[2018-09-25 09:38] LABS: Calcium 7.8 mg/dL (8.4-10.2)
--- NOTE | 2018-09-25 09:46 | Progress Note ---
Assessment and Plan 62 y/o female with history of HTN, uncontrolled DM, Atrial Fib, HLD and chronic right diabetic foot ulcer follows [facility] Wound care center; admitted on 09/22/2018 due to 2-day history of generalized weakness, AMS, sleepiness and subjective fever. Also reported nausea and vomiting. Per sister, patient has been non compliance with insulin and diet. At home glucose was 700s. She has been drinking cranberry juice, eating sweat potatoes and peanut butter. Of note, she is known to ID service from previous admission on 01/23/18 for fever and worsening right foot erythema, edema and ulcer drainage. Wound cultures from Jun 2017 grew Klebsiella, E colix2 and Strep group B. Foot MRI showed cellulitis, no osteomyelitis. S/P OR debridement and wound VAC placement on 01/27 findings - Deep space infection extending from the great toe to the 3rd toe and down the plantar. OR Gram stain 01/27 Beta hem Strep group B and now Klebsiella. Discharged on ceftriaxone 2 g IV qday total 2 week until 02/10/18. Patient did not follow with ID. Per sister, foot wound is healing. In the ED, temp 100.5 --> 101.5, HR 119, R 25, O2 sat 98%, BP 121/83. WBC 7.1, Hg 13.4, Plat 139. Creat 1.3. Glucose 734.AST 150. Lactate 7.8. UA 154 wbc, large LE. Blood culture 09/22/2018 GPC in clusters 2 of 4. CXR showed no acute cardiopulmonary process. CT head no acute intracraneal processes. Severe sepis with septic shock from group B strep Right foot ulcer, does not appear infected acute metabolic encephalopathy DKA, uncontrolled DM a1c 14 metabolic acidosis Acute kidney injury hyponatremia hypomagnesemia - corrected Sacral decub Plan -Has now been weaned off insulin drip, continue subcutaneous insulins -She has not been weaned off pressors, monitor blood pressure closely -cont iv abx, ID consult appreciated, follow-up cultures -Right foot doesn't appear infected on my exam, she had previous infection in the foot, has been in wound care. The wound has actually been healing and the foot is much improved -cont IVF -BP meds on hold -repleted mg, now wnl -Wound care for sacral decub - DVT prophylaxis Lovenox Advance Directives: Yes VTE prophylaxis?: Chemical Plan of care discussed with patient/family: Yes Subjective Date of service: 09/25/18 Principal diagnosis: septic shock, diabetes mellitus, metabolic acidosis, Interval history: Patient seen and examined. Still confused. In looking up. Off pressors. No diarrhea. Objective - Exam Narrative Exam: Constitutional: Well-nourished well-developed. In no distress Head: Normocephalic atraumatic Eyes: Pupils are equal round and reactive to light Nose: No enlarged turbinates, no septal deviation. Mouth: Moist mucous membranes. Neck: Supple no thyromegaly. No bruit. No JVD Heart: Regular rate and rhythm, S1-S2 normal. No rubs murmurs or gallop Lungs: Clear to auscultation bilaterally. no rales or rhonchi Abdomen: Soft, nontender. Bowel sound are present. Extremities: No edema, no cyanosis, no clubbing. Neuro: Alert oriented Oriented x3. No focal sensory or motor deficit. Skin: Sacral decubitus ulcer stage IV No hyperpigmented spots Musculoskeletal system: No joint pain or swelling Hematological: No petechia or subcutanous hemorrhages. Immunological: No multiple septic spots on the skin Lymphatic: No generalized lymphadenopathy Psychiatry: Euthymic. Calm. - Constitutional Vitals: Vital Signs - 12hr 09/24/18 09/24/18 09/24/18 21:40 21:50 22:00 Pulse Rate 91 H 92 H 89 Pulse Rate [ From Monitor] Respiratory 18 18 20 Rate Blood Pressure 101/47 101/47 101/47 O2 Sat by Pulse 97 94 95 Oximetry 09/24/18 09/24/18 09/24/18 22:10 22:20 22:30 Pulse Rate 89 90 86 Pulse Rate [ From Monitor] Respiratory 18 23 18 Rate Blood Pressure 89/42 89/42 89/42 O2 Sat by Pulse 95 97 96 Oximetry 09/24/18 09/24/18 09/24/18 22:40 22:50 23:00 Pulse Rate 86 87 85 Pulse Rate [ From Monitor] Respiratory 19 14 20 Rate Blood Pressure 89/42 89/42 89/42 O2 Sat by Pulse 98 98 97 Oximetry 09/24/18 09/24/18 09/24/18 23:10 23:20 23:30 Pulse Rate 85 84 83 Pulse Rate [ From Monitor] Respiratory 20 17 17 Rate Blood Pressure 91/44 91/44 91/44 O2 Sat by Pulse 98 97 96 Oximetry 09/24/18 09/24/18 09/25/18 23:40 23:50 00:00 Pulse Rate 84 83 86 Pulse Rate [ 79 From Monitor] Respiratory 20 21 22 Rate Blood Pressure 91/44 91/44 91/44 O2 Sat by Pulse 98 99 99 Oximetry 09/25/18 09/25/18 09/25/18 00:10 00:20 00:30 Pulse Rate 84 82 80 Pulse Rate [ From Monitor] Respiratory 20 19 19 Rate Blood Pressure 100/46 91/44 100/46 O2 Sat by Pulse 100 99 99 Oximetry 09/25/18 09/25/18 09/25/18 00:40 00:50 01:00 Pulse Rate 81 81 79 Pulse Rate [ From Monitor] Respiratory 15 17 Rate Blood Pressure 100/46 100/46 92/45 O2 Sat by Pulse 99 98 98 Oximetry 09/25/18 09/25/18 09/25/18 01:10 01:20 01:30 Pulse Rate 80 82 81 Pulse Rate [ From Monitor] Respiratory 17 15 18 Rate Blood Pressure 92/45 92/45 92/45 O2 Sat by Pulse 98 97 95 Oximetry 09/25/18 09/25/18 09/25/18 01:40 01:50 02:00 Pulse Rate 82 84 84 Pulse Rate [ From Monitor] Respiratory 20 15 12 Rate Blood Pressure 92/45 92/45 106/50 O2 Sat by Pulse Oximetry 09/25/18 09/25/18 09/25/18 02:10 02:20 02:30 Pulse Rate 92 H 84 87 Pulse Rate [ From Monitor] Respiratory 21 13 22 Rate Blood Pressure 106/50 106/50 106/50 O2 Sat by Pulse Oximetry 09/25/18 09/25/18 09/25/18 02:40 02:50 03:00 Pulse Rate 85 86 86 Pulse Rate [ From Monitor] Respiratory 15 Rate Blood Pressure 106/50 106/50 106/50 O2 Sat by Pulse Oximetry 09/25/18 09/25/18 09/25/18 03:10 03:20 03:30 Pulse Rate 85 87 86 Pulse Rate [ From Monitor] Respiratory 18 15 17 Rate Blood Pressure 98/47 98/47 98/47 O2 Sat by Pulse 96 97 Oximetry 09/25/18 09/25/18 09/25/18 03:40 03:50 04:00 Pulse Rate 84 85 88 Pulse Rate [ 79 From Monitor] Respiratory 15 12 11 L Rate Blood Pressure 98/47 98/47 103/58 O2 Sat by Pulse 96 97 98 Oximetry 09/25/18 09/25/18 09/25/18 04:10 04:20 04:30 Pulse Rate 87 87 86 Pulse Rate [ From Monitor] Respiratory 18 18 10 L Rate Blood Pressure 103/58 103/58 103/58 O2 Sat by Pulse 97 97 97 Oximetry 09/25/18 09/25/18 09/25/18 04:40 04:50 09:28 Pulse Rate 85 85 92 H Pulse Rate [ From Monitor] Respiratory 18 17 Rate Blood Pressure 103/58 103/58 111/54 O2 Sat by Pulse 97 97 Oximetry 09/25/18 09:29 Pulse Rate 92 H Pulse Rate [ From Monitor] Respiratory Rate Blood Pressure 111/54 O2 Sat by Pulse Oximetry - Labs CBC & Chem 7: 09/24/18 04:14 09/25/18 09:06 Labs: Abnormal lab results 09/24/18 09/24/18 09/24/18 Range/Units 09:04 11:05 12:03 Sodium 132 L 133 L (137-145) mmol/L Chloride (98-107) mmol/L Carbon Dioxide 10 L 13 L (22-30) mmol/L BUN 37 H 37 H (7-17) mg/dL Creatinine (0.7-1.2) mg/dL Glucose 312 H 333 H (65-100) mg/dL POC Glucose 319 H (70-105) Calcium 7.9 L 7.9 L (8.4-10.2) mg/dL 09/24/18 09/24/18 09/24/18 Range/Units 17:17 17:27 21:25 Sodium 132 L (137-145) mmol/L Chloride 107.1 H (98-107) mmol/L Carbon Dioxide 14 L (22-30) mmol/L BUN 34 H (7-17) mg/dL Creatinine (0.7-1.2) mg/dL Glucose 297 H (65-100) mg/dL POC Glucose 263 H 242 H (70-105) Calcium 7.8 L (8.4-10.2) mg/dL 09/25/18 09/25/18 09/25/18 Range/Units 01:06 02:48 04:45 Sodium 131 L 134 L (137-145) mmol/L Chloride (98-107) mmol/L Carbon Dioxide 15 L 16 L (22-30) mmol/L BUN 32 H 31 H (7-17) mg/dL Creatinine (0.7-1.2) mg/dL Glucose 198 H 178 H (65-100) mg/dL POC Glucose 177 H (70-105) Calcium 7.8 L 8.0 L (8.4-10.2) mg/dL 09/25/18 09/25/18 Range/Units 08:14 09:06 Sodium 134 L (137-145) mmol/L Chloride (98-107) mmol/L Carbon Dioxide 15 L (22-30) mmol/L BUN 28 H (7-17) mg/dL Creatinine 1.3 H (0.7-1.2) mg/dL Glucose 170 H (65-100) mg/dL POC Glucose 161 H (70-105) Calcium 7.8 L (8.4-10.2) mg/dL
[2018-09-25] MEDS ORDERED: .VANCOMYCIN VIAL 1,000 MG in NACL 0.9% 100 ML IV SCH (10:00)
[2018-09-25] MEDS: VANCOMYCIN 1,250 MG in NACL 0.9% 250ML 250 ML IV SCH ×2 (11:30→23:35)
[2018-09-25] MEDS: TYLENOL PO PRN (19:33)
[2018-09-25] MEDS: LOVENOX SUB-Q SCH (23:51)
[2018-09-26] MEDS: LANTUS SUB-Q SCH ×2 (02:13→22:50)
[2018-09-26] MEDS: NORCO 5/325 PO PRN ×3 (04:15→21:12)
[2018-09-26 07:08] LABS: Alanine Aminotransferase 14 units/L (7-56); Albumin 1.4 g/dL (3.9-5); Blood Urea Nitrogen 24 mg/dL (7-17); Calcium 7.7 mg/dL (8.4-10.2); Hemolysis Index 16
[2018-09-26 07:13] LABS: BUN/Creatinine Ratio 30
[2018-09-26] MEDS: ceFAZolin 2 GM in NACL 0.9% 100 ML IV SCH ×3 (07:36→22:50)
--- NOTE | 2018-09-26 09:45 | Progress Note ---
Assessment and Plan 62 y/o female with history of HTN, uncontrolled DM, Atrial Fib, HLD and chronic right diabetic foot ulcer follows [facility]; admitted on 09/22/2018 due to 2-day history of generalized weakness, AMS, sleepiness and subjective fever. Also reported nausea and vomiting. Per sister, patient has been non compliance with insulin and diet. At home glucose was 700s. She has been drinking cranberry juice, eating sweat potatoes and peanut butter. Of note, she is known to ID service from previous admission on 01/23/18 for fever and worsening right foot erythema, edema and ulcer drainage. Wound cultures from Jun 2017 grew Klebsiella, E colix2 and Strep group B. Foot MRI showed cellulitis, no osteomyelitis. S/P OR debridement and wound VAC placement on 01/27 findings - Deep space infection extending from the great toe to the 3rd toe and down the plantar. OR Gram stain 01/27 Beta hem Strep group B and now Klebsiella. Discharged on ceftriaxone 2 g IV qday total 2 week until 02/10/18. Patient did not follow with ID. Per sister, foot wound is healing. In the ED, temp 100.5 --> 101.5, HR 119, R 25, O2 sat 98%, BP 121/83. WBC 7.1, Hg 13.4, Plat 139. Creat 1.3. Glucose 734.AST 150. Lactate 7.8. UA 154 wbc, large LE. Blood culture 09/22/2018 GPC in clusters 2 of 4. CXR showed no acute cardiopulmonary process. CT head no acute intracraneal processes. Severe sepis with septic shock from group B strep Right foot ulcer, does not appear infected acute metabolic encephalopathy DKA, uncontrolled DM a1c 14 metabolic acidosis Acute kidney injury hyponatremia hypomagnesemia - corrected Sacral decub Plan -Has now been weaned off insulin drip, continue subcutaneous insulins -She has not been weaned off pressors, monitor blood pressure closely -cont iv abx, ID consult appreciated, follow-up cultures -Right foot doesn't appear infected on my exam, she had previous infection in the foot, has been in wound care. The wound has actually been healing and the foot is much improved -cont IVF -BP meds on hold -repleted mg, now wnl -Wound care for sacral decub - DVT prophylaxis Lovenox - Discussed with the patient and his daughter - Disposition, his PT OT on discharge 1-2 days to [facility] for better rehabilitation before going back home Advance Directives: Yes VTE prophylaxis?: Chemical Subjective Date of service: 09/26/18 Principal diagnosis: septic shock, diabetes mellitus, metabolic acidosis, Interval history: Patient seen and examined. Still confused. In looking up. Off pressors. No diarrhea. Objective - Exam Narrative Exam: Constitutional: Well-nourished well-developed. In no distress Head: Normocephalic atraumatic Eyes: Pupils are equal round and reactive to light Nose: No enlarged turbinates, no septal deviation. Mouth: Moist mucous membranes. Neck: Supple no thyromegaly. No bruit. No JVD Heart: Regular rate and rhythm, S1-S2 normal. No rubs murmurs or gallop Lungs: Clear to auscultation bilaterally. no rales or rhonchi Abdomen: Soft, nontender. Bowel sound are present. Extremities: No edema, no cyanosis, no clubbing. Neuro: Confused. No focal sensory or motor deficit. Skin: Sacral decubitus ulcer stage IV No hyperpigmented spots Musculoskeletal system: No joint pain or swelling Hematological: No petechia or subcutanous hemorrhages. Immunological: No multiple septic spots on the skin Lymphatic: No generalized lymphadenopathy Psychiatry: Euthymic. Calm. - Constitutional Vitals: Vital Signs - 12hr 09/25/18 09/25/18 09/25/18 22:00 23:00 23:41 Temperature Pulse Rate 78 76 79 Pulse Rate [ From Monitor] Respiratory 15 14 Rate Blood Pressure 112/55 100/50 100/50 O2 Sat by Pulse 99 99 Oximetry 09/25/18 09/26/18 09/26/18 23:50 00:00 01:00 Temperature 98.8 F Pulse Rate 80 84 Pulse Rate [ 79 From Monitor] Respiratory 13 13 16 Rate Blood Pressure 105/53 105/53 O2 Sat by Pulse 98 98 99 Oximetry 09/26/18 09/26/18 09/26/18 02:00 03:00 04:00 Temperature 98.0 F Pulse Rate 82 85 87 Pulse Rate [ From Monitor] Respiratory 14 16 17 Rate Blood Pressure 104/61 104/61 124/68 O2 Sat by Pulse 99 99 98 Oximetry 09/26/18 05:00 Temperature Pulse Rate 84 Pulse Rate [ From Monitor] Respiratory 15 Rate Blood Pressure 133/59 O2 Sat by Pulse 99 Oximetry - Labs CBC & Chem 7: 09/24/18 04:14 09/26/18 05:25 Labs: Abnormal lab results 09/25/18 09/25/18 09/26/18 Range/Units 11:42 16:25 05:25 Sodium 133 L (137-145) mmol/L Chloride 107.8 H (98-107) mmol/L Carbon Dioxide 15 L (22-30) mmol/L BUN 24 H (7-17) mg/dL Glucose 134 H (65-100) mg/dL POC Glucose 231 H 118 H (70-105) Calcium 7.7 L (8.4-10.2) mg/dL Total Protein 4.6 L (6.3-8.2) g/dL Albumin 1.4 L (3.9-5) g/dL 09/26/18 Range/Units 08:08 Sodium (137-145) mmol/L Chloride (98-107) mmol/L Carbon Dioxide (22-30) mmol/L BUN (7-17) mg/dL Glucose (65-100) mg/dL POC Glucose 109 H (70-105) Calcium (8.4-10.2) mg/dL Total Protein (6.3-8.2) g/dL Albumin (3.9-5) g/dL
[2018-09-26] MEDS: HumaLOG SUB-Q SCH ×4 (10:24→22:51)
[2018-09-26] MEDS: PEPCID IV SCH ×2 (10:25→21:12)
[2018-09-26] MEDS: LOPRESSOR PO SCH ×2 (10:25→21:11)
[2018-09-26] MEDS: VANCOMYCIN 1,250 MG in NACL 0.9% 250ML 250 ML IV SCH (10:26)
[2018-09-26] MEDS: COZAAR PO SCH (10:26)
[2018-09-26] MEDS: SODIUM CHLORIDE FLUSH SYRINGE 10 ML IV SCH ×2 (10:27→21:13)
[2018-09-26] MEDS: PLAVIX PO SCH (10:28)
--- NOTE | 2018-09-26 13:46 | Progress Note ---
Assessment and Plan Cultures: Blood culture 09/22/2018 Beta Strep group B 2 of 4 bottles. Blood culture 09/24/2018 no growth today. Urine culture 09/24/2018 MSSA Assessment: 62 y/o female with history of HTN, uncontrolled DM, Atrial Fib, HLD and chronic right diabetic foot ulcer follows [facility]; admitted on 09/22/2018 due to 2-day history of generalized weakness, AMS, sleepiness and subjective fever: 1) Severe Sepsis with septic shock: shock resolved, fever trending down. Etiology most likely multifactorial - GPC bacteremia +/- UTI +/- DKA. 2) Beta Strep group B bacteremia: likely real from unclear source ? right chronic plantar diabetic infection - Blood culture 09/22/2018 GPC in clusters 2 of 4. - TTE no vegetations 3) UTI: UA 154 wbc, large LE. Urine culture 09/24/2018 MSSA. Blood cultures did not grow Staph. No recent urologic procedures. Staph UTI is rare. Usually re presents spread from bacteremia. 4) Acute encephalopathy: resolved; from sepsis/dehydration. CT head no acute intracraneal processes. 5) DM: uncontrolled with DKA. Per sister, patient has been non compliance with insulin and diet. At home glucose was 700s. She has been drinking cranberry juice, eating sweat potatoes and peanut butter. 6) Chronic right foot diabetic wound: now with an plantar abscess 2.0 x 1.4 x 0.8 cm to the fascia ? necrotizing infection. - Old wound culture Apr 2016 +MSSA. - Wound cultures from Jun 2017 grew Klebsiella, E colix2 and Strep group B. - Foot MRI 12/2017 showed cellulitis, no osteomyelitis. - S/P OR debridement and wound VAC placement on 01/27/18 findings - Deep space infection extending from the great toe to the 3rd toe and down the plantar. OR G darcy stain 01/27/18 Beta hem Strep group B and now Klebsiella. Discharged on ceftriaxone 2 g IV qday total 2 week until 02/10/18 - XR foot showed degenerative change of the midfoot and forefoo and no plain film evidence of osteomyelitis and no evidence of gas within the soft tissues. - CRP 36 - MRI foot showed limited by motion. No MR evidence of osteomyelitis is seen suspected cellulitis of midfoot and toes, soft tissue ulceration plantar to medial, posterior aspect of calcaneus, with suspected soft tissue abscess deep to the soft tissue ulceration and plantar to the plantar fascia This could represent abscess, approximately 2.0 x 1.4 x 0.8 cm. 7) JUAN: resolved Recommendations: - Surgical consult for right foot plantar abscess 2.0 x 1.4 x 0.8 cm to the fascia ? necrotizing infection - pending - stop vancomycin - UC grew MSSA - renal US - pending - continue cefazolin IV 2 gm IV q8h D3 - duration to be determined pending foot surgical evaluation - wound care consult Dr Carlos is covering Friday Sena Heredia MD Infectious Diseases Last [facility] ([facility]) M [phone] O [phone] Subjective Date of service: 09/26/18 Principal diagnosis: septic shock, diabetes mellitus, metabolic acidosis, Interval history: Feels buster, no complaints, off pressors >48h, Tmax 98. Left neck pain and spasm better today ROS:as above rest negative Objective - Exam Narrative Exam: General appearance: alert in NAD on NC O2, conversant Eyes: anicteric sclerae, moist conjunctivae; no lid-lag; PERRLA HENT: Atraumatic; oropharynx limited Neck: deviated to the left, tender better Lungs: CTA CV: rrr Abdomen: Soft, non-tender; no masses or hepatosplenomegaly Extremities: No peripheral edema or extremity lymphadenopathy, right mid plantar wound with periwound callus, no drainage Skin: Normal temperature, turgor and texture; no rash, ulcers or subcutaneous nodules Psych: no agitated Neuro: alert following commands - Constitutional Vitals: Vital Signs Temp Pulse Resp BP Pulse Ox 98.0 F 82 15 135/62 98 09/26/18 12:00 09/26/18 13:00 09/26/18 13:00 09/26/18 13:00 09/26/18 13:00 Temperature -Last 24 Hours Temperature 98.0 F Temperature 98.0 F Temperature 98.0 F Temperature 98.8 F Temperature 98.8 F Temperature 99.1 F Temperature 99.1 F Temperature 98.7 F - Labs CBC & Chem 7: 09/24/18 04:14 09/26/18 05:25 Labs: Abnormal lab results 09/25/18 09/26/18 09/26/18 Range/Units 16:25 05:25 08:08 Sodium 133 L (137-145) mmol/L Chloride 107.8 H (98-107) mmol/L Carbon Dioxide 15 L (22-30) mmol/L BUN 24 H (7-17) mg/dL Glucose 134 H (65-100) mg/dL POC Glucose 118 H 109 H (70-105) Calcium 7.7 L (8.4-10.2) mg/dL Total Protein 4.6 L (6.3-8.2) g/dL Albumin 1.4 L (3.9-5) g/dL 09/26/18 Range/Units 12:25 Sodium (137-145) mmol/L Chloride (98-107) mmol/L Carbon Dioxide (22-30) mmol/L BUN (7-17) mg/dL Glucose (65-100) mg/dL POC Glucose 226 H (70-105) Calcium (8.4-10.2) mg/dL Total Protein (6.3-8.2) g/dL Albumin (3.9-5) g/dL
[2018-09-26] MEDS: LOVENOX SUB-Q SCH (21:13)
--- NOTE | 2018-09-27 00:04 | Cat Scan Report ---
PROCEDURE: CT ABDOMEN PELVIS WO/W CON TECHNIQUE: Computerized axial tomography of the abdomen and pelvis was performed without intravenous contrast. This study is performed without intravascular contrast material and its sensitivity for ab dominal and pelvic pathology, including neoplasms, inflammation, abscess, free fluid, thrombosis, art erial dissection and infarction, is reduced compared with a contrast enhanced study. CT DOSE LENGTH PRODUCT: 3370.4 mGycm HISTORY: recurrent urinary retention COMPARISONS: None . FINDINGS: Visualized lower thorax: Bilateral lower lung atelectasis with mild effusions. Liver: Normal size and attenuation. Spleen: Normal size and attenuation. Gallbladder and biliary system: The gallbladder is slightly distended. There are a few stones identif ied within the gallbladder lumen. No dilatation of the biliary ductal system. Pancreas: Normal. Adrenals: Normal. Kidneys: Both kidneys have a normal size. There is a slight prominence of the left collecting system. No evidence of mass or stone formation.. GI tract: The stomach is normal. The small bowel has a normal caliber. No obstruction is seen. Moder ate fecal debris throughout the colon is noted. The appendix is normal. . Lymph nodes and mesentery: Normal. Vasculature: Moderate atherosclerosis of the aorta and all branching vessels. Bladder: There is a Calderón catheter within the urinary bladder.. Reproductive organs: The uterus is normal. No pelvic masses.. Peritoneum: Moderate fluid in the lower pelvis.. Musculoskeletal structures: Moderate degenerative changes of the osseous structures. No acute osseous abnormality.. Other: There is artifact from motion as well as the patient's arm overlying the upper abdominal josse on. IMPRESSION: Cholelithiasis. No evidence of dilatation of the biliary ductal system. Mild prominence of the left renal collecting system, there is no evidence of stone formation or renal masses. There is a Calderón catheter within the urinary bladder. The uterus is normal. No pelvic masses . There is moderate fluid in the lower pelvis. There is no evidence of intestinal obstruction. The appendix is normal. There is moderate fecal debri s throughout the colon. There is mild atelectasis and effusions bilateral lower lungs. . This document is electronically signed by Alka Kimble DO., September 27 2018 12:01:56 AM ET
[2018-09-27] MEDS: TYLENOL PO PRN (02:06)
[2018-09-27] MEDS: ceFAZolin 2 GM in NACL 0.9% 100 ML IV SCH ×3 (05:39→21:41)
[2018-09-27 07:09] LABS: Alanine Aminotransferase 6 units/L (7-56); Albumin 1.6 g/dL (3.9-5); BUN/Creatinine Ratio 29; Blood Urea Nitrogen 20 mg/dL (7-17); Calcium 7.5 mg/dL (8.4-10.2); Hemolysis Index 1
[2018-09-27] MEDS: PLAVIX PO SCH (09:53)
[2018-09-27] MEDS: PEPCID IV SCH ×2 (09:53→21:48)
[2018-09-27] MEDS: LOPRESSOR PO SCH ×2 (09:54→21:44)
[2018-09-27] MEDS: COZAAR PO SCH (09:54)
[2018-09-27] MEDS: SODIUM CHLORIDE FLUSH SYRINGE 10 ML IV SCH ×2 (09:55→21:48)
[2018-09-27] MEDS: HumaLOG SUB-Q SCH ×4 (09:55→21:43)
--- NOTE | 2018-09-27 12:00 | Progress Note ---
Assessment and Plan 62 y/o female with history of HTN, uncontrolled DM, Atrial Fib, HLD and chronic right diabetic foot ulcer follows [facility]; admitted on 09/22/2018 due to 2-day history of generalized weakness, AMS, sleepiness and subjective fever. Also reported nausea and vomiting. Per sister, patient has been non compliance with insulin and diet. At home glucose was 700s. She has been drinking cranberry juice, eating sweat potatoes and peanut butter. Of note, she is known to ID service from previous admission on 01/23/18 for fever and worsening right foot erythema, edema and ulcer drainage. Wound cultures from Jun 2017 grew Klebsiella, E colix2 and Strep group B. Foot MRI showed cellulitis, no osteomyelitis. S/P OR debridement and wound VAC placement on 01/27 findings - Deep space infection extending from the great toe to the 3rd toe and down the plantar. OR Gram stain 01/27 Beta hem Strep group B and now Klebsiella. Discharged on ceftriaxone 2 g IV qday total 2 week until 02/10/18. Patient did not follow with ID. Per sister, foot wound is healing. In the ED, temp 100.5 --> 101.5, HR 119, R 25, O2 sat 98%, BP 121/83. WBC 7.1, Hg 13.4, Plat 139. Creat 1.3. Glucose 734.AST 150. Lactate 7.8. UA 154 wbc, large LE. Blood culture 09/22/2018 GPC in clusters 2 of 4. CXR showed no acute cardiopulmonary process. CT head no acute intracraneal processes. Severe sepis with septic shock from group B strep - resolved Right foot ulcer, does not appear infected acute metabolic encephalopathy DKA, uncontrolled DM a1c 14 metabolic acidosis Acute kidney injury hyponatremia - improving hypomagnesemia - corrected Sacral decub Swelling both hand with rings that cannot be easily pulled off - consulted surgeon Dr. Bonner to assist in removing the ring Plan -IV antibiotic per ID - Continue with SSI -She has not been weaned off pressors, monitor blood pressure closely -Right foot wound healing well -cont IVF -BP meds on hold -repleted mg, now wnl -Wound care for sacral decub - DVT prophylaxis Lovenox - Discussed with the patient and his daughter - Disposition, his PT OT on discharge 1-2 days to [facility] for better rehabilitation before going back home Advance Directives: Yes VTE prophylaxis?: Chemical Subjective Date of service: 09/27/18 Principal diagnosis: septic shock, diabetes mellitus, metabolic acidosis, Interval history: Patient seen and examined. Patient is tolerating the room. Complains of swelling in output hands making it difficult to remove any special diet on the left ring finger. Slight hyperemic spot on the tip of the second finger. Objective - Exam Narrative Exam: Constitutional: Ill- looking. In no distress Head: Normocephalic atraumatic Eyes: Pupils are equal round and reactive to light Nose: No enlarged turbinates, no septal deviation. Mouth: Moist mucous membranes. Neck: Supple no thyromegaly. No bruit. No JVD Heart: Regular rate and rhythm, S1-S2 normal. No rubs murmurs or gallop Lungs: Clear to auscultation bilaterally. no rales or rhonchi Abdomen: Soft, nontender. Bowel sound are present. Extremities: edema of the fingers. no cyanosis, no clubbing. Neuro: Confused. No focal sensory or motor deficit. Skin: Sacral decubitus ulcer stage IV No hyperpigmented spots Musculoskeletal system: No joint pain or swelling Hematological: No petechia or subcutanous hemorrhages. Immunological: No multiple septic spots on the skin Lymphatic: No generalized lymphadenopathy Psychiatry: Euthymic. Calm. - Constitutional Vitals: Vital Signs - 12hr 09/27/18 09/27/18 09/27/18 00:00 00:06 01:00 Temperature 98.3 F Pulse Rate 85 86 85 Pulse Rate [ 84 From Monitor] Respiratory 15 16 13 Rate Blood Pressure 111/54 111/54 111/54 O2 Sat by Pulse 98 99 98 Oximetry 09/27/18 09/27/18 09/27/18 02:00 03:00 04:00 Temperature 98 F Pulse Rate 89 89 90 Pulse Rate [ 82 From Monitor] Respiratory 12 13 15 Rate Blood Pressure 120/63 130/56 130/56 O2 Sat by Pulse 99 99 100 Oximetry 09/27/18 09/27/18 09/27/18 05:00 06:00 07:00 Temperature Pulse Rate 80 82 81 Pulse Rate [ From Monitor] Respiratory 15 14 14 Rate Blood Pressure 107/43 98/45 98/45 O2 Sat by Pulse 100 98 97 Oximetry 09/27/18 09/27/18 08:00 09:54 Temperature 98.8 F Pulse Rate 94 H Pulse Rate [ From Monitor] Respiratory Rate Blood Pressure 122/69 O2 Sat by Pulse Oximetry - Labs CBC & Chem 7: 09/24/18 04:14 09/27/18 05:44 Labs: Abnormal lab results 09/26/18 09/26/18 09/27/18 Range/Units 12:25 16:47 05:44 Sodium 130 L (137-145) mmol/L Carbon Dioxide 17 L (22-30) mmol/L BUN 20 H (7-17) mg/dL Glucose 128 H (65-100) mg/dL POC Glucose 226 H 214 H (70-105) Calcium 7.5 L (8.4-10.2) mg/dL ALT 6 L (7-56) units/L Total Protein 4.6 L (6.3-8.2) g/dL Albumin 1.6 L (3.9-5) g/dL
[2018-09-27] MEDS: ZOFRAN IV PRN (13:48)
[2018-09-27] MEDS: NORCO 5/325 PO PRN ×2 (13:48→19:55)
--- NOTE | 2018-09-27 14:59 | Consultation ---
History of Present Illness Consult date: 09/27/18 Reason for consult: other Requesting physician: JOYCE CRISTINA Chief complaint: Sepsis on unknown etiology - History of present illness History of present illness: 62yo F is well known to us from the wound care clinic was admitted recently with altered mental status and generalized weakness. Her blood sugars were found to be in the 700s. We're being asked to see the patient for possible right foot infection. Patient unable to give much history. The order reports that wound has been healing. Past History Past Medical History: atrial fib, diabetes, hypertension Past Surgical History: Other (right foot procedures) Social history: denies: smoking, alcohol abuse Family history: no significant family history Medications and Allergies Allergies Allergy/AdvReac Type Severity Reaction Status Date / Time No Known Allergies Allergy Verified 09/11/15 15:55 Home Medications Medication Instructions Recorded Confirmed Last Taken Type Clopidogrel [Plavix] 75 mg PO QDAY #30 tablet 02/24/17 09/22/18 01/26/18 Rx Losartan [Cozaar] 25 mg PO QDAY #30 tablet 02/24/17 09/22/18 01/26/18 Rx Lovastatin [Altoprev] 20 mg PO QPM #30 tab.er.24h 02/24/17 09/22/18 01/26/18 Rx Metoprolol [Lopressor TAB] 25 mg PO BID #60 tablet 02/24/17 09/22/18 01/26/18 Rx Insulin Detemir [Levemir VIAL] 50 unit SQ QHS #2 vial 02/01/18 09/22/18 Unknown Rx Insulin NPH/Regular [NovoLIN 70/30] 32 unit SUB-Q QAMDIAB #2 vial 02/01/18 09/22/18 Unknown Rx Active Meds: Active Medications Acetaminophen (Tylenol) 650 mg PO Q4H PRN PRN Reason: Pain MILD(1-3)/Fever >100.5/BEJARANO Last Admin: 09/27/18 02:06 Dose: 650 mg Documented by: Acetaminophen/Hydrocodone Bitart ([place] 5/325) 1 each PO Q4H PRN PRN Reason: Pain, Moderate (4-6) Last Admin: 09/27/18 13:48 Dose: 1 each Documented by: Atorvastatin Calcium (Lipitor) 10 mg PO QHS IGNACIO Last Admin: 09/26/18 21:11 Dose: 10 mg Documented by: Clopidogrel Bisulfate (Plavix) 75 mg PO QDAY [facility] Last Admin: 09/27/18 09:53 Dose: 75 mg Documented by: Dextrose (D50w (25gm) Syringe) 0 ml IV PRN PRN PRN Reason: Hypoglycemia Enoxaparin Sodium (Lovenox) 40 mg SUB-Q QDAY@2200 IGNACIO Last Admin: 09/26/18 21:13 Dose: 40 mg Documented by: Famotidine (Pepcid) 20 mg IV BID [facility] Last Admin: 09/27/18 09:53 Dose: 20 mg Documented by: Hydromorphone HCl (Dilaudid) 0.25 mg IV Q3H PRN PRN Reason: Pain, Moderate (4-6) Last Admin: 09/24/18 03:40 Dose: 0.25 mg Documented by: Norepinephrine (Levophed Drip 4 Mg/Ns 250 Ml) 4 mg in 250 mls @ 7.5 mls/hr IV TITR [facility]; Protocol Last Titration: 09/24/18 10:30 Dose: 0 mcg/min, 0 mls/hr Documented by: Cefazolin Sodium 2 gm/ Sodium (Chloride) 100 mls @ 200 mls/hr IV Q8HR [facility]; Protocol Last Admin: 09/27/18 13:24 Dose: 200 mls/hr Documented by: Insulin Glargine (Lantus) 50 units SUB-Q QHS [facility] Last Admin: 09/26/18 22:50 Dose: 50 units Documented by: Insulin Human Isoph/Insulin Regular (Humulin 70/30) 32 unit SUB-Q BIDDIAB [facility] Last Admin: 09/27/18 09:58 Dose: 32 unit Documented by: Insulin Human Lispro (Humalog) 0 unit SUB-Q ACHS [facility]; Protocol Last Admin: 09/27/18 13:24 Dose: Not Given Documented by: Losartan Potassium (Cozaar) 25 mg PO QDAY [facility] Last Admin: 09/27/18 09:54 Dose: 25 mg Documented by: Metoclopramide HCl (Reglan) 10 mg IV Q6H PRN PRN Reason: Nausea And Vomiting Last Admin: 09/26/18 21:08 Dose: 10 mg Documented by: Metoprolol Tartrate (Lopressor) 25 mg PO BID [facility] Last Admin: 09/27/18 09:54 Dose: 25 mg Documented by: Ondansetron HCl (Zofran) 4 mg IV Q8H PRN PRN Reason: Nausea And Vomiting Last Admin: 09/27/18 13:48 Dose: 4 mg Documented by: Sodium Chloride (Sodium Chloride Flush Syringe 10 Ml) 10 ml IV BID IGNACIO Last Admin: 09/27/18 09:55 Dose: 10 ml Documented by: Sodium Chloride (Sodium Chloride Flush Syringe 10 Ml) 10 ml IV PRN PRN PRN Reason: LINE FLUSH Review of Systems ROS unobtainable: due to mental status Exam Vital Signs Resp 12 09/22/18 15:22 - General physical appearance Positive: no distress, no pain, obese, other (Appears ill) - Respiratory Positive: normal expansion, normal respiratory effort - Cardiovascular Rhythm: irregularly irregular - Extremities Extremity abnormal: other (right medial foot wound has healed. Plantar wound that healed previously remains healed. Scattered areas of mild erythema. No fluctuance noted. no extra warmth noted. no induration present) Results - Labs 09/24/18 04:14 09/27/18 05:44 Abnormal lab results 09/26/18 09/27/18 09/27/18 Range/Units 16:47 05:44 07:44 Sodium 130 L (137-145) mmol/L Carbon Dioxide 17 L (22-30) mmol/L BUN 20 H (7-17) mg/dL Glucose 128 H (65-100) mg/dL POC Glucose 214 H 131 H (70-105) Calcium 7.5 L (8.4-10.2) mg/dL ALT 6 L (7-56) units/L Total Protein 4.6 L (6.3-8.2) g/dL Albumin 1.6 L (3.9-5) g/dL 09/27/18 Range/Units 12:08 Sodium (137-145) mmol/L Carbon Dioxide (22-30) mmol/L BUN (7-17) mg/dL Glucose (65-100) mg/dL POC Glucose 143 H (70-105) Calcium (8.4-10.2) mg/dL ALT (7-56) units/L Total Protein (6.3-8.2) g/dL Albumin (3.9-5) g/dL Diabetes panel 09/27/18 Range/Units 05:44 Sodium 130 L (137-145) mmol/L Potassium 3.8 (3.6-5.0) mmol/L Chloride 102.0 (98-107) mmol/L Carbon Dioxide 17 L (22-30) mmol/L BUN 20 H (7-17) mg/dL Creatinine 0.7 (0.7-1.2) mg/dL Glucose 128 H (65-100) mg/dL Calcium 7.5 L (8.4-10.2) mg/dL AST 16 (5-40) units/L ALT 6 L (7-56) units/L Alkaline Phosphatase 122 (35-129) units/L Total Protein 4.6 L (6.3-8.2) g/dL Albumin 1.6 L (3.9-5) g/dL Calcium panel 09/27/18 Range/Units 05:44 Calcium 7.5 L (8.4-10.2) mg/dL Albumin 1.6 L (3.9-5) g/dL Pituitary panel 09/27/18 Range/Units 05:44 Sodium 130 L (137-145) mmol/L Potassium 3.8 (3.6-5.0) mmol/L Chloride 102.0 (98-107) mmol/L Carbon Dioxide 17 L (22-30) mmol/L BUN 20 H (7-17) mg/dL Creatinine 0.7 (0.7-1.2) mg/dL Glucose 128 H (65-100) mg/dL Calcium 7.5 L (8.4-10.2) mg/dL Adrenal panel 09/27/18 Range/Units 05:44 Sodium 130 L (137-145) mmol/L Potassium 3.8 (3.6-5.0) mmol/L Chloride 102.0 (98-107) mmol/L Carbon Dioxide 17 L (22-30) mmol/L BUN 20 H (7-17) mg/dL Creatinine 0.7 (0.7-1.2) mg/dL Glucose 128 H (65-100) mg/dL Calcium 7.5 L (8.4-10.2) mg/dL Total Bilirubin 0.30 (0.1-1.2) mg/dL AST 16 (5-40) units/L ALT 6 L (7-56) units/L Alkaline Phosphatase 122 (35-129) units/L Total Protein 4.6 L (6.3-8.2) g/dL Albumin 1.6 L (3.9-5) g/dL - Imaging Additional studies: MRI right foot reviewed right foot xrays reviewed Assessment and Plan - Patient Problems (1) Sepsis Current Visit: Yes Status: Acute Qualifiers: Sepsis type: sepsis due to unspecified organism Qualified Code(s): A41.9 - Sepsis, unspecified organism Plan to address problem: Patient in guarded condition. Patient has had chronic wounds on this insensate foot for many months. The appearance of the foot is the best that we have seen it as we follow her in the wound clinic on a regular basis. The chronic wound on the medial aspect of foot has finally healed. There is a small scab there. There is no evidence of any infection in the surrounding area as described in the MRI report. It is not surprising that there may be a small amount of fluid underneath this area that has just recently healed. The amount that they describe is miniscule. I would expect significant erythema, induration, and possibly fluctuance if this were the cause of her overall sepsis. What is reported in the MRI as areas of soft tissue edema are most likely from the chronic trauma that she has applied to the foot. She continues to walk on this foot despite our adamant request that she offload the foot. This has led to the chronic nature of her wounds. Chronic trauma to any tissue will contribute to some edema in that area. I do not see any convincing clinical signs of the right foot that would suggest that that is the main cause of her current sepsis. Will follow along. Please call with questions. Examined and discussed with Dr. Cristina. Time=30min.
[2018-09-27] MEDS: LANTUS SUB-Q SCH (21:43)
[2018-09-27] MEDS: LOVENOX SUB-Q SCH (21:47)
[2018-09-28] MEDS: ceFAZolin 2 GM in NACL 0.9% 100 ML IV SCH ×3 (06:41→22:40)
[2018-09-28 08:45] LABS: Albumin 1.4 g/dL (3.9-5); BUN/Creatinine Ratio 27; Blood Urea Nitrogen 16 mg/dL (7-17); Calcium 7.8 mg/dL (8.4-10.2); Hemolysis Index 7
[2018-09-28 08:47] LABS: Alanine Aminotransferase < 5 units/L (7-56)
--- NOTE | 2018-09-28 09:05 | Progress Note ---
Assessment and Plan - Patient Problems (1) Sepsis Current Visit: Yes Status: Acute Qualifiers: Sepsis type: sepsis due to unspecified organism Qualified Code(s): A41.9 - Sepsis, unspecified organism Plan to address problem: Patient in guarded condition. Still no signs to suggest infection in the foot. Would hold off on I&D at this point. I doubt we will find very much. 09/27 - Patient has had chronic wounds on this insensate foot for many months. The appearance of the foot is the best that we have seen it as we follow her in the wound clinic on a regular basis. The chronic wound on the medial aspect of foot has finally healed. There is a small scab there. There is no evidence of any infection in the surrounding area as described in the MRI report. It is not surprising that there may be a small amount of fluid underneath this area that has just recently healed. The amount that they describe is miniscule. I would expect significant erythema, induration, and possibly fluctuance if this were the cause of her overall sepsis. What is reported in the MRI as areas of soft tissue edema are most likely from the chronic trauma that she has applied to the foot. She continues to walk on this foot despite our adamant request that she offload the foot. This has led to the chronic nature of her wounds. Chronic trauma to any tissue will contribute to some edema in that area. I do not see any convincing clinical signs of the right foot that would suggest that that is the main cause of her current sepsis. Will follow along. Please call with questions. Time=10min. Subjective Date of service: 09/28/18 Patient Reports: Positive: other (no new issues) Objective Vital Signs - 12hr 09/27/18 09/27/18 09/28/18 21:44 22:00 00:00 Temperature Pulse Rate 87 92 H Pulse Rate [ 81 From Monitor] Pulse Rate [ 81 None] Respiratory 13 Rate Blood Pressure 121/52 114/52 O2 Sat by Pulse 98 Oximetry 09/28/18 09/28/18 09/28/18 01:30 02:00 03:00 Temperature Pulse Rate 91 H 120 H 91 H Pulse Rate [ From Monitor] Pulse Rate [ None] Respiratory 11 L 14 20 Rate Blood Pressure 107/41 O2 Sat by Pulse 98 98 95 Oximetry 09/28/18 09/28/18 09/28/18 04:00 05:00 06:00 Temperature 99.2 F Pulse Rate 95 H 90 95 H Pulse Rate [ 75 From Monitor] Pulse Rate [ None] Respiratory 24 26 H 23 Rate Blood Pressure 105/39 102/45 114/44 O2 Sat by Pulse 96 96 96 Oximetry 09/28/18 07:00 Temperature Pulse Rate 81 Pulse Rate [ From Monitor] Pulse Rate [ None] Respiratory 20 Rate Blood Pressure 101/37 O2 Sat by Pulse 97 Oximetry - General physical appearance no distress, no pain, other (slightly more awake. Minimal interaction) - Respiratory normal expansion, normal respiratory effort - Musculoskeletal other (right foot shows no signs of infection. minimal erythema only in areas of chronic pressure from ambulating. no induration. No fluctuance) - Labs 09/24/18 04:14 09/28/18 07:52 Diabetes panel 09/28/18 Range/Units 07:52 Sodium 134 L (137-145) mmol/L Potassium 4.1 (3.6-5.0) mmol/L Chloride 106.1 (98-107) mmol/L Carbon Dioxide 18 L (22-30) mmol/L BUN 16 (7-17) mg/dL Creatinine 0.6 L (0.7-1.2) mg/dL Glucose 60 L (65-100) mg/dL Calcium 7.8 L (8.4-10.2) mg/dL AST 14 (5-40) units/L ALT < 5 L (7-56) units/L Alkaline Phosphatase 103 (35-129) units/L Total Protein 4.8 L (6.3-8.2) g/dL Albumin 1.4 L (3.9-5) g/dL Calcium panel 09/28/18 Range/Units 07:52 Calcium 7.8 L (8.4-10.2) mg/dL Albumin 1.4 L (3.9-5) g/dL Pituitary panel 09/28/18 Range/Units 07:52 Sodium 134 L (137-145) mmol/L Potassium 4.1 (3.6-5.0) mmol/L Chloride 106.1 (98-107) mmol/L Carbon Dioxide 18 L (22-30) mmol/L BUN 16 (7-17) mg/dL Creatinine 0.6 L (0.7-1.2) mg/dL Glucose 60 L (65-100) mg/dL Calcium 7.8 L (8.4-10.2) mg/dL Adrenal panel 09/28/18 Range/Units 07:52 Sodium 134 L (137-145) mmol/L Potassium 4.1 (3.6-5.0) mmol/L Chloride 106.1 (98-107) mmol/L Carbon Dioxide 18 L (22-30) mmol/L BUN 16 (7-17) mg/dL Creatinine 0.6 L (0.7-1.2) mg/dL Glucose 60 L (65-100) mg/dL Calcium 7.8 L (8.4-10.2) mg/dL Total Bilirubin 0.30 (0.1-1.2) mg/dL AST 14 (5-40) units/L ALT < 5 L (7-56) units/L Alkaline Phosphatase 103 (35-129) units/L Total Protein 4.8 L (6.3-8.2) g/dL Albumin 1.4 L (3.9-5) g/dL
[2018-09-28] MEDS: LOPRESSOR PO SCH ×2 (10:26→22:40)
[2018-09-28] MEDS: PLAVIX PO SCH (10:26)
[2018-09-28] MEDS: COZAAR PO SCH (10:26)
[2018-09-28] MEDS: HumaLOG SUB-Q SCH ×4 (10:27→22:40)
[2018-09-28] MEDS: PEPCID IV SCH (10:27)
[2018-09-28] MEDS: SODIUM CHLORIDE FLUSH SYRINGE 10 ML IV SCH ×2 (10:28→22:40)
--- NOTE | 2018-09-28 11:20 | Progress Note ---
Assessment and Plan Cultures: Blood culture 09/22/2018 Beta Strep group B 2 of 4 bottles. Blood culture 09/24/2018 no growth today. Urine culture 09/24/2018 MSSA Assessment: 62 y/o female with history of HTN, uncontrolled DM, Atrial Fib, HLD and chronic right diabetic foot ulcer follows [facility]; admitted on 09/22/2018 due to 2-day history of generalized weakness, AMS, sleepiness and subjective fever: 1) Severe Sepsis with septic shock: Resolved. Etiology most likely multifactorial - GPC bacteremia +/- UTI +/- DKA. 2) Beta Strep group B bacteremia: likely real from unclear source ? right chr onic plantar diabetic infection - Blood culture 09/22/2018 GPC in clusters 2 of 4. - TTE no vegetations 3) UTI: UA 154 wbc, large LE. Urine culture 09/24/2018 MSSA. Blood cultures did not grow Staph. No recent urologic procedures. Staph UTI is rare. Usually represents spread from bacteremia. 4) Acute encephalopathy: resolved; from sepsis/dehydration. CT head no acute intracraneal processes. 5) DM: uncontrolled with DKA. Per sister, patient has been non compliance with insulin and diet. At home glucose was 700s. She has been drinking cranberry juice, eating sweat potatoes and peanut butter. 6) Chronic right foot diabetic wound: now with an plantar abscess 2.0 x 1.4 x 0.8 cm to the fascia ? necrotizing infection. - Old wound culture Apr 2016 +MSSA. - Wound cultures from Jun 2017 grew Klebsiella, E colix2 and Strep group B. - Foot MRI 12/2017 showed cellulitis, no osteomyelitis. - S/P OR debridement and wound VAC placement on 01/27/18 findings - Deep space infection extending from the great toe to the 3rd toe and down the plantar. OR Gram stain 01/27/18 Beta hem Strep group B and now Klebsiella. Discharged on ceftriaxone 2 g IV qday total 2 week until 02/10/18 - XR foot showed degenerative change of the midfoot and forefoo and no plain film evidence of osteomyelitis and no evidence of gas within the soft tissues. - CRP 36 - MRI foot showed limited by motion. No MR evidence of osteomyelitis is seen suspected cellulitis of midfoot and toes, soft tissue ulceration plantar to medial, posterior aspect of calcaneus, with suspected soft tissue abscess deep to the soft tissue ulceration and plantar to the plantar fascia This could represent abscess, approximately 2.0 x 1.4 x 0.8 cm. 7) JUAN: resolved Recommendations: - renal US - pending - continue cefazolin IV 2 gm IV q8h D3 of D14 -Anticipate discharge on Cefazolin 2gm IV every 8 hours ending 10-09-18 - wound care consult [facility] M: [phone] O:[phone] Subjective Date of service: 09/28/18 Principal diagnosis: septic shock, diabetes mellitus, metabolic acidosis, Interval history: Patient seen and examined. Sitting up in bed with PT. Denied generalized pain, SOB. No fevers. Objective - Exam Narrative Exam: General appearance: alert in NAD , No acute distress. Eyes: anicteric sclerae, moist conjunctivae; no lid-lag; PERRLA HENT: Atraumatic; oropharynx limited Neck: deviated to the left, tender better Lungs: CTA CV: RRR Abdomen: Soft, non-tender; no masses or hepatosplenomegaly Extremities: No peripheral edema or extremity lymphadenopathy, right mid plantar wound with periwound callus, no drainage Skin: Normal temperature, turgor and texture; no rash, ulcers or subcutaneous nodules Psych: no agitated Neuro: alert following commands - Constitutional Vitals: Vital Signs Temp Pulse Resp BP Pulse Ox 98.7 F 87 20 100/48 97 09/28/18 08:00 09/28/18 10:26 09/28/18 07:00 09/28/18 10:26 09/28/18 07:00 Temperature -Last 24 Hours Temperature 98.7 F Temperature 99.2 F Temperature 99.7 F Temperature 98.4 F Temperature 99.2 F Temperature 98.6 F - Labs CBC & Chem 7: 09/24/18 04:14 09/28/18 07:52 Labs: Abnormal lab results 09/27/18 09/27/18 09/27/18 Range/Units 07:44 12:08 16:16 Sodium (137-145) mmol/L Carbon Dioxide (22-30) mmol/L Creatinine (0.7-1.2) mg/dL Glucose (65-100) mg/dL POC Glucose 131 H 143 H 112 H (70-105) Calcium (8.4-10.2) mg/dL ALT (7-56) units/L Total Protein (6.3-8.2) g/dL Albumin (3.9-5) g/dL 09/27/18 09/28/18 09/28/18 Range/Units 21:34 07:52 08:26 Sodium 134 L (137-145) mmol/L Carbon Dioxide 18 L (22-30) mmol/L Creatinine 0.6 L (0.7-1.2) mg/dL Glucose 60 L (65-100) mg/dL POC Glucose 174 H 58 L (70-105) Calcium 7.8 L (8.4-10.2) mg/dL ALT < 5 L (7-56) units/L Total Protein 4.8 L (6.3-8.2) g/dL Albumin 1.4 L (3.9-5) g/dL 09/28/18 Range/Units 09:22 Sodium (137-145) mmol/L Carbon Dioxide (22-30) mmol/L Creatinine (0.7-1.2) mg/dL Glucose (65-100) mg/dL POC Glucose 126 H (70-105) Calcium (8.4-10.2) mg/dL ALT (7-56) units/L Total Protein (6.3-8.2) g/dL Albumin (3.9-5) g/dL
[2018-09-28] MEDS: NORCO 5/325 PO PRN (12:47)
--- NOTE | 2018-09-28 16:35 | Progress Note ---
Assessment and Plan 62 y/o female with history of HTN, uncontrolled DM, Atrial Fib, HLD and chronic right diabetic foot ulcer follows [facility]; admitted on 09/22/2018 due to 2-day history of generalized weakness, AMS, sleepiness and subjective fever. Also reported nausea and vomiting. Per sister, patient has been non compliance with insulin and diet. At home glucose was 700s. She has been drinking cranberry juice, eating sweat potatoes and peanut butter. Of note, she is known to ID service from previous admission on 01/23/18 for fever and worsening right foot erythema, edema and ulcer drainage. Wound cultures from Jun 2017 grew Klebsiella, E colix2 and Strep group B. Foot MRI showed cellulitis, no osteomyelitis. S/P OR debridement and wound VAC placement on 01/27 findings - Deep space infection extending from the great toe to the 3rd toe and down the plantar. OR Gram stain 01/27 Beta hem Strep group B and now Klebsiella. Discharged on ceftriaxone 2 g IV qday total 2 week until 02/10/18. Patient did not follow with ID. Per sister, foot wound is healing. In the ED, temp 100.5 --> 101.5, HR 119, R 25, O2 sat 98%, BP 121/83. WBC 7.1, Hg 13.4, Plat 139. Creat 1.3. Glucose 734.AST 150. Lactate 7.8. UA 154 wbc, large LE. Blood culture 09/22/2018 GPC in clusters 2 of 4. CXR showed no acute cardiopulmonary process. CT head no acute intracraneal processes. Severe sepis with septic shock from group B strep - resolved Right foot ulcer, does not appear infected acute metabolic encephalopathy DKA, uncontrolled DM a1c 14 metabolic acidosis Acute kidney injury hyponatremia - improving hypomagnesemia - corrected Sacral decub Swelling both hand with rings that cannot be easily pulled off from the right finger, with darking of the tip of tip of same finger Plan -IV antibiotic per ID - Continue with SSI -She has not been weaned off pressors, monitor blood pressure closely -Right foot wound healing well -cont IVF -BP meds on hold -repleted mg, now wnl -Wound care for sacral decub - DVT prophylaxis Lovenox Disucssed with ID - Discussed with the patient and his daughter - Disposition: D/c to SNF for with iv Ceftrizone x 14 days sfter placing a pICC line and also for PT/OT Discussed at length with pts and her daughter his PT OT on discharge 1-2 days to [facility] for better rehabilitation before going back home Advance Directives: Yes VTE prophylaxis?: Chemical Subjective Date of service: 09/28/18 Principal diagnosis: septic shock, diabetes mellitus, metabolic acidosis, Interval history: Patient seen and examined. Complains of swelling in output hands making it difficult to remove any special diet on the left ring finger. Slight hyperemic spot on the tip of the second finger. Ring remover obtained from ER and Specialist removed the rings yesterday. No new complaints today Objective - Exam Narrative Exam: Constitutional: Ill- looking. In no distress Head: Normocephalic atraumatic Eyes: Pupils are equal round and reactive to light Nose: No enlarged turbinates, no septal deviation. Mouth: Moist mucous membranes. Neck: Supple no thyromegaly. No bruit. No JVD Heart: Regular rate and rhythm, S1-S2 normal. No rubs murmurs or gallop Lungs: Clear to auscultation bilaterally. no rales or rhonchi Abdomen: Soft, nontender. Bowel sound are present. Extremities: edema of the fingers. no cyanosis, no clubbing. Neuro: Confused. No focal sensory or motor deficit. Skin: Sacral decubitus ulcer stage IV No hyperpigmented spots Musculoskeletal system: No joint pain or swelling Hematological: No petechia or subcutanous hemorrhages. Immunological: No multiple septic spots on the skin Lymphatic: No generalized lymphadenopathy Psychiatry: Euthymic. Calm. - Constitutional Vitals: Vital Signs - 12hr 09/28/18 09/28/18 09/28/18 05:00 06:00 07:00 Temperature Pulse Rate 90 95 H 81 Pulse Rate [ From Monitor] Respiratory 26 H 23 20 Rate Blood Pressure 102/45 114/44 101/37 O2 Sat by Pulse 96 96 97 Oximetry 09/28/18 09/28/18 09/28/18 08:00 09:00 10:00 Temperature 98.7 F Pulse Rate 84 80 88 Pulse Rate [ 81 From Monitor] Respiratory 18 18 14 Rate Blood Pressure 107/42 107/42 100/48 O2 Sat by Pulse 95 98 98 Oximetry 09/28/18 09/28/18 09/28/18 10:26 11:00 12:00 Temperature 98.9 F Pulse Rate 87 87 Pulse Rate [ From Monitor] Respiratory 13 Rate Blood Pressure 100/48 109/56 O2 Sat by Pulse 98 Oximetry - Labs CBC & Chem 7: 09/24/18 04:14 09/28/18 07:52 Labs: Abnormal lab results 09/27/18 09/28/18 09/28/18 Range/Units 21:34 07:52 08:26 Sodium 134 L (137-145) mmol/L Carbon Dioxide 18 L (22-30) mmol/L Creatinine 0.6 L (0.7-1.2) mg/dL Glucose 60 L (65-100) mg/dL POC Glucose 174 H 58 L (70-105) Calcium 7.8 L (8.4-10.2) mg/dL ALT < 5 L (7-56) units/L Total Protein 4.8 L (6.3-8.2) g/dL Albumin 1.4 L (3.9-5) g/dL 09/28/18 09/28/18 Range/Units 09:22 12:22 Sodium (137-145) mmol/L Carbon Dioxide (22-30) mmol/L Creatinine (0.7-1.2) mg/dL Glucose (65-100) mg/dL POC Glucose 126 H 236 H (70-105) Calcium (8.4-10.2) mg/dL ALT (7-56) units/L Total Protein (6.3-8.2) g/dL Albumin (3.9-5) g/dL
[2018-09-28] MEDS: PEPCID PO SCH (22:40)
[2018-09-28] MEDS: LOVENOX SUB-Q SCH (22:40)
[2018-09-28] MEDS: LANTUS SUB-Q SCH (22:40)
[2018-09-29 00:59] LABS: Hematocrit 26.3 % (30.3-42.9); Mean Corpuscular HGB Conc 34 % (30-34); Mean Corpuscular Volume 84 fl (79-97); Platelet Count 329 K/mm3 (140-440); Red Blood Count 3.14 M/mm3 (3.65-5.03); Red Cell Distribution Width 15.4 % (13.2-15.2)
[2018-09-29 01:59] LABS: Band Neutrophils # (Manual) 0.3 K/mm3; Basophils % (Manual) 0 % (0.0-1.8); Total Cells Counted 100
[2018-09-29 02:01] LABS: Platelet Clumps Few; Platelet Estimate Consistent w Auto; Spherocytes Few
[2018-09-29 02:02] LABS: Anisocytosis 1+
[2018-09-29 05:43] LABS: Albumin 1.6 g/dL (3.9-5); BUN/Creatinine Ratio 23; Blood Urea Nitrogen 14 mg/dL (7-17); Calcium 7.9 mg/dL (8.4-10.2); Hemolysis Index 5
[2018-09-29 05:45] LABS: Alanine Aminotransferase < 5 units/L (7-56)
[2018-09-29] MEDS: ceFAZolin 2 GM in NACL 0.9% 100 ML IV SCH ×3 (06:11→22:00)
[2018-09-29] MEDS: COZAAR PO SCH (10:12)
[2018-09-29] MEDS: PLAVIX PO SCH (10:12)
[2018-09-29] MEDS: PEPCID PO SCH ×2 (10:12→22:07)
[2018-09-29] MEDS: LOPRESSOR PO SCH ×2 (10:13→22:07)
[2018-09-29] MEDS: NORCO 5/325 PO PRN ×2 (10:18→22:10)
--- NOTE | 2018-09-29 10:37 | Progress Note ---
Assessment and Plan Cultures: Blood culture 09/22/2018 Beta Strep group B 2 of 4 bottles. Blood culture 09/24/2018 no growth today. Urine culture 09/24/2018 MSSA Assessment: 62 y/o female with history of HTN, uncontrolled DM, Atrial Fib, HLD and chronic right diabetic foot ulcer follows [facility] Wound care center; admitted on 09/22/2018 due to 2-day history of generalized weakness, AMS, sleepiness and subjective fever: 1) Severe Sepsis with septic shock: Resolved. Etiology most likely multifactorial - GPC bacteremia +/- UTI +/- DKA. 2) Beta Strep group B bacteremia: likely real from unclear source ? right chr onic plantar diabetic infection - Blood culture 09/22/2018 GPC in clusters 2 of 4. - TTE no vegetations 3) UTI: UA 154 wbc, large LE. Urine culture 09/24/2018 MSSA. Blood cultures did not grow Staph. No recent urologic procedures. Staph UTI is rare. Usually represents spread from bacteremia. 4) Acute encephalopathy: resolved; from sepsis/dehydration. CT head no acute intracraneal processes. 5) DM: uncontrolled with DKA. Per sister, patient has been non compliance with insulin and diet. At home glucose was 700s. She has been drinking cranberry juice, eating sweat potatoes and peanut butter. 6) Chronic right foot diabetic wound: now with an plantar abscess 2.0 x 1.4 x 0.8 cm to the fascia ? necrotizing infection. - Old wound culture Apr 2016 +MSSA. - Wound cultures from Jun 2017 grew Klebsiella, E colix2 and Strep group B. - Foot MRI 12/2017 showed cellulitis, no osteomyelitis. - S/P OR debridement and wound VAC placement on 01/27/18 findings - Deep space infection extending from the great toe to the 3rd toe and down the plantar. OR Gram stain 01/27/18 Beta hem Strep group B and now Klebsiella. Discharged on ceftriaxone 2 g IV qday total 2 week until 02/10/18 - XR foot showed degenerative change of the midfoot and forefoo and no plain film evidence of osteomyelitis and no evidence of gas within the soft tissues. - CRP 36 - MRI foot showed limited by motion. No MR evidence of osteomyelitis is seen suspected cellulitis of midfoot and toes, soft tissue ulceration plantar to medial, posterior aspect of calcaneus, with suspected soft tissue abscess deep to the soft tissue ulceration and plantar to the plantar fascia This could represent abscess, approximately 2.0 x 1.4 x 0.8 cm. 7) JUAN: resolved Recommendations: - renal US - pending - continue cefazolin IV 2 gm IV q8h D4 of D14 -Anticipate discharge on Cefazolin 2gm IV every 8 hours ending 10-09-18 -Order placed with case management for OPAT -Midline order placed -f/u ID clinic 2 weeks -continue wound care [facility] M: [phone] O:[phone] Subjective Date of service: 09/29/18 Principal diagnosis: septic shock, diabetes mellitus, metabolic acidosis, Interval history: Patient seen and examined. Asleep, easily arousable. Generalized weakness, denies pain or SOB. No fevers. OPAT discussed, verbalized understanding. Objective - Exam Narrative Exam: General appearance: alert in NAD , No acute distress. Eyes: anicteric sclerae, moist conjunctivae; no lid-lag; PERRLA HENT: Atraumatic; oropharynx limited Neck: deviated to the left, tender better Lungs: CTA CV: RRR Abdomen: Soft, non-tender; no masses or hepatosplenomegaly Extremities: No peripheral edema or extremity lymphadenopathy, right mid plantar wound with periwound callus, no drainage Skin: Normal temperature, turgor and texture; no rash, ulcers or subcutaneous nodules Psych: no agitated Neuro: alert following commands - Constitutional Vitals: Vital Signs Temp Pulse Resp BP Pulse Ox 98.2 F 87 15 149/58 99 09/29/18 08:00 09/29/18 10:13 09/29/18 10:18 09/29/18 10:13 09/29/18 04:00 Temperature -Last 24 Hours Temperature 98.2 F Temperature 98.7 F Temperature 99.4 F Temperature 99.4 F Temperature 99.4 F Temperature 98.9 F - Labs CBC & Chem 7: 09/29/18 00:39 09/29/18 05:00 Labs: Abnormal lab results 09/28/18 09/28/18 09/28/18 Range/Units 12:22 16:39 21:34 RBC (3.65-5.03) M/mm3 Hgb (10.1-14.3) gm/dl Hct (30.3-42.9) % RDW (13.2-15.2) % Lymphocytes % (Manual) (13.4-35.0) % Monocytes % (Manual) (0.0-7.3) % Sodium (137-145) mmol/L Carbon Dioxide (22-30) mmol/L Creatinine (0.7-1.2) mg/dL POC Glucose 236 H 207 H 277 H (70-105) Calcium (8.4-10.2) mg/dL ALT (7-56) units/L Total Protein (6.3-8.2) g/dL Albumin (3.9-5) g/dL 09/29/18 09/29/18 Range/Units 00:39 05:00 RBC 3.14 L (3.65-5.03) M/mm3 Hgb 9.0 L (10.1-14.3) gm/dl Hct 26.3 L (30.3-42.9) % RDW 15.4 H (13.2-15.2) % Lymphocytes % (Manual) 13.0 L (13.4-35.0) % Monocytes % (Manual) 9.0 H (0.0-7.3) % Sodium 132 L (137-145) mmol/L Carbon Dioxide 20 L (22-30) mmol/L Creatinine 0.6 L (0.7-1.2) mg/dL POC Glucose (70-105) Calcium 7.9 L (8.4-10.2) mg/dL ALT < 5 L (7-56) units/L Total Protein 5.0 L (6.3-8.2) g/dL Albumin 1.6 L (3.9-5) g/dL
[2018-09-29] MEDS: HumaLOG SUB-Q SCH ×3 (12:18→22:00)
[2018-09-29] MEDS: SODIUM CHLORIDE FLUSH SYRINGE 10 ML IV SCH ×2 (12:23→22:08)
--- NOTE | 2018-09-29 14:54 | Progress Note ---
Assessment and Plan Assessment and plan: 62F pw who was nc with insulin and med, pw gen weakness, n/v, elevatad glc, ams, r foot ulcer x 2 days PMH; htn, chf, dm, afib, hld CXR and CTH neg Diagnosis severe sepis septic shock Group B strep bacteremia MSSA bacteruria, UTI Right foot ulcer, does not appear infected acute metabolic encephalopathy DKA, uncontrolled DM a1c 14 metabolic acidosis hyponatremia hypomagnesemia Sacral decub Plan -Has now been weaned off insulin drip, she is now off IV fluids, continue subcutaneous insulins -She has not been weaned off pressors,, she is now back on her blood pressure medications -cont iv abx, ID consult appreciated, she is planned for continued IV antibiotics upon discharge -Right foot doesn't appear infected on my exam, she had previous infection in the foot, has been in wound care. The wound has actually been healing and the f oot is much improved -repleted mg, now wnl -Wound care for sacral decub, called wound care today to ensure she is seen -dvt ppx, lovenox Planned for dc with IV abx, PICC today, Family wants SNF placement, tentative dc tomorrow. History Interval history: she is c/o gen weakness She has not been short of breath, she's not been coughing No diarrhea No focal weakness No agitation or seizures Hospitalist Physical - Physical exam Narrative exam: General.: Appears well HEENT: Moist mucous membranes, extraocular muscles intact, no lymphadenopathy Neck: supple Cardiac: S1-S2 heard Lungs: clear to auscultation bilaterally Abdomen: soft , nontender, nondistended, bowel sounds positive Extremities: Deformity of right foot noted, with a healing wound Skin: Large stage II Sacral decub noted, present on admission Neurologic: Moves all extremities, generalized weakness Psych: calm, and cooperative - Constitutional Vitals: Temp Pulse Resp BP Pulse Ox 100.1 F H 87 15 149/58 99 09/29/18 11:54 09/29/18 10:13 09/29/18 10:18 09/29/18 10:13 09/29/18 04:00 Results - Labs CBC & Chem 7: 09/29/18 00:39 09/30/18 04:27 Labs: Laboratory Last Values WBC 9.0 K/mm3 (4.5-11.0) 09/29/18 00:39 RBC 3.14 M/mm3 (3.65-5.03) L 09/29/18 00:39 Hgb 9.0 gm/dl (10.1-14.3) L 09/29/18 00:39 Hct 26.3 % (30.3-42.9) L 09/29/18 00:39 MCV 84 fl (79-97) 09/29/18 00:39 MCH 29 pg (28-32) 09/29/18 00:39 MCHC 34 % (30-34) 09/29/18 00:39 RDW 15.4 % (13.2-15.2) H 09/29/18 00:39 Plt Count 329 K/mm3 (140-440) 09/29/18 00:39 Lymph % (Auto) 9.1 % (13.4-35.0) L 09/24/18 04:14 [place] % (Auto) 9.3 % (0.0-7.3) H 09/24/18 04:14 Eos % (Auto) 0.0 % (0.0-4.3) 09/24/18 04:14 Baso % (Auto) 0.1 % (0.0-1.8) 09/24/18 04:14 Lymph # 0.9 K/mm3 (1.2-5.4) L 09/24/18 04:14 [place] # 0.9 K/mm3 (0.0-0.8) H 09/24/18 04:14 Eos # 0.0 K/mm3 (0.0-0.4) 09/24/18 04:14 Baso # 0.0 K/mm3 (0.0-0.1) 09/24/18 04:14 Add Manual Diff Complete 09/29/18 00:39 Total Counted 100 09/29/18 00:39 Seg Neutrophils % 81.5 % (40.0-70.0) H 09/24/18 04:14 Seg Neuts % (Manual) 70.0 % (40.0-70.0) 09/29/18 00:39 Band Neutrophils % 3.0 % 09/29/18 00:39 Lymphocytes % (Manual) 13.0 % (13.4-35.0) L 09/29/18 00:39 Reactive Lymphs % (Man) 0 % 09/29/18 00:39 Monocytes % (Manual) 9.0 % (0.0-7.3) H 09/29/18 00:39 Eosinophils % (Manual) 4.0 % (0.0-4.3) 09/29/18 00:39 Basophils % (Manual) 0 % (0.0-1.8) 09/29/18 00:39 Metamyelocytes % 1.0 % 09/29/18 00:39 Myelocytes % 0 % 09/29/18 00:39 Promyelocytes % 0 % 09/29/18 00:39 Blast Cells % 0 % 09/29/18 00:39 Nucleated RBC % Not Reportable 09/29/18 00:39 Seg Neutrophils # 7.9 K/mm3 (1.8-7.7) H 09/24/18 04:14 Seg Neutrophils # Man 6.3 K/mm3 (1.8-7.7) 09/29/18 00:39 Band Neutrophils # 0.3 K/mm3 09/29/18 00:39 Lymphocytes # (Manual) 1.2 K/mm3 (1.2-5.4) 09/29/18 00:39 Abs React Lymphs (Man) 0.0 K/mm3 09/29/18 00:39 Monocytes # (Manual) 0.8 K/mm3 (0.0-0.8) 09/29/18 00:39 Eosinophils # (Manual) 0.4 K/mm3 (0.0-0.4) 09/29/18 00:39 Basophils # (Manual) 0.0 K/mm3 (0.0-0.1) 09/29/18 00:39 Metamyelocytes # 0.1 K/mm3 09/29/18 00:39 Myelocytes # 0.0 K/mm3 09/29/18 00:39 Promyelocytes # 0.0 K/mm3 09/29/18 00:39 Blast Cells # 0.0 K/mm3 09/29/18 00:39 WBC Morphology Not Reportable 09/29/18 00:39 Hypersegmented Neuts Not Reportable 09/29/18 00:39 Hyposegmented Neuts Not Reportable 09/29/18 00:39 Hypogranular Neuts Not Reportable 09/29/18 00:39 Smudge Cells Not Reportable 09/29/18 00:39 Toxic Granulation Not Reportable 09/29/18 00:39 Toxic Vacuolation Not Reportable 09/29/18 00:39 Dohle Bodies Not Reportable 09/29/18 00:39 Pelger-Huet Anomaly Not Reportable 09/29/18 00:39 Rene Rods Not Reportable 09/29/18 00:39 Platelet Estimate Consistent w auto 09/29/18 00:39 Clumped Platelets Few 09/29/18 00:39 Plt Clumps, EDTA Not Reportable 09/29/18 00:39 Large Platelets Not Reportable 09/29/18 00:39 Giant Platelets Not Reportable 09/29/18 00:39 Platelet Satelliting Not Reportable 09/29/18 00:39 Plt Morphology Comment Not Reportable 09/29/18 00:39 RBC Morphology Not Reportable 09/29/18 00:39 Dimorphic RBCs Not Reportable 09/29/18 00:39 Polychromasia Not Reportable 09/29/18 00:39 Hypochromasia Not Reportable 09/29/18 00:39 Poikilocytosis Not Reportable 09/29/18 00:39 Anisocytosis 1+ 09/29/18 00:39 Microcytosis Not Reportable 09/29/18 00:39 Macrocytosis Not Reportable 09/29/18 00:39 Spherocytes Few 09/29/18 00:39 Pappenheimer Bodies Not Reportable 09/29/18 00:39 Sickle Cells Not Reportable 09/29/18 00:39 Target Cells Not Reportable 09/29/18 00:39 Tear Drop Cells Not Reportable 09/29/18 00:39 Ovalocytes Not Reportable 09/29/18 00:39 Helmet Cells Not Reportable 09/29/18 00:39 [place] Bodies Not Reportable 09/29/18 00:39 [place] Rings Not Reportable 09/29/18 00:39 [place] Cells Not Reportable 09/29/18 00:39 Bite Cells Not Reportable 09/29/18 00:39 Crenated Cell Not Reportable 09/29/18 00:39 Elliptocytes Not Reportable 09/29/18 00:39 Acanthocytes (Spur) Not Reportable 09/29/18 00:39 Rouleaux Not Reportable 09/29/18 00:39 Hemoglobin C Crystals Not Reportable 09/29/18 00:39 Schistocytes Not Reportable 09/29/18 00:39 Malaria parasites Not Reportable 09/29/18 00:39 Sami Bodies Not Reportable 09/29/18 00:39 Hem Pathologist Commnt No 09/29/18 00:39 VBG pH 7.275 (7.320-7.420) L 09/22/18 15:50 Sodium 132 mmol/L (137-145) L 09/29/18 05:00 Potassium 4.0 mmol/L (3.6-5.0) 09/29/18 05:00 Chloride 102.2 mmol/L (98-107) 09/29/18 05:00 Carbon Dioxide 20 mmol/L (22-30) L 09/29/18 05:00 Anion Gap 14 mmol/L 09/29/18 05:00 BUN 14 mg/dL (7-17) 09/29/18 05:00 Creatinine 0.6 mg/dL (0.7-1.2) L 09/29/18 05:00 Estimated GFR > 60 ml/min 09/29/18 05:00 BUN/Creatinine Ratio 23 % 09/29/18 05:00 Glucose 66 mg/dL (65-100) 09/29/18 05:00 POC Glucose 136 (70-105) H 09/29/18 11:48 Hemoglobin A1c 13.9 % (4-6) H 09/23/18 01:21 Lactic Acid 2.50 mmol/L (0.7-2.0) H* 09/23/18 12:24 Calcium 7.9 mg/dL (8.4-10.2) L 09/29/18 05:00 Phosphorus 2.70 mg/dL (2.5-4.5) 09/24/18 09:04 Magnesium 1.80 mg/dL (1.7-2.3) 09/24/18 09:04 Total Bilirubin 0.30 mg/dL (0.1-1.2) 09/29/18 05:00 Direct Bilirubin < 0.2 mg/dL (0-0.2) 09/24/18 04:14 AST 14 units/L (5-40) 09/29/18 05:00 ALT < 5 units/L (7-56) L 09/29/18 05:00 Alkaline Phosphatase 103 units/L (35-129) 09/29/18 05:00 Troponin T < 0.010 ng/mL (0.00-0.029) 09/22/18 15:50 C-Reactive Protein 36.60 mg/dL (0.00-1.30) H 09/23/18 18:30 Total Protein 5.0 g/dL (6.3-8.2) L 09/29/18 05:00 Albumin 1.6 g/dL (3.9-5) L 09/29/18 05:00 Albumin/Globulin Ratio 0.5 % 09/29/18 05:00 TSH 1.530 mlU/mL (0.270-4.200) 09/22/18 15:50 Urine Color Yellow (Yellow) 09/22/18 22:00 Urine Turbidity Slightly-cloudy (Clear) 09/22/18 22:00 Urine pH 6.0 (5.0-7.0) 09/22/18 22:00 Ur Specific [place] 1.025 (1.003-1.030) 09/22/18 22:00 Urine Protein 30 mg/dl mg/dL (Negative) 09/22/18 22:00 Urine Glucose (UA) >=500 mg/dL (Negative) 09/22/18 22:00 Urine Ketones Tr mg/dL (Negative) 09/22/18 22:00 Urine Blood Lg (Negative) 09/22/18 22:00 Urine Nitrite Neg (Negative) 09/22/18 22:00 Urine Bilirubin Neg (Negative) 09/22/18 22:00 Urine Urobilinogen < 2.0 mg/dL (<2.0) 09/22/18 22:00 Ur Leukocyte Esterase Lg (Negative) 09/22/18 22:00 Urine WBC (Auto) 159.0 /HPF (0.0-6.0) H 09/22/18 22:00 Urine RBC (Auto) 4.0 /HPF (0.0-6.0) 09/22/18 22:00 Urine Bacteria (Auto) 1+ /HPF (Negative) 09/22/18 22:00 Urine Mucus Few /HPF 09/22/18 22:00 Active Medications - Current Medications Current Medications: Generic Name Dose Route Start Last Admin Trade Name Freq PRN Reason Stop Dose Admin Acetaminophen 650 mg 09/23/18 00:35 09/27/18 02:06 Tylenol PO 650 mg Q4H PRN Administration Pain MILD(1-3)/Fever >100.5/BEJARANO Acetaminophen/Hydrocodone Bitart 1 each 09/26/18 04:08 09/29/18 10:18 George 5/325 PO 1 each Q4H PRN Administration Pain, Moderate (4-6) Atorvastatin Calcium 10 mg 09/23/18 22:00 09/28/18 22:40 Lipitor PO 10 mg QHS IGNACIO Administration Clopidogrel Bisulfate 75 mg 09/23/18 10:00 09/29/18 10:12 Plavix PO 75 mg QDAY IGNACIO Administration Dextrose 0 ml 09/23/18 00:37 D50w (25gm) Syringe IV PRN PRN Hypoglycemia Enoxaparin Sodium 40 mg 09/23/18 22:00 09/28/18 22:40 Lovenox SUB-Q 40 mg QDAY@2200 IGNACIO Administration Famotidine 20 mg 09/28/18 22:00 09/29/18 10:12 Pepcid PO 20 mg BID IGNACIO Administration Hydromorphone HCl 0.25 mg 09/23/18 00:35 09/24/18 03:40 Dilaudid IV 0.25 mg Q3H PRN Administration Pain, Moderate (4-6) Cefazolin Sodium 2 gm/ Sodium 100 mls @ 200 mls/hr 09/24/18 11:00 09/29/18 14:28 Chloride IV 200 mls/hr Q8HR IGNACIO Administration Protocol Insulin Glargine 50 units 09/24/18 22:00 09/28/18 22:40 Lantus SUB-Q 50 units QHS IGNACIO Administration Insulin Human Isoph/Insulin Regular 32 unit 09/29/18 08:00 09/29/18 12:22 Humulin 70/30 SUB-Q 32 unit QAMDIAB IGNACIO Administration Insulin Human Lispro 0 unit 09/24/18 13:20 09/29/18 12:19 Humalog SUB-Q Not Given ACHS IGNACIO Protocol Losartan Potassium 25 mg 09/23/18 10:00 09/29/18 10:12 Cozaar PO 25 mg QDAY IGNACIO Administration Metoclopramide HCl 10 mg 09/23/18 00:35 09/26/18 21:08 Reglan IV 10 mg Q6H PRN Administration Nausea And Vomiting Metoprolol Tartrate 25 mg 09/23/18 01:00 09/29/18 10:13 Lopressor PO 25 mg BID IGNACIO Administration Ondansetron HCl 4 mg 09/23/18 00:35 09/27/18 13:48 Zofran IV 4 mg Q8H PRN Administration Nausea And Vomiting Sodium Chloride 10 ml 09/23/18 10:00 09/29/18 12:23 Sodium Chloride Flush Syringe 10 Ml IV 10 ml BID IGNACIO Administration Sodium Chloride 10 ml 09/23/18 00:35 Sodium Chloride Flush Syringe 10 Ml IV PRN PRN LINE FLUSH Nutrition/Malnutrition Assess - Dietary Evaluation Nutrition/Malnutrition Findings: Nutrition Notes Start: 09/23/18 09:05 Freq: Status: Active Protocol: Document 09/29/18 13:50 EB (Rec: 09/29/18 13:55 EB [id number]) Co-Sign 09/29/18 13:50 LP Nutrition Notes Initial or Follow up Reassessment Current Diagnosis Diabetes Other Pertinent Diagnosis UTI, hypotension, right foot ulcer, DVT prophylaxis Current Diet Consistent Carbohydrate Diet Labs/Tests Reviewed Pertinent Medications Reviewed Height 5 ft 8 in Weight 91.7 kg [place] Body Weight (kg) 63.63 BMI 30.7 Weight Status Overweight Subjective/Other Information Pt states appetite has improved but has complaints about the food (cold, overcooked food). Requests no fish. Pt states that she eats 100% of most meals and drinks the Glucerna Percent of energy/protein needs met: 100%/76% Burn Absent Trauma Absent Current % PO Good (75-100%) #1 Nutrition Diagnosis Inadequate oral intake As Evidenced by Signs and Symptoms Pt meeting 100%/76% of martha and pro needs, respectively Diagnosis Progress(for reassessment Resolved documentation) Is patient on ventilator? No Is Patient Ambulatory and/or Out of Bed No REE-([facility]-confined to bed) [phone] Calculation Used for Recommendations [facility] Additional Notes Protein needs: 93-116g (1.2-1. 5g/kg AdjBW of 77.6 kg) Fluid: 1mL/kcal Nutrition Intervention Change Diet Order: Continue current diet Add Supplement/Snack (indicate name/kcal Glucerna BID /protein ) Provides kCal: 440 Provides Protein (gm) 20 Goal #1 Continue to meet at least 75% martha and pro needs via PO and ONS intake Anticipated Discharge Needs: Unable to determine at this time. Follow-Up By: 10/06/18 Additional Comments F/u: PO and ONS intakes
[2018-09-29] MEDS: LANTUS SUB-Q SCH (22:00)
[2018-09-29] MEDS: LOVENOX SUB-Q SCH (22:07)
[2018-09-30 05:09] LABS: BUN/Creatinine Ratio 22; Blood Urea Nitrogen 13 mg/dL (7-17); Calcium 7.9 mg/dL (8.4-10.2); Hemolysis Index 5
[2018-09-30] MEDS: ceFAZolin 2 GM in NACL 0.9% 100 ML IV SCH (06:19)
[2018-09-30] MEDS: HumaLOG SUB-Q SCH ×2 (08:00→12:30)
[2018-09-30] MEDS: NORCO 5/325 PO PRN (09:22)
[2018-09-30] MEDS: COZAAR PO SCH (09:25)
[2018-09-30] MEDS: LOPRESSOR PO SCH (09:26)
[2018-09-30] MEDS: PEPCID PO SCH (09:26)
[2018-09-30] MEDS: PLAVIX PO SCH (09:26)
[2018-09-30] MEDS: TYLENOL PO PRN (09:27)
[2018-09-30] MEDS: SODIUM CHLORIDE FLUSH SYRINGE 10 ML IV SCH (09:27)
[2018-09-30 09:34] VITALS: BP 120/63
--- NOTE | 2018-09-30 10:34 | Progress Note ---
Assessment and Plan Cultures: Blood culture 09/22/2018 Beta Strep group B 2 of 4 bottles. Blood culture 09/24/2018 no growth today. Urine culture 09/24/2018 MSSA Assessment: 62 y/o female with history of HTN, uncontrolled DM, Atrial Fib, HLD and chronic right diabetic foot ulcer follows [facility] Wound care center; admitted on 09/22/2018 due to 2-day history of generalized weakness, AMS, sleepiness and subjective fever: 1) Severe Sepsis with septic shock: New low grade fever noted. Etiology most likely multifactorial - GPC bacteremia +/- UTI +/- DKA. 2) Beta Strep group B bacteremia: likely real from unclear source ? right chronic plantar diabetic infection - Blood culture 09/22/2018 GPC in clusters 2 of 4. - TTE no vegetations 3) UTI: UA 154 wbc, large LE. Urine culture 09/24/2018 MSSA. Blood cultures did not grow Staph. No recent urologic procedures. Staph UTI is rare. Usually represents spread from bacteremia. 4) Acute encephalopathy: resolved; from sepsis/dehydration. CT head no acute intracraneal processes. 5) DM: uncontrolled with DKA. Per sister, patient has been non compliance with insulin and diet. At home glucose was 700s. She has been drinking cranberry juice, eating sweat potatoes and peanut butter. 6) Chronic right foot diabetic wound: now with an plantar abscess 2.0 x 1.4 x 0.8 cm to the fascia ? necrotizing infection. - Old wound culture Apr 2016 +MSSA. - Wound cultures from Jun 2017 grew Klebsiella, E colix2 and Strep group B. - Foot MRI 12/2017 showed cellulitis, no osteomyelitis. - S/P OR debridement and wound VAC placement on 01/27/18 findings - Deep space infection extending from the great toe to the 3rd toe and down the plantar. OR Gram stain 01/27/18 Beta hem Strep group B and now Klebsiella. Discharged on ceftriaxone 2 g IV qday total 2 week until 02/10/18 - XR foot showed degenerative change of the midfoot and forefoo and no plain film evidence of osteomyelitis and no evidence of gas within the soft tissues. - CRP 36 - MRI foot showed limited by motion. No MR evidence of osteomyelitis is seen suspected cellulitis of midfoot and toes, soft tissue ulceration plantar to medial, posterior aspect of calcaneus, with suspected soft tissue abscess deep to the soft tissue ulceration and plantar to the plantar fascia This could represent abscess, approximately 2.0 x 1.4 x 0.8 cm. 7) JUAN: resolved Recommendations: - continue cefazolin IV 2 gm IV q8h D4 of D14 -Anticipate discharge on Cefazolin 2gm IV every 8 hours ending 10-09-18 -Order placed with case management for OPAT -f/u ID clinic 2 weeks -continue wound care [facility] M: [phone] O:[phone] Subjective Date of service: 09/30/18 Principal diagnosis: septic shock, diabetes mellitus, metabolic acidosis, Interval history: Patient seen and examined. Asleep, easily arousable. Generalized weakness, den ies pain or SOB. No fevers. OPAT discussed, verbalized understanding. Objective - Exam Narrative Exam: General appearance: alert in NAD , No acute distress. Eyes: anicteric sclerae, moist conjunctivae; no lid-lag; PERRLA HENT: Atraumatic; oropharynx limited Neck: deviated to the left, tender better Lungs: CTA CV: RRR Abdomen: Soft, non-tender; no masses or hepatosplenomegaly Extremities: No peripheral edema or extremity lymphadenopathy, right mid plantar wound with periwound callus, no drainage Skin: Normal temperature, turgor and texture; no rash, ulcers or subcutaneous nodules Psych: no agitated Neuro: alert following commands Lines: left Midline - Constitutional Vitals: Vital Signs Temp Pulse Resp BP Pulse Ox 100.6 F H 107 H 18 120/63 97 09/30/18 08:00 09/30/18 10:00 09/30/18 10:00 09/30/18 10:00 09/30/18 10:00 Temperature -Last 24 Hours Temperature 100.6 F Temperature 98.3 F Temperature 98.9 F Temperature 99.2 F Temperature 98.5 F Temperature 100.1 F - Labs CBC & Chem 7: 09/29/18 00:39 09/30/18 04:27 Labs: Abnormal lab results 09/29/18 09/29/18 09/30/18 Range/Units 11:48 21:40 04:27 Sodium 132 L (137-145) mmol/L Carbon Dioxide 20 L (22-30) mmol/L Creatinine 0.6 L (0.7-1.2) mg/dL Glucose 104 H (65-100) mg/dL POC Glucose 136 H 120 H (70-105) Calcium 7.9 L (8.4-10.2) mg/dL 09/30/18 Range/Units 08:06 Sodium (137-145) mmol/L Carbon Dioxide (22-30) mmol/L Creatinine (0.7-1.2) mg/dL Glucose (65-100) mg/dL POC Glucose 107 H (70-105) Calcium (8.4-10.2) mg/dL
--- NOTE | 2018-09-30 11:02 | Discharge Summary ---
Providers - Providers Date of Admission: 09/22/18 18:17 Attending physician: FRANCISCO NORMAN MD 09/23/18 00:35 Consult to Dietitian/Nutrition [CONS] Routine Physician Instructions: Reason For Exam: Reason for Consult: Diet education 09/23/18 04:20 Consult to Wound/ET Nurse [CONS] Routine Reason For Exam: wound eval 09/23/18 04:33 Consult to Physician [CONS] Routine Comment: Consulting Provider: DELORIS ELY Physician Instructions: Reason For Exam: Sepsis 09/24/18 09:09 Speech Therapy Evaluation and Treat [CONS] Routine Reason For Exam: dysphagia? 09/24/18 09:11 Consult to PICC Line RN [CONS] Stat Reason For Exam: pressors Type Line:: PICC 09/24/18 13:27 Physical Therapy Evaluation and Treat [CONS] Routine Comment: Reason For Exam: Debility 09/27/18 13:20 Consult to Physician [CONS] Routine Comment: Consulting Provider: MEL ALONZO Physician Instructions: Reason For Exam: stuck rings 09/28/18 10:17 Occupational Therapy Evaluate and Treat [CONS] Routine Comment: Reason For Exam: inability to perform ADL 09/29/18 10:37 Consult to Case Management [CONS] Urgent Services Needed at Discharge: Other Notified:: no Additional Physician Instructions: [facility] ([facility] M [phone] O [phone] F [phone] OUTPATIENT PARENTERAL ANTIBIOTIC THERAPY ORDERS Diagnoses: Beta Strep Group B Bacteremia- source most likely right chronic plantar diabetic fott infection Antimicrobial administration: Anticipate discharge on Cefazolin 2gm IV every 8 hours ending 10-09-18. Remove PICC line after last dose unless otherwise instructed. Lines: PICC Lab monitoring: CBC, BUN, Creatinine, ALT, AST once a week preferly on Friday morning. Please fax results to [phone] and call [phone] for critical lab results. Aruna Stafford NP/Rick Ely MD Date: 09/29/18 09/29/18 13:59 PICC Line Insertion [Consult to PICC Line RN] [CONS] Urgent Reason For Exam: OPAT Type Line:: Midline Primary care physician: CHANNELER Hospitalization Condition: Serious Hospital course: 62F pw who was nc with insulin and med, pw gen weakness, n/v, elevatad glc, ams, r foot ulcer x 2 days PMH; htn, chf, dm, afib, hld CXR and CTH neg Diagnosis severe sepis septic shock Group B strep bacteremia Right foot ulcer, does not appear infected acute metabolic encephalopathy DKA, uncontrolled DM a1c 14 metabolic acidosis hyponatremia hypomagnesemia Sacral decub stage II, POA Plan * -She received insulin drip for DKA, she was transitioned to subcutaneous insulin that she improved * She received antibiotics and IV pressors. As the patient improved, she was weaned off pressors. She was continued on IV antibiotics. Cultures showed beta hemolytic group B strep bacteremia and MSSA UTI , she is being discharged on IV antibiotics. PICC line was placed prior to discharge * High right foot which had a history of previous infection was not infected on my exam, was actually much improved, and appears to be healing. * Her electrolytes were repleted * She received wound care for sacral decubitus which was large in stage II, present on admission - Disposition: [id number]/[place]-[id number] Time spent for discharge: 33 mins Core Measure Documentation - Palliative Care Palliative Care/ Comfort Measures: Not Applicable - Core Measures Any of the following diagnoses?: none Exam - Physical Exam Narrative exam: General.: Toxic appearance HEENT: Moist mucous membranes, extraocular muscles intact, no lymphadenopathy Neck: supple Cardiac: S1-S2 heard Lungs: clear to auscultation bilaterally Abdomen: soft , nontender, nondistended, bowel sounds positive Extremities: Deformity of right foot noted, with a healing wound Skin: Sacral decub noted, present on admission Neurologic: Moves all extremities, is confused Psych: calm, and cooperative - Constitutional Vitals: Temp Pulse Resp BP Pulse Ox 100.6 F H 107 H 18 120/63 97 09/30/18 08:00 09/30/18 10:00 09/30/18 10:00 09/30/18 10:09/30/18 10:00 Plan Follow up with: PRIMARY CARE, [Primary Care Provider] - 3-5 Days Prescriptions: HYDROcodone/APAP 5-325 [[place] 5-325 mg TAB] 1 each PO Q4H PRN #7 tablet PRN Reason: Pain, Moderate (4-6)
== END 2018-09-30 15:10 | DRG 871 ==
LOC: ED 15:11 → CC1 18:17 → IMCU 09-24 17:00
PROVIDERS: ADMIT Internal Medicine; ATTEND Internal Medicine
PROC: 06HM33Z Insertion of Infusion Device into Right Femoral Vein, Percutaneous Approach (ICD-10-PCS; 2018-09-24)
PROC: 05HY33Z Insertion of Infusion Device into Upper Vein, Percutaneous Approach (ICD-10-PCS; principal; 2018-09-29)
DX: A40.1 Sepsis due to streptococcus, group B (principal); E10.10 Type 1 diabetes mellitus with ketoacidosis without coma; R65.21 Severe sepsis with septic shock; G93.41 Metabolic encephalopathy; N30.00 Acute cystitis without hematuria; E87.1 Hypo-osmolality and hyponatremia; N17.9 Acute kidney failure, unspecified; L02.611 Cutaneous abscess of right foot; I48.91 Unspecified atrial fibrillation; I11.0 Hypertensive heart disease with heart failure; I50.9 Heart failure, unspecified; E78.5 Hyperlipidemia, unspecified; E83.42 Hypomagnesemia; E86.0 Dehydration; M62.838 Other muscle spasm; E10.621 Type 1 diabetes mellitus with foot ulcer; L89.152 Pressure ulcer of sacral region, stage 2; E87.5 Hyperkalemia; Z79.4 Long term (current) use of insulin
CPT/HCPCS: 36415; 70450; 71045; 71046; 72040; 74178; 80048; 80053; 80076; 81001; 82140; 82805; 82962; 83036; 83735; 84100; 84443; 84484; 85007; 85025; 86140; 87040; 87076; 87086; 87116; 87186; 93005; 93010; 93306; 96365; G0378; A9270-GY; A9577; J0690; J0696; J1170; J1650; J1815; J2405; J2543; J2765; J3370; J3475; J7030; J7040; J7050; Q9967

== ENCOUNTER 2020-04-08 13:23 | Emergency (ER) | payer MEDICARE ==
[2020-04-08 15:46] LABS: Basophils % (Auto) 0.7 % (0.0-1.8); Eosinophils # (Auto) 0.2 K/mm3 (0.0-0.4); Eosinophils % (Auto) 3.7 % (0.0-4.3); Hematocrit 34.4 % (30.3-42.9); Hemoglobin 11.5 gm/dl (10.1-14.3); Lymphocytes # (Auto) 1.3 K/mm3 (1.2-5.4); Lymphocytes % (Auto) 20.5 % (13.4-35.0); Mean Corpuscular HGB Conc 33 % (30-34); Mean Corpuscular Volume 88 fl (79-97); Monocytes # (Auto) 0.6 K/mm3 (0.0-0.8); Monocytes % (Auto) 9.3 % (0.0-7.3); Platelet Count 142 K/mm3 (140-440); Red Blood Count 3.91 M/mm3 (3.65-5.03); Red Cell Distribution Width 14.2 % (13.2-15.2)
[2020-04-08 15:53] LABS: INR 0.99 (0.87-1.13)
[2020-04-08 16:04] LABS: Alanine Aminotransferase 10 units/L (7-56); Albumin 3.5 g/dL (3.9-5); Blood Urea Nitrogen 23 mg/dL (7-17); Calcium 9.4 mg/dL (8.4-10.2); Hemolysis Index 4
[2020-04-08 16:05] LABS: BUN/Creatinine Ratio 38
[2020-04-08 18:45] VITALS: BP 155/59
--- NOTE | 2020-04-08 18:52 | Emergency Department Report ---
ED Extremity Problem HPI - General Chief complaint: Extremity Injury, Lower Stated complaint: (L) LEG SWOLLEN Time Seen by Provider: 04/08/20 18:29 Source: patient, EMS Mode of arrival: Ambulatory Limitations: No Limitations - History of Present Illness Initial comments: 64-year-old female presents to ED with left leg swelling x1 week. Patient reports she was recently discharged from rehab facility approximately 3 weeks ago. Patient reports she is mostly bedbound, however, she is able to ambulate with the help of a walker in addition to someone helping her. Patient states her left lower leg has been swollen for about 1 week patient also has some redness to the anterior aspect of the left lower leg. She denies any chest pain, shortness of breath, fever. MD Complaint: extremity swelling -: week(s) (1) Location: left, lower extremity -: No fever, No associated dyspnea, No associated chest pain Consistency: constant Improves with: nothing Worsens with: nothing Associated Symptoms: denies other symptoms. denies: chest pain, shortness of br eath, fever - Related Data Previous Rx's Medication Instructions Recorded Last Taken Type Clopidogrel [Plavix] 75 mg PO QDAY #30 tablet 02/24/17 01/26/18 Rx Losartan [Cozaar] 25 mg PO QDAY #30 tablet 02/24/17 01/26/18 Rx Lovastatin [Altoprev] 20 mg PO QPM #30 tab.er.24h 02/24/17 01/26/18 Rx Metoprolol [Lopressor TAB] 25 mg PO BID #60 tablet 02/24/17 01/26/18 Rx HYDROcodone/APAP 5-325 [[place] 1 each PO Q4H PRN #7 tablet 09/30/18 Unknown Rx 5-325 mg TAB] Insulin Detemir [Levemir VIAL] 40 unit SQ QHS #2 vial 09/30/18 Unknown Rx Lispro Insulin [HumaLOG] 0 unit SUB-Q ACHS units 09/30/18 Unknown Rx ceFAZolin Sodium [ceFAZolin] 2 gm IV Q8HR vial 09/30/18 Unknown Rx Sulfamethoxazole/Trimethoprim 1 each PO BID 10 Days #20 tablet 04/08/20 Unknown Rx [Bactrim DS TAB] cephALEXin [Keflex] 500 mg PO Q12HR 10 Days #20 cap 04/08/20 Unknown Rx Allergies Allergy/AdvReac Type Severity Reaction Status Date / Time No Known Allergies Allergy Verified 09/11/15 15:55 ED Review of Systems ROS: Stated complaint: (L) LEG SWOLLEN Other details as noted in HPI Comment: All other systems reviewed and negative Constitutional: denies: chills, fever Respiratory: denies: shortness of breath Cardiovascular: denies: chest pain Musculoskeletal: as per HPI ED Past Medical Hx - Past Medical History Previous Medical History?: Yes Hx Hypertension: Yes Hx Heart Attack/AMI: No Hx Congestive Heart Failure: No Hx Diabetes: Yes Hx Deep Vein Thrombosis: No Hx Pulmonary Embolism: No Hx GERD: No Hx Liver Disease: No Hx Arthritis: No Hx Headaches / Migraines: No Hx Asthma: No Hx COPD: No Hx Tuberculosis: No Hx HIV: No Additional medical history: hx a-fib. CHOLESTEROL - Surgical History Past Surgical History?: Yes Hx Coronary Stent: No Hx Open Heart Surgery: No Hx Pacemaker: No Hx Internal Defibrillator: No Hx Cholecystectomy: No Hx Appendectomy: No Hx Breast Surgery: No Additional Surgical History: foot surgery - Social History Smoking Status: Never Smoker Substance Use Type: None - Medications Home Medications: Home Medications Medication Instructions Recorded Confirmed Last Taken Type Clopidogrel [Plavix] 75 mg PO QDAY #30 tablet 02/24/17 09/22/18 01/26/18 Rx Losartan [Cozaar] 25 mg PO QDAY #30 tablet 02/24/17 09/22/18 01/26/18 Rx Lovastatin [Altoprev] 20 mg PO QPM #30 tab.er.24h 02/24/17 09/22/18 01/26/18 Rx Metoprolol [Lopressor TAB] 25 mg PO BID #60 tablet 02/24/17 09/22/18 01/26/18 Rx HYDROcodone/APAP 5-325 [[place] 1 each PO Q4H PRN #7 tablet 09/30/18 Unknown Rx 5-325 mg TAB] Insulin Detemir [Levemir VIAL] 40 unit SQ QHS #2 vial 09/30/18 09/22/18 Unknown Rx Lispro Insulin [HumaLOG] 0 unit SUB-Q ACHS units 09/30/18 Unknown Rx ceFAZolin Sodium [ceFAZolin] 2 gm IV Q8HR vial 09/30/18 Unknown Rx Sulfamethoxazole/Trimethoprim 1 each PO BID 10 Days #20 tablet 04/08/20 Unknown Rx [Bactrim DS TAB] cephALEXin [Keflex] 500 mg PO Q12HR 10 Days #20 cap 04/08/20 Unknown Rx ED Physical Exam - General Limitations: No Limitations General appearance: alert, in no apparent distress - Head Head exam: Present: atraumatic, normocephalic - Eye Eye exam: Present: normal appearance, EOMI - ENT ENT exam: Present: mucous membranes moist - Neck Neck exam: Present: normal inspection - Respiratory Respiratory exam: Present: normal lung sounds bilaterally. Absent: respiratory distress - Cardiovascular Cardiovascular Exam: Present: regular rate, normal rhythm - GI/Abdominal GI/Abdominal exam: Absent: distended - Extremities Exam Extremities exam: Present: other (2+ pitting edema left lower leg; left leg bigger than right; erythema and small, scattered superficial wounds to anterior left lower leg) - Neurological Exam Neurological exam: Present: alert, oriented X3 - Psychiatric Psychiatric exam: Present: normal affect, normal mood - Skin Skin exam: Present: warm, dry, intact, normal color ED Course Vital Signs 04/08/20 04/08/20 13:40 18:44 Temperature 97.4 F L 97.7 F Pulse Rate 74 69 Respiratory 14 17 Rate Blood Pressure 154/74 Blood Pressure 155/59 [Right] O2 Sat by Pulse 97 97 Oximetry ED Medical Decision Making - Lab Data Result diagrams: 04/08/20 15:09 04/08/20 15:09 - Radiology Data Radiology results: report reviewed, image reviewed - Medical Decision Making 64-year-old female presents to ED with left leg swelling x1 week. Ultrasound is negative for DVT. Patient has appearance of cellulitis to the left lower leg. Patient is afebrile, labs are unremarkable except for elevated glucose of 484. Patient however, does not appear to be in DKA. Repeat Accu-Chek is 386. Patient given 6 units of insulin. Patient okay for discharge at this time. Will discharge with prescription for antibiotics. Outpatient follow-up with PCP advised. Return precautions given. - Differential Diagnosis DVT, cellulitis, DKA Critical care attestation.: If time is entered above; I have spent that time in minutes in the direct care of this critically ill patient, excluding procedure time. ED Disposition Clinical Impression: Cellulitis of left lower leg, Hyperglycemia Disposition: - TO HOME OR SELFCARE Is pt being admited?: No Condition: Stable Instructions: Cellulitis (ED) Prescriptions: Sulfamethoxazole/Trimethoprim [Bactrim DS TAB] 1 each PO BID 10 Days #20 tablet cephALEXin [Keflex] 500 mg PO Q12HR 10 Days #20 cap Referrals: PRIMARY CARE, [Primary Care Provider] - 3-5 Days [facility] [Provider Group] - 3-5 Days Time of Disposition: 20:36
--- NOTE | 2020-04-08 20:07 | Vascular Lab Report ---
DUPLEX DOPPLER LOWER EXTREMITY VEINS, LEFT INDICATION: swelling. Left lower extremity pain and swelling. TECHNIQUE: Duplex doppler imaging was performed through the veins of the left lower extremity using venous compr ession and other maneuvers. COMPARISON: None available. FINDINGS: Common Femoral vein: Negative. Superficial Femoral vein: Negative. Popliteal vein: Negative. Calf veins: Negative. Additional findings: Mild subcutaneous edema present within the left lower extremity.. IMPRESSION: 1. No sonographic evidence for DVT in the left lower extremity. Signer Name: Herbert Santos MD Signed: 04/08/2020 8:02 PM Workstation Name: [id number]
[2020-04-08] MEDS ORDERED: INSULIN REGULAR, HUMAN 100 UNIT/ML 3ML VIAL SUB-Q ONE (20:38)
[2020-04-08] MEDS ORDERED: INSULIN REGULAR, HUMAN 100 UNITS/1 ML ONE (21:11)
== END 2020-04-08 20:50 | disposition home or self-care (01) ==
LOC: ED 13:23
DX: L03.116 Cellulitis of left lower limb (principal); E11.65 Type 2 diabetes mellitus with hyperglycemia; I10 Essential (primary) hypertension; Z79.4 Long term (current) use of insulin; Z79.899 Other long term (current) drug therapy
CPT/HCPCS: 36415; 80053; 82140; 82805; 82962; 85025; 85610; 96372; J1815

== ENCOUNTER 2022-03-28 14:58 | Inpatient (IN) | payer MEDICARE ==
--- NOTE | 2022-03-28 17:07 | Emergency Department Report ---
HPI - General Chief Complaint: Weakness PUI?: No Time Seen by Provider: 03/28/22 16:26 - HPI HPI: 66-year-old morbidly obese female with chronic indwelling Calderón catheter, presents for evaluation of weakness. HPI is limited from the perspective of the patient as she was brought in for altered mental status. Patient is altered at the time of arrival and so HPI from patient's perspective is unclear. Per note the patient arrives with a chronic indwelling Calderón catheter. ED Past Medical Hx - Past Medical History Previous Medical History?: Yes Hx Hypertension: Yes Hx Heart Attack/AMI: No Hx Congestive Heart Failure: No Hx Diabetes: Yes Hx Deep Vein Thrombosis: No Hx Pulmonary Embolism: No Hx GERD: No Hx Liver Disease: No Hx Arthritis: No Hx Headaches / Migraines: No Hx Asthma: No Hx COPD: No Hx Tuberculosis: No Hx HIV: No Additional medical history: hx a-fib. CHOLESTEROL - Surgical History Hx Coronary Stent: No Hx Open Heart Surgery: No Hx Pacemaker: No Hx Internal Defibrillator: No Hx Cholecystectomy: No Hx Appendectomy: No Hx Breast Surgery: No Additional Surgical History: foot surgery - Social History Smoking Status: Never Smoker Substance Use Type: None - Medications Home Medications: Home Medications Medication Instructions Recorded Confirmed Last Taken Type Clopidogrel [Plavix] 75 mg PO QDAY #30 tablet 02/24/17 09/22/18 01/26/18 Rx Losartan [Cozaar] 25 mg PO QDAY #30 tablet 02/24/17 09/22/18 01/26/18 Rx Lovastatin [Altoprev] 20 mg PO QPM #30 tab.er.24h 02/24/17 09/22/18 01/26/18 Rx Metoprolol [Lopressor TAB] 25 mg PO BID #60 tablet 02/24/17 09/22/18 01/26/18 Rx HYDROcodone/APAP 5-325 [[place] 1 each PO Q4H PRN #7 tablet 09/30/18 Unknown Rx 5-325 mg TAB] Insulin Detemir [Levemir VIAL] 40 unit SQ QHS #2 vial 09/30/18 09/22/18 Unknown Rx Lispro Insulin [HumaLOG] 0 unit SUB-Q ACHS units 09/30/18 Unknown Rx ceFAZolin Sodium [ceFAZolin] 2 gm IV Q8HR vial 09/30/18 Unknown Rx Sulfamethoxazole/Trimethoprim 1 each PO BID 10 Days #20 tablet 04/08/20 Unknown Rx [Bactrim DS TAB] cephALEXin [Keflex] 500 mg PO Q12HR 10 Days #20 cap 04/08/20 Unknown Rx ED Review of Systems ROS: Stated complaint: AMS Other details as noted in HPI Comment: Unobtainable due to pts medical conditions Physical Exam - Physical Exam Vital Signs: Vital Signs 03/28/22 14:58 Temperature 98.1 F Pulse Rate 56 L Respiratory 16 Rate Blood Pressure 124/73 [Left] O2 Sat by Pulse 99 Oximetry General: Gen: Elderly female, pale appearing, lying on stretcher, no drooling no stridor no respiratory distress, HEENT: Normocephalic atraumatic pupils equally round and reactive to light extraocular muscles intact sclera anicteric Neck: Full range of motion, no midline spinal tenderness palpation, no JVD, no carotid bruits, no nuchal rigidity CVS: S1-S2 regular rate and rhythm with no gallops rubs or murmurs, chest wall nontender Pulmonary: Clear to auscultation bilaterally, no wheezes rales or rhonchi Abdomen: Soft nondistended nontender no guarding or rebound tenderness, no palpable deformities or step-offs, normal active bowel sounds, no hepatosplenomegaly, no pulsatile masses : Indwelling Calderón catheter in urinary bladder noted, urine in bag is dark and cloudy appearing, no obvious hematuria or clots Extremities: No cyanosis no clubbing no edema, intact distal peripheral pulses, Integumentary: Skin normal, no petechia no purpura no abscess no lacerations no evidence of trauma no evidence of infection Neuro: Patient is awake alert and oriented to person and place, patient appears confused, she is moving all extremities 4 out of 5 motor strength UE b/l; 5/5 motor strength b/l Lower extremities; Psych: Calm cooperative, mood affect normal ED Course Vital Signs 03/28/22 14:58 Temperature 98.1 F Pulse Rate 56 L Respiratory 16 Rate Blood Pressure 124/73 [Left] O2 Sat by Pulse 99 Oximetry ED Medical Decision Making - Lab Data Result diagrams: 03/28/22 17:25 03/28/22 17:25 - EKG Data -: EKG Interpreted by Me EKG shows normal: sinus rhythm Rate: normal - EKG Data When compared to previous EKG there are: no significant change - Radiology Data Radiology results: report reviewed - Medical Decision Making 66-year-old female with multiple medical comorbidities brought in by EMS for evaluation of altered mental status. Patient's daughter subsequently arrived and reports that the patient has been nightly fused and not eating for the past 3 to 4 days. She states that the patient has had UTIs in the past and she is concerned the patient has this. Serum labs reviewed. Patient has acute kidney injury and UTI. She was given Rocephin and 1 L of normal saline. Patient has been accepted by , admitting hospitalist, for further management. Critical care attestation.: If time is entered above; I have spent that time in minutes in the direct care o f this critically ill patient, excluding procedure time. ED Disposition Clinical Impression: JUAN (acute kidney injury), UTI (urinary tract infection) Disposition: ADMITTED INPATIENT Is pt being admited?: Yes Does the pt Need Aspirin: No Condition: Stable
--- NOTE | 2022-03-28 17:27 | XRay Report ---
CHEST 1 VIEW 03/28/2022 5:10 PM INDICATION / CLINICAL INFORMATION: weakness, altered mental status. COMPARISON: 09/24/2018 FINDINGS: SUPPORT DEVICES: None. HEART / MEDIASTINUM: No significant abnormality. LUNGS / PLEURA: No focal consolidation. Mild blunting of because canelo recesses, possibly related ate lectasis or small effusions. No pneumothorax. ADDITIONAL FINDINGS: No significant additional findings. IMPRESSION: 1. Blunting of the costophrenic recesses, possibly related to atelectasis or small effusions. Signer Name: Andrea Coy MD Signed: 03/28/2022 5:23 PM Workstation Name: [id number]
--- NOTE | 2022-03-28 17:40 | Cat Scan Report ---
CT HEAD WITHOUT CONTRAST INDICATION / CLINICAL INFORMATION: altered mental status. TECHNIQUE: All CT scans at this location are performed using CT dose reduction for ALARA by means of automated exposure control. COMPARISON: None available. FINDINGS: BRAIN PARENCHYMA: No acute intracranial hemorrhage. No evidence of recent infarct. No mass effect or midline shift. Multifocal periventricular and subcortical white matter hypoattenuation, most compatib le with chronic small vessel ischemic changes. VENTRICULAR SYSTEM/EXTRA-AXIAL SPACES: Age-related cerebral atrophy. No extra-axial fluid collection. ORBITS: Normal as visualized. SKELETAL SYSTEM/SOFT TISSUES: Normal bones and soft tissues. PARANASAL SINUSES/MASTOID AIR CELLS: No significant abnormality. ADDITIONAL FINDINGS: None. IMPRESSION: 1. No acute intracranial abnormality. Signer Name: Siddharth Martinez MD Signed: 03/28/2022 5:36 PM Workstation Name: [id number]
[2022-03-28 18:06] LABS: Basophils % (Auto) 0.5 % (0.0-1.8); Eosinophils % (Auto) 1.1 % (0.0-4.3); Hematocrit 24.2 % (30.3-42.9); Hemoglobin 8.1 gm/dl (10.1-14.3); Lymphocytes % (Auto) 23.3 % (13.4-35.0); Mean Corpuscular HGB Conc 33 % (30-34); Mean Corpuscular Volume 91 fl (79-97); Monocytes # (Auto) 0.3 K/mm3 (0.0-0.8); Monocytes % (Auto) 6.4 % (0.0-7.3); Red Blood Count 2.64 M/mm3 (3.65-5.03); Red Cell Distribution Width 17.2 % (13.2-15.2)
[2022-03-28 18:17] LABS: Platelet Count 37 K/mm3 (140-440)
[2022-03-28 18:27] LABS: Albumin 3.4 g/dL (3.9-5); Calcium 8.6 mg/dL (8.4-10.2)
[2022-03-28 21:50] LABS: Bilirubin,Urine NEG (Negative); Blood,Urine MOD (Negative); Color,Urine Yellow (Yellow); Urobilinogen,Urine < 2 mg/dL (<2.0)
[2022-03-28 21:53] LABS: Bacteria,Urine 4+ /HPF (Negative); Mucus,Urine FEW /HPF
[2022-03-28 22:29] LABS: Amphetamine Screen,Urine PRESUMPTIVE NEGATIVE; Benzodiazepines Screen,Urine PRESUMPTIVE NEGATIVE; Cannabinoid Screen,Urine PRESUMPTIVE NEGATIVE; Cocaine Screen,Urine PRESUMPTIVE NEGATIVE; Methadone Screen,Urine PRESUMPTIVE NEGATIVE; Opiate Screen,Urine PRESUMPTIVE NEGATIVE
[2022-03-29] MEDS ORDERED: cefTRIAXone/NS 1 GM/50 ML 1 GM/50 ML BAG IV ONE ×2 (00:28→22:00)
[2022-03-29] MEDS ORDERED: SODIUM CHLORIDE 0.9% 1000 ML 1,000 ML IV ONE (00:28)
[2022-03-29] MEDS ORDERED: MORPHINE 2 MG/1 ML INJ IV PRN (01:48)
[2022-03-29] MEDS ORDERED: MORPHINE 4 MG/1 ML INJ IV PRN (01:48)
[2022-03-29] MEDS ORDERED: ACETAMINOPHEN 325 MG TAB PO PRN (01:48)
[2022-03-29] MEDS ORDERED: DEXTROSE 50% IN WATER (25GM) 50 ML SYRINGE IV PRN (01:48)
[2022-03-29] MEDS ORDERED: MAGNESIUM HYDROXIDE (MOM) ORAL LIQD UDC PO PRN (01:48)
[2022-03-29] MEDS ORDERED: ONDANSETRON 4 MG/2 ML INJ IV PRN (01:48)
--- NOTE | 2022-03-29 01:58 | History and Physical Report ---
History of Present Illness Date of examination: 03/29/22 Date of admission: 03/29/2022 Chief complaint: Generalized Weakness History of present illness: 66-year-old female with significant past medical history diabetes mellitus, hypertension, history of A. fib and hyperlipidemia accompanied to the emergency room today by daughter for evaluation of generalized weakness. Most of the history was gotten from the daughter was by the bedside as patient is unable to give a very coherent history. Patient has a chronic indwelling Calderón catheter. There has been no fever or chills, no nausea or vomiting and no abdominal pain. There has been no cough or shortness of breath. No headache or dizziness and no diaphoresis. Work-up in the emergency room today, labs significant for UTI. Chest x-ray shows blunting of the costophrenic recesses, possibly related to atelectasis or small effusions. CT scan of the head shows no acute findings. Lab is significant for BUN of 58 and creatinine of 1.9. Patient being admitted with generalized weakness, JUAN and UTI. Past History Past Medical History: diabetes, hypertension, hyperlipidemia Past Surgical History: Other (Foot surgery) Social history: no significant social history Family history: no significant family history Medications and Allergies Allergies Allergy/AdvReac Type Severity Reaction Status Date / Time No Known Allergies Allergy Verified 09/11/15 15:55 Home Medications Medication Instructions Recorded Confirmed Last Taken Type Clopidogrel [Plavix] 75 mg PO QDAY #30 tablet 02/24/17 09/22/18 01/26/18 Rx Losartan [Cozaar] 25 mg PO QDAY #30 tablet 02/24/17 09/22/18 01/26/18 Rx Lovastatin [Altoprev] 20 mg PO QPM #30 tab.er.24h 02/24/17 09/22/18 01/26/18 Rx Metoprolol [Lopressor TAB] 25 mg PO BID #60 tablet 02/24/17 09/22/18 01/26/18 Rx HYDROcodone/APAP 5-325 [[place] 1 each PO Q4H PRN #7 tablet 09/30/18 Unknown Rx 5-325 mg TAB] Insulin Detemir [Levemir VIAL] 40 unit SQ QHS #2 vial 09/30/18 09/22/18 Unknown Rx Lispro Insulin [HumaLOG] 0 unit SUB-Q ACHS units 09/30/18 Unknown Rx ceFAZolin Sodium [ceFAZolin] 2 gm IV Q8HR vial 09/30/18 Unknown Rx Sulfamethoxazole/Trimethoprim 1 each PO BID 10 Days #20 tablet 04/08/20 Unknown Rx [Bactrim DS TAB] cephALEXin [Keflex] 500 mg PO Q12HR 10 Days #20 cap 04/08/20 Unknown Rx Active Meds: Active Medications Acetaminophen (Acetaminophen 325 Mg Tab) 650 mg PO Q4H PRN PRN Reason: Pain MILD(1-3)/Fever >100.5/BEJARANO Dextrose (Dextrose 50% In Water (25gm) 50 Ml Syringe) 50 ml IV Q30MIN PRN; Pro tocol PRN Reason: Hypoglycemia Heparin Sodium (Porcine) (Heparin 5,000 Unit/1 Ml Vial) 5,000 unit SUB-Q Q8HR IGNACIO Sodium Chloride (Nacl 0.9% 1000 Ml) 1,000 mls @ 125 mls/hr IV DIRECT IGNACIO Insulin Human Lispro (Insulin Lispro 100 Unit/Ml) 0 unit SUB-Q ACHS IGNACIO; Protocol Magnesium Hydroxide (Magnesium Hydroxide (Mom) Oral Liqd Udc) 30 ml PO Q4H PRN PRN Reason: Constipation Morphine Sulfate (Morphine 2 Mg/1 Ml Inj) 2 mg IV Q4H PRN PRN Reason: Pain, Moderate (4-6) Morphine Sulfate (Morphine 4 Mg/1 Ml Inj) 4 mg IV Q4H PRN PRN Reason: Pain , Severe (7-10) Ondansetron HCl (Ondansetron 4 Mg/2 Ml Inj) 4 mg IV Q8H PRN PRN Reason: Nausea And Vomiting Sodium Chloride (Sodium Chloride 0.9% 10 Ml Flush Syringe) 10 ml IV BID IGNACIO Sodium Chloride (Sodium Chloride 0.9% 10 Ml Flush Syringe) 10 ml IV PRN PRN PRN Reason: LINE FLUSH Review of Systems Constitutional: weakness, no fever, no chills Ears, nose, mouth and throat: no nasal congestion, no sore throat Cardiovascular: no chest pain, no palpitations Respiratory: no cough, no shortness of breath Gastrointestinal: no abdominal pain, no nausea, no vomiting, no diarrhea Genitourinary Female: no pelvic pain, no flank pain, no dysuria Musculoskeletal: no neck pain, no low back pain Integumentary: no rash, no pruritis Neurological: no headaches, no confusion Psychiatric: no anxiety, no depression Endocrine: no polyphagia, no polydipsia, no polyuria, no nocturia Exam - Constitutional Vitals: Temp Pulse Resp BP Pulse Ox 98.0 F 52 L 18 113/62 98 03/28/22 21:12 03/28/22 21:12 03/28/22 21:12 03/28/22 21:12 03/28/22 22:00 General appearance: Present: no acute distress, well-nourished - EENT Eyes: Present: PERRL, EOM intact. Absent: scleral icterus ENT: hearing intact, clear oral mucosa, dentition normal - Neck Neck: Present: supple, normal ROM - Respiratory Respiratory effort: normal Respiratory: bilateral: CTA - Cardiovascular Rhythm: regular Heart Sounds: Present: S1 & S2. Absent: gallop, systolic murmur, diastolic murmur, rub, click - Extremities Extremities: no ischemia, pulses intact, pulses symmetrical, No edema, normal temperature, normal color, Full ROM Peripheral Pulses: within normal limits - Abdominal General gastrointestinal: Present: soft, non-tender, non-distended, normal bowel sounds. Absent: mass - Integumentary Integumentary: Present: clear, warm, dry, normal turgor. Absent: rash - Musculoskeletal Musculoskeletal: strength equal bilaterally - Psychiatric Psychiatric: appropriate mood/affect, intact judgment & insight, memory intact, cooperative - Neurologic Neurologic: CNII-XII intact, no focal deficits, moves all extremities Results - Labs CBC & Chem 7: 03/28/22 17:25 03/28/22 17:25 Labs: Abnormal lab results 03/28/22 03/28/22 03/28/22 Range/Units 17:25 17:25 17:25 RBC 2.64 L (3.65-5.03) M/mm3 Hgb 8.1 L (10.1-14.3) gm/dl Hct 24.2 L (30.3-42.9) % RDW 17.2 H (13.2-15.2) % Plt Count 37 L (140-440) K/mm3 Lymph # (Auto) 1.0 L (1.2-5.4) K/mm3 Carbon Dioxide 20 L (22-30) mmol/L BUN 58 H (7-17) mg/dL Creatinine 1.9 H (0.6-1.2) mg/dL Glucose 146 H (65-100) mg/dL POC Glucose (70-105) mg/dL AST 86 H (5-40) units/L Alkaline Phosphatase 175 H (35-129) units/L Total Protein 5.7 L (6.3-8.2) g/dL Albumin 3.4 L (3.9-5) g/dL TSH 9.480 H (0.270-4.200) mlU/mL Urine WBC (Auto) (0.0-6.0) /HPF Salicylates (2.8-20.0) mg/dL Acetaminophen (10.0-30.0) ug/mL 03/28/22 03/28/22 03/28/22 Range/Units 17:25 17:25 17:34 RBC (3.65-5.03) M/mm3 Hgb (10.1-14.3) gm/dl Hct (30.3-42.9) % RDW (13.2-15.2) % Plt Count (140-440) K/mm3 Lymph # (Auto) (1.2-5.4) K/mm3 Carbon Dioxide (22-30) mmol/L BUN (7-17) mg/dL Creatinine (0.6-1.2) mg/dL Glucose (65-100) mg/dL POC Glucose 146 H (70-105) mg/dL AST (5-40) units/L Alkaline Phosphatase (35-129) units/L Total Protein (6.3-8.2) g/dL Albumin (3.9-5) g/dL TSH (0.270-4.200) mlU/mL Urine WBC (Auto) (0.0-6.0) /HPF Salicylates < 0.3 L (2.8-20.0) mg/dL Acetaminophen 5.0 L (10.0-30.0) ug/mL 03/28/22 03/28/22 Range/Units 21:22 21:23 RBC (3.65-5.03) M/mm3 Hgb (10.1-14.3) gm/dl Hct (30.3-42.9) % RDW (13.2-15.2) % Plt Count (140-440) K/mm3 Lymph # (Auto) (1.2-5.4) K/mm3 Carbon Dioxide (22-30) mmol/L BUN (7-17) mg/dL Creatinine (0.6-1.2) mg/dL Glucose (65-100) mg/dL POC Glucose 142 H (70-105) mg/dL AST (5-40) units/L Alkaline Phosphatase (35-129) units/L Total Protein (6.3-8.2) g/dL Albumin (3.9-5) g/dL TSH (0.270-4.200) mlU/mL Urine WBC (Auto) 101.0 H (0.0-6.0) /HPF Salicylates (2.8-20.0) mg/dL Acetaminophen (10.0-30.0) ug/mL Assessment and Plan Assessment: 1.Generalized weakness 2.Acute Renal failure 3.UTI 4. Diabetes mellitus 5. Hypertension Plan: 1. Patient admitted and placed on IV fluid and empiric IV antibiotics. 2. We will resume routine home medications and monitor vital signs closely. 3. Patient placed on sliding scale insulin. We will monitor Accu-Cheks. 4. We will schedule patient for renal ultrasound. 5. Consult placed to nephrology for evaluation and recommendations. DVT Prophylacis:SQ Heparin Code Status: Full Code
[2022-03-29] MEDS ORDERED: SODIUM CHLORIDE 0.9% 1000 ML 1,000 ML IV SCH (02:00)
[2022-03-29] MEDS: HEPARIN 5,000 UNIT/1 ML VIAL SUB-Q SCH ×3 (08:46→21:57)
[2022-03-29] MEDS: INSULIN LISPRO 100 UNIT/ML SUB-Q SCH ×4 (08:48→22:00)
--- NOTE | 2022-03-29 09:17 | Ultrasound Report ---
. ULTRASOUND RENAL INDICATION / CLINICAL INFORMATION: JUAN. COMPARISON: CT abdomen pelvis with and without contrast 09/26/2018 FINDINGS: RIGHT KIDNEY: Length = 11.5 cm. [normal > 9 cm] - Parenchymal Thickness = 1.5 cm. [normal > 1.5 cm] - Echogenicity: Increased - Hydronephrosis: None. - Cyst or mass: No significant abnormality. - Stones: None seen. LEFT KIDNEY: Length = 10.7 cm. [normal > 9 cm] - Parenchymal Thickness = 2.0 cm. [normal > 1.5 cm] - Echogenicity: Increased - Hydronephrosis: There is moderate left hydronephrosis. - Cyst or mass: No significant abnormality. - Stones: None seen. URINARY BLADDER: The bladder is decompressed with a Calderón catheter. FREE FLUID: None. ADDITIONAL FINDINGS: Multiple small stones are noted in the gallbladder. There is mild gallbladder wa ll thickening but no convincing dilatation. There is small perihepatic ascites. IMPRESSION: Moderate left hydronephrosis but no obvious nephrolithiasis or obstructing lesion in the left ureter on ultrasound. Slightly echogenic kidneys consistent with medical renal disease. Cholelithiasis. Mild gallbladder wall thickening. Small perihepatic ascites. Correlate for biliary sy mptoms. Signer Name: Rashaun Mei Jr, MD Signed: 03/29/2022 9:13 AM Workstation Name: [id number]
--- NOTE | 2022-03-29 10:47 | Consultation ---
History of Present Illness - Reason for Consult Consult date: 03/29/22 acute renal failure, chronic renal failure - History of Present Illness 66-year-old female with significant past medical history diabetes mellitus, hypertension, history of A. fib and hyperlipidemia accompanied to the emergency room today by daughter for evaluation of generalized weakness. Most of the history was gotten from the daughter was by the bedside as patient is unable to give a very coherent history. Patient has a chronic indwelling Calderón catheter. There has been no fever or chills, no nausea or vomiting and no abdominal pain. There has been no cough or shortness of breath. No headache or dizziness and no diaphoresis. Work-up in the emergency room today, labs significant for UTI. Chest x-ray shows blunting of the costophrenic recesses, possibly related to atelectasis or small effusions. CT scan of the head shows no acute findings. Lab is significant for BUN of 58 and creatinine of 1.9. Patient being admitted with generalized weakness, JUAN and UTI. Past History Past Medical History: diabetes, hypertension, hyperlipidemia Past Surgical History: Other (Foot surgery) Social history: no significant social history Family history: no significant family history Review of Systems Constitutional: weakness, no fever, no chills Ears, nose, mouth and throat: no nasal congestion, no sore throat Cardiovascular: no chest pain, no palpitations Respiratory: no cough, no shortness of breath Gastrointestinal: no abdominal pain, no nausea, no vomiting, no diarrhea Genitourinary Female: no pelvic pain, no flank pain, no dysuria Musculoskeletal: no neck pain, no low back pain Integumentary: no rash, no pruritis Neurological: no headaches, no confusion Psychiatric: no anxiety, no depression Endocrine: no polyphagia, no polydipsia, no polyuria, no nocturia Past History Past Medical History: diabetes, hypertension, hyperlipidemia Past Surgical History: Other (Foot surgery) Social history: no significant social history Family history: no significant family history Medications and Allergies Allergies Allergy/AdvReac Type Severity Reaction Status Date / Time No Known Allergies Allergy Verified 09/11/15 15:55 Home Medications Medication Instructions Recorded Confirmed Last Taken Type Clopidogrel [Plavix] 75 mg PO QDAY #30 tablet 02/24/17 09/22/18 01/26/18 Rx Losartan [Cozaar] 25 mg PO QDAY #30 tablet 02/24/17 09/22/18 01/26/18 Rx Lovastatin [Altoprev] 20 mg PO QPM #30 tab.er.24h 02/24/17 09/22/18 01/26/18 Rx Metoprolol [Lopressor TAB] 25 mg PO BID #60 tablet 02/24/17 09/22/18 01/26/18 Rx HYDROcodone/APAP 5-325 [[place] 1 each PO Q4H PRN #7 tablet 09/30/18 Unknown Rx 5-325 mg TAB] Insulin Detemir [Levemir VIAL] 40 unit SQ QHS #2 vial 09/30/18 09/22/18 Unknown Rx Lispro Insulin [HumaLOG] 0 unit SUB-Q ACHS units 09/30/18 Unknown Rx ceFAZolin Sodium [ceFAZolin] 2 gm IV Q8HR vial 09/30/18 Unknown Rx Sulfamethoxazole/Trimethoprim 1 each PO BID 10 Days #20 tablet 04/08/20 Unknown Rx [Bactrim DS TAB] cephALEXin [Keflex] 500 mg PO Q12HR 10 Days #20 cap 04/08/20 Unknown Rx Active Meds: Active Medications Acetaminophen (Acetaminophen 325 Mg Tab) 650 mg PO Q4H PRN PRN Reason: Pain MILD(1-3)/Fever >100.5/BEJARANO Dextrose (Dextrose 50% In Water (25gm) 50 Ml Syringe) 0 ml IV Q30MIN PRN; Protocol PRN Reason: Hypoglycemia Heparin Sodium (Porcine) (Heparin 5,000 Unit/1 Ml Vial) 5,000 unit SUB-Q Q8HR IGNACIO Last Admin: 03/29/22 08:46 Dose: 5,000 unit Sodium Chloride (Nacl 0.9% 1000 Ml) 1,000 mls @ 125 mls/hr IV DIRECT IGNACIO Insulin Human Lispro (Insulin Lispro 100 Unit/Ml) 0 unit SUB-Q ACHS IGNACIO; Protocol Last Admin: 03/29/22 08:48 Dose: Not Given Magnesium Hydroxide (Magnesium Hydroxide (Mom) Oral Liqd Udc) 30 ml PO Q4H PRN PRN Reason: Constipation Morphine Sulfate (Morphine 2 Mg/1 Ml Inj) 2 mg IV Q4H PRN PRN Reason: Pain, Moderate (4-6) Morphine Sulfate (Morphine 4 Mg/1 Ml Inj) 4 mg IV Q4H PRN PRN Reason: Pain , Severe (7-10) Ondansetron HCl (Ondansetron 4 Mg/2 Ml Inj) 4 mg IV Q8H PRN PRN Reason: Nausea And Vomiting Sodium Chloride (Sodium Chloride 0.9% 10 Ml Flush Syringe) 10 ml IV BID IGNACIO Sodium Chloride (Sodium Chloride 0.9% 10 Ml Flush Syringe) 10 ml IV PRN PRN PRN Reason: LINE FLUSH Exam - Vital Signs Vital signs: Vital Signs Temp Pulse Resp BP Pulse Ox 98.1 F 56 L 16 124/73 99 03/28/22 14:58 03/28/22 14:58 03/28/22 14:58 03/28/22 14:58 03/28/22 14:58 - Physical Exam Narrative exam: General appearance: Present: no acute distress, well-nourished - EENT Eyes: Present: PERRL, EOM intact. Absent: scleral icterus ENT: hearing intact, clear oral mucosa, dentition normal - Neck Neck: Present: supple, normal ROM - Respiratory Respiratory effort: normal Respiratory: bilateral: CTA - Cardiovascular Rhythm: regular Heart Sounds: Present: S1 & S2. Absent: gallop, systolic murmur, diastolic murmur, rub, click - Extremities Extremities: no ischemia, pulses intact, pulses symmetrical, No edema, normal temperature, normal color, Full ROM Peripheral Pulses: within normal limits - Abdominal General gastrointestinal: Present: soft, non-tender, non-distended, normal bowel sounds. Absent: mass - Integumentary Integumentary: Present: clear, warm, dry, normal turgor. Absent: rash - Musculoskeletal Musculoskeletal: strength equal bilaterally - Psychiatric Psychiatric: appropriate mood/affect, intact judgment & insight, memory intact, cooperative - Neurologic Neurologic: CNII-XII intact, no focal deficits, moves all extremities Results - Lab Results 03/28/22 17:25 03/28/22 17:25 Most recent lab results Calcium 8.6 mg/dL (8.4-10.2) 03/28/22 17:25 Assessment and Plan Assessment: 1.Generalized weakness 2.Acute Renal failure 3.UTI 4. Diabetes mellitus 5. Hypertension Plan: agree with IV fluid and empiric IV antibiotics. 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
--- NOTE | 2022-03-29 11:47 | Electrocardiograph Report ---
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
[2022-03-29 20:56] VITALS: BP 119/71
== END 2022-03-29 22:44 | disposition home or self-care (01) | DRG 871 ==
LOC: ED 14:58 → 3A 03-29 01:48
PROVIDERS: ADMIT Internal Medicine Geriatric Medicine; ATTEND Student in an Organized Health Care Education/Training Program
DX: A41.9 Sepsis, unspecified organism (principal); G93.41 Metabolic encephalopathy; J96.01 Acute respiratory failure with hypoxia; N17.9 Acute kidney failure, unspecified; N30.01 Acute cystitis with hematuria; E87.0 Hyperosmolality and hypernatremia; E11.9 Type 2 diabetes mellitus without complications; R53.1 Weakness; E87.6 Hypokalemia; I10 Essential (primary) hypertension; E78.5 Hyperlipidemia, unspecified; E11.621 Type 2 diabetes mellitus with foot ulcer; L97.519 Non-pressure chronic ulcer of other part of right foot with unspecified severity; E66.01 Morbid (severe) obesity due to excess calories; L89.151 Pressure ulcer of sacral region, stage 1; Z79.4 Long term (current) use of insulin; Z68.35 Body mass index [BMI] 35.0-35.9, adult
CPT/HCPCS: 36415; 70450; 71045; 76770; 80053; 80307; 80320; 81001; 82962; 84443; 85025; 93005; G0378; G0480; J0696; J1644; J7030